=== PATIENT | female | born 1935 | race Caucasian/White ===

== ENCOUNTER 2016-10-17 07:58 | Inpatient (IN) | payer MEDICARE ==
[~2016-10-17] VITALS: Ht 170.2 cm; Wt 77.1 kg
[~2016-10-17 07:58] MED LIST: ATOR80TA PO; CARB-96 PO; FERR-58 PO; GABA-532 PO; INSU3INS6 SQ; MIRT30TA PO; OLME20TA15 PO; QUET25TA PO; RIVA10TA PO; SITA1TAB6 PO; TOLT4CAP PO
[2016-10-17 08:30] LABS: BASOPHILS % (AUTO) 0.3 % (0.0-2.0); DIFF TOTAL % 100 %; EOSINOPHILS # (AUTO) 0.1 /CMM (0.0-0.7); EOSINOPHILS % (AUTO) 0.9 % (0.0-6.0); HEMATOCRIT 36 % (33-45); HEMOGLOBIN 11.5 g/dL (11.5-14.8); LYMPHOCYTES % (AUTO) 19.2 % (20.0-44.0); MEAN CORPUSCULAR HEMOGLOBIN 29 PG (26.0-33.0); MEAN CORPUSCULAR HGB CONC 32 g/dl (31.0-36.0); MEAN CORPUSCULAR VOLUME 91 fL (82-100); MONOCYTES # (AUTO) 0.6 /CMM (0.1-1.30); MONOCYTES % (AUTO) 5.5 % (2.0-12.0); NEUTROPHILS # (AUTO) 7.8 /CMM (1.8-8.9); NEUTROPHILS % (AUTO) 74.1 % (43.0-81.0); PLATELET COUNT (AUTO) 267 /CMM (150-450); RED BLOOD CELL COUNT(AUTO) 3.95 MIL/uL (4.0-5.2); WHITE BLOOD COUNT (AUTO) 10.5 K/uL (4.3-11.0)
[2016-10-17 08:45] LABS: ANION GAP 13 (5-14); CALCIUM, SERUM 9.5 mg/dL (8.5-10.1); CARBON DIOXIDE 28 mmol/L (21-32); CHLORIDE 102 mmol/L (98-107); CREATININE 0.8 mg/dL (0.6-1.3); GLUCOSE 129 mg/dL (74-106); POTASSIUM 4.2 mmol/L (3.5-5.1); SODIUM SERUM 139 mmol/L (136-145); UREA NITROGEN, BLOOD 22 mg/dL (7-18)
[2016-10-17 08:47] LABS: INR 1.16 (0.87-1.13); PROTHROMBIN TIME 12.6 SECS (9.5-12.7)
[2016-10-17 08:51] LABS: ALANINE AMINOTRANSFERASE 27 U/L (12-78); ALBUMIN 3.6 g/dL (3.4-5.0); ASPARTATE AMINOTRANSFERASE 26 U/L (15-37); BILIRUBIN,DIRECT 0.1 mg/dL (0.0-0.2); BILIRUBIN,TOTAL 0.3 mg/dL (0.2-1.0); INDIRECT BILIRUBIN 0.2 mg/dL (0.0-1.1); TOTAL PROTEIN, SERUM 7.5 g/dL (6.4-8.2)
[2016-10-17 08:53] LABS: TROPONIN I < 0.017 ng/mL (0.00-0.056)
[2016-10-17] MEDS ORDERED: VENL75CA56 PO (09:04)
[2016-10-17] MEDS ORDERED: OMEP20TA68 PO (09:04)
[2016-10-17 11:00] VITALS: BP 144/99
[2016-10-17] MEDS ORDERED: Medication Not On Formulary EA (Sitagliptin Phos/Metformin Hcl (Janumet 50-1,000 Mg Tabl PO SCH (12:30)
[2016-10-17] MEDS: QUETIAPINE FUMARATE 25 MG TABLET PO SCH ×2 (12:30→18:07)
[2016-10-17] MEDS: INSULIN DETEMIR 100 UNIT/ML CARTRIDGE SQ SCH (12:33)
[2016-10-17] MEDS: DEXAMETHASONE 4 MG TABLET PO SCH ×2 (13:00→18:07)
[2016-10-17] MEDS: FERROUS SULFATE (325 MG) 325 MG/TAB TABLET PO SCH ×2 (13:00→18:07)
[2016-10-17] MEDS ORDERED: IV SET PRIMARY PUMP SET 1 EA INFUS.SET MC ONE (13:24)
[2016-10-17 13:30] VITALS: BP 145/89
[2016-10-17] MEDS ORDERED: MORPHINE SULFATE INJ 2 MG/ML DISP.SYRIN IM PRN (13:30)
[2016-10-17] MEDS: IV NS 0.9% 1,000 ML IV PRN (13:40)
[2016-10-17] MEDS: MORPHINE SULFATE INJ 2 MG/ML DISP.SYRIN IV PRN (13:44)
[2016-10-17 16:00] VITALS: BP 137/91
[2016-10-17] MEDS ORDERED: MAG HYDROX/AL HYDROX/SIMETH 30 ML UDC PO PRN (17:30)
[2016-10-17] MEDS ORDERED: Z GUARD REMEDY 2 OZ OINT TP PRN (17:30)
[2016-10-17] MEDS ORDERED: ONDANSETRON HCL/PF 4 MG/2 ML VIAL IVP PRN (17:30)
[2016-10-17] MEDS ORDERED: MAGNESIUM HYDROXIDE 30 ML UDC PO PRN (17:30)
[2016-10-17] MEDS ORDERED: ZOLPIDEM TARTRATE 5 MG TABLET PO PRN (17:30)
[2016-10-17] MEDS ORDERED: HYDROCODONE/APAP 5/325MG 1 EACH TABLET PO PRN (17:30)
[2016-10-17] MEDS ORDERED: CLINDAMYCIN IV RTU IN D5W 900 MG/50 ML PIGGYBACK IV SCH (17:48)
[2016-10-17] MEDS: VENLAFAXINE XR 75 MG CAP.SR.24H PO SCH (18:07)
[2016-10-17] MEDS ORDERED: SECONDARY IV SET 1 EA INFUS.SET MC ONE (18:47)
[2016-10-17 20:00] VITALS: BP 160/80
[2016-10-17 21:06] VITALS: BP 165/97
[2016-10-17] MEDS: TOLTERODINE 2 MG CAP.SR PO SCH (21:20)
[2016-10-17] MEDS: MIRTAZAPINE 15 MG TABLET PO SCH (21:20)
[2016-10-17] MEDS: CLINDAMYCIN 900 MG in IV D5W 50 ML IV SCH (22:34)
[2016-10-18] MEDS ORDERED: DIPHENOXYLATE HCL/ATROP SULF 1 UDTAB TABLET ONE (03:54)
[2016-10-18] MEDS: MORPHINE SULFATE INJ 2 MG/ML DISP.SYRIN IV PRN (04:00)
[2016-10-18] MEDS ORDERED: DIPHENOXYLATE HCL/ATROP SULF 1 UDTAB TABLET PO PRN (04:00)
[2016-10-18] MEDS: CLINDAMYCIN 900 MG in IV D5W 50 ML IV SCH ×3 (04:48→20:02)
[2016-10-18] MEDS: IV NS 0.9% 1,000 ML IV PRN ×2 (05:09→19:19)
[2016-10-18 07:29] LABS: BASOPHILS % (AUTO) 0.1 % (0.0-2.0); DIFF TOTAL % 100 %; HEMATOCRIT 31 % (33-45); HEMOGLOBIN 10.5 g/dL (11.5-14.8); LYMPHOCYTES # (AUTO) 0.9 /CMM (0.8-4.8); LYMPHOCYTES % (AUTO) 7.7 % (20.0-44.0); MEAN CORPUSCULAR HEMOGLOBIN 30 PG (26.0-33.0); MEAN CORPUSCULAR HGB CONC 33 g/dl (31.0-36.0); MEAN CORPUSCULAR VOLUME 90 fL (82-100); MONOCYTES # (AUTO) 0.8 /CMM (0.1-1.30); MONOCYTES % (AUTO) 6.5 % (2.0-12.0); NEUTROPHILS # (AUTO) 10.1 /CMM (1.8-8.9); NEUTROPHILS % (AUTO) 85.7 % (43.0-81.0); PLATELET COUNT (AUTO) 246 /CMM (150-450); WHITE BLOOD COUNT (AUTO) 11.8 K/uL (4.3-11.0)
[2016-10-18 08:00] VITALS: BP 159/86
[2016-10-18] MEDS: METFORMIN XR 500 MG TAB.SR.24H PO SCH (08:42)
[2016-10-18] MEDS: VENLAFAXINE XR 75 MG CAP.SR.24H PO SCH (08:42)
[2016-10-18] MEDS: DEXAMETHASONE 4 MG TABLET PO SCH ×3 (08:43→16:51)
[2016-10-18] MEDS: QUETIAPINE FUMARATE 25 MG TABLET PO SCH ×2 (08:43→16:51)
[2016-10-18] MEDS: FERROUS SULFATE (325 MG) 325 MG/TAB TABLET PO SCH ×3 (08:43→16:51)
[2016-10-18] MEDS: INSULIN DETEMIR 100 UNIT/ML CARTRIDGE SQ SCH (08:50)
[2016-10-18 09:26] LABS: ALBUMIN 3.2 g/dL (3.4-5.0); BILIRUBIN,TOTAL 0.5 mg/dL (0.2-1.0); CALCIUM, SERUM 8.8 mg/dL (8.5-10.1); CREATININE 0.5 mg/dL (0.6-1.3); PHOSPHORUS 3.9 mg/dL (2.5-4.9); POTASSIUM 3.8 mmol/L (3.5-5.1); TOTAL PROTEIN, SERUM 6.9 g/dL (6.4-8.2)
[2016-10-18] MEDS ORDERED: SECONDARY IV SET 1 EA INFUS.SET MC ONE (10:27)
[2016-10-18] MEDS ORDERED: Magnesium 1GM/D5W 100ML PREMIX PIGGYBACK IV ONE (10:30)
[2016-10-18] MEDS ORDERED: POTASSIUM CHLORIDE 20 MEQ TAB.PRT.SR PO SCH (11:00)
[2016-10-18] MEDS ORDERED: Z GUARD REMEDY 2 OZ OINT TP PRN (11:30)
[2016-10-18] MEDS: SITAGLIPTIN PHOSPHATE 50 MG TABLET PO SCH (11:42)
[2016-10-18] MEDS: ATORVASTATIN 40 MG TABLET PO SCH (11:42)
[2016-10-18] MEDS: PANTOPRAZOLE 40 MG TABLET.DR PO SCH (14:29)
[2016-10-18] MEDS: BENICAR 20 MG PO SCH (14:30)
[2016-10-18 16:00] VITALS: BP 127/64
[2016-10-18] MEDS: Z GUARD REMEDY 2 OZ OINT TP SCH (16:52)
[2016-10-18 20:00] VITALS: BP 120/64
[2016-10-18] MEDS: ACETAMINOPHEN 325 MG TABLET PO PRN (20:02)
[2016-10-18] MEDS: TOLTERODINE 2 MG CAP.SR PO SCH (21:34)
[2016-10-18] MEDS: MIRTAZAPINE 15 MG TABLET PO SCH (21:34)
[2016-10-19] MEDS: ACETAMINOPHEN 325 MG TABLET PO PRN ×2 (02:49→13:14)
[2016-10-19] MEDS: CLINDAMYCIN 900 MG in IV D5W 50 ML IV SCH ×3 (04:11→22:58)
[2016-10-19] MEDS: IV NS 0.9% 1,000 ML IV PRN (04:54)
[2016-10-19 08:00] VITALS: BP 190/94
[2016-10-19] MEDS: VENLAFAXINE XR 75 MG CAP.SR.24H PO SCH (08:30)
[2016-10-19] MEDS: FERROUS SULFATE (325 MG) 325 MG/TAB TABLET PO SCH ×3 (08:30→17:48)
[2016-10-19] MEDS: ATORVASTATIN 40 MG TABLET PO SCH (08:30)
[2016-10-19] MEDS: METFORMIN XR 500 MG TAB.SR.24H PO SCH (08:30)
[2016-10-19] MEDS: PANTOPRAZOLE 40 MG TABLET.DR PO SCH (08:30)
[2016-10-19] MEDS: QUETIAPINE FUMARATE 25 MG TABLET PO SCH ×2 (08:30→17:48)
[2016-10-19] MEDS: DEXAMETHASONE 4 MG TABLET PO SCH ×3 (08:30→17:48)
[2016-10-19] MEDS: SITAGLIPTIN PHOSPHATE 50 MG TABLET PO SCH (08:30)
[2016-10-19] MEDS: Z GUARD REMEDY 2 OZ OINT TP SCH ×2 (08:32→17:49)
[2016-10-19] MEDS: BENICAR 20 MG PO SCH (09:16)
[2016-10-19] MEDS: INSULIN DETEMIR 100 UNIT/ML CARTRIDGE SQ SCH (09:17)
[2016-10-19 16:00] VITALS: BP 144/77
[2016-10-19 20:00] VITALS: BP 140/72
[2016-10-19] MEDS: MIRTAZAPINE 15 MG TABLET PO SCH (22:58)
[2016-10-19] MEDS: TOLTERODINE 2 MG CAP.SR PO SCH (22:58)
[2016-10-20] MEDS: CLINDAMYCIN 900 MG in IV D5W 50 ML IV SCH ×2 (04:53→12:10)
[2016-10-20] MEDS ORDERED: SECONDARY IV SET 1 EA INFUS.SET MC ONE ×2 (05:19→12:37)
[2016-10-20 06:21] LABS: BASOPHILS % (AUTO) 0.2 % (0.0-2.0); HEMATOCRIT 32 % (33-45); HEMOGLOBIN 10.5 g/dL (11.5-14.8); LYMPHOCYTES # (AUTO) 1.4 /CMM (0.8-4.8); LYMPHOCYTES % (AUTO) 15.2 % (20.0-44.0); MEAN CORPUSCULAR HEMOGLOBIN 30 PG (26.0-33.0); MEAN CORPUSCULAR HGB CONC 33 g/dl (31.0-36.0); MEAN CORPUSCULAR VOLUME 90 fL (82-100); MONOCYTES # (AUTO) 0.7 /CMM (0.1-1.30); MONOCYTES % (AUTO) 7.7 % (2.0-12.0); NEUTROPHILS # (AUTO) 7.1 /CMM (1.8-8.9); NEUTROPHILS % (AUTO) 76.9 % (43.0-81.0); PLATELET COUNT (AUTO) 236 /CMM (150-450); RED BLOOD CELL COUNT(AUTO) 3.57 MIL/uL (4.0-5.2); WHITE BLOOD COUNT (AUTO) 9.3 K/uL (4.3-11.0)
[2016-10-20 06:45] LABS: CREATININE 0.5 mg/dL (0.6-1.3); POTASSIUM 3.7 mmol/L (3.5-5.1)
[2016-10-20 06:53] LABS: DIFF TOTAL % 100 %
[2016-10-20] MEDS: PANTOPRAZOLE 40 MG TABLET.DR PO SCH (07:47)
[2016-10-20 08:00] VITALS: BP 175/92
[2016-10-20] MEDS ORDERED: hydrALAZINE HCL 10 MG TABLET PO PRN (08:30)
[2016-10-20] MEDS: FERROUS SULFATE (325 MG) 325 MG/TAB TABLET PO SCH ×3 (08:53→16:48)
[2016-10-20] MEDS: SITAGLIPTIN PHOSPHATE 50 MG TABLET PO SCH (08:53)
[2016-10-20] MEDS: DEXAMETHASONE 4 MG TABLET PO SCH ×3 (08:53→16:48)
[2016-10-20] MEDS: VENLAFAXINE XR 75 MG CAP.SR.24H PO SCH (08:53)
[2016-10-20] MEDS: ATORVASTATIN 40 MG TABLET PO SCH (08:53)
[2016-10-20] MEDS: QUETIAPINE FUMARATE 25 MG TABLET PO SCH ×2 (08:53→16:48)
[2016-10-20] MEDS: Z GUARD REMEDY 2 OZ OINT TP SCH ×2 (08:54→16:49)
[2016-10-20] MEDS: METFORMIN XR 500 MG TAB.SR.24H PO SCH (08:57)
[2016-10-20] MEDS: BENICAR 20 MG PO SCH (09:01)
[2016-10-20] MEDS: INSULIN DETEMIR 100 UNIT/ML CARTRIDGE SQ SCH (09:14)
[2016-10-20 10:40] VITALS: BP 142/82
[2016-10-20] MEDS: Magnesium 1GM/D5W 100ML PREMIX 100 ML IV SCH ×2 (12:47→14:32)
[2016-10-20] MEDS ORDERED: DEXA4TAB2 PO (14:46)
[2016-10-20] MEDS ORDERED: Hydralazine Hcl PO (14:46)
[2016-10-20] MEDS ORDERED: ATOR40TA PO (14:46)
[2016-10-20 16:00] VITALS: BP 125/61
== END 2016-10-20 18:15 | DRG 124 ==
LOC: ER 07:59 → MED 10:12
PROVIDERS: ADMIT Family Medicine; ATTEND Family Medicine
DX: S02.31XA Fracture of orbital floor, right side, initial encounter for closed fracture (principal); G93.40 Encephalopathy, unspecified; S02.2XXA Fracture of nasal bones, initial encounter for closed fracture; W18.30XA Fall on same level, unspecified, initial encounter; I25.10 Atherosclerotic heart disease of native coronary artery without angina pectoris; Z95.1 Presence of aortocoronary bypass graft; Z86.73 Personal history of transient ischemic attack (TIA), and cerebral infarction without residual deficits; F03.90 Unspecified dementia, unspecified severity, without behavioral disturbance, psychotic disturbance, mood disturbance, and anxiety; E78.5 Hyperlipidemia, unspecified; G20 Parkinson's disease; I10 Essential (primary) hypertension; E11.9 Type 2 diabetes mellitus without complications; K21.9 Gastro-esophageal reflux disease without esophagitis; M19.90 Unspecified osteoarthritis, unspecified site; D63.8 Anemia in other chronic diseases classified elsewhere; F32.9 Major depressive disorder, single episode, unspecified; M06.9 Rheumatoid arthritis, unspecified; S00.83XA Contusion of other part of head, initial encounter; Z74.01 Bed confinement status; Z85.3 Personal history of malignant neoplasm of breast; Z87.891 Personal history of nicotine dependence; Z90.10 Acquired absence of unspecified breast and nipple; W19.XXXA Unspecified fall, initial encounter
CPT/HCPCS: 36415; 70450-TC; 70486-TC; 71010-TC; 80048-TC; 80053-TC; 80061-TC; 80076-TC; 82962-TC; 83735-TC; 84100-TC; 84484-TC; 85025-TC; 85730-TC; 87040-TC; 87081-TC; 92521; 92526; 93307-TC; 97001-TC; 97003-TC; A4606; A6402; A6403; J1815; J2270; J3475; J3490; J7030; J7060; J8540; Z7610

== ENCOUNTER 2016-10-25 11:14 | Inpatient (IN) | payer MEDICARE ==
[~2016-10-25 11:14] MED LIST changes: +ATOR40TA PO; -ATOR80TA PO; +DEXA4TAB2 PO; -GABA-532 PO; +Hydralazine Hcl PO; +OMEP20TA68 PO; -RIVA10TA PO; +VENL75CA56 PO
[2016-10-25] MEDS ORDERED: [UNRECOGNIZED DRUG - CODE] MC (12:05)
[2016-10-25] MEDS ORDERED: MAGN400O6 PO (12:05)
[2016-10-25] MEDS ORDERED: DEXA4TAB2 PO (12:05)
[2016-10-25] MEDS ORDERED: ACET-868 PO ×2 (12:05)
[2016-10-25] MEDS ORDERED: ATOR80TA PO (12:05)
[2016-10-25] MEDS ORDERED: HYDR-4075 PO (12:05)
[2016-10-25] MEDS ORDERED: ANESTHESIA TRAY IN PYXIS 1 EA TRAY MC ONE ×2 (12:12→17:21)
[2016-10-25] MEDS ORDERED: LIDOCAINE 1%-EPI 1:100,000 20 ML VIAL ONE (12:27)
[2016-10-25] MEDS ORDERED: FENTANYL PF 100MCG/2ML AMPUL ONE ×3 (14:24→17:16)
[2016-10-25] MEDS ORDERED: ROCURONIUM BROMIDE 50 MG/5 ML ONE (14:25)
[2016-10-25] MEDS ORDERED: CLINDAMYCIN 900 MG/6 ML VIAL ONE (14:45)
[2016-10-25] MEDS ORDERED: OXYMETAZOLINE HCL NASAL SPRAY 30 ML BOTTLE NS ONE (15:00)
[2016-10-25] MEDS ORDERED: BALANCED SALT IRRIG SOLN COMB2 15 ML BOTTLE ONE ×2 (16:25→16:39)
[2016-10-25] MEDS ORDERED: BACITRACIN OPHTH OINT 3.5 GM TUBE ONE (16:45)
[2016-10-25] MEDS ORDERED: VITAMINS A AND D 56.7 GM TUBE TP ONE (16:47)
[2016-10-25] MEDS ORDERED: OXYMETAZOLINE HCL NASAL SPRAY 30 ML BOTTLE NS PRN (18:00)
[2016-10-25] MEDS ORDERED: OXYMETAZOLINE HCL NASAL SPRAY 30 ML BOTTLE NS SCH (18:00)
[2016-10-25] MEDS ORDERED: SECONDARY IV SET 1 EA INFUS.SET MC ONE (20:22)
[2016-10-25] MEDS: DEXAMETHASONE SOD PHOSPHATE 10 MG/ML VIAL IV SCH (20:31)
[2016-10-25] MEDS: NEO/POLY/DEXA OPHTH OINT 3.5 GM TUBE RIGHTEYE SCH (20:32)
[2016-10-25] MEDS ORDERED: IV NS 0.9% 250 ML IV ONE (20:34)
[2016-10-25] MEDS ORDERED: IV SET PRIMARY PUMP SET 1 EA INFUS.SET MC ONE (20:34)
[2016-10-25] MEDS: CLINDAMYCIN 600 MG in IV D5W 50 ML IV SCH (22:04)
[2016-10-26] MEDS: DEXAMETHASONE SOD PHOSPHATE 10 MG/ML VIAL IV SCH ×3 (02:32→17:17)
[2016-10-26] MEDS ORDERED: MORPHINE SULFATE INJ 2 MG/ML DISP.SYRIN ONE (04:28)
[2016-10-26] MEDS: MORPHINE SULFATE INJ 2 MG/ML DISP.SYRIN IV PRN (04:30)
[2016-10-26] MEDS ORDERED: hydrALAZINE HCL IV 20 MG VIAL ONE (06:15)
[2016-10-26] MEDS: CLINDAMYCIN 600 MG in IV D5W 50 ML IV SCH ×3 (06:20→23:39)
[2016-10-26] MEDS ORDERED: hydrALAZINE HCL IV 20 MG VIAL IV PRN (06:30)
[2016-10-26] MEDS: NEO/POLY/DEXA OPHTH OINT 3.5 GM TUBE RIGHTEYE SCH ×4 (09:07→21:10)
[2016-10-26] MEDS ORDERED: SECONDARY IV SET 1 EA INFUS.SET MC ONE (09:37)
[2016-10-26] MEDS: Magnesium 1GM/D5W 100ML PREMIX 100 ML IV SCH ×2 (09:42→11:27)
[2016-10-26] MEDS: NITROGLYCERIN 30 GM TUBE TP SCH ×2 (10:09→21:00)
[2016-10-26] MEDS ORDERED: NITROGLYCERIN 4.9 GM SPRAY ONE (11:56)
[2016-10-26] MEDS: BOOST PLUS FOOD-VANILLA 237 ML BOX PO SCH (19:44)
[2016-10-26] MEDS: IV NS 0.9% 1,000 ML IV PRN (19:44)
[2016-10-27] MEDS: DEXAMETHASONE SOD PHOSPHATE 10 MG/ML VIAL IV SCH ×2 (02:14→10:00)
[2016-10-27] MEDS: CLINDAMYCIN 600 MG in IV D5W 50 ML IV SCH ×2 (06:01→15:42)
[2016-10-27] MEDS: IV NS 0.9% 1,000 ML IV PRN ×2 (06:02→16:50)
[2016-10-27] MEDS: BOOST PLUS FOOD-VANILLA 237 ML BOX PO SCH ×2 (08:00→17:00)
[2016-10-27] MEDS: NITROGLYCERIN 30 GM TUBE TP SCH ×2 (09:00→22:10)
[2016-10-27] MEDS: NEO/POLY/DEXA OPHTH OINT 3.5 GM TUBE RIGHTEYE SCH ×3 (09:00→21:58)
[2016-10-27] MEDS ORDERED: NITROGLYCERIN PACKET 1 GM PACKET ONE (22:05)
[2016-10-28] MEDS: DEXAMETHASONE SOD PHOSPHATE 10 MG/ML VIAL IV SCH ×3 (02:24→17:16)
[2016-10-28] MEDS: IV NS 0.9% 1,000 ML IV PRN (02:25)
[2016-10-28] MEDS: BOOST PLUS FOOD-VANILLA 237 ML BOX PO SCH ×2 (08:00→17:00)
[2016-10-28] MEDS: NITROGLYCERIN 30 GM TUBE TP SCH ×2 (09:00→21:21)
[2016-10-28] MEDS: NEO/POLY/DEXA OPHTH OINT 3.5 GM TUBE RIGHTEYE SCH ×4 (09:00→18:50)
[2016-10-28] MEDS: MORPHINE SULFATE INJ 2 MG/ML DISP.SYRIN IV PRN (16:08)
[2016-10-29] MEDS: DEXAMETHASONE SOD PHOSPHATE 10 MG/ML VIAL IV SCH ×3 (02:13→17:01)
[2016-10-29] MEDS ORDERED: IV SET PRIMARY PUMP SET 1 EA INFUS.SET MC ONE ×2 (02:20→02:25)
[2016-10-29] MEDS: IV D5/0.45 NACL 1,000 ML IV PRN ×2 (02:31→12:49)
[2016-10-29] MEDS: BOOST PLUS FOOD-VANILLA 237 ML BOX PO SCH ×3 (08:00→16:45)
[2016-10-29] MEDS: NITROGLYCERIN 30 GM TUBE TP SCH ×2 (08:05→21:38)
[2016-10-29] MEDS: NEO/POLY/DEXA OPHTH OINT 3.5 GM TUBE RIGHTEYE SCH ×4 (08:05→21:37)
[2016-10-29] MEDS: Z GUARD REMEDY 2 OZ OINT TP SCH (13:00)
[2016-10-30] MEDS: DEXAMETHASONE SOD PHOSPHATE 10 MG/ML VIAL IV SCH ×3 (02:41→17:12)
[2016-10-30] MEDS ORDERED: IV D5/0.45 NACL 1,000 ML IV ONE (05:29)
[2016-10-30] MEDS: IV D5/0.45 NACL 1,000 ML IV PRN ×2 (05:34→21:37)
[2016-10-30] MEDS: BOOST PLUS FOOD-VANILLA 237 ML BOX PO SCH ×2 (08:00→17:08)
[2016-10-30] MEDS: NEO/POLY/DEXA OPHTH OINT 3.5 GM TUBE RIGHTEYE SCH ×4 (09:00→21:36)
[2016-10-30] MEDS: NITROGLYCERIN 30 GM TUBE TP SCH ×2 (09:00→21:00)
[2016-10-30] MEDS: Z GUARD REMEDY 2 OZ OINT TP SCH (09:00)
[2016-10-30] MEDS: PANTOPRAZOLE 40 MG VIAL IV SCH (12:42)
[2016-10-30] MEDS ORDERED: CEFAZOLIN 1 GM in IV D5W 50 ML IV SCH (13:00)
[2016-10-30] MEDS ORDERED: SECONDARY IV SET 1 EA INFUS.SET MC ONE (13:34)
[2016-10-30] MEDS: CLINDAMYCIN 600 MG in IV D5W 50 ML IV SCH ×2 (13:40→21:32)
[2016-10-31] MEDS: DEXAMETHASONE SOD PHOSPHATE 10 MG/ML VIAL IV SCH ×3 (02:58→18:08)
[2016-10-31] MEDS: CLINDAMYCIN 600 MG in IV D5W 50 ML IV SCH ×2 (04:31→13:00)
[2016-10-31] MEDS: IV D5/0.45 NACL 1,000 ML IV PRN (07:24)
[2016-10-31] MEDS: BOOST PLUS FOOD-VANILLA 237 ML BOX PO SCH ×2 (08:00→16:25)
[2016-10-31] MEDS: NITROGLYCERIN 30 GM TUBE TP SCH ×2 (09:14→20:14)
[2016-10-31] MEDS: NEO/POLY/DEXA OPHTH OINT 3.5 GM TUBE RIGHTEYE SCH ×4 (09:20→20:14)
[2016-10-31] MEDS: Z GUARD REMEDY 2 OZ OINT TP SCH (09:41)
[2016-10-31] MEDS: PANTOPRAZOLE 40 MG VIAL IV SCH (12:00)
[2016-10-31] MEDS ORDERED: FIBERSOURCE HN 1,000 ML BOTTLE GT PRN ×2 (17:00→18:30)
[2016-11-01] MEDS: IV D5/ 0.9% NACL 1,000 ML IV PRN ×2 (01:12→16:38)
[2016-11-01] MEDS: DEXAMETHASONE SOD PHOSPHATE 10 MG/ML VIAL IV SCH ×3 (01:15→17:50)
[2016-11-01] MEDS: Z GUARD REMEDY 2 OZ OINT TP SCH (09:27)
[2016-11-01] MEDS: NEO/POLY/DEXA OPHTH OINT 3.5 GM TUBE RIGHTEYE SCH ×4 (09:28→21:12)
[2016-11-01] MEDS: BOOST PLUS FOOD-VANILLA 237 ML BOX PO SCH ×2 (09:28→16:40)
[2016-11-01] MEDS: NITROGLYCERIN 30 GM TUBE TP SCH ×2 (09:28→21:00)
[2016-11-01] MEDS: PANTOPRAZOLE 40 MG VIAL IV SCH (12:15)
[2016-11-01] MEDS ORDERED: DEXTROSE 50%-WATER 50 ML DISP.SYRIN IV PRN (13:30)
[2016-11-01] MEDS ORDERED: *INSULIN REGULAR(HUMULIN R)HUM 100 UNIT/ML VIAL SQ PRN (13:30)
[2016-11-01] MEDS: INSULIN REGULAR, HUMAN 100 UNIT/ML 3 ML VIAL SQ PRN ×2 (17:59→21:19)
[2016-11-01] MEDS: BLOOD SUGAR DIAGNOSTIC 1 EACH STRIP VI SCH ×2 (17:59→21:13)
[2016-11-02] MEDS: DEXAMETHASONE SOD PHOSPHATE 10 MG/ML VIAL IV SCH ×2 (03:01→08:59)
[2016-11-02] MEDS: BLOOD SUGAR DIAGNOSTIC 1 EACH STRIP VI SCH ×4 (06:36→21:54)
[2016-11-02] MEDS: INSULIN REGULAR, HUMAN 100 UNIT/ML 3 ML VIAL SQ PRN ×4 (06:38→22:16)
[2016-11-02] MEDS: BOOST PLUS FOOD-VANILLA 237 ML BOX PO SCH ×2 (08:00→16:07)
[2016-11-02] MEDS: NITROGLYCERIN 30 GM TUBE TP SCH ×2 (08:01→21:00)
[2016-11-02] MEDS: NEO/POLY/DEXA OPHTH OINT 3.5 GM TUBE RIGHTEYE SCH ×4 (08:51→21:53)
[2016-11-02] MEDS: Z GUARD REMEDY 2 OZ OINT TP SCH (08:52)
[2016-11-02] MEDS: PANTOPRAZOLE 40 MG VIAL IV SCH (11:30)
[2016-11-02] MEDS ORDERED: PRED50TA PO (14:52)
[2016-11-02] MEDS: GLYTROL 1,000 ML BAG GT PRN (17:10)
[2016-11-03] MEDS: BLOOD SUGAR DIAGNOSTIC 1 EACH STRIP VI SCH ×4 (06:38→21:23)
[2016-11-03] MEDS: INSULIN REGULAR, HUMAN 100 UNIT/ML 3 ML VIAL SQ PRN ×3 (06:40→16:32)
[2016-11-03] MEDS: BOOST PLUS FOOD-VANILLA 237 ML BOX PO SCH ×2 (08:00→16:25)
[2016-11-03] MEDS: NITROGLYCERIN 30 GM TUBE TP SCH ×2 (09:00→21:00)
[2016-11-03] MEDS: NEO/POLY/DEXA OPHTH OINT 3.5 GM TUBE RIGHTEYE SCH ×4 (09:09→21:25)
[2016-11-03] MEDS: Z GUARD REMEDY 2 OZ OINT TP SCH (09:10)
[2016-11-03] MEDS: PANTOPRAZOLE 40 MG VIAL IV SCH (12:44)
[2016-11-03] MEDS ORDERED: CARBIDOPA/LEV CR 50/200 MG 1 UDTAB.SA PO SCH (16:00)
[2016-11-03] MEDS: CARBIDOPA/LEVODOPA 25/100 MG 1 UDTAB GT SCH (16:24)
[2016-11-03] MEDS ORDERED: IV NS 0.9% 500 ML BAG IV ONE ×2 (18:00→19:30)
[2016-11-03] MEDS ORDERED: IV SET PRIMARY PUMP SET 1 EA INFUS.SET MC ONE (18:07)
[2016-11-03] MEDS: GLYTROL 1,000 ML BAG GT PRN (21:26)
[2016-11-04] MEDS: BLOOD SUGAR DIAGNOSTIC 1 EACH STRIP VI SCH ×2 (05:24→12:24)
[2016-11-04] MEDS ORDERED: INSULIN REGULAR, HUMAN 100 UNIT/ML 3 ML VIAL SQ PRN (06:00)
[2016-11-04] MEDS: NITROGLYCERIN 30 GM TUBE TP SCH (09:00)
[2016-11-04] MEDS: NEO/POLY/DEXA OPHTH OINT 3.5 GM TUBE RIGHTEYE SCH ×2 (09:21→15:50)
[2016-11-04] MEDS: BOOST PLUS FOOD-VANILLA 237 ML BOX PO SCH (09:21)
[2016-11-04] MEDS: CARBIDOPA/LEVODOPA 25/100 MG 1 UDTAB GT SCH (09:21)
[2016-11-04] MEDS: Z GUARD REMEDY 2 OZ OINT TP SCH (09:24)
[2016-11-04] MEDS ORDERED: QUETIAPINE FUMARATE 25 MG TABLET PO PRN (11:00)
[2016-11-04] MEDS: PANTOPRAZOLE 40 MG VIAL IV SCH (12:23)
[2016-11-04] MEDS ORDERED: CARBIDOPA/LEVODOPA 25/100 MG 1 UDTAB GT SCH (13:00)
[2016-11-04] MEDS ORDERED: CARBIDOPA/LEV CR 50/200 MG 1 UDTAB.SA PO SCH (13:00)
[2016-11-04] MEDS ORDERED: PredniSONE SOLUTION 5 MG/5 ML UDC PO ONE ×2 (16:30→16:42)
[2016-11-04] MEDS ORDERED: methylPREDNISolone SOD SUCC 125 MG/2ML VIAL IV ONE (16:30)
[2016-11-04] MEDS ORDERED: predniSONE 20 MG TABLET GT ONE ×2 (17:00)
== END 2016-11-04 16:50 | DRG 131 ==
DX: S02.2XXA Fracture of nasal bones, initial encounter for closed fracture (principal); G93.40 Encephalopathy, unspecified; S02.31XA Fracture of orbital floor, right side, initial encounter for closed fracture; Z95.1 Presence of aortocoronary bypass graft; D63.8 Anemia in other chronic diseases classified elsewhere; D72.829 Elevated white blood cell count, unspecified; E11.9 Type 2 diabetes mellitus without complications; E78.5 Hyperlipidemia, unspecified; F03.90 Unspecified dementia, unspecified severity, without behavioral disturbance, psychotic disturbance, mood disturbance, and anxiety; F43.9 Reaction to severe stress, unspecified; G20 Parkinson's disease; I10 Essential (primary) hypertension; I25.10 Atherosclerotic heart disease of native coronary artery without angina pectoris; K21.9 Gastro-esophageal reflux disease without esophagitis; M19.90 Unspecified osteoarthritis, unspecified site; M06.9 Rheumatoid arthritis, unspecified; W19.XXXA Unspecified fall, initial encounter; Z86.73 Personal history of transient ischemic attack (TIA), and cerebral infarction without residual deficits; R13.10 Dysphagia, unspecified; Z91.81 History of falling; E83.42 Hypomagnesemia; E87.5 Hyperkalemia; Z90.10 Acquired absence of unspecified breast and nipple; Y93.9 Activity, unspecified; Y92.89 Other specified places as the place of occurrence of the external cause; Y99.9 Unspecified external cause status; H05.20 Unspecified exophthalmos

== ENCOUNTER 2017-04-13 18:37 | Inpatient (IN) | payer MEDICARE ==
[~2017-04-13] VITALS: Ht 154.9 cm; Wt 71.7 kg
[~2017-04-13 18:37] MED LIST changes: +ACET-868 PO; -ATOR40TA PO; +ATOR80TA PO; +HYDR-4075 PO; -Hydralazine Hcl PO; +MAGN400O6 PO; +PRED50TA PO; -QUET25TA PO; -VENL75CA56 PO; +[UNRECOGNIZED DRUG - CODE] MC
--- NOTE | 2017-04-13 18:50 | NUR ---
ALEXANDREA SALGADO FROM [facility] FOR ABNORMAL LABS. AT BS. VSS. SEEN BY MD FOR EVAL. SAFETY AND COMFORT MEASURES PROVIDED. WILL MONITOR.
--- NOTE | 2017-04-13 18:54 | NUR ---
IV ACCESS STARTED. BLOOD DRAWN FOR LABS. EKG DONE AT BS.
[2017-04-13 18:55] LABS: BASOPHILS # (AUTO) 0.5 /CMM (0.0-0.2); BASOPHILS % (AUTO) 4.3 % (0.0-2.0); EOSINOPHILS # (AUTO) 0.1 /CMM (0.0-0.7); EOSINOPHILS % (AUTO) 1.4 % (0.0-6.0); HEMATOCRIT 35 % (33-45); HEMOGLOBIN 11.7 g/dL (11.5-14.8); LYMPHOCYTES # (AUTO) 0.8 /CMM (0.8-4.8); LYMPHOCYTES % (AUTO) 7.3 % (20.0-44.0); MEAN CORPUSCULAR HEMOGLOBIN 30 PG (26.0-33.0); MEAN CORPUSCULAR HGB CONC 33 g/dl (31.0-36.0); MEAN CORPUSCULAR VOLUME 89 fL (82-100); MONOCYTES # (AUTO) 0.1 /CMM (0.1-1.30); MONOCYTES % (AUTO) 1.3 % (2.0-12.0); NEUTROPHILS % (AUTO) 85.7 % (43.0-81.0); PLATELET COUNT (AUTO) 241 /CMM (150-450); RDW COEFFICIENT OF VARIATION 16.3 (11.5-15.0); RED BLOOD CELL COUNT(AUTO) 3.95 MIL/uL (4.0-5.2); WHITE BLOOD COUNT (AUTO) 10.5 K/uL (4.3-11.0)
[2017-04-13] MEDS ORDERED: TOLT2CAP8 PO (18:59)
[2017-04-13] MEDS ORDERED: BISA10SU8 RC (18:59)
[2017-04-13] MEDS ORDERED: PRED50TA PO (18:59)
[2017-04-13] MEDS ORDERED: SITA1TAB6 PO (18:59)
[2017-04-13] MEDS ORDERED: NA P133E RC (18:59)
[2017-04-13] MEDS ORDERED: INSU100V11 SQ (18:59)
[2017-04-13] MEDS ORDERED: LACT10SO7 PO (18:59)
[2017-04-13] MEDS ORDERED: INSU100V7 SQ (18:59)
[2017-04-13] MEDS ORDERED: DOCU-25 PO (18:59)
[2017-04-13] MEDS ORDERED: LOSA50TA21 PO (18:59)
[2017-04-13] MEDS ORDERED: MIRT15TA7 PO (19:01)
--- NOTE | 2017-04-13 19:03 | NUR ---
URINE SAMPLE OBTAINED, SENT.
[2017-04-13 19:06] LABS: CALCIUM, SERUM 6.9 mg/dL (8.5-10.1); CARBON DIOXIDE 24 mmol/L (21-32); CHLORIDE 106 mmol/L (98-107); CREATININE 0.7 mg/dL (0.6-1.3); GLUCOSE 119 mg/dL (74-106); POTASSIUM 3.5 mmol/L (3.5-5.1); SODIUM SERUM 148 mmol/L (136-145); UREA NITROGEN, BLOOD 22 mg/dL (7-18)
[2017-04-13 19:08] LABS: APPEARANCE,URINE Clear (CLEAR); BILIRUBIN,URINE Negative (NEGATIVE); BLOOD, URINE Large Ery/uL (NEGATIVE); COLOR,URINE Yellow (YELLOW); KETONES,URINE Negative (NEGATIVE); LEUKOCYTE ESTERASE ,URINE Large (NEGATIVE); NITRITE, URINE Positive (NEGATIVE); PROTEIN,URINE 30 mg/dl (NEGATIVE); UGLUCOSE Negative (NEGATIVE)
[2017-04-13 19:09] LABS: INR 1.07 (0.87-1.13); PHOSPHORUS 4.6 mg/dL (2.5-4.9); PROTHROMBIN TIME 11.1 SECS (9.5-12.7)
[2017-04-13 19:14] LABS: ALANINE AMINOTRANSFERASE 22 U/L (12-78); ALBUMIN 2.8 g/dL (3.4-5.0); ALKALINE PHOSPHATASE 33 U/L (46-116); ASPARTATE AMINOTRANSFERASE 16 U/L (15-37); BILIRUBIN,DIRECT 0.1 mg/dL (0.0-0.2); BILIRUBIN,TOTAL 0.6 mg/dL (0.2-1.0); LIPASE 141 U/L (73-393); TOTAL PROTEIN, SERUM 5.7 g/dL (6.4-8.2); TROPONIN I 0.023 ng/mL (0.00-0.056)
[2017-04-13 19:15] LABS: MAGNESIUM 0.1 mg/dL (1.8-2.4)
[2017-04-13] MEDS ORDERED: Calcium Gluconate 0.465 MEQ/ML VIAL IV ONE (19:18)
[2017-04-13] MEDS ORDERED: Magnesium 1GM/D5W 100ML PREMIX 200 ML IV ONE (19:19)
[2017-04-13 19:20] LABS: BACTERIA,URINE 4+ /HPF (None Seen); RBC,URINE TOO NUMEROUS TO COUN /HPF (0-2); SQUAMOUS EPITHELIAL CELL,UR Few /HPF (None Seen); WBC,URINE TOO NUMEROUS TO COUN /HPF (0-3)
[2017-04-13] MEDS: Magnesium 1GM/D5W 100ML PREMIX 100 ML IV SCH ×4 (19:20→21:30)
--- NOTE | 2017-04-13 19:26 | NUR ---
RN AT BEDSIDE TO MEDICATE PT.
[2017-04-13] MEDS ORDERED: CEFTRIAXONE 1GM BAG (ER ONLY) 50 ML IV ONE (19:29)
[2017-04-13] MEDS ORDERED: CEFTRIAXONE 1 G in IV D5W 50 ML IV ONE (19:30)
[2017-04-13] MEDS ORDERED: IV NS 0.9% 1,000 ML BAG IV ONE (19:30)
[2017-04-13] MEDS ORDERED: Calcium Gluconate 1GM/10ML 4.65 MEQ in IV D5W 50 ML IV ONE (19:30)
--- NOTE | 2017-04-13 19:37 | NUR ---
CALLED NURSING SUP. FOR TELE BED
[2017-04-13] MEDS ORDERED: IV NS 0.9% 1,000 ML IV PRN (19:49)
[2017-04-13] MEDS ORDERED: ACETAMINOPHEN 325 MG TABLET PO PRN ×2 (20:00→20:30)
[2017-04-13] MEDS ORDERED: Magnesium 1GM/D5W 100ML PREMIX 100 ML IV SCH (20:00)
[2017-04-13] MEDS ORDERED: ONDANSETRON HCL/PF 4 MG/2 ML VIAL IVP PRN ×2 (20:00→20:30)
[2017-04-13] MEDS ORDERED: PANTOPRAZOLE 40 MG VIAL IV SCH (20:00)
[2017-04-13] MEDS ORDERED: Z GUARD REMEDY 2 OZ OINT TP PRN ×2 (20:00→20:30)
[2017-04-13] MEDS ORDERED: BLOOD SUGAR DIAGNOSTIC 1 EACH STRIP MC SCH (20:00)
[2017-04-13] MEDS ORDERED: CARBIDOPA/LEV CR 50/200 MG 1 UDTAB.SA PO SCH (20:00)
[2017-04-13] MEDS ORDERED: Medication Not On Formulary EA (Omeprazole 20 MG) PO SCH (20:00)
[2017-04-13] MEDS ORDERED: ZOLPIDEM TARTRATE 5 MG TABLET PO PRN ×2 (20:00→20:30)
[2017-04-13] MEDS ORDERED: LEVOFLOXACIN 500 MG /D5W 100ML 500 MG in PREMIX 1 EA IV SCH ×2 (20:00→21:00)
--- NOTE | 2017-04-13 20:17 | NUR ---
CUPOLA TAPPER HELPER ADMIT PT ARRIVED ON UNIT, AAOX1-2, MUMBLES WORDS. NO S/S OF ANY DISTRESS AT THIS TIME, BREATHING NON-LABORED AND EVEN. NO SOB. TELE SHOWS SR IN 90'S. IV INTACT AND PATENT. SKIN ISSUES NOTED - GENERALIZED RASH NOTED ON BODY. TINY PURPLE DOTS. FAMILY AT BEDSIDE. ORIENTATED TO UNIT AND CALL LIGHT. WILL CONT TO MONITOR. AWAITING MD ORDERS.
--- NOTE | 2017-04-13 20:17 | NUR ---
REPORT CALLED TO MERCHANDISE CLERK MARK. WILL TRANSPORT PT VIA ACLS PROTOCOL.
[2017-04-13 20:30] VITALS: BP 130/63
[2017-04-13] MEDS ORDERED: LACTULOSE 10 G/15 ML UDC (PYXIS) PO PRN (21:00)
[2017-04-13] MEDS ORDERED: predniSONE 10 MG TABLET PO SCH (21:00)
--- NOTE | 2017-04-13 21:00 | NUR ---
RN NOTE SPOKE WITH DR BARNHART, ORDERED [4] G MAGNESIUM BAGS TO BE GIVEN. PT RECEIVED 2 G IN E.R. AND WILL RECEIVE AN ADDITIONAL 4 G ON THIS UNIT.
[2017-04-13] MEDS: PANTOPRAZOLE 40 MG VIAL IV SCH (21:42)
[2017-04-13] MEDS: CARBIDOPA/LEV CR 50/200 MG 1 UDTAB.SA PO SCH (21:42)
[2017-04-13] MEDS: ATORVASTATIN 40 MG TABLET PO SCH (21:42)
[2017-04-13] MEDS: MIRTAZAPINE 15 MG TABLET PO SCH (21:42)
[2017-04-13] MEDS: IV NS 0.9% 1,000 ML IV PRN (21:47)
[2017-04-13] MEDS: INSULIN DETEMIR 100 UNIT/ML CARTRIDGE SQ SCH (21:52)
[2017-04-13] MEDS: BLOOD SUGAR DIAGNOSTIC 1 EACH STRIP IN SCH (21:52)
[2017-04-13] MEDS ORDERED: MIRTAZAPINE 15 MG TABLET PO SCH (22:00)
[2017-04-14] VITALS (8 sets, daily range): BP systolic 109–155; BP diastolic 62–89
[2017-04-14] MEDS ORDERED: DEXTROSE 50%-WATER 50 ML DISP.SYRIN IV PRN
[2017-04-14] MEDS: BLOOD SUGAR DIAGNOSTIC 1 EACH STRIP VI SCH ×5 (00:22→21:20)
[2017-04-14] MEDS: Magnesium 1GM/D5W 100ML PREMIX 100 ML IV SCH ×6 (00:23→11:13)
[2017-04-14] MEDS ORDERED: Magnesium 1GM/D5W 100ML PREMIX 200 ML IV ONE (02:10)
[2017-04-14] MEDS: BLOOD SUGAR DIAGNOSTIC 1 EACH STRIP IN SCH (06:23)
--- NOTE | 2017-04-14 06:35 | NUR ---
RN NOTE NO SIGNIFICANT CHANGES T/O NIGHT. PT SLEPT WELL. NO S/S OF ANY DISTRESS AT THIS TIME. RECEIVED 4 G MAGNESIUM THIS SHIFT (6 G TOTAL). IV INTACT AND PATENT. TELE SHOWS SR. KEPT CLEAN AND COMFORTABLE. WILL F/U WITH DAY SHIFT FOR FELICITAS.
--- NOTE | 2017-04-14 07:53 | NUR ---
RN NOTES RECEIVED PT. PT IS STABLE IN BED. A/O X 1. NO S/S OF DISTRESS OR PAIN. PT IS ON A TELE MONITOR SHOWING SR AT 83 BPM. IV ACCESS IS LOCATED ON THE LEFT HAND, 20 G, RUNNING NS AT 75 ML/HR. SAFETY MEASURES IN PLACE. CALL LIGHT WITHIN REACH. WILL CONTINUE TO MONITOR.
[2017-04-14] MEDS: CARBIDOPA/LEV CR 50/200 MG 1 UDTAB.SA PO SCH ×3 (08:27→17:06)
[2017-04-14] MEDS: PANTOPRAZOLE 40 MG VIAL IV SCH (08:27)
[2017-04-14] MEDS: LINAGLIPTIN 5 MG TABLET PO SCH (10:14)
[2017-04-14] MEDS: INSULIN REGULAR, HUMAN 100 UNIT/ML 3 ML VIAL SQ PRN ×2 (11:22→17:14)
[2017-04-14] MEDS: predniSONE 20 MG TABLET PO SCH (13:38)
[2017-04-14] MEDS ORDERED: KEY,NONCONTROL,TO KEEP IN PYXI 1 EA MC ONE ×2 (13:44→13:46)
[2017-04-14] MEDS: METFORMIN 500 MG TABLET PO SCH (17:06)
--- NOTE | 2017-04-14 18:43 | NUR ---
RN CLOSING NOTE PT IS ASLEEP IN BED, CAREGIVER AT BEDSIDE. NO S/S OF DISTRESS, SOB, OR PAIN. IV ACCESS ON RIGHT HAND 20 G RUNNING NS AT 75 ML/HR. TELE MONITOR READS SINUS RHYTHM. ALL PATIENT NEEDS ANTICIPATED AND MET. SAFETY MEASURES IN PLACE. WILL ENDORSE TO BAG LOADER FOR FELICITAS.
--- NOTE | 2017-04-14 19:30 | NUR ---
rn initial notes: received report from yenifer cisneros, pt in bed, awake, a/o x1 on room air respiration even and unlabored, no facial grimace noted, iv access patent and flushing well, infusing with ns at 75ml/hr, access free from redness, no infiltration noted. ble offloaded.on aspiration precaution. pt on sinus rhythm hr 88, safety precautions for fall initiated call light in reach will continue to monitor
[2017-04-14] MEDS ORDERED: LEVOFLOXACIN 250 MG /D5W 50 ML 250 MG in PREMIX 1 EA IV SCH (21:00)
[2017-04-14] MEDS: MIRTAZAPINE 15 MG TABLET PO SCH (21:08)
[2017-04-14] MEDS: ATORVASTATIN 40 MG TABLET PO SCH (21:08)
[2017-04-14] MEDS: *INSULIN REGULAR(HUMULIN R)HUM 100 UNIT/ML VIAL SQ PRN (21:23)
[2017-04-14] MEDS: INSULIN DETEMIR 100 UNIT/ML CARTRIDGE SQ SCH (21:24)
--- NOTE | 2017-04-14 21:25 | NUR ---
BLOOD SUGAR CHECK: CHECKED BLOOD SUGAR AND REVEAL 191, 3UNITS OF INSULIN GIVEN PER SLIDING SCALE, PT ON CCHO 60GM DIET AND [facility] SOFT, PT TOLERATED PO INTAKE, WILL MONITOR PT FOR ANY S/S OF HYPOGLYCEMIA
--- NOTE | 2017-04-14 21:46 | NUR ---
RN NOTES: SUCTION SET UP SECURED, PLACED PT ON ASPIRATION PRECAUTIONS.
[2017-04-15] VITALS (9 sets, daily range): BP systolic 112–157; BP diastolic 55–85
--- NOTE | 2017-04-15 00:40 | NUR ---
rn notes: pt on sinus rhythm with pac hr 85, pt sleeping at this time, appears calm and comfortable, no facial grimace noted
[2017-04-15] MEDS: IV NS 0.9% 1,000 ML IV PRN ×2 (02:24→20:22)
--- NOTE | 2017-04-15 05:17 | NUR ---
RN NOTES: ASSISTED ONLINE ADVERTISING ANALYST IN PROVIDING BED BATH TO THE PT, ALSO APPLIED Z GUARD AND MEPILEX FOR SKIN PROTECTION, BLE OFFLOADED, DENTURES OF PT PLACED IN A DENTURE CAP WITH PT'S STICKER/NAME BAND
[2017-04-15 06:27] LABS: EOSINOPHILS % (AUTO) 0.1 % (0.0-6.0); HEMATOCRIT 31 % (33-45); HEMOGLOBIN 10.5 g/dL (11.5-14.8); LYMPHOCYTES # (AUTO) 0.8 /CMM (0.8-4.8); LYMPHOCYTES % (AUTO) 10.8 % (20.0-44.0); MEAN CORPUSCULAR HEMOGLOBIN 30 PG (26.0-33.0); MEAN CORPUSCULAR HGB CONC 34 g/dl (31.0-36.0); MEAN CORPUSCULAR VOLUME 90 fL (82-100); MONOCYTES # (AUTO) 0.3 /CMM (0.1-1.30); MONOCYTES % (AUTO) 4.3 % (2.0-12.0); NEUTROPHILS # (AUTO) 6.3 /CMM (1.8-8.9); NEUTROPHILS % (AUTO) 84.8 % (43.0-81.0); PLATELET COUNT (AUTO) 172 /CMM (150-450); RDW COEFFICIENT OF VARIATION 17.1 (11.5-15.0); RED BLOOD CELL COUNT(AUTO) 3.46 MIL/uL (4.0-5.2); WHITE BLOOD COUNT (AUTO) 7.4 K/uL (4.3-11.0)
[2017-04-15 06:30] LABS: CALCIUM, SERUM 7.1 mg/dL (8.5-10.1); CARBON DIOXIDE 31 mmol/L (21-32); CHLORIDE 106 mmol/L (98-107); CREATININE 0.5 mg/dL (0.6-1.3); GLUCOSE 100 mg/dL (74-106); MAGNESIUM 1.6 mg/dL (1.8-2.4); PHOSPHORUS 2.5 mg/dL (2.5-4.9); POTASSIUM 3.3 mmol/L (3.5-5.1); SODIUM SERUM 146 mmol/L (136-145); UREA NITROGEN, BLOOD 13 mg/dL (7-18)
[2017-04-15] MEDS: INSULIN REGULAR, HUMAN 100 UNIT/ML 3 ML VIAL SQ PRN ×3 (06:34→17:21)
[2017-04-15] MEDS: BLOOD SUGAR DIAGNOSTIC 1 EACH STRIP VI SCH ×4 (06:34→21:51)
--- NOTE | 2017-04-15 06:35 | NUR ---
ACCU CHECK: PERFORMED BLOOD SUGAR CHECKED AND REVEAL 101, NO INSULIN COVERAGE GIVEN PER SLIDING SCALE, WILL MONITOR PT FOR ANY S/S OF HYPOGLYCEMIA
--- NOTE | 2017-04-15 07:07 | NUR ---
SOFTWARE PROGRAM MANAGER CLOSING NOTES: PT IN BED, REMAINS A/O X1, RESPIRATION EVEN AND UNLABORED, NO FACIAL GRIMACE NOTED, APPEARS CALM AND COMFORTABLE, REMAINS ON SINUS RHYTHM HR 85. LFA IV REMAINS PATENT AND FLUSHING WELL, INFUSING WITH NS AT 75ML/HR. BLE KEPT OFFLOADED, VS REMAINS STABLE, NEEDS ATTENDED, SAFETY PRECAUTIONS FOR FALL REMAINS ENGAGED CALL LIGHT IN REACH WILL ENDORSE TO DAY RN FOR FELICITAS.
--- NOTE | 2017-04-15 07:45 | NUR ---
CLOTHING SORTER OPEN NOTES RECEIVED REPORT FROM ELECTRICAL INSTRUMENT REPAIRER NURSE. PATIENT IS ALERT AND ORIENTED TO NAME, ONLY. NO SO MUCH VERBAL. , CYRUS, AND CAREGIVER AT BEDSIDE. BED IN LOW POSITION, LOCKED AND TWO SIDE RAILS ARE UP. IV SITE IS INTACT AND PATENT. NO SIGNS AND SYMPTOMS OF DISTRESS OR PAIN. WILL CONTINUE TO ASSESS AND MONITOR PATIENT THROUGH OUT MY SHIFT.
[2017-04-15] MEDS: CARBIDOPA/LEV CR 50/200 MG 1 UDTAB.SA PO SCH ×3 (08:27→16:45)
[2017-04-15] MEDS: METFORMIN 500 MG TABLET PO SCH ×2 (08:27→16:45)
[2017-04-15] MEDS: predniSONE 20 MG TABLET PO SCH (08:27)
[2017-04-15] MEDS: PANTOPRAZOLE 40 MG VIAL IV SCH (08:27)
[2017-04-15] MEDS: LINAGLIPTIN 5 MG TABLET PO SCH (08:27)
[2017-04-15] MEDS ORDERED: POTASSIUM CHLORIDE 20 MEQ TAB.PRT.SR PO ONE (09:30)
[2017-04-15] MEDS: Magnesium 1GM/D5W 100ML PREMIX 100 ML IV SCH ×4 (10:25→13:57)
[2017-04-15] MEDS ORDERED: POTASSIUM CHLORIDE 20 MEQ POWDER PACKET GT ONE (10:30)
--- NOTE | 2017-04-15 18:30 | NUR ---
TELE / RN CLOSING NOTES PATIENT IS IN BED. ALERT AND ORIENTED TO SELF ONLY. NO SIGNS AND SYMPTOMS OF DISTRESS OR PAIN. IV IS INTACT AND PATENT, CURRENTLY RUNNING NS AT 75 ML/HR. BED IN LOW POSITION, LOCKED AND TWO SIDE RAILS ARE UP. PENDING BALDEMAR PANEL ,SWALLOW EVALUATION AND SURGEON CONSULT FOR PUNCH BIOPSY. MAGNESIUM 1.6, 4 GRAMS OF MAGNESIUM ADMINISTERED OVER 4 HOURS. POTASSIUM 3.3, 40 mEq ADMINISTERED PO. DIET CHANGED TO PUREED DIET PER MD ORDER. 1700 BLOOD SUGAR OF 222, 6 UNITS ADMINISTERED. SINUS RHYTHM 80 ON THE MONITOR. ALL NURSING NEEDS ANTICIPATED. PATIENT KEPT CLEAN, DRY AND SAFE. WILL ENDORSE TO EMPLOYMENT RECRUITER NURSE
[2017-04-15] MEDS ORDERED: LEVOFLOXACIN (250MG) 250 MG TABLET PO SCH (21:00)
[2017-04-15] MEDS: MIRTAZAPINE 15 MG TABLET PO SCH (21:50)
[2017-04-15] MEDS: ATORVASTATIN 40 MG TABLET PO SCH (21:50)
[2017-04-15] MEDS: *INSULIN REGULAR(HUMULIN R)HUM 100 UNIT/ML VIAL SQ PRN (21:51)
[2017-04-15] MEDS: INSULIN DETEMIR 100 UNIT/ML CARTRIDGE SQ SCH (21:51)
[2017-04-16] VITALS (8 sets, daily range): BP systolic 117–156; BP diastolic 58–96
--- NOTE | 2017-04-16 06:49 | NUR ---
COLLEGE COACH NOTES AWAKE & RESPONSIVE. NOT IN ANY DISTRESS. NO SOB NOTED. DENIES ANY PAIN OR DISCOMFORT AT THIS TIME. ON TELE SR @ 92 WITH OCC PACS WITH IVF INFUSING WELL. AM CARE DONE. MONITORED ACCORDINGLY. CALL LIGHT WITHIN REACH. BED IN LOWEST POSITION. SR UP X 3 WITH BED ALARM ON FOR SAFETY. WILL ENDORSE TO NEXT SHIFT.
[2017-04-16] MEDS: BLOOD SUGAR DIAGNOSTIC 1 EACH STRIP VI SCH ×4 (06:59→22:08)
--- NOTE | 2017-04-16 07:25 | NUR ---
STUDIO COORDINATOR OPEN NOTES RECEIVED REPORT FROM FULFILLMENT REPRESENTATIVE NURSE. PATIENT IS IN BED. ALERT AND ORIENTED TO SELF ONLY. AND CAREGIVER AT BEDSIDE. NO SIGNS AND SYMPTOMS OF DISTRESS OR PAIN. BED IN LOW POSITION, LOCKED AND TWO SIDE RAILS ARE UP. WILL CONTINUE TO ASSESS AND MONITOR PATIENT THROUGH OUT MY SHIFT
[2017-04-16] MEDS: METFORMIN 500 MG TABLET PO SCH ×2 (08:12→16:16)
[2017-04-16] MEDS: predniSONE 20 MG TABLET PO SCH (08:12)
[2017-04-16] MEDS: PANTOPRAZOLE 40 MG VIAL IV SCH (08:12)
[2017-04-16] MEDS: LINAGLIPTIN 5 MG TABLET PO SCH (08:12)
[2017-04-16] MEDS: CARBIDOPA/LEV CR 50/200 MG 1 UDTAB.SA PO SCH ×3 (08:12→16:16)
[2017-04-16] MEDS: IV NS 0.9% 1,000 ML IV PRN (09:26)
[2017-04-16] MEDS: Magnesium 1GM/D5W 100ML PREMIX 100 ML IV SCH ×4 (10:32→13:53)
[2017-04-16] MEDS: INSULIN REGULAR, HUMAN 100 UNIT/ML 3 ML VIAL SQ PRN ×2 (12:51→17:06)
--- NOTE | 2017-04-16 13:20 | NUR ---
CALDERON HERNANDEZ OF DR SANCHEZ, AT BEDSIDE. MARY WILL TALK TO DR SANCHEZ REGARDING THE PUNCH BIOPSY AND WILL KEEP US POSTED. PUNCH BIOPSY MIGHT BE DONE ON MONDAY OR MONDAY
--- NOTE | 2017-04-16 18:27 | NUR ---
TELE / RN CLOSING NOTES PATIENT IS IN BED. ALERT AND ORIENTED TO SELF ONLY. AND CAREGIVER AT BEDSIDE. NO SIGNS AND SYMPTOMS OF DISTRESS OR PAIN. IV IS INTACT AND PATENT, NO SIGNS OF INFILTRATION, CURRENTLY RUNNING NS AT 75 ML/HR. BED IN LOW POSITION, LOCKED AND TWO SIDE RAILS ARE UP. PENDING BALDEMAR PANEL RESULT. PENDING SWALLOW EVALUATION. SURGEON CONSULT FOR PUNCH BIOPSY COMPLETED TODAY BY CALDERON HERNANDEZ, ETA WAS NOT FINALIZE YET. MAGNESIUM 1.5, 4 GRAMS OF MAGNESIUM ADMINISTERED OVER 4 HOURS. 1700 BLOOD SUGAR OF 216, 6 UNITS ADMINISTERED. SINUS RHYTHM 78 ON THE MONITOR. ALL NURSING NEEDS ANTICIPATED. PATIENT KEPT CLEAN, DRY AND SAFE. WILL ENDORSE TO HEAD OF ETHICS AND COMPLIANCE NURSE FOR CONTINUE OF CARE.
--- NOTE | 2017-04-16 19:35 | NUR ---
TELE/RN NOTES RECEIVED PT. LYING IN BED. AWAKE, ALERT AND ORIENTED TO SELF. BREATHING EVEN AND UNLABORED ON ROOM AIR. NO SOB, RESPIRATORY DISTRESS OR COMPLAINTS OF PAIN NOTED AT THIS TIME. PT. WITH EXTERNAL HISTOLOGY ASSISTANT PRESENT AND INTACT. CURRENT RHYTHM = SINUS RHYTHM HR 87. PT. WITH LEFT FOREARM 22 GAUGE PERIPHERAL IV PRESENT, PATENT AND INTACT ADMINISTERING TO PT. NS @ 75 ML/HR. BED IN LOWEST POSITION, CALL LIGHT WITHIN REACH, SIDE RAILS UP X3, BED ALARM ON, WILL CONTINUE TO MONITOR FOR CHANGES.
[2017-04-16] MEDS ORDERED: LEVOFLOXACIN 250 MG /D5W 50 ML 250 MG in PREMIX 1 EA IV SCH (21:00)
[2017-04-16] MEDS: MIRTAZAPINE 15 MG TABLET PO SCH (21:56)
[2017-04-16] MEDS: ATORVASTATIN 40 MG TABLET PO SCH (21:56)
[2017-04-16] MEDS: INSULIN DETEMIR 100 UNIT/ML CARTRIDGE SQ SCH (22:10)
[2017-04-16] MEDS: *INSULIN REGULAR(HUMULIN R)HUM 100 UNIT/ML VIAL SQ PRN (22:10)
[2017-04-17 04:38] VITALS: BP 155/94
[2017-04-17] MEDS: BLOOD SUGAR DIAGNOSTIC 1 EACH STRIP VI SCH ×3 (06:42→16:59)
--- NOTE | 2017-04-17 06:47 | NUR ---
TELE/RN NOTES PT. LYING IN BED RESTING. BREATHING EVEN AND UNLABORED ON ROOM AIR. NO SOB, RESPIRATORY DISTRESS OR COMPLAINTS OF PAIN NOTED AT THIS TIME. PT. WITH EXTERNAL ROBOTICS SPECIALIST PRESENT AND INTACT. CURRENT RHYTHM = SINUS RHYTHM HR 84. PT. WITH LEFT FOREARM 22 GAUGE PERIPHERAL IV PRESENT, PATENT AND INTACT ADMINISTERING TO PT. NS @ 75 ML/HR. ALL PT. NEEDS MET. PT. TURNED AND REPOSITIONED Q2H AND NEEDED. BED IN LOWEST POSITION, CALL LIGHT WITHIN REACH, SIDE RAILS UP X3, BED ALARM ON, WILL ENDORSE TO DAYSHIFT NURSE FOR CONTINUITY OF CARE.
--- NOTE | 2017-04-17 07:31 | NUR ---
ANALYTICS SPECIALIST OPEN NOTES RECEIVED REPORT FROM TURNING SANDER OPERATOR NURSE. PATIENT IS IN BED. ALERT AND ORIENTED TO SELF ONLY. IV SITE IS INTACT AND PATENT. NO SIGNS AND SYMPTOMS OF DISTRESS OR PAIN. BED IN LOW POSITION, LOCKED AND TWO SIDE RAILS ARE UP. WILL CONTINUE TO ASSESS AND MONITOR PATIENT THROUGH OUT MY SHIFT
[2017-04-17] MEDS: LINAGLIPTIN 5 MG TABLET PO SCH (08:06)
[2017-04-17] MEDS: PANTOPRAZOLE 40 MG VIAL IV SCH (08:06)
[2017-04-17] MEDS: predniSONE 20 MG TABLET PO SCH (08:07)
[2017-04-17] MEDS: METFORMIN 500 MG TABLET PO SCH ×2 (08:07→16:51)
[2017-04-17] MEDS: CARBIDOPA/LEV CR 50/200 MG 1 UDTAB.SA PO SCH ×3 (08:07→16:52)
[2017-04-17] MEDS ORDERED: Magnesium 1GM/D5W 100ML PREMIX PIGGYBACK IV ONE (11:00)
[2017-04-17] MEDS: IV NS 0.9% 1,000 ML IV PRN (11:28)
[2017-04-17 12:00] VITALS: BP 123/61
[2017-04-17] MEDS: MAGNESIUM OXIDE 400 MG TABLET PO SCH ×2 (12:02→16:51)
[2017-04-17] MEDS: Magnesium 1GM/D5W 100ML PREMIX 100 ML IV SCH ×4 (12:09→16:46)
[2017-04-17] MEDS: INSULIN REGULAR, HUMAN 100 UNIT/ML 3 ML VIAL SQ PRN ×2 (12:14→17:01)
--- NOTE | 2017-04-17 15:15 | NUR ---
PATIENT IS OFF THE FLOOR FOR CT PULMONARY ANGIOGRAM Addendum: 04/17/17 at 2030 by LYNDA RAMÍREZ RN WRONG PATIENT DOCUMENTATION
--- NOTE | 2017-04-17 15:52 | NUR ---
PATIENT IS BACK TO THE FLOOR FROM CT Addendum: 04/17/17 at 2031 by LYNDA RAMÍREZ RN WRONG PATIENT DOCUMENTATION
[2017-04-17 16:00] VITALS: BP 145/77
[2017-04-17] MEDS ORDERED: LIDOCAINE 1%-EPI 1:100,000 20 ML VIAL TP ONE (17:22)
[2017-04-17] MEDS ORDERED: LIDOCAINE 2%-EPI 1:200,000 20 ML VIAL IJ ONE (18:00)
--- NOTE | 2017-04-17 18:30 | NUR ---
DR DANIEL MORRIS AT BEDSIDE FOR PUNCH BIOPSY
--- NOTE | 2017-04-17 19:45 | NUR ---
RN NOTES RECEIVED PT AWAKE, HOB ELEVATED, NO SOB, NOT IN DISTRESS ON ROOM AIR AND TOLERATED. PT ALERT AND ORIENTED X1, DENIES ANY PAIN AND DISCOMFORT AT THIS TIME. VITAL SIGNS STABLE, AFEBRILE. [facility], AT BEDSIDE, AWAITING FOR AMBULANCE NEGATIVE TURNER.
--- NOTE | 2017-04-17 20:36 | NUR ---
TELE / RN CLOSING / DISCHARGE NOTES PATIENT IS IN BED. ALERT AND ORIENTED TO SELF ONLY. AT BEDSIDE. NO SIGNS AND SYMPTOMS OF DISTRESS OR PAIN. BED IN LOW POSITION, LOCKED AND TWO SIDE RAILS ARE UP. SINUS RHYTHM 75 ON THE MONITOR. ALL NURSING NEEDS ANTICIPATED. PATIENT KEPT CLEAN, DRY AND SAFE. PATIENT IS PENDING DISCHARGE TODAY. DENTAL LABORATORY TECHNICIAN APPRENTICE WAS SCHEDULE FOR 8PM BY AMBULANCE. CHARGE NURSE MADE AWARE OF AMBULANCE DELAY. REPORT GAVE TO ANNIKA LE AT [facility] AT 1755. IV SITE REMOVED. DISCHARGE PAPERBACKS SIGNED BY AND PLACED IN THE CHART. NO BELONGING AT TIME OF DISCHARGE, BELONGING FORM SIGNED BY AND PLACED IN THE CHART. WILL ENDORSE TO BUSINESS IMPROVEMENT MANAGER NURSE FOR CONTINUE OF CARE.
--- NOTE | 2017-04-17 21:10 | NUR ---
RN NOTES PT WAS PICKED UP BY [facility]. PT AWAKE, ALERT, NO SOB, NOT IN DISTRESS, ON ROOM AIR WITH GOOD SATURATION. VITAL SIGNS STABLE, DENIES ANY PAIN AND DISCOMFORT. IV ACCESS ON LEFT FORE ARM REMOVED, AND SECURED WITH PRESSURE DRESSING. ALL BELONGINGS SENT WITH THE . KEPT PT CLEAN AND DRY. DISCHARGE VIA GURNEY IN STABLE CONDITION ACCOMPANIED BY .
[2017-04-18 10:21] LABS: CALCITRIOL VIT D,1, 25 DIHYDRO 61.6 pg/mL (19.9-79.3)
[2017-04-18 12:11] LABS: *ANCANTIMYELOPEROXIDASE (MPO) <9.0 U/mL (0.0-9.0); *ANCANTIPROTEINASE 3 (PR-3) AB <3.5 U/mL (0.0-3.5)
[2017-04-18 13:12] LABS: *ANCA ATYPICAL p-ANCA <1:20 titer (Neg:<1:20); *ANCA CYTOPLASMIC (C-ANCA) <1:20 titer (Neg:<1:20); *ANCA PERINUCLEAR (P-ANCA) <1:20 titer (Neg:<1:20)
== END 2017-04-17 21:10 | DRG 640 ==
LOC: ER 18:38 → TELE 20:27 → MED 04-17 17:56
PROVIDERS: ADMIT Internal Medicine; ATTEND Internal Medicine
PROC: 0HB7XZX Excision of Abdomen Skin, External Approach, Diagnostic (ICD-10-PCS; principal; 2017-04-17)
DX: E83.42 Hypomagnesemia (principal); G93.40 Encephalopathy, unspecified; N39.0 Urinary tract infection, site not specified; E83.51 Hypocalcemia; F03.90 Unspecified dementia, unspecified severity, without behavioral disturbance, psychotic disturbance, mood disturbance, and anxiety; Z95.1 Presence of aortocoronary bypass graft; Z90.13 Acquired absence of bilateral breasts and nipples; Z86.73 Personal history of transient ischemic attack (TIA), and cerebral infarction without residual deficits; Z85.3 Personal history of malignant neoplasm of breast; Z79.899 Other long term (current) drug therapy; M19.90 Unspecified osteoarthritis, unspecified site; M06.9 Rheumatoid arthritis, unspecified; K21.9 Gastro-esophageal reflux disease without esophagitis; K59.00 Constipation, unspecified; I25.10 Atherosclerotic heart disease of native coronary artery without angina pectoris; I10 Essential (primary) hypertension; G20 Parkinson's disease; D63.8 Anemia in other chronic diseases classified elsewhere; B96.20 Unspecified Escherichia coli [E. coli] as the cause of diseases classified elsewhere; E11.9 Type 2 diabetes mellitus without complications; E78.5 Hyperlipidemia, unspecified; Z88.0 Allergy status to penicillin; F02.80 Dementia in other diseases classified elsewhere, unspecified severity, without behavioral disturbance, psychotic disturbance, mood disturbance, and anxiety; D72.829 Elevated white blood cell count, unspecified; L95.9 Vasculitis limited to the skin, unspecified
CPT/HCPCS: 36415; 71010-TC; 80048-TC; 80076-TC; 81000-TC; 82306; 82652; 82962-TC; 83520; 83690-TC; 83735-TC; 83970; 84100-TC; 84484-TC; 85025-TC; 85730-TC; 86256; 87081-TC; 87086-TC; 87186-TC; 92611-TC; 93307-TC; A4216; A4606; A6402; C9113; J0610; J0696; J1815; J1956; J3475; J3490; J7030; J7060; Z7610

== ENCOUNTER 2017-06-17 09:35 | Inpatient (IN) | payer MEDICARE ==
[~2017-06-17] VITALS: Ht 165.1 cm; Wt 67.6 kg
[~2017-06-17 09:35] MED LIST changes: +BISA10SU8 RC; -DEXA4TAB2 PO; +DOCU-25 PO; +INSU100V11 SQ; +INSU100V7 SQ; -INSU3INS6 SQ; +LACT10SO7 PO; +LOSA50TA21 PO; +MIRT15TA7 PO; -MIRT30TA PO; +NA P133E RC; -OLME20TA15 PO; +TOLT2CAP8 PO; -TOLT4CAP PO
--- NOTE | 2017-06-17 09:40 | NUR ---
[id number] FROM SO: MORE ALTERED SINCE YESTERDAY 1700. BS IN FIELD 130, NAD NOTED, VSS, SKIN WARM AND DRY, EKG DONE, PUT ON MONITOR, BLOOD SAMPLE SENT TO LAB, AT BS.
[2017-06-17] MEDS ORDERED: MAGN400T26 PO (09:53)
[2017-06-17] MEDS ORDERED: ZOLP5TAB2 PO (09:53)
[2017-06-17] MEDS ORDERED: OXYB10TA4 PO (09:53)
[2017-06-17] MEDS ORDERED: LATA2.5D2 EACHEYE (09:53)
[2017-06-17 09:57] LABS: BASOPHILS % (AUTO) 0.1 % (0.0-2.0); EOSINOPHILS % (AUTO) 0.4 % (0.0-6.0); HEMATOCRIT 39 % (33-45); HEMOGLOBIN 12.8 g/dL (11.5-14.8); LYMPHOCYTES # (AUTO) 1.8 /CMM (0.8-4.8); LYMPHOCYTES % (AUTO) 17.8 % (20.0-44.0); MEAN CORPUSCULAR HEMOGLOBIN 30 PG (26.0-33.0); MEAN CORPUSCULAR HGB CONC 33 g/dl (31.0-36.0); MEAN CORPUSCULAR VOLUME 91 fL (82-100); MONOCYTES # (AUTO) 0.4 /CMM (0.1-1.30); MONOCYTES % (AUTO) 3.9 % (2.0-12.0); NEUTROPHILS # (AUTO) 7.9 /CMM (1.8-8.9); NEUTROPHILS % (AUTO) 77.8 % (43.0-81.0); PLATELET COUNT (AUTO) 174 /CMM (150-450); RDW COEFFICIENT OF VARIATION 16.5 (11.5-15.0); RED BLOOD CELL COUNT(AUTO) 4.25 MIL/uL (4.0-5.2); WHITE BLOOD COUNT (AUTO) 10.1 K/uL (4.3-11.0)
[2017-06-17] MEDS ORDERED: PRED10TA PO (09:57)
--- NOTE | 2017-06-17 09:59 | NUR ---
XRAY AT BS
[2017-06-17] MEDS ORDERED: IV NS 0.9% 1,000 ML BAG IV ONE (10:00)
[2017-06-17 10:10] LABS: INR 0.9 (0.87-1.13); PROTHROMBIN TIME 9.4 SECS (9.5-12.7)
[2017-06-17 10:13] LABS: TROPONIN I < 0.017 ng/mL (0.00-0.056)
[2017-06-17 10:16] LABS: ALANINE AMINOTRANSFERASE 23 U/L (12-78); ALBUMIN 2.7 g/dL (3.4-5.0); ALKALINE PHOSPHATASE 52 U/L (46-116); ASPARTATE AMINOTRANSFERASE 14 U/L (15-37); BILIRUBIN,DIRECT 0.1 mg/dL (0.0-0.2); BILIRUBIN,TOTAL 0.6 mg/dL (0.2-1.0); CALCIUM, SERUM 9.3 mg/dL (8.5-10.1); CARBON DIOXIDE 28 mmol/L (21-32); CHLORIDE 101 mmol/L (98-107); CREATININE 0.8 mg/dL (0.6-1.3); GLUCOSE 127 mg/dL (74-106); SODIUM SERUM 136 mmol/L (136-145); UREA NITROGEN, BLOOD 37 mg/dL (7-18)
--- NOTE | 2017-06-17 10:21 | NUR ---
URINE SENT TO LAB
[2017-06-17 10:31] LABS: APPEARANCE,URINE SL CLOUDY (CLEAR); BILIRUBIN,URINE NEGATIVE (NEGATIVE); BLOOD, URINE TRACE-INTA Ery/uL (NEGATIVE); COLOR,URINE YELLOW (YELLOW); KETONES,URINE NEGATIVE (NEGATIVE); LEUKOCYTE ESTERASE ,URINE 1+ (NEGATIVE); NITRITE, URINE POSITIVE (NEGATIVE); PH,URINE 5.5 (5.0-8.0); PROTEIN,URINE NEGATIVE (NEGATIVE); UGLUCOSE NEGATIVE (NEGATIVE); UROBILINOGEN,URINE 0.2 EU/dL (0.2)
[2017-06-17 10:39] LABS: BACTERIA,URINE 4+ /HPF (None Seen); MUCUS,URINE Few /LPF (None Seen)
[2017-06-17] MEDS ORDERED: IV NS 0.9% 1,000 ML IV ONE (11:00)
[2017-06-17] MEDS ORDERED: LEVOFLOXACIN 500 MG /D5W 100ML 500 MG/100 ML PIGGYBACK IV ONE (11:00)
[2017-06-17] MEDS ORDERED: VANCOMYCIN 1 GM in IV D5W 250 ML IV ONE (11:00)
[2017-06-17] MEDS ORDERED: IV NS 0.9% 100 ML IV ONE (11:00)
--- NOTE | 2017-06-17 11:47 | NUR ---
PATIENT ASSIGNED TO [facility] 324-1
[2017-06-17] MEDS ORDERED: ONDANSETRON HCL/PF 4 MG/2 ML VIAL IVP PRN (12:00)
[2017-06-17] MEDS ORDERED: HYDROCODONE/APAP 5/325MG 1 EACH TABLET PO PRN (12:00)
[2017-06-17] MEDS ORDERED: predniSONE 10 MG TABLET PO SCH (12:00)
[2017-06-17] MEDS ORDERED: BISACODYL SUPP (10 MG) 10 MG/SUPP.RECT SUPP.RECT RC PRN (12:00)
[2017-06-17] MEDS ORDERED: hydrALAZINE HCL 10 MG TABLET PO PRN (12:00)
[2017-06-17] MEDS ORDERED: ZOLPIDEM TARTRATE 5 MG TABLET PO PRN ×2 (12:00)
[2017-06-17] MEDS ORDERED: MAG HYDROX/AL HYDROX/SIMETH 30 ML UDC PO PRN (12:00)
[2017-06-17] MEDS ORDERED: DEXTROSE 50%-WATER 50 ML DISP.SYRIN IV PRN (12:00)
[2017-06-17] MEDS ORDERED: MAGNESIUM HYDROXIDE 30 ML UDC PO PRN (12:00)
[2017-06-17] MEDS: BLOOD SUGAR DIAGNOSTIC 1 EACH STRIP VI SCH ×3 (12:39→22:30)
[2017-06-17] MEDS: MAGNESIUM OXIDE 400 MG TABLET PO SCH ×2 (13:00→17:00)
[2017-06-17] MEDS: CARBIDOPA/LEV CR 50/200 MG 1 UDTAB.SA PO SCH ×2 (13:00→17:00)
[2017-06-17] MEDS: FERROUS SULFATE (325 MG) 325 MG/TAB TABLET PO SCH ×2 (13:00→17:00)
--- NOTE | 2017-06-17 13:45 | NUR ---
RN NOTES RECEIVED PATIENT FROM ER VIA MAE. PATIENT ADMITTING DIAGNOSIS OF ALTERED MENTAL STATUS. ON BEDSIDE. PATIENT IS LETHARGIC, ABLE TO FOLLOW COMMAND BY SQUEEZING RN'S HAND BUT UNABLE TO VERBALIZE. RESPIRATIONS EVEN AND UNLABORED. NO SOB, NO S/S OF DISTRESS. IV SITE INTACT AND PATENT. KEPT PATIENT SAFE AND COMFORTABLE. BED LOCKED, LOW POSITION, SIDERAILS UP X2. CALL LIGHT IN REACH. WILL CONTINUE TO MONITOR ACCORDINGLY.
[2017-06-17 16:00] VITALS: BP 120/67
[2017-06-17] MEDS: IV NS 0.9% 1,000 ML IV PRN ×2 (16:06→22:30)
[2017-06-17] MEDS: DOCUSATE SODIUM 100 MG CAPSULE PO SCH (17:00)
[2017-06-17] MEDS: TOLTERODINE 2 MG CAP.SR PO SCH (17:00)
[2017-06-17] MEDS ORDERED: LEVOFLOXACIN 500 MG /D5W 100ML 500 MG in PREMIX 1 EA IV SCH (17:30)
--- NOTE | 2017-06-17 17:31 | NUR ---
RN NOTES PM MEDICATIONS HELD, PATIENT LETHARGIC. SINGLE CORNER CUTTER NOTIFIED.
--- NOTE | 2017-06-17 17:50 | NUR ---
RN NOTES PATIENT WENT TO CT SCAN PICKED UP BY [facility] TECH VIA HOSPITAL BED.
[2017-06-17] MEDS ORDERED: FEE PK DOSING 1 MIN EA MC ONE (18:18)
--- NOTE | 2017-06-17 19:20 | NUR ---
RN NOTES PATIENT IN BED WITH FAMILY. NO CHANGES IN PATIENT'S CONDITION. NO ACUTE DISTRESS, NO SOB NOTED. ALL NEEDS ATTENDED AND PROVIDED. BED LOCKED, LOW POSITION, SIDERAILS UPX2, CALL LIGHT IN REACH. ENDORSED TO GLAZIER STRUCTURAL GLASS RN FOR FELICITAS.
[2017-06-17 20:00] VITALS: BP_SYST 128; BP_SYST 63; BP_DIAS 29; BP_DIAS 66
[2017-06-17 20:20] VITALS: BP 92/57
--- NOTE | 2017-06-17 20:20 | NUR ---
RN NOTES RAPID RESPONSE WAS CALLED PT. BLOOD PRESSURE DROPPED TO 63/29, HR-44, O2 SAT WAS 89, PUT PT ON OXYGEN 2 L, O2 SAT WENT UP TO 96%, CHECK THE BLOOD SUGAR -127, RAPID RESPONSE TEAM CAME, GAVE 500ML BOLUS AND REPEAT THE LACTIC ACID, TROPONIN, , MG. OF THE PT. , CHARGE NURSE CALLED RADIOLOGY TO READ THE CT HEAD OF THE PT. STAT. WE'RE WAITING FOR THE RADIOLOGY TO GIVE THE RESULT. OF THE CT HEAD
--- NOTE | 2017-06-17 20:35 | NUR ---
RN NOTES LACTIC ACID WENT DOWN FROM 2.0 TO 0.6
[2017-06-17 20:45] VITALS: BP 128/66
[2017-06-17] MEDS ORDERED: VANCOMYCIN 1.25 GM in IV D5W 500 ML IV SCH (21:00)
[2017-06-17 21:11] LABS: TROPONIN I 0.017 ng/mL (0.00-0.056)
--- NOTE | 2017-06-17 21:30 | NUR ---
RN NOTES SPOKE TO ERIC SARMIENTO AND INFORMED HIM PT HAD A RAPID RESPONSE AND INFORMED HIM THE RESULT OF PT. CT HEAD WELL ALL THE LAB WORKS.
[2017-06-17] MEDS: MIRTAZAPINE 15 MG TABLET PO SCH (22:00)
[2017-06-17] MEDS: LATANOPROST EYE DROP 0.005% 2.5 ML BOTTLE EACHEYE SCH (22:00)
--- NOTE | 2017-06-17 22:00 | NUR ---
RN NOTES REMERON 15MG PO WAS GIVEN PT. IS LETHARGIC
[2017-06-18] VITALS (19 sets, daily range): BP systolic 12–154; BP diastolic 53–93
--- NOTE | 2017-06-18 | NUR ---
RN NOTES PT OPEN HER EYES NOW AND SMILE WITH US
--- NOTE | 2017-06-18 05:30 | NUR ---
RN NOTES PT OPEN HER EYES WHILE WERE CLEANING HER AND SMILE WHILE WERE TALKING TO HER, NO GONZÁLES NOTED, MORNING CARE RENDERED
[2017-06-18] MEDS: VANCOMYCIN 0.75 GM in IV D5W 250 ML IV SCH (05:40)
--- NOTE | 2017-06-18 06:39 | NUR ---
RN NOTES SLEEPING BUT AROUSABLE TO TOUCH, IV FLUID RUNNING AT BEDSIDE, NO PAIN NOTED, NO SOB. PT. NEEDS ATTENDED
[2017-06-18] MEDS ORDERED: predniSONE 20 MG TABLET PO SCH (07:00)
--- NOTE | 2017-06-18 07:00 | NUR ---
RN NOTES PREDNISONE WAS NOT GIVEN PT STILL NOT EATING
--- NOTE | 2017-06-18 07:15 | NUR ---
RN OPENING NOTES RECEIVED PATIENT IN BED RESTING. PATIENT IS RESPONSIVE, NONVERBAL, FOLLOWS COMMAND BY SQUEEZING RN'S HAND, AND SMILING. NO ACUTE DISTRESS, NO SOB NOTED. IV SITE INTACT AND PATENT. BED IN LOCKED, LOW POSITION, SIDERAILS UPX2, CALL LIGHT IN REACH. WILL CONTINUE TO MONITOR ACCORDINGLY.
[2017-06-18] MEDS ORDERED: Medication Not On Formulary EA (Omeprazole 20 MG) PO SCH (07:30)
[2017-06-18 07:35] LABS: BASOPHILS % (AUTO) 0.1 % (0.0-2.0); EOSINOPHILS % (AUTO) 0.4 % (0.0-6.0); HEMATOCRIT 32 % (33-45); HEMOGLOBIN 10.8 g/dL (11.5-14.8); LYMPHOCYTES # (AUTO) 1.3 /CMM (0.8-4.8); LYMPHOCYTES % (AUTO) 20.3 % (20.0-44.0); MEAN CORPUSCULAR HEMOGLOBIN 31 PG (26.0-33.0); MEAN CORPUSCULAR HGB CONC 34 g/dl (31.0-36.0); MEAN CORPUSCULAR VOLUME 91 fL (82-100); MONOCYTES # (AUTO) 0.4 /CMM (0.1-1.30); MONOCYTES % (AUTO) 6.2 % (2.0-12.0); NEUTROPHILS # (AUTO) 4.7 /CMM (1.8-8.9); PLATELET COUNT (AUTO) 129 /CMM (150-450); RDW COEFFICIENT OF VARIATION 16.7 (11.5-15.0); RED BLOOD CELL COUNT(AUTO) 3.52 MIL/uL (4.0-5.2); WHITE BLOOD COUNT (AUTO) 6.4 K/uL (4.3-11.0)
--- NOTE | 2017-06-18 07:40 | NUR ---
RN NOTES PATIENT DESAT TO 86% ON O2 5LPM VIA NASAL CANULA. TITRATE O2 UP TO 15LPM BUT STILL ON 86%. CALLED RT, PLACE PATIENT ON MASK WITH O2 AT 8LPM, O2 SATURATION IS NOW 99%. WILL CONTINUE TO MONITOR ACCORDINGLY.
[2017-06-18 07:47] LABS: CALCIUM, SERUM 8.2 mg/dL (8.5-10.1); CARBON DIOXIDE 26 mmol/L (21-32); CHLORIDE 107 mmol/L (98-107); CREATININE 0.4 mg/dL (0.6-1.3); GLUCOSE 141 mg/dL (74-106); MAGNESIUM 1.8 mg/dL (1.8-2.4); PHOSPHORUS 3.4 mg/dL (2.5-4.9); POTASSIUM 3.4 mmol/L (3.5-5.1); SODIUM SERUM 142 mmol/L (136-145); UREA NITROGEN, BLOOD 16 mg/dL (7-18)
[2017-06-18 07:59] LABS: CHOLESTEROL 111 mg/dL (<200); HDL CHOLESTEROL 51 mg/dL (40-60); LDL 44 mg/dL (0-99); TRIGLYCERIDES 114 mg/dL (30-150)
[2017-06-18] MEDS: BLOOD SUGAR DIAGNOSTIC 1 EACH STRIP VI SCH ×4 (08:22→22:08)
[2017-06-18] MEDS: DOCUSATE SODIUM 100 MG CAPSULE PO SCH ×2 (09:04→17:00)
[2017-06-18] MEDS: MAGNESIUM OXIDE 400 MG TABLET PO SCH (09:04)
[2017-06-18] MEDS: PANTOPRAZOLE 40 MG TABLET.DR PO SCH (09:04)
[2017-06-18] MEDS: CARBIDOPA/LEV CR 50/200 MG 1 UDTAB.SA PO SCH ×3 (09:04→17:00)
[2017-06-18] MEDS: TOLTERODINE 2 MG CAP.SR PO SCH ×2 (09:05→17:00)
[2017-06-18] MEDS: CLOPIDOGREL BISULFATE 75 MG TABLET PO SCH (09:05)
[2017-06-18] MEDS: FERROUS SULFATE (325 MG) 325 MG/TAB TABLET PO SCH ×3 (09:05→17:00)
[2017-06-18] MEDS: LOSARTAN POTASSIUM 50 MG TABLET PO SCH (09:06)
[2017-06-18] MEDS ORDERED: POTASSIUM CHLORIDE 20 MEQ POWDER PACKET PO SCH ×2 (13:00→14:30)
--- NOTE | 2017-06-18 13:00 | NUR ---
RN NOTES PATIENT SATURATION IS DECREASING FROM 95%-87% ON OXYGEN 10 LPM VIA MASK. RT PLACED PATIENT ON NON-REBREATHER MASK AT 15LPM, O2 SAT 88-94%. O2 SATURATION IS FLUCTUATING. DR STREETER MADE AWARE. WILL CONTINUE TO MONITOR ACCORDINGLY.
--- NOTE | 2017-06-18 13:25 | NUR ---
RN NOTES TRANSFER PATIENT TO ICU, REPORT GIVEN TO COUNTY DEMONSTRATORDAV.
[2017-06-18] MEDS ORDERED: hydrALAZINE HCL IV 20 MG VIAL IV PRN (13:30)
--- NOTE | 2017-06-18 14:00 | NUR ---
PT TRANSFERRED FROM [facility] BY BED. EYES OPEN SPONTANEOUSLY. UPON STIMULATION PT WAS ABLE TO FOCUS AND TRACK, ABLE TO SQUEEZES HAND UPON COMMAND. ABLE TO SMILE. SAT 90% ON NON REBREATHER, PLACED ON BIPAP BY RT. 22/01 RR25 AT 40%. FAMILY AT BEDSIDE. NEED FOR BIPAP DISCUSSED. PT APPEARS WARM TO TOUCH TEMP 99.0 RECTAL.
[2017-06-18] MEDS: ALBUTEROL FS 2.5 MG/3 ML VIAL.NEB NEB SCH ×3 (14:05→19:31)
[2017-06-18] MEDS: LEVOFLOXACIN 250 MG /D5W 50 ML 250 MG in PREMIX 1 EA IV SCH (14:17)
[2017-06-18] MEDS: methylPREDNISolone SOD SUCC 125 MG/2ML VIAL IV SCH ×2 (14:18→18:00)
[2017-06-18] MEDS: IV NS 0.9% 1,000 ML IV PRN (14:22)
--- NOTE | 2017-06-18 14:30 | NUR ---
ATTEMPTED TO ADMINISTER 1300 PM MEDS, THAT WERE PENDING FROM TELE FLOOR. PT DOES NOT WAKE UP READILY AND WOULD NO BE UNABLE TO SWALLOW SAFELY, DESPITE FAMILY STATING THAT PT ABLE TO SWALLOW WELL. POSSIBILITY FOR NG DISCUSSED, STATES THAT HE FEELS THAT IT IS UNNECESSARY. IT IS NOTED THAT RECTAL TEMP 101.0 DR STREETER NOTIFIED, OK TO HOLD PO MEDS, OK TO TO GIVE TYLENOL RECTALLY. ORDER FOR MIDLINE OBTAINED.
[2017-06-18] MEDS ORDERED: ACETAMINOPHEN 650 MG/SUPP.RECT RC PRN (15:30)
[2017-06-18 15:55] LABS: ABG BASE EXCESS 1.8 mmol/L; ABG OXYGEN SATURATION 90.7 % (92.0-98.5); ABG PCO2 33.7 mmHg (35.0-45.0); ABG PH 7.486 (7.350-7.450); ABG PO2 63.3 mmHg (75.0-100.0); AaDO2 183.1 mmHg; COHb 0.2 % (0.5-1.5); O2Hb 90.5 % (94.0-97.0); SITE, ABG Right Radial; VENT MODE, BG BIPAP 15/5
--- NOTE | 2017-06-18 16:00 | NUR ---
PT DOES NOT OPEN EYES TO TACTILE STIMULI. VSS, SAT 95% ABG OBTAINED. PO2 IS 63, FIO2 ADJUSTED TO 50%.
--- NOTE | 2017-06-18 17:04 | NUR ---
SON AT BEDSIDE. PH'S STATES TO SON AND ME THAT HE BELIEVES BIPAP IS MAKING PT CONDITION WORTH AND HE INSISTS TO GIVE PT SOME TIME OFF THE MACHINE. PT PLACED ON NONREBREATHER MASK, PT NOW OPENS EYES, SMILES, FOLLOW COMMANDS, STATS SHE IS HUNGRY. SAT IS 99-100%. EVELYN RT NOTIFIED. WILL CONTINUE TO MONITOR PT OFF BIPAP.
--- NOTE | 2017-06-18 17:52 | NUR ---
PT AWAKE, FOLLOWS COMMANDS, INDICATES TO FAMILY THAT SHE IS HUNGRY. HOWEVER PT NOT MAKING ANY EFFORT TO SWALLOW WHEN SPOON WITH APPLE SOUSE IS INTRODUCED. ALL PO MEDS ARE HELD. SWALLOW EVAL IS ORDERED.
[2017-06-18] MEDS: *INSULIN REGULAR(HUMULIN R)HUM 100 UNIT/ML VIAL SQ PRN ×2 (18:13→22:10)
--- NOTE | 2017-06-18 19:35 | NUR ---
COMMANDING OFFICER MOTORIZED SQUAD RCD PT W/DX AMS; PT IS LETHARGIC BUT IS EASILY AROUSABLE. NSR ON MONITOR. PT ON NRB MASK. CONTINUE TO MONITOR.
--- NOTE | 2017-06-18 19:45 | NUR ---
FISH CUTTER NRB MASK REMOVED; PT PLACED ON O2 VIA NC. CONTINUE TO MONITOR PT.
--- NOTE | 2017-06-18 19:56 | NUR ---
EDGER AUTOMATIC KAILEE MIDLINE 18 G PLACED BY RODRIGUEZ ROBLERO.
[2017-06-18] MEDS: MIRTAZAPINE 15 MG TABLET PO SCH (21:14)
[2017-06-18] MEDS: ATORVASTATIN 40 MG TABLET PO SCH (21:14)
[2017-06-18] MEDS: LATANOPROST EYE DROP 0.005% 2.5 ML BOTTLE EACHEYE SCH (21:15)
--- NOTE | 2017-06-18 22:00 | NUR ---
ELECTRONICS UTILITY WORKER CALL RECEIVED FROM SON; UPDATED ON PT CONDITION.
[2017-06-19] VITALS (16 sets, daily range): BP systolic 109–167; BP diastolic 54–87
[2017-06-19] MEDS: VANCOMYCIN 0.75 GM in IV D5W 250 ML IV SCH ×2 (00:25→20:07)
[2017-06-19 04:59] LABS: HEMATOCRIT 31 % (33-45); HEMOGLOBIN 10.4 g/dL (11.5-14.8); LYMPHOCYTES # (AUTO) 0.4 /CMM (0.8-4.8); LYMPHOCYTES % (AUTO) 9.1 % (20.0-44.0); MEAN CORPUSCULAR HEMOGLOBIN 30 PG (26.0-33.0); MEAN CORPUSCULAR HGB CONC 33 g/dl (31.0-36.0); MEAN CORPUSCULAR VOLUME 91 fL (82-100); MONOCYTES # (AUTO) 0.1 /CMM (0.1-1.30); MONOCYTES % (AUTO) 1.2 % (2.0-12.0); NEUTROPHILS # (AUTO) 4.4 /CMM (1.8-8.9); NEUTROPHILS % (AUTO) 89.7 % (43.0-81.0); PLATELET COUNT (AUTO) 125 /CMM (150-450); RDW COEFFICIENT OF VARIATION 15.9 (11.5-15.0); RED BLOOD CELL COUNT(AUTO) 3.43 MIL/uL (4.0-5.2); WHITE BLOOD COUNT (AUTO) 4.9 K/uL (4.3-11.0)
[2017-06-19] MEDS: IV NS 0.9% 1,000 ML IV PRN ×2 (05:08→18:52)
[2017-06-19 05:16] LABS: CALCIUM, SERUM 8.3 mg/dL (8.5-10.1); CARBON DIOXIDE 25 mmol/L (21-32); CHLORIDE 107 mmol/L (98-107); CREATININE 0.4 mg/dL (0.6-1.3); GLUCOSE 171 mg/dL (74-106); MAGNESIUM 1.5 mg/dL (1.8-2.4); PHOSPHORUS 3.5 mg/dL (2.5-4.9); POTASSIUM 3.3 mmol/L (3.5-5.1); SODIUM SERUM 141 mmol/L (136-145); UREA NITROGEN, BLOOD 16 mg/dL (7-18)
[2017-06-19] MEDS: BLOOD SUGAR DIAGNOSTIC 1 EACH STRIP VI SCH ×4 (06:40→22:54)
[2017-06-19] MEDS: INSULIN REGULAR, HUMAN 100 UNIT/ML 3 ML VIAL SQ PRN ×4 (06:41→22:56)
--- NOTE | 2017-06-19 06:48 | NUR ---
SINGLE ENDING MACHINE OPERATOR PT TOLERATED O2 2L VIA NC; NO REP DIST NOTED.
[2017-06-19] MEDS: ALBUTEROL FS 2.5 MG/3 ML VIAL.NEB NEB SCH ×4 (07:37→19:59)
--- NOTE | 2017-06-19 08:00 | NUR ---
LAUNCH COMMANDER HARBOR POLICE; ASSESSMENT PT IS AWAKE APHASIC, NON VERBAL. PT IS ABLE TO TRACK. PT ABLE TO NOD YES OR NO WHEN ASKED QUESTION. PT IS INCONTINENT OF URINE/ STOOL. NO ACUTE DISTRESS NOTED AT THIS TIME. CALL LIGHT WITH IN REACH, BED ALARM SET. PT CAREGIVER AT BEDSIDE.
[2017-06-19] MEDS: methylPREDNISolone SOD SUCC 125 MG/2ML VIAL IV SCH (08:37)
[2017-06-19] MEDS: CARBIDOPA/LEV CR 50/200 MG 1 UDTAB.SA PO SCH ×3 (08:38→17:33)
[2017-06-19] MEDS: TOLTERODINE 2 MG CAP.SR PO SCH ×2 (08:38→17:31)
[2017-06-19] MEDS: DOCUSATE SODIUM 100 MG CAPSULE PO SCH ×2 (08:38→17:41)
[2017-06-19] MEDS: LOSARTAN POTASSIUM 50 MG TABLET PO SCH (08:38)
[2017-06-19] MEDS: FERROUS SULFATE (325 MG) 325 MG/TAB TABLET PO SCH ×2 (08:38→12:55)
[2017-06-19] MEDS: PANTOPRAZOLE 40 MG TABLET.DR PO SCH (08:38)
[2017-06-19] MEDS: CLOPIDOGREL BISULFATE 75 MG TABLET PO SCH (08:38)
[2017-06-19 10:19] LABS: ABG BASE EXCESS -1.2 mmol/L; ABG OXYGEN SATURATION 97.8 % (92.0-98.5); ABG PCO2 33.3 mmHg (35.0-45.0); ABG PH 7.444 (7.350-7.450); ABG PO2 153.1 mmHg (75.0-100.0); COHb 0.3 % (0.5-1.5); MetHb 0.4 % (0.0-1.5); O2Hb 97.1 % (94.0-97.0); SITE, ABG Right Radial
--- NOTE | 2017-06-19 10:26 | NUR ---
COORDINATOR OF LIBRARY SERVICES; PT UNABLE TO PASS SWALLOW EVALUATION, SEE PROGRESS NOTES.
[2017-06-19] MEDS ORDERED: POTASSIUM CHLORIDE 20 MEQ POWDER PACKET GT SCH (10:30)
[2017-06-19 10:44] LABS: THYROID STIMULATING HORMONE 0.197 uIU/mL (0.358-3.74)
[2017-06-19] MEDS ORDERED: POTASSIUM CHLORIDE 10 MEQ/50 ML PREMIXED IVPB FOR PERIPHERAL LINE IV SCH (11:00)
--- NOTE | 2017-06-19 11:00 | NUR ---
SYL RN,patient received to room 116-2 from icu patient awake and smile oriented x1 vitals taken and recorded iv infusing well with no signs of redness or swelling noted family at bed side family encouraged use of call light to make all needs known will continue to assess and evaluate telemetry shows SR on monitor plan of care and safety discussed and verbalized understanding call light with in reach
[2017-06-19 11:05] LABS: TROPONIN I 0.001 ng/mL (0.00-0.056)
--- NOTE | 2017-06-19 11:12 | NUR ---
PIG LEAD MELTER HELPER; TRANSFER TRANSFER PT TO SYL TO ROOM 116-1. VIA BED WITH ACLS PROTOCOL. FAMILY AT BEDSIDE.
[2017-06-19] MEDS: Magnesium 1GM/D5W 100ML PREMIX 100 ML IV SCH ×2 (11:30→11:39)
[2017-06-19] MEDS: POTASSIUM CL. PREMIX PERIPHER. 50 ML IV SCH ×6 (11:38→16:03)
--- NOTE | 2017-06-19 12:41 | NUR ---
SYL RN, POTASSIUM 3.3 MAG 1.5 will give all bolus to be given HHN TX given by resp therapist will continue to assess and evaluate call light with in reach
--- NOTE | 2017-06-19 14:00 | NUR ---
SYL RN, incontinent of urine noted cleaed up and dry made patient comfortable patient turned from side to side and made patient comfortable
[2017-06-19] MEDS: LEVOFLOXACIN 250 MG /D5W 50 ML 250 MG in PREMIX 1 EA IV SCH (14:10)
--- NOTE | 2017-06-19 16:00 | NUR ---
SYL RN, vitals taken and recorded will continue to assess and evaluate family at bed side
--- NOTE | 2017-06-19 18:30 | NUR ---
SYL RN, condition unchanged from previous assessment will continue to assess and evaluate iv infusing well with no signs of redness or swelling noted call light with in reach
--- NOTE | 2017-06-19 20:00 | NUR ---
RN NOTE PER DAY SHIFT RN. KDUR 60MEQ WAS GIVEN.
[2017-06-19] MEDS: ATORVASTATIN 40 MG TABLET PO SCH (22:00)
[2017-06-19] MEDS: MIRTAZAPINE 15 MG TABLET PO SCH (22:00)
[2017-06-19] MEDS: LATANOPROST EYE DROP 0.005% 2.5 ML BOTTLE EACHEYE SCH (22:52)
[2017-06-20] VITALS: BP 135/79
[2017-06-20 04:00] VITALS: BP 158/84
[2017-06-20 07:04] LABS: BASOPHILS % (AUTO) 0.4 % (0.0-2.0); EOSINOPHILS % (AUTO) 0.1 % (0.0-6.0); HEMATOCRIT 33 % (33-45); HEMOGLOBIN 11.1 g/dL (11.5-14.8); LYMPHOCYTES # (AUTO) 0.7 /CMM (0.8-4.8); LYMPHOCYTES % (AUTO) 10.2 % (20.0-44.0); MEAN CORPUSCULAR HEMOGLOBIN 30 PG (26.0-33.0); MEAN CORPUSCULAR HGB CONC 33 g/dl (31.0-36.0); MEAN CORPUSCULAR VOLUME 90 fL (82-100); MONOCYTES # (AUTO) 0.4 /CMM (0.1-1.30); MONOCYTES % (AUTO) 5.6 % (2.0-12.0); NEUTROPHILS % (AUTO) 83.7 % (43.0-81.0); PLATELET COUNT (AUTO) 142 /CMM (150-450); RDW COEFFICIENT OF VARIATION 16.6 (11.5-15.0); RED BLOOD CELL COUNT(AUTO) 3.68 MIL/uL (4.0-5.2); WHITE BLOOD COUNT (AUTO) 7.1 K/uL (4.3-11.0)
[2017-06-20] MEDS: BLOOD SUGAR DIAGNOSTIC 1 EACH STRIP VI SCH ×4 (07:18→22:00)
--- NOTE | 2017-06-20 07:24 | NUR ---
RN CLOSING NOTE PT REMAINS IN NO ACUTE DISTRESS IN BED. PT DID NOT HAVE ANY SIGNIFICANT CHANGE IN CONDITION DURING SHIFT. ALL NEEDS MET, ALL ORDERS CARRIED OUT. WILL ENDORSE CARE TO AM RN FOR CONTINUITY OF CARE.
[2017-06-20] MEDS: PANTOPRAZOLE 40 MG TABLET.DR PO SCH (07:30)
[2017-06-20 08:00] VITALS: BP 139/81
[2017-06-20 08:35] LABS: CALCIUM, SERUM 9.5 mg/dL (8.5-10.1); CARBON DIOXIDE 29 mmol/L (21-32); CHLORIDE 109 mmol/L (98-107); CREATININE 0.2 mg/dL (0.6-1.3); GLUCOSE 101 mg/dL (74-106); MAGNESIUM 1.7 mg/dL (1.8-2.4); PHOSPHORUS 3.2 mg/dL (2.5-4.9); POTASSIUM 4.2 mmol/L (3.5-5.1); SODIUM SERUM 144 mmol/L (136-145); UREA NITROGEN, BLOOD 10 mg/dL (7-18)
[2017-06-20] MEDS: methylPREDNISolone SOD SUCC 125 MG/2ML VIAL IV SCH (08:50)
[2017-06-20] MEDS: CLOPIDOGREL BISULFATE 75 MG TABLET PO SCH (08:50)
[2017-06-20] MEDS: LOSARTAN POTASSIUM 50 MG TABLET PO SCH (08:51)
[2017-06-20] MEDS: CARBIDOPA/LEV CR 50/200 MG 1 UDTAB.SA PO SCH ×3 (08:51→17:51)
[2017-06-20] MEDS: TOLTERODINE 2 MG CAP.SR PO SCH ×2 (08:51→17:51)
[2017-06-20] MEDS: DOCUSATE SODIUM 100 MG CAPSULE PO SCH ×2 (08:51→17:00)
[2017-06-20] MEDS: ALBUTEROL FS 2.5 MG/3 ML VIAL.NEB NEB SCH ×4 (09:47→20:19)
--- NOTE | 2017-06-20 10:30 | NUR ---
WOUND CARE CONSULT: PT PRESENTS WITH SACRAL SCAR AND REDNESS WHICH IS BLANCHABLE. PT IS INCONTINENT. ALL SKIN PROTECTION MEASURES IN PLACE AND DISCUSSED WITH NURSING STAFF. CURRENT MIRI SCORE IS 9. ISOFLEX LOW AIRLOSS BED TO BE PLACED WHEN AVAILABLE. PT TO BE TURNED AND REPOSITIONED EVERY 2 HRS PT CONDITION PERMITS, HEELS FLOATED. WILL SEE PRN. CUELLAR IN AGREEMENT WITH PLAN OF CARE. Addendum: 06/20/17 at 1031 by NANCI QUINTEROS WNDNU Amended: Links added.
[2017-06-20] MEDS: Magnesium 1GM/D5W 100ML PREMIX 100 ML IV SCH ×2 (11:55→13:06)
[2017-06-20] MEDS: VANCOMYCIN 0.75 GM in IV D5W 250 ML IV SCH (12:04)
[2017-06-20] MEDS: INSULIN REGULAR, HUMAN 100 UNIT/ML 3 ML VIAL SQ PRN ×2 (12:13→18:11)
[2017-06-20] MEDS ORDERED: MORPHINE SULFATE INJ 2 MG/ML DISP.SYRIN IV ONE (12:30)
[2017-06-20] MEDS ORDERED: GLYTROL 1,000 ML BAG GT PRN (12:30)
[2017-06-20] MEDS: LEVOFLOXACIN 250 MG /D5W 50 ML 250 MG in PREMIX 1 EA IV SCH (14:23)
[2017-06-20 16:00] VITALS: BP 139/88
[2017-06-20] MEDS: SOD FERRIC GLUC 125 MG in IV NS 0.9% 100 ML IV SCH (16:34)
--- NOTE | 2017-06-20 18:53 | NUR ---
RN NOTES PT RESTING IN BED, HOB ELEVATED ON UPRIGHT SITTING POSITION. EYES OPEN, PT NON-VERBAL, NGTON L NARE ONGOING GTF GLYTROL@ 20ML/HR, TOLERATING WELL NO RESIDUAL NOTED AT THIS TIME. KAILEE MIDLINE FLUSHING WELL. KEPT PT CLEAN DRY AND COMFORTABLE. SAFETY MAINTAINED, CALL LIGHT WITHIN REACH, WILL CONT TO MONITOR
[2017-06-20 20:00] VITALS: BP 188/74
--- NOTE | 2017-06-20 20:00 | NUR ---
MS RN NOTE PT IN BED AWAKE WITH SMILY FACE. A/O X 1, UNCLEAR SPEECH. NO SOB, NO DISTRESS OR DISCOMFORT NOTED. DENIES PAIN. ON NTF GLYTROL AT 20 ML/HR, 0 ML RESIDUAL NOTED. NGT IN LT NARES INTACT AND PATENT. ON O2 2L VIA N/C O2 SAT 99%. SIDE RAILS UP X 2 AND CALL LIGHT WITHIN REACH. CONTINUE TO MONITOR HER.
--- NOTE | 2017-06-20 21:00 | NUR ---
MS RN NOTE NOTED BP HIGH 188/74HR 78, HYDRALAZINE 10 MG VIA NGT GIVEN FOR HIGH B/P. WILL RECHECK B/P IN AN HOUR.
[2017-06-20] MEDS: LATANOPROST EYE DROP 0.005% 2.5 ML BOTTLE EACHEYE SCH (21:05)
[2017-06-20] MEDS: ATORVASTATIN 40 MG TABLET PO SCH (21:05)
[2017-06-20] MEDS: MIRTAZAPINE 15 MG TABLET PO SCH (21:05)
[2017-06-20 22:00] VITALS: BP 110/58
--- NOTE | 2017-06-20 22:00 | NUR ---
MS RN NOTE B/P CAME DOWN TO 110/59. PT IN BED ASLEEP, NO DISTRESS OR DISCOMFORT NOTED. RESP EVEN AND NON LABORED.
[2017-06-21] MEDS: *INSULIN REGULAR(HUMULIN R)HUM 100 UNIT/ML VIAL SQ PRN ×3 (00:34→22:41)
[2017-06-21] MEDS: IV NS 0.9% 1,000 ML IV PRN (00:54)
[2017-06-21 04:00] VITALS: BP 103/68
[2017-06-21] MEDS: VANCOMYCIN 0.75 GM in IV D5W 250 ML IV SCH (05:28)
[2017-06-21] MEDS: BLOOD SUGAR DIAGNOSTIC 1 EACH STRIP VI SCH ×4 (05:38→22:41)
[2017-06-21] MEDS: INSULIN REGULAR, HUMAN 100 UNIT/ML 3 ML VIAL SQ PRN ×2 (05:41→12:03)
--- NOTE | 2017-06-21 06:27 | NUR ---
RN NOTE PT IN BED ASLEEP, AROUSABLE. NO DISTRESS OR DISCOMFORT NOTED. NO S/S OF PAIN NOTED. SIDE RAILS UP X 3 AND CALL LIGHT WITHIN REACH. NGT INTACT AND PATENT INFUSING GLYTROL AT 20 ML/HR, 0 ML RESIDUAL NOTED. REPOSITION HER Q2H, KEPT HER DRY AND CLEAN. WILL ENDORSE TO DAY SHIFT NURSE FOR CONTINUE TO CARE.
--- NOTE | 2017-06-21 07:31 | NUR ---
RN NOTES RN NOTES RECEIVED PT FROM BLOCK SORTER IN STABLE CONDITION, RESTING IN BED, OPENS EYES TO NAME, RESPONDS WITH UNCLEAR SPEECH/MUMBLES. ON 2L NC, NO SOB OR DISTRESS NOTED. NGT L NARE WITH GLYTROL AT 20ML/HR. KAILEE MIDLINE DRY AND INTACT WITH IVF AT 40ML/HR. BED LOCKED AND IN LOWEST POSITION, CALL LIGHT WITHIN REACH, SIDE RAILS UPX3, WILL CONT TO MONITOR.
[2017-06-21] MEDS: ALBUTEROL FS 2.5 MG/3 ML VIAL.NEB NEB SCH ×4 (07:33→20:06)
[2017-06-21 07:44] LABS: BASOPHILS % (AUTO) 0.3 % (0.0-2.0); HEMATOCRIT 33 % (33-45); HEMOGLOBIN 11.1 g/dL (11.5-14.8); LYMPHOCYTES # (AUTO) 0.8 /CMM (0.8-4.8); LYMPHOCYTES % (AUTO) 10.9 % (20.0-44.0); MEAN CORPUSCULAR HEMOGLOBIN 30 PG (26.0-33.0); MEAN CORPUSCULAR HGB CONC 33 g/dl (31.0-36.0); MEAN CORPUSCULAR VOLUME 91 fL (82-100); MONOCYTES # (AUTO) 0.6 /CMM (0.1-1.30); MONOCYTES % (AUTO) 8.1 % (2.0-12.0); NEUTROPHILS % (AUTO) 80.7 % (43.0-81.0); PLATELET COUNT (AUTO) 162 /CMM (150-450); RDW COEFFICIENT OF VARIATION 15.9 (11.5-15.0); RED BLOOD CELL COUNT(AUTO) 3.68 MIL/uL (4.0-5.2); WHITE BLOOD COUNT (AUTO) 7.4 K/uL (4.3-11.0)
[2017-06-21 08:00] VITALS: BP 132/69
[2017-06-21 08:05] LABS: CALCIUM, SERUM 8.7 mg/dL (8.5-10.1); CARBON DIOXIDE 28 mmol/L (21-32); CHLORIDE 105 mmol/L (98-107); CREATININE 0.4 mg/dL (0.6-1.3); GLUCOSE 194 mg/dL (74-106); MAGNESIUM 1.8 mg/dL (1.8-2.4); PHOSPHORUS 3.8 mg/dL (2.5-4.9); POTASSIUM 3.3 mmol/L (3.5-5.1); SODIUM SERUM 141 mmol/L (136-145); UREA NITROGEN, BLOOD 12 mg/dL (7-18)
[2017-06-21] MEDS: LOSARTAN POTASSIUM 50 MG TABLET PO SCH (08:32)
[2017-06-21] MEDS: CARBIDOPA/LEV CR 50/200 MG 1 UDTAB.SA PO SCH ×3 (08:32→16:34)
[2017-06-21] MEDS: CLOPIDOGREL BISULFATE 75 MG TABLET PO SCH (08:32)
[2017-06-21] MEDS: methylPREDNISolone SOD SUCC 125 MG/2ML VIAL IV SCH (08:33)
[2017-06-21] MEDS: TOLTERODINE 2 MG CAP.SR PO SCH ×2 (08:33→16:33)
[2017-06-21] MEDS: DOCUSATE SODIUM 100 MG CAPSULE PO SCH ×2 (08:33→16:33)
[2017-06-21] MEDS: PANTOPRAZOLE 40 MG TABLET.DR PO SCH (08:33)
[2017-06-21] MEDS: POTASSIUM CHLORIDE 20 MEQ POWDER PACKET GT SCH ×2 (08:33→10:01)
[2017-06-21] MEDS: LEVOFLOXACIN 250 MG /D5W 50 ML 250 MG in PREMIX 1 EA IV SCH (12:05)
[2017-06-21] MEDS: SOD FERRIC GLUC 125 MG in IV NS 0.9% 100 ML IV SCH (14:38)
[2017-06-21 16:00] VITALS: BP 121/68
[2017-06-21] MEDS: GLYTROL 1,000 ML BAG GT PRN (18:13)
--- NOTE | 2017-06-21 18:23 | NUR ---
RN NOTES PT RESTING IN BED ON NC, NO SOB OR DISTRESS NOTED. AT BEDSIDE. PT REMAINED IN STABLE CONDITION THROUGHOUT THE SHIFT, NO SIGNIFICANT CHANGES. NGTUBE IN L NARE, TOLERATING FEEDING AT 40ML/HR. BED LOCKED AND IN LOWEST POSITION, SIDE RAILS UPX3, WILL ENDORSE TO ONCOMING SHIFT.
[2017-06-21 20:00] VITALS: BP 132/76
--- NOTE | 2017-06-21 20:00 | NUR ---
MS RN NOTES RECEIVED PTS ON BED WITH EYE OPEN , V/S STABLE AFEBRILE, NO SOB NO DISTRESS NOTED , BREATHING EVEN AND UNLABORED, PTS ON 02 AT 2LITERS VIA NC SATING 97% , HOB ELEVATED FOR ASPIRATION PRECAUTION , ON NGT IN PLACE ,WITH GLYROL FEEDING , AT40CC/HR , WELL TOLERATED , NO RESIDUAL NOTED, ALSO WITH RIGHT UA MIDLINE INTACT AND PATENT , WITH IVF OF NS AT 40CC/HR INFUSING WELL, TURNED AND REPOSITION Q 2HRS AND PRN.ALL NEEDS ATTENDED TOO CALL LIGHT WITHIN REACH , KEPT PTS CLEAN DRY AND COMFORTABLE.NO SIGNIFICANT CHANGE NOTED,WILL CONTINUE TO MONITOR.
[2017-06-21] MEDS: LATANOPROST EYE DROP 0.005% 2.5 ML BOTTLE EACHEYE SCH (21:12)
[2017-06-21] MEDS: MIRTAZAPINE 15 MG TABLET PO SCH (21:12)
[2017-06-21] MEDS: ATORVASTATIN 40 MG TABLET PO SCH (21:12)
--- NOTE | 2017-06-21 22:00 | NUR ---
MS RN NOTES , BLOOD SUGAR FOR 10PM IS 191MG/DL =3 UNITS OF REGULAR INSULIN GIVEN PER SLIDING SCALE.PTS ON GT FEEDING WILL CHECK BS AGAIN IN AM.
[2017-06-22] MEDS: VANCOMYCIN 0.75 GM in IV D5W 250 ML IV SCH (00:53)
[2017-06-22 04:00] VITALS: BP 117/70
[2017-06-22] MEDS: IV NS 0.9% 1,000 ML IV PRN (05:15)
[2017-06-22] MEDS: INSULIN REGULAR, HUMAN 100 UNIT/ML 3 ML VIAL SQ PRN ×3 (06:56→16:47)
[2017-06-22] MEDS: BLOOD SUGAR DIAGNOSTIC 1 EACH STRIP VI SCH ×4 (06:59→22:08)
--- NOTE | 2017-06-22 07:26 | NUR ---
MS RN NOTES BLOOD SUGAR FOR 730AM IS 228 MG/DL =6 UNITS OF REGULAR INSULIN GIVEN PER SLIDING SCALE. PTS ON GT FEEDING.
--- NOTE | 2017-06-22 07:34 | NUR ---
MS RN NOTES PTS ON BED AWAKE AND RESPONSIVE , NO SOB NO DISTRESS NOTED , V/S STABLE AFEBRILE , NO SIGNIFICANCE CHANGE NOTED , WILL ENDORSE TO [facility] DAY SHIFT FOR CONTINUITY OF CARE.
[2017-06-22 07:50] LABS: BASOPHILS % (AUTO) 0.1 % (0.0-2.0); EOSINOPHILS % (AUTO) 0.3 % (0.0-6.0); HEMATOCRIT 35 % (33-45); HEMOGLOBIN 11.7 g/dL (11.5-14.8); LYMPHOCYTES # (AUTO) 1.1 /CMM (0.8-4.8); LYMPHOCYTES % (AUTO) 16.2 % (20.0-44.0); MEAN CORPUSCULAR HEMOGLOBIN 31 PG (26.0-33.0); MEAN CORPUSCULAR HGB CONC 34 g/dl (31.0-36.0); MEAN CORPUSCULAR VOLUME 90 fL (82-100); MONOCYTES # (AUTO) 0.4 /CMM (0.1-1.30); MONOCYTES % (AUTO) 5.7 % (2.0-12.0); NEUTROPHILS # (AUTO) 5.2 /CMM (1.8-8.9); NEUTROPHILS % (AUTO) 77.7 % (43.0-81.0); PLATELET COUNT (AUTO) 164 /CMM (150-450); RDW COEFFICIENT OF VARIATION 16.2 (11.5-15.0); RED BLOOD CELL COUNT(AUTO) 3.83 MIL/uL (4.0-5.2); WHITE BLOOD COUNT (AUTO) 6.7 K/uL (4.3-11.0)
[2017-06-22] MEDS: ALBUTEROL FS 2.5 MG/3 ML VIAL.NEB NEB SCH ×4 (07:58→19:47)
[2017-06-22 08:00] VITALS: BP 135/69
--- NOTE | 2017-06-22 08:00 | NUR ---
MS RN NOTES RECEIVED PTS ON BED WITH EYE OPEN , V/S STABLE AFEBRILE, NO SOB NO DISTRESS NOTED , BREATHING EVEN AND UNLABORED, PTS ON 02 AT 2LITERS VIA NC SATING 97% , HOB ELEVATED FOR ASPIRATION PRECAUTION , ON NGT IN PLACE PLACEMENT VERIFIED ,WITH GLYROL FEEDING , AT40CC/HR , WELL TOLERATED , NO RESIDUAL NOTED, ALSO WITH RIGHT UA MIDLINE INTACT AND PATENT , WITH IVF OF NS AT 40CC/HR INFUSING WELL, TURNED AND REPOSITION Q 2HRS AND PRN.ALL NEEDS ATTENDED TOO CALL LIGHT WITHIN REACH , KEPT PTS CLEAN DRY AND COMFORTABLE.NO SIGNIFICANT CHANGE NOTED,WILL CONTINUE TO MONITOR.FAMILY AT BEDSIDE
[2017-06-22 08:38] LABS: CALCIUM, SERUM 8.8 mg/dL (8.5-10.1); CARBON DIOXIDE 32 mmol/L (21-32); CHLORIDE 109 mmol/L (98-107); CREATININE 0.4 mg/dL (0.6-1.3); GLUCOSE 238 mg/dL (74-106); MAGNESIUM 1.6 mg/dL (1.8-2.4); PHOSPHORUS 2.4 mg/dL (2.5-4.9); SODIUM SERUM 144 mmol/L (136-145); UREA NITROGEN, BLOOD 17 mg/dL (7-18)
[2017-06-22] MEDS: methylPREDNISolone SOD SUCC 125 MG/2ML VIAL IV SCH (08:59)
[2017-06-22] MEDS: CLOPIDOGREL BISULFATE 75 MG TABLET PO SCH (08:59)
[2017-06-22] MEDS: DOCUSATE SODIUM 100 MG CAPSULE PO SCH ×2 (09:00→16:03)
[2017-06-22] MEDS: CARBIDOPA/LEV CR 50/200 MG 1 UDTAB.SA PO SCH ×3 (09:00→16:03)
[2017-06-22] MEDS: LOSARTAN POTASSIUM 50 MG TABLET PO SCH (09:00)
[2017-06-22] MEDS: TOLTERODINE 2 MG CAP.SR PO SCH ×2 (09:01→16:03)
[2017-06-22] MEDS: PANTOPRAZOLE 40 MG TABLET.DR PO SCH (09:02)
[2017-06-22] MEDS: Magnesium 1GM/D5W 100ML PREMIX 100 ML IV SCH ×2 (12:00→13:08)
--- NOTE | 2017-06-22 12:10 | NUR ---
MS RN NOTE PER DIETARY OK TO CHANGE G TUBE FEEDING UP TO TO 75 ML PER HEPAR MAX DOSE /WILL INCREASE TO 50 ML PER HOUR PER NOW .WILL MONITOR CLOSELY
[2017-06-22] MEDS: LEVOFLOXACIN (250MG) 250 MG TABLET PO SCH (12:46)
--- NOTE | 2017-06-22 13:41 | NUR ---
RT UNAWARE OF 1130 DOSE HHN TX AT THIS TIME PT APPEARS TO BE IN STABLE CONDITION NO SOB OR RESP DISTRESS NOTED AT THIS TIME WILL CONTINUE NEXT SCHEDULED TX
--- NOTE | 2017-06-22 15:00 | NUR ---
MS RN NOTE DR STREETER AT BEDSIDE , ALL NEEDS ATTENDED, CONT G TUBE FEEDING ORDERED, KEEP HB ELEVATED AT ALL TIME
[2017-06-22] MEDS: SOD FERRIC GLUC 125 MG in IV NS 0.9% 100 ML IV SCH (15:07)
[2017-06-22] MEDS ORDERED: FLU VACC QS 2017-18(36MOS+)/PF 0.5 ML DISP.SYRIN IM ONE (16:00)
[2017-06-22] MEDS ORDERED: K PHOS NEUTRAL 250 MG TABLET PO ONE (16:30)
[2017-06-22] MEDS: GLYTROL 1,000 ML BAG GT PRN (17:19)
--- NOTE | 2017-06-22 17:53 | NUR ---
MS RN NOTE GTUBE FEEDING AT 55 ML PER HOUR NO NAUSEA OR VOMITING ,NOTED RESIDUAL 10 ML, WILL CONT TO MONITOR CLOSELY
--- NOTE | 2017-06-22 18:48 | NUR ---
MS RN NOTE FAMILY AT BEDSIDE ,KEEP CLEAN, CONT GTUBE FEEDING ORDERED, KEEP HOB ELEVATED, NOT IN ACUTE DISTRESS
--- NOTE | 2017-06-22 19:30 | NUR ---
MS RN INITIAL NOTE PT RECEIVED RESTING IN BED. OPENS EYES AND NOTED WITH UNCLEAR SPEECH. ON 2L OF O2 AND SATURATING 98%. BREATHING REGULAR, EVEN AND UNLABORED. NGTUBE IN PLACE, SECURED AND FLUSHING WELL WITHOUT RESIDUALS NOTED. FEEDING WELL TOLERATED AT THIS TIME. WILL INCREASE FEEDING FROM 55MLS/HR TO 65MLS/HR UNTIL GOAL OF 75MLS/HR IS REACHED. HOB IS ELEVATED AT ALL TIMES D/T ASPIRATION PRECAUTIONS. IV KAILEE MIDLINE CLEAN, INTACT AND FLUSHING WELL. BED IN LOWEST POSITION AND LOCKED IN PLACE WITH BED ALARM ON FOR SAFETY. CALL LIGHT WITHIN REACH AT ALL TIMES. WILL CONTINUE TO MONITOR.
[2017-06-22 20:00] VITALS: BP 95/58
[2017-06-22] MEDS: LATANOPROST EYE DROP 0.005% 2.5 ML BOTTLE EACHEYE SCH (22:07)
[2017-06-22] MEDS: ATORVASTATIN 40 MG TABLET PO SCH (22:07)
[2017-06-22] MEDS: MIRTAZAPINE 15 MG TABLET PO SCH (22:08)
[2017-06-22] MEDS: *INSULIN REGULAR(HUMULIN R)HUM 100 UNIT/ML VIAL SQ PRN (22:17)
[2017-06-23 04:00] VITALS: BP 153/78
[2017-06-23] MEDS: IV NS 0.9% 1,000 ML IV PRN (05:02)
--- NOTE | 2017-06-23 07:04 | NUR ---
MS RN CLOSING NOTE PT REMAINED STABLE DURING SHIFT. NO C/O DISCOMFORT OR FACIAL GRIMACE NOTED. ALL NEEDS ATTENDED TO PROMPTLY. KEPT CLEAN AND DRY. REPOSITIONED Q2H. HOB MAINTAINED ELEVATED D/T ASPIRATION PRECAUTIONS. NGTUBE IN PLACE AND FEEDING MAINTAINED AT 55MLS/HR. INCREASED TO 65 MLS/HR AND NOT WELL TOLERATED D/T 150MLS OF RESIDUALS. FEEDING HELD AND NOW HAS BEEN RESUMED TO 55 MLS/HR WITHOUT RESIDUALS NOTED. WILL ENDORSE TO NEXT SHIFT FOR CONTINUITY OF CARE.
--- NOTE | 2017-06-23 07:12 | NUR ---
RN INITIAL NOTES: REC'D PT AWAKE ON BED W/ HOB ELEVATED, NOT IN ANY FORM OF DISTRESS, OPENS EYES SPONTANEOUSLY. HAS NGT ON L NARE (LEVEL 80CM), PATENCY CHECKED AND VERIFIED, ON TUBE FEEDING GLYTROL AT 55 CC/HR INFUSING WELL, NO RESIDUAL NOTED. HAS KAILEE MIDLINE, PL, PATENT & INTACT W/NS AT 40 CC/HR INFUSING WELL. CAREGIVER AND AT BEDSIDE. PROVIDED COMFORT & SAFETY MEASURES. BED KEPT LOW & IN LOCKED POS. CALL LIGHT PLACED W/IN REACH. WILL CONTINUE TO MONITOR.
[2017-06-23 07:52] LABS: CALCIUM, SERUM 8.2 mg/dL (8.5-10.1); CARBON DIOXIDE 31 mmol/L (21-32); CHLORIDE 105 mmol/L (98-107); CREATININE 0.3 mg/dL (0.6-1.3); GLUCOSE 225 mg/dL (74-106); MAGNESIUM 1.6 mg/dL (1.8-2.4); POTASSIUM 3.2 mmol/L (3.5-5.1); SODIUM SERUM 141 mmol/L (136-145); UREA NITROGEN, BLOOD 21 mg/dL (7-18)
[2017-06-23 08:00] VITALS: BP 130/75
[2017-06-23] MEDS: ALBUTEROL FS 2.5 MG/3 ML VIAL.NEB NEB SCH ×4 (08:02→20:20)
[2017-06-23] MEDS: methylPREDNISolone SOD SUCC 125 MG/2ML VIAL IV SCH (08:17)
[2017-06-23] MEDS: CLOPIDOGREL BISULFATE 75 MG TABLET PO SCH (08:18)
[2017-06-23] MEDS: DOCUSATE SODIUM 100 MG CAPSULE PO SCH ×2 (08:18→17:44)
[2017-06-23] MEDS: LOSARTAN POTASSIUM 50 MG TABLET PO SCH (08:18)
[2017-06-23] MEDS: PANTOPRAZOLE 40 MG TABLET.DR PO SCH (08:18)
[2017-06-23] MEDS: CARBIDOPA/LEV CR 50/200 MG 1 UDTAB.SA PO SCH ×3 (08:18→17:44)
[2017-06-23] MEDS: TOLTERODINE 2 MG CAP.SR PO SCH ×2 (08:18→17:44)
[2017-06-23] MEDS: BLOOD SUGAR DIAGNOSTIC 1 EACH STRIP VI SCH ×5 (08:19→21:21)
[2017-06-23] MEDS: Z GUARD REMEDY 2 OZ OINT TP PRN (08:21)
[2017-06-23] MEDS: INSULIN REGULAR, HUMAN 100 UNIT/ML 3 ML VIAL SQ PRN ×3 (08:34→17:47)
--- NOTE | 2017-06-23 09:00 | NUR ---
RN NOTES: SWALLOW RE EVAL DONE BY SPEECH THERAPIST BUT PT STILL FAILS, NOTED COUGHING. IS AWARE. VERBALIZED HE'S WAITING FOR HIS SON. UNDECIDED YET FOR GT PLACEMENT.
[2017-06-23] MEDS: Magnesium 1GM/D5W 100ML PREMIX 100 ML IV SCH ×2 (11:34→12:29)
[2017-06-23] MEDS: POTASSIUM CHLORIDE 20 MEQ POWDER PACKET GT SCH ×2 (11:35→12:29)
[2017-06-23] MEDS: LEVOFLOXACIN (250MG) 250 MG TABLET PO SCH (12:30)
[2017-06-23] MEDS ORDERED: Magnesium 1GM/D5W 100ML PREMIX 100 ML IV SCH (13:46)
[2017-06-23] MEDS ORDERED: IV NS 0.9% 250 ML IV ONE (14:30)
[2017-06-23] MEDS: GLYTROL 1,000 ML BAG GT PRN (14:50)
[2017-06-23] MEDS: SOD FERRIC GLUC 125 MG in IV NS 0.9% 100 ML IV SCH (15:02)
[2017-06-23 16:00] VITALS: BP 104/58
--- NOTE | 2017-06-23 18:53 | NUR ---
RN CLOSING NOTES: NO ACUTE CHANGES NOTED W/IN SHIFT. NGT ON L NARE (LEVEL 80CM), KEPT PATENT AND IN PLACED, ON TUBE FEEDING GLYTROL ADVANCED TO 60 CC/HR INFUSING WELL, NO RESIDUAL NOTED W/IN SHIFT. KAILEE MIDLINE, PL, KEPT PATENT & INTACT W/NS AT 40 CC/HR INFUSING WELL. PT KEPT WELL RESTED. NEEDS ATTENDED. BED KEPT LOW & IN LOCKED POS. CALL LIGHT PLACED W/IN REACH. WILL ENDORSE TO PM RN FOR FELICITAS.
[2017-06-23 20:00] VITALS: BP 157/68
--- NOTE | 2017-06-23 20:40 | NUR ---
RN INITIAL NOTES: RECEIVED PT ASLEEP IN BED, HOB ELEVATED, NO SIGN OF DISTRESS OR FACIAL GRIMACING NOTED. NGT ON L NARE (LEVEL 80CM), KEPT PATENT AND IN PLACED, ON TUBE FEEDING GLYTROL ADVANCED TO 60 CC/HR INFUSING WELL, NO RESIDUAL NOTED W/IN SHIFT. KAILEE MIDLINE, PL, KEPT PATENT & INTACT W/NS AT 40 CC/HR INFUSING WELL. PT KEPT WELL RESTED. NEEDS ATTENDED. BED KEPT LOW & IN LOCKED POS. CALL LIGHT PLACED W/IN REACH. WILL CONT TO MONITOR.
[2017-06-23] MEDS: MIRTAZAPINE 15 MG TABLET PO SCH (21:21)
[2017-06-23] MEDS: ATORVASTATIN 40 MG TABLET PO SCH (21:21)
[2017-06-23] MEDS: *INSULIN REGULAR(HUMULIN R)HUM 100 UNIT/ML VIAL SQ PRN (21:34)
[2017-06-23] MEDS: LATANOPROST EYE DROP 0.005% 2.5 ML BOTTLE EACHEYE SCH (21:35)
[2017-06-24] VITALS: BP 139/74
[2017-06-24 04:00] VITALS: BP_SYST 122; BP_SYST 167; BP_DIAS 53; BP_DIAS 88
[2017-06-24] MEDS: GLYTROL 1,000 ML BAG GT PRN (05:21)
--- NOTE | 2017-06-24 06:35 | NUR ---
RN CLOSING NOTES: ENDORSED PT ASLEEP IN BED, HOB ELEVATED, NO SIGN OF DISTRESS OR FACIAL GRIMACING NOTED. NGT ON L NARE (LEVEL 80CM), KEPT PATENT AND IN PLACED, ON TUBE FEEDING GLYTROL ADVANCED TO 75 CC/HR, MAX ORDERED INFUSING WELL, NO RESIDUAL NOTED, HOB ELEVATED W/IN SHIFT. KAILEE MIDLINE, PL, KEPT PATENT & INTACT W/NS AT 40 CC/HR INFUSING WELL. PT KEPT WELL RESTED. NEEDS ATTENDED. BED KEPT LOW & IN LOCKED POS. CALL LIGHT PLACED W/IN REACH. WILL CONT TO MONITOR.
[2017-06-24] MEDS: BLOOD SUGAR DIAGNOSTIC 1 EACH STRIP VI SCH ×4 (06:59→21:58)
[2017-06-24] MEDS: ALBUTEROL FS 2.5 MG/3 ML VIAL.NEB NEB SCH ×4 (06:59→20:23)
[2017-06-24] MEDS: *INSULIN REGULAR(HUMULIN R)HUM 100 UNIT/ML VIAL SQ PRN ×2 (07:03→22:12)
[2017-06-24] MEDS: PANTOPRAZOLE 40 MG TABLET.DR PO SCH (07:04)
--- NOTE | 2017-06-24 07:12 | NUR ---
RN INITIAL NOTES: REC'D PT AWAKE ON BED W/ HOB ELEVATED, NOT IN ANY FORM OF DISTRESS, OPENS EYES SPONTANEOUSLY. HAS NGT ON L NARE (LEVEL 80CM), PATENCY CHECKED AND VERIFIED, ON TUBE FEEDING GLYTROL AT 75 CC/HR INFUSING WELL, NO RESIDUAL NOTED UPON CHECKING. HAS KAILEE MIDLINE, PL, PATENT & INTACT W/NS AT 40 CC/HR INFUSING WELL. CAREGIVER AT BEDSIDE. PROVIDED COMFORT & SAFETY MEASURES. BED KEPT LOW & IN LOCKED POS. CALL LIGHT PLACED W/IN REACH. WILL CONTINUE TO MONITOR.
[2017-06-24 07:58] LABS: EOSINOPHILS % (AUTO) 0.5 % (0.0-6.0); HEMATOCRIT 32 % (33-45); HEMOGLOBIN 10.7 g/dL (11.5-14.8); LYMPHOCYTES # (AUTO) 1.3 /CMM (0.8-4.8); LYMPHOCYTES % (AUTO) 14.5 % (20.0-44.0); MEAN CORPUSCULAR HEMOGLOBIN 31 PG (26.0-33.0); MEAN CORPUSCULAR HGB CONC 34 g/dl (31.0-36.0); MEAN CORPUSCULAR VOLUME 91 fL (82-100); MONOCYTES # (AUTO) 0.3 /CMM (0.1-1.30); MONOCYTES % (AUTO) 3.6 % (2.0-12.0); NEUTROPHILS # (AUTO) 7.2 /CMM (1.8-8.9); NEUTROPHILS % (AUTO) 81.4 % (43.0-81.0); PLATELET COUNT (AUTO) 184 /CMM (150-450); RDW COEFFICIENT OF VARIATION 16.2 (11.5-15.0); RED BLOOD CELL COUNT(AUTO) 3.47 MIL/uL (4.0-5.2); WHITE BLOOD COUNT (AUTO) 8.8 K/uL (4.3-11.0)
[2017-06-24 08:00] VITALS: BP 129/70
[2017-06-24 08:14] LABS: CALCIUM, SERUM 8.5 mg/dL (8.5-10.1); CARBON DIOXIDE 31 mmol/L (21-32); CHLORIDE 105 mmol/L (98-107); CREATININE 0.4 mg/dL (0.6-1.3); GLUCOSE 223 mg/dL (74-106); MAGNESIUM 1.8 mg/dL (1.8-2.4); PHOSPHORUS 2.2 mg/dL (2.5-4.9); POTASSIUM 4.1 mmol/L (3.5-5.1); SODIUM SERUM 141 mmol/L (136-145); UREA NITROGEN, BLOOD 19 mg/dL (7-18)
[2017-06-24] MEDS: DOCUSATE SODIUM 100 MG CAPSULE PO SCH ×2 (08:50→17:17)
[2017-06-24] MEDS: CARBIDOPA/LEV CR 50/200 MG 1 UDTAB.SA PO SCH ×3 (08:50→17:17)
[2017-06-24] MEDS: CLOPIDOGREL BISULFATE 75 MG TABLET PO SCH (08:50)
[2017-06-24] MEDS: LOSARTAN POTASSIUM 50 MG TABLET PO SCH (08:50)
[2017-06-24] MEDS: methylPREDNISolone SOD SUCC 125 MG/2ML VIAL IV SCH (08:50)
[2017-06-24] MEDS: TOLTERODINE 2 MG CAP.SR PO SCH ×2 (08:51→17:17)
[2017-06-24] MEDS: Z GUARD REMEDY 2 OZ OINT TP PRN (08:52)
[2017-06-24] MEDS ORDERED: K PHOS NEUTRAL 250 MG TABLET PO ONE (12:00)
--- NOTE | 2017-06-24 12:38 | NUR ---
RN NOTES: PT SEEN & EXAMINED BY DR. ANN. PER MD, PT IS FOR POSS G-TUBE PLACEMENT ON MONDAY PER DR. AGUILAR. AT BEDSIDE.
[2017-06-24] MEDS: LEVOFLOXACIN (250MG) 250 MG TABLET PO SCH (12:42)
[2017-06-24] MEDS: INSULIN REGULAR, HUMAN 100 UNIT/ML 3 ML VIAL SQ PRN ×2 (12:43→17:19)
--- NOTE | 2017-06-24 14:00 | NUR ---
RN NOTES: REINSERTED NGT ON L NARE, LEVEL 65. STAT CXR DONE. PULLED OUT NGT UNTIL LEVEL 60 DUE TO CXR RESULT. VERIFIED AND CONFIRMED PLACEMENT BY 2 RN. NOTED GURGLING SOUND UPON AUSCULTATION AND POSITIVE GASTRIC RESIDUAL UPON ASPIRATION.
[2017-06-24] MEDS: SOD FERRIC GLUC 125 MG in IV NS 0.9% 100 ML IV SCH (15:06)
[2017-06-24 16:00] VITALS: BP 153/88
[2017-06-24] MEDS: IV NS 0.9% 1,000 ML IV PRN (16:22)
--- NOTE | 2017-06-24 18:41 | NUR ---
RN CLOSING NOTES: NO ACUTE CHANGES NOTED W/IN SHIFT. NGT ON L NARE (LEVEL 60 CM), KEPT PATENT AND IN PLACED, ON TUBE FEEDING GLYTROL 75 CC/HR INFUSING WELL. KAILEE MIDLINE, PL, KEPT PATENT & INTACT W/NS AT 40 CC/HR INFUSING WELL. PT KEPT WELL RESTED. NEEDS ATTENDED. BED KEPT LOW & IN LOCKED POS. CALL LIGHT PLACED W/IN REACH. WILL ENDORSE TO PM RN FOR FELICITAS.
[2017-06-24 20:00] VITALS: BP 132/78
--- NOTE | 2017-06-24 20:20 | NUR ---
RN INITIAL NOTES: RECEIVED PT FROM AM SHIFT NURSE IN NO CHANGES NOTED . NGT ON L NARE (LEVEL 60 CM), KEPT PATENT AND IN PLACE, ON TUBE FEEDING GLYTROL 75 CC/HR INFUSING WELL, 20 ML RESIDUAL, ASPIRATION PRECAUTION IN PLACE. KAILEE MIDLINE, PL, KEPT PATENT & INTACT W/NS AT 40 CC/HR INFUSING WELL. PT KEPT WELL RESTED. NEEDS ATTENDED. BED KEPT LOW & IN LOCKED POS. CALL LIGHT PLACED W/IN REACH. WILL ENDORSE TO PM RN FOR FELICITAS
[2017-06-24] MEDS: ATORVASTATIN 40 MG TABLET PO SCH (21:57)
[2017-06-24] MEDS: MIRTAZAPINE 15 MG TABLET PO SCH (21:57)
[2017-06-24] MEDS: LATANOPROST EYE DROP 0.005% 2.5 ML BOTTLE EACHEYE SCH (21:58)
--- NOTE | 2017-06-25 | NUR ---
MS RN NOTE RECEIVED A REPORT FROM NYA FOR [facility]. WILL CONTINUE TO MONITOR PATIENT.
[2017-06-25] MEDS: GLYTROL 1,000 ML BAG GT PRN ×2 (01:25→18:51)
[2017-06-25 04:00] VITALS: BP 151/83
--- NOTE | 2017-06-25 06:45 | NUR ---
MS RN NOTE PATIENT IS SLEEPING IN BED COMFORTABLY, NO ACUTE DISTRESS NOTED SINCE THE CHANGE OF ASSIGNMENT. NGT ON L NARE, GTUBE FEEDING INFUSING WELL, 40ML OF RESIDUAL NOTED. MID LINE IS PATENT AND INTACT, NS IS RUNNING. WILL ENDORSE TO DAY SHIFT NURSE FOR FELICITAS.
[2017-06-25] MEDS: BLOOD SUGAR DIAGNOSTIC 1 EACH STRIP VI SCH ×4 (07:00→21:36)
[2017-06-25] MEDS: INSULIN REGULAR, HUMAN 100 UNIT/ML 3 ML VIAL SQ PRN ×3 (07:03→16:41)
[2017-06-25] MEDS: ALBUTEROL FS 2.5 MG/3 ML VIAL.NEB NEB SCH ×4 (07:16→19:54)
--- NOTE | 2017-06-25 08:00 | NUR ---
RN NOTES PATEIN IN BED RESTING NO SOB OR ACUTE DISTRESS NOTED. NG TUBE INTACT PATENT ON CONTINUES FEEDING. RIGHT UPPER ARM MIDLINE INTACT PATENT. BED IN LOW LOCKED POSITION. CALL LIGHT WITHIN REACH. WILL CONTINUE TO MONITOR.
[2017-06-25] MEDS: methylPREDNISolone SOD SUCC 125 MG/2ML VIAL IV SCH (08:30)
[2017-06-25] MEDS: CARBIDOPA/LEV CR 50/200 MG 1 UDTAB.SA PO SCH ×3 (08:30→16:31)
[2017-06-25] MEDS: TOLTERODINE 2 MG CAP.SR PO SCH ×2 (08:30→16:31)
[2017-06-25] MEDS: CLOPIDOGREL BISULFATE 75 MG TABLET PO SCH (08:30)
[2017-06-25] MEDS: LOSARTAN POTASSIUM 50 MG TABLET PO SCH (08:31)
[2017-06-25] MEDS: DOCUSATE SODIUM 100 MG CAPSULE PO SCH ×2 (08:31→16:31)
[2017-06-25] MEDS: PANTOPRAZOLE 40 MG TABLET.DR PO SCH (08:31)
--- NOTE | 2017-06-25 11:00 | NUR ---
RN NOTES PATIENT SEEN AND EVALUATED BY DR. ANN ORDERS NOTED AND CARRIED OUT.
[2017-06-25 12:00] VITALS: BP 149/81
[2017-06-25] MEDS: LEVOFLOXACIN (250MG) 250 MG TABLET PO SCH (12:18)
--- NOTE | 2017-06-25 18:44 | NUR ---
RN NOTES PATIENT IN BED RESTING NO SOB OR ACUTE DISTRESS NOTED. NG TUBE INTACT PATENT, PLACEMENT VERIFIED WITH AUSCULTATION ON CONTINUES FEEDING. AT BEDSIDE. MIDLINE INTACT PATENT. ALL DUE MEDICATIONS ADMINISTERED, ALL NEEDS MET . BED IN LOW LOCKED POSITION CALL LIGHT WITHIN REACH. WILL ENDORSE CARE TO PM SHIFT.
[2017-06-25] MEDS: IV NS 0.9% 1,000 ML IV PRN (18:52)
--- NOTE | 2017-06-25 19:55 | NUR ---
MS/RN NOTES RECEIVED PT. LYING IN BED RESTING, PT. IS EASILY AROUSABLE TO NAME AND TOUCH. PT. IS AWAKE, ALERT AND ORIENTED X1. BREATHING EVEN AND UNLABORED ON 2LPM O2 VIA NC. NO SOB, RESPIRATORY DISTRESS OR S/S OF PAIN NOTED AT THIS TIME. PT. WITH NGT TO LEFT NARE PRESENT, PATENT AND INTACT ADMINISTERING TO PT. GLYTROL @ 75 ML/HR. PT. TOLERATING FEEDING WELL. 25ML RESIDUAL NOTED AT THIS TIME. PT. WITH RIGHT UPPER ARM MIDLINE PRESENT, PATENT AND INTACT ADMINISTERING TO PT. NS @ 40ML/HR. PER DAYSHIFT NURSE PT. WANTS TO WAIT FOR ANOTHER SWALLOW EVAL TO BE PERFORMED ON MONDAY BEFORE SIGNING CONSENT FOR G-TUBE PLACEMENT. BED LOCKED AND IN LOWEST POSITION, SIDE RAILS UP X3, BED ALARM ON, CALL LIGHT WITHIN REACH, WILL CONTINUE TO MONITOR.
[2017-06-25 20:00] VITALS: BP 127/78
[2017-06-25] MEDS: MIRTAZAPINE 15 MG TABLET PO SCH (21:17)
[2017-06-25] MEDS: ATORVASTATIN 40 MG TABLET PO SCH (21:17)
[2017-06-25] MEDS: LATANOPROST EYE DROP 0.005% 2.5 ML BOTTLE EACHEYE SCH (21:32)
[2017-06-25] MEDS: *INSULIN REGULAR(HUMULIN R)HUM 100 UNIT/ML VIAL SQ PRN (21:33)
[2017-06-26 04:00] VITALS: BP 132/72
--- NOTE | 2017-06-26 06:22 | NUR ---
MS/RN NOTES PT. IS LYING IN BED RESTING. BREATHING EVEN AND UNLABORED ON 2LPM O2 VIA NC. NO SOB, RESPIRATORY DISTRESS OR S/S OF PAIN NOTED AT THIS TIME. PT. WITH NGT TO LEFT NARE PRESENT, PATENT AND INTACT ADMINISTERING TO PT. GLYTROL @ 40 ML/HR. PT. TOLERATING FEEDING WELL. 30ML RESIDUAL NOTED AT THIS TIME. PT. WITH RIGHT UPPER ARM MIDLINE PRESENT, PATENT AND INTACT ADMINISTERING TO PT. NS @ 40ML/HR. ALL PT. NEEDS MET. PT. TURNED AND REPOSITIONED Q2H AND NEEDED. ALL DUE MEDICATIONS GIVEN. BED LOCKED AND IN LOWEST POSITION, SIDE RAILS UP X3, BED ALARM ON, CALL LIGHT WITHIN REACH, WILL ENDORSE TO DAYSAZFT NURSE FOR CONTINUITY OF CARE.
[2017-06-26] MEDS: ALBUTEROL FS 2.5 MG/3 ML VIAL.NEB NEB SCH ×4 (07:39→20:03)
[2017-06-26 08:00] VITALS: BP 135/78
--- NOTE | 2017-06-26 08:20 | NUR ---
MS/RN NOTES RECEIVED PT RESTING IN BED, IN NO APPARENT DISTRESS, A/OX2, ABLE TO COMMUNICATE, SPEECH SLURRED. RESPIRATIONS EVEN AND UNLABORED ON 2LPM O2 VIA NC. NO SOB, NO S/S OF PAIN OR DISCOMFORT NOTED. PT. WITH NGT TO LEFT NARE FEEDING GLYTROL @ 40 ML/HR. PT. TOLERATING FEEDING WELL. 20ML RESIDUAL NOTED AT THIS TIME. PT. WITH RIGHT UPPER ARM MIDLINE, PATENT AND INTACT INFUSING NS @ 40ML/HR.SAFETY MEASURES RENDERED, CALL LIGHT PLACED WITHIN REACH. WILL CONTINUE TO MONITOR
[2017-06-26] MEDS: TOLTERODINE 2 MG CAP.SR PO SCH ×2 (08:52→17:36)
[2017-06-26] MEDS: CLOPIDOGREL BISULFATE 75 MG TABLET PO SCH (08:52)
[2017-06-26] MEDS: DOCUSATE SODIUM 100 MG CAPSULE PO SCH ×3 (08:52→17:36)
[2017-06-26] MEDS: CARBIDOPA/LEV CR 50/200 MG 1 UDTAB.SA PO SCH ×3 (08:52→17:36)
[2017-06-26] MEDS: LOSARTAN POTASSIUM 50 MG TABLET PO SCH (08:53)
[2017-06-26] MEDS: PANTOPRAZOLE 40 MG TABLET.DR PO SCH (08:53)
[2017-06-26] MEDS: methylPREDNISolone SOD SUCC 125 MG/2ML VIAL IV SCH (08:54)
[2017-06-26] MEDS: BLOOD SUGAR DIAGNOSTIC 1 EACH STRIP VI SCH ×4 (08:55→22:08)
[2017-06-26] MEDS: GLYTROL 1,000 ML BAG GT PRN (12:27)
[2017-06-26] MEDS: LEVOFLOXACIN (250MG) 250 MG TABLET PO SCH (12:27)
[2017-06-26] MEDS: INSULIN REGULAR, HUMAN 100 UNIT/ML 3 ML VIAL SQ PRN ×2 (14:21→18:28)
--- NOTE | 2017-06-26 14:27 | NUR ---
MS/RN NOTES BLOOD GLUCOSE 454MG/DL. NO SIGNS AND SYMPTOMS OF HYPERGLYCEMIA NOTED. PATIENT STABLE. 15UNITS INSULIN COVERAGE PER SLIDING SCALE PROTOCOL. WILL CONTINUE TO MONITOR PATIENT. MD NOTIFIED. GLTOROL FEEDING DECREASED TO 65ML/HR.
[2017-06-26 16:00] VITALS: BP 108/68
--- NOTE | 2017-06-26 19:20 | NUR ---
ANNIKA MS INITIAL NOTE PT RECEIVED IN NO ACUTE DISTRESS AND ASLEEP IN BED COMFORTABLY. PT HAS NGT IN LEFT NARE THAT IS PATENT VIA CHECKING FOR AUSCULTATION AND CHECKING RESIDUALS (12ML). PT IS ON GLYTROL FEEDING AT 65ML/HR WHICH WAS INCREASED FROM 40ML/HR. PT HAS KAILEE MIDLINE THAT IS CLEAN DRY AND INTACT RUNNING NS @40ML/HR. PT TO BE NPO AT MIDNIGHT DUE TO EGD TOMORROW. COMFORT AND SAFETY MEASURES TO BE PLACED DURING THE SHIFT. WILL CONTINUE TO MONITOR FOR ANY CHANGES DURING THE SHIFT. Addendum: 06/26/17 at 2336 by CARINE MARTINEZ RN WRONG TIME. 1944.
--- NOTE | 2017-06-26 19:27 | NUR ---
MS/RN NOTES PATIENT RESTING IN BED COMFORTABLY, NO S/S OF DISTRESS/DISCOMFORT NOTED. ALL DUE MEDICATIONS GIVEN, ALL NEEDS MET AND ATTENDED. BLOOD SUGAR MANAGEMENT WITH SLIDING SCALE INSULIN. FEEDING INFUSING AT THIS TIME WILL BE STOPPED AT MIDNIGHT FOR PENDING PEG PLACEMENT SCHEDULED IN AM. WILL ENDORES CARE TO COURT COLLECTIONS OFFICER FOR FELICITAS
--- NOTE | 2017-06-26 19:31 | NUR ---
MS/RN NOTES PATIENT RESTING IN BED COMFORTABLY, ALL DUE MEDS GIVEN ALL NEEDS MET AND ATTENDED. NO SIGNIFICANT CHANGES IN CONDITION, POSSIBLE PEG PLACEMENT FOR AM, CONSENTS TO BE SIGNED ONCE ABLE TO REACH FAMILY. PATIENT KEPT CLEAN AND DRY, SKIN CARE IMPLEMENTATIONS PROVIDED. WILL ENDORSE CARE TO EQUIPMENT RECORDS SUPERVISOR FOR FELICITAS Addendum: 06/26/17 at 1933 by RUBY WEEMS RN ERROR
[2017-06-26 20:00] VITALS: BP 102/65
[2017-06-26 22:00] VITALS: BP 102/65
[2017-06-26] MEDS: ATORVASTATIN 40 MG TABLET PO SCH (22:09)
[2017-06-26] MEDS: MIRTAZAPINE 15 MG TABLET PO SCH (22:09)
[2017-06-26] MEDS: *INSULIN REGULAR(HUMULIN R)HUM 100 UNIT/ML VIAL SQ PRN (22:11)
[2017-06-26] MEDS: LATANOPROST EYE DROP 0.005% 2.5 ML BOTTLE EACHEYE SCH (22:12)
[2017-06-26] MEDS: IV NS 0.9% 1,000 ML IV PRN (23:54)
[2017-06-27] VITALS (7 sets, daily range): BP systolic 101–154; BP diastolic 61–87
[2017-06-27] MEDS: ACETAMINOPHEN 325 MG TABLET PO PRN (00:15)
--- NOTE | 2017-06-27 07:15 | NUR ---
RN OPENING NOTES REC'VD REPORT FROM NOC ANNIKA HAWK. PT AWAKE CONFUSED. AT BEDSIDE ANSWERED QUESTIONS. CONSENTED YESTERDAY. NGT IN PLACE AND CAPPED. NPO P MN. ABD SOFT NON DISTENDED. CALL LIGHT IN REACH. BED IN LOW LOCKED POSITION. KAILEE MIDLINE RUNNING NS @40CC/HR. WILL CONT TO MONITOR.
[2017-06-27] MEDS: BLOOD SUGAR DIAGNOSTIC 1 EACH STRIP VI SCH ×4 (07:30→22:02)
[2017-06-27] MEDS: ALBUTEROL FS 2.5 MG/3 ML VIAL.NEB NEB SCH ×4 (07:53→19:30)
--- NOTE | 2017-06-27 08:30 | NUR ---
PT TRANSPORTED BY NURSE EPIDEMIOLOGIST TO OR FOR PEG.
[2017-06-27] MEDS ORDERED: CLINDAMYCIN 900 MG/6 ML VIAL ONE (08:53)
--- NOTE | 2017-06-27 10:00 | NUR ---
RN NOTES PT RETURNED FROM OR PEG PLACEMENT EASILY AROUSABLE. 2LNC 100% O2 SATS HR 91 148/70. HOB ELEVATED. SPOUSE AND CG AT BEDSIDE. PEG SITE CDI. FNS ORDER FOR TUBE FEED AT 10PM. WILL CONT TO MONITOR VITALS PER PROTOCOL. CALL LIGHT IN REACH.
[2017-06-27] MEDS: PANTOPRAZOLE 40 MG TABLET.DR PO SCH (10:50)
[2017-06-27] MEDS: LOSARTAN POTASSIUM 50 MG TABLET PO SCH (10:53)
[2017-06-27] MEDS: DOCUSATE SODIUM 100 MG CAPSULE PO SCH ×2 (10:53→17:22)
[2017-06-27] MEDS: CLOPIDOGREL BISULFATE 75 MG TABLET PO SCH (10:53)
[2017-06-27] MEDS: CARBIDOPA/LEV CR 50/200 MG 1 UDTAB.SA PO SCH ×3 (10:53→17:22)
[2017-06-27] MEDS: TOLTERODINE 2 MG CAP.SR PO SCH ×2 (10:54→17:22)
[2017-06-27] MEDS: methylPREDNISolone SOD SUCC 125 MG/2ML VIAL IV SCH (10:55)
[2017-06-27] MEDS: INSULIN REGULAR, HUMAN 100 UNIT/ML 3 ML VIAL SQ PRN ×2 (11:18→17:40)
[2017-06-27] MEDS: LEVOFLOXACIN (250MG) 250 MG TABLET PO SCH (13:21)
--- NOTE | 2017-06-27 20:00 | NUR ---
RN INITIAL NOTE; PT ON THE BED RESTING WITHOUT ANY DISTRESS . PT IS ALERT/ORIENTED X 1 , CONFUSE . BREATHING EVEN AND UNLABORED ON 2 LPM VIA NC. KAILEE MIDLINE INTACT AND PATENT WITH NS @ 40 ML/HR . G TUBE CLAMPED AT THIS TIME . WILL STARTED FEEDING AT 2200 . INCONTINENT TO BOWEL/BLADDER . BED IN THE LOWEST/LOCKED POSITION . SAFETY MEASURES APPLIED. WILL TURN AND REPOSITION Q2H AND NEEDED . WILL CONTINUE TO MONITOR .
[2017-06-27] MEDS: ATORVASTATIN 40 MG TABLET PO SCH (21:46)
[2017-06-27] MEDS: MIRTAZAPINE 15 MG TABLET PO SCH (21:46)
[2017-06-27] MEDS: LATANOPROST EYE DROP 0.005% 2.5 ML BOTTLE EACHEYE SCH (21:47)
--- NOTE | 2017-06-27 22:00 | NUR ---
RN NOTE; G TUBE FEEDING STARTED . NO RESIDUAL NOTED AT THIS TIME . ASPIRATION PRECAUTION APPLIED. WILL CONTINUE TO MONITOR .
[2017-06-27] MEDS: *INSULIN REGULAR(HUMULIN R)HUM 100 UNIT/ML VIAL SQ PRN (22:01)
[2017-06-27] MEDS: GLYTROL 1,000 ML BAG GT PRN (22:46)
[2017-06-27] MEDS: IV NS 0.9% 1,000 ML IV PRN (22:46)
[2017-06-28] VITALS: BP 93/42
[2017-06-28] MEDS: ACETAMINOPHEN 325 MG TABLET PO PRN (02:26)
[2017-06-28 04:00] VITALS: BP 135/74
[2017-06-28] MEDS: BLOOD SUGAR DIAGNOSTIC 1 EACH STRIP VI SCH ×2 (06:33→11:54)
--- NOTE | 2017-06-28 06:55 | NUR ---
RN EOS NOTE; PT REMAINED STABLE DURING THE SHIFT. NO ANY DISTRESS NOTED. G TUBE TOLERATED WELL . NO RESIDUAL NOTED. ASPIRATION PRECAUTION APPLIED. IVF TOLERATED WELL. KEPT CLEAN AND DRY , TURNED AND REPOSITIONED Q2H AND NEEDED . WILL ENDORSE TO NEXT SHIFT RN FOR CONTINUITY OF CARE .
--- NOTE | 2017-06-28 07:35 | NUR ---
RN NOTES RECEIVED PT FROM PIANO PROFESSOR IN STABLE CONDITION, RESTING IN BED ON 2L NC, NO SOB OR DISTRESS NOTED, A&0X1. KAILEE MIDLINE DRESSING DRY AND INTACT WITH IVF @ 40ML/HR. GTF@ 40ML/HR, NO RESIDUAL NOTED TOLERATING WELL. BED LOCKED AND IN LOWEST POSITION, HOB ELEVATED, SIDE RAILS UPX3, CALL LIGHT WITHIN REACH, WILL CONT TO MONITOR.
[2017-06-28] MEDS: ALBUTEROL FS 2.5 MG/3 ML VIAL.NEB NEB SCH ×2 (07:50→10:52)
[2017-06-28 08:00] VITALS: BP 116/58
[2017-06-28] MEDS: DOCUSATE SODIUM 100 MG CAPSULE PO SCH (08:34)
[2017-06-28] MEDS: PANTOPRAZOLE 40 MG TABLET.DR PO SCH (08:34)
[2017-06-28] MEDS: TOLTERODINE 2 MG CAP.SR PO SCH (08:34)
[2017-06-28 08:35] VITALS: BP 116/58
[2017-06-28] MEDS: CLOPIDOGREL BISULFATE 75 MG TABLET PO SCH (08:35)
[2017-06-28] MEDS: CARBIDOPA/LEV CR 50/200 MG 1 UDTAB.SA PO SCH ×2 (08:35→14:19)
[2017-06-28] MEDS: LOSARTAN POTASSIUM 50 MG TABLET PO SCH (08:35)
[2017-06-28] MEDS: methylPREDNISolone SOD SUCC 125 MG/2ML VIAL IV SCH (08:35)
[2017-06-28] MEDS ORDERED: ACETYLCYSTEINE 10% SOLN 400 MG/4 ML VIAL NEB SCH (10:30)
[2017-06-28] MEDS: *INSULIN REGULAR(HUMULIN R)HUM 100 UNIT/ML VIAL SQ PRN (11:55)
--- NOTE | 2017-06-28 14:00 | NUR ---
RN NOTES REPORT GIVEN TO HAMIDA FROM [facility].
[2017-06-28] MEDS: LEVOFLOXACIN (250MG) 250 MG TABLET PO SCH (14:19)
--- NOTE | 2017-06-28 15:49 | NUR ---
RN NOTES PT DISCHARGED IN STABLE CONDITION WITH EMT AND AT BEDSIDE.
[2017-06-28] MEDS ORDERED: INSULIN DETEMIR 100 UNIT/ML CARTRIDGE SQ SCH (22:00)
[2017-06-29] MEDS ORDERED: methylPREDNISolone SOD SUCC 125 MG/2ML VIAL IV SCH (09:00)
== END 2017-06-28 16:18 | DRG 56 ==
LOC: ER 09:37 → TELE 12:12 → ICU 06-18 13:45 → TELE-TD 06-19 10:54 → MEDSG1 06-20 10:55
PROVIDERS: ADMIT Internal Medicine; ATTEND Internal Medicine
PROC: 05H533Z Insertion of Infusion Device into Right Subclavian Vein, Percutaneous Approach (ICD-10-PCS; 2017-06-18)
PROC: 0DH63UZ Insertion of Feeding Device into Stomach, Percutaneous Approach (ICD-10-PCS; principal; 2017-06-27 09:30)
DX: I69.998 Other sequelae following unspecified cerebrovascular disease (principal); J96.01 Acute respiratory failure with hypoxia; G92 Toxic encephalopathy; L89.151 Pressure ulcer of sacral region, stage 1; E44.0 Moderate protein-calorie malnutrition; R13.10 Dysphagia, unspecified; G20 Parkinson's disease; E11.9 Type 2 diabetes mellitus without complications; F02.80 Dementia in other diseases classified elsewhere, unspecified severity, without behavioral disturbance, psychotic disturbance, mood disturbance, and anxiety; N39.0 Urinary tract infection, site not specified; J98.11 Atelectasis; E78.5 Hyperlipidemia, unspecified; E83.42 Hypomagnesemia; E87.6 Hypokalemia; I10 Essential (primary) hypertension; M19.90 Unspecified osteoarthritis, unspecified site; Z85.3 Personal history of malignant neoplasm of breast; Z95.1 Presence of aortocoronary bypass graft; K21.9 Gastro-esophageal reflux disease without esophagitis; M06.9 Rheumatoid arthritis, unspecified; Z88.0 Allergy status to penicillin; I25.10 Atherosclerotic heart disease of native coronary artery without angina pectoris; Z68.24 Body mass index [BMI] 24.0-24.9, adult; B96.20 Unspecified Escherichia coli [E. coli] as the cause of diseases classified elsewhere; Z90.10 Acquired absence of unspecified breast and nipple; Z79.4 Long term (current) use of insulin
CPT/HCPCS: 36415; 36569; 36600; 43246; 70450-TC; 71010-TC; 80048-TC; 80061-TC; 80076-TC; 80202-TC; 81000-TC; 82728-TC; 82803-TC; 82962-TC; 83540-TC; 83605-TC; 83735-TC; 84100-TC; 84439-TC; 84443-TC; 84484-TC; 85025-TC; 85730-TC; 87040-TC; 87081-TC; 87086-TC; 87186-TC; 92526; 92611-TC; 93971-TC; 94799-TC; 99082-TC; A4216; A4606; J1815; J1956; J2270; J2704; J2916; J2930; J3370; J3475; J3480; J3490; J7030; J7060; Q2036; Z7610

== ENCOUNTER 2019-07-21 11:55 | Emergency (ER) | payer MEDICARE, OTHER ==
[~2019-07-21] VITALS: Ht 160 cm; Wt 64.4 kg
[~2019-07-21 11:55] MED LIST changes: +ACET-868 GT; -ACET-868 PO; +ATOR80TA GT; -ATOR80TA PO; +BISA10SU11 RC; -BISA10SU8 RC; +BLOO-1280 MC; +DOCU-141 GT; -DOCU-25 PO; -FERR-58 PO; +FERR325T24 PO; +LATA2.5D2 EACHEYE; -LOSA50TA21 PO; +LOSA50TA39 GT; +MAGN400O6 GT; -MAGN400O6 PO; +MAGN400T26 PO; +OMEP20TA5 PO; -OMEP20TA68 PO; +OXYB10TA4 PO; +PRED10TA PO; -PRED50TA PO; +TOLT2CAP22 PO; -TOLT2CAP8 PO; +ZOLP5TAB2 PO; -[UNRECOGNIZED DRUG - CODE] MC
--- NOTE | 2019-07-21 11:55 | NUR ---
BIBRA 102 FRM [facility] FOR [facility]GEST[facility] X 2DAYS AND LOW O2 SAT 74% PER REPORT. TO ER BED 5, HOOKED TO MONITOR, PATIENT AT 96% O2 SAT ROOM AIR. NOTED WITH VOMITING x 2, DR GERMAIN AT BEDSIDE, BEULAH AND FITNESS COORDINATOR AT BEDSIDE
[2019-07-21] MEDS ORDERED: GLUC1KIT IM (12:13)
[2019-07-21] MEDS ORDERED: CLOP75TA15 GT (12:13)
[2019-07-21] MEDS ORDERED: ALBU1.257 IH (12:13)
[2019-07-21] MEDS ORDERED: FAMO20TA8 GT (12:13)
[2019-07-21] MEDS ORDERED: ALBU2.5V38 IH (12:13)
[2019-07-21] MEDS ORDERED: LOPE2CAP GT (12:13)
[2019-07-21] MEDS ORDERED: INSU100I19 SQ (12:13)
[2019-07-21] MEDS ORDERED: BROM3DRO EACHEYE (12:13)
[2019-07-21] MEDS ORDERED: CARB1TAB19 GT (12:13)
[2019-07-21] MEDS ORDERED: POTA20PA34 GT (12:13)
[2019-07-21] MEDS ORDERED: LACT1TAB2 GT (12:13)
[2019-07-21] MEDS ORDERED: NUT.237L30 GT (12:13)
[2019-07-21 12:23] LABS: BASOPHILS # (AUTO) 0.1 /CMM (0.0-0.2); BASOPHILS % (AUTO) 0.7 % (0.0-2.0); EOSINOPHILS % (AUTO) 3.1 % (0.0-6.0); HEMATOCRIT 42 % (33-45); HEMOGLOBIN 13.6 g/dL (11.5-14.8); LYMPHOCYTES # (AUTO) 1.8 /CMM (0.8-4.8); LYMPHOCYTES % (AUTO) 21.7 % (20.0-44.0); MEAN CORPUSCULAR HGB CONC 33 g/dl (31.0-36.0); MEAN CORPUSCULAR VOLUME 91 fL (82-100); MONOCYTES # (AUTO) 0.6 /CMM (0.1-1.30); MONOCYTES % (AUTO) 7.3 % (2.0-12.0); NEUTROPHILS # (AUTO) 5.5 /CMM (1.8-8.9); NEUTROPHILS % (AUTO) 67.2 % (43.0-81.0); PLATELET COUNT (AUTO) 232 /CMM (150-450); WHITE BLOOD COUNT (AUTO) 8.2 K/uL (4.3-11.0)
[2019-07-21] MEDS ORDERED: ONDANSETRON HCL/PF 4 MG/2 ML VIAL ONE (12:24)
[2019-07-21 12:30] LABS: CALCIUM, SERUM 10.3 mg/dL (8.5-10.1); CARBON DIOXIDE 30 mmol/L (21-32); CHLORIDE 101 mmol/L (98-107); CREATININE 0.5 mg/dL (0.6-1.3); GLUCOSE 161 mg/dL (74-106); POTASSIUM 4.1 mmol/L (3.5-5.1); SODIUM SERUM 137 mmol/L (136-145); UREA NITROGEN, BLOOD 16 mg/dL (7-18)
[2019-07-21] MEDS ORDERED: IV NS 0.9% 500 ML BAG IV ONE (12:30)
[2019-07-21] MEDS ORDERED: ONDANSETRON HCL/PF 4 MG/2 ML VIAL IVP ONE (12:30)
[2019-07-21 12:36] LABS: ALANINE AMINOTRANSFERASE 28 U/L (12-78); ALBUMIN 3.5 g/dL (3.4-5.0); ALKALINE PHOSPHATASE 73 U/L (46-116); ASPARTATE AMINOTRANSFERASE 18 U/L (15-37); BILIRUBIN,DIRECT 0.1 mg/dL (0.0-0.2); BILIRUBIN,TOTAL 0.4 mg/dL (0.2-1.0); LIPASE 158 U/L (73-393); TOTAL PROTEIN, SERUM 7.7 g/dL (6.4-8.2)
--- NOTE | 2019-07-21 13:33 | NUR ---
[facility] CALLED TO TRANSPORT PT BACK TO SNF. SPOKE TO SHAUN. TRIP # [id number]. ETA IS 15:30
--- NOTE | 2019-07-21 13:49 | NUR ---
[facility] ETA 1430. PRIMARY NURSE AWARE.
--- NOTE | 2019-07-21 13:54 | NUR ---
REPORT GIVEN TO SANTANA FROM [facility].
--- NOTE | 2019-07-21 14:55 | NUR ---
IV removed. Catheter intact and site benign. Pressure and 4x4 applied to site. No bleeding noted. Patient picked up by [facility] in stable condition. Written and verbal after care instructions given. patient's and EMT verbalizes understanding of instruction.
[2019-07-21 16:09] VITALS: BP 141/68
== END 2019-07-21 16:09 ==
LOC: ER 11:55
DX: R11.2 Nausea with vomiting, unspecified (principal); I10 Essential (primary) hypertension; E11.9 Type 2 diabetes mellitus without complications; G20 Parkinson's disease; Z86.73 Personal history of transient ischemic attack (TIA), and cerebral infarction without residual deficits; Z90.10 Acquired absence of unspecified breast and nipple; Z95.1 Presence of aortocoronary bypass graft; Z88.0 Allergy status to penicillin; Z79.4 Long term (current) use of insulin; Z79.899 Other long term (current) drug therapy
CPT/HCPCS: 36415; 71045; 80048; 80076; 83690; 84484; 85025; 93005; 96374; 99284; J2405; J7040

== ENCOUNTER 2019-11-03 12:14 | Inpatient (IN) | payer MEDICARE, OTHER ==
[~2019-11-03] VITALS: Ht 167.6 cm; Wt 60.3 kg
[~2019-11-03 12:14] MED LIST changes: +ALBU1.257 IH; +ALBU2.5V38 IH; +BROM3DRO EACHEYE; -CARB-96 PO; +CARB1TAB19 GT; +CLOP75TA15 GT; +FAMO20TA8 GT; -FERR325T24 PO; +GLUC1KIT IM; -HYDR-4075 PO; +INSU100I19 SQ; -INSU100V7 SQ; -LACT10SO7 PO; +LACT1TAB2 GT; +LOPE2CAP GT; -MAGN400T26 PO; -MIRT15TA7 PO; -NA P133E RC; +NUT.237L30 GT; -OMEP20TA5 PO; -OXYB10TA4 PO; +POTA20PA3 GT; -PRED10TA PO; -SITA1TAB6 PO; +TOLT2CAP22 GT; -TOLT2CAP22 PO; -ZOLP5TAB2 PO
--- NOTE | 2019-11-03 12:47 | NUR ---
BIB PRIVATE EMT FROM [facility] FOR G-TUBE REPLACEMENT, PULLED OUT THIS MORNING , ALEJO INSERTED, F20, TO ER BED 10, HOOKED TO MONITOR AND POX, CHANGED TO HOSP GOWN, WARM BLANKET PROVIDED, PATIENT AOx0, BREATHING EVEN AND UNLABORED. AWAITING MD AGUIRRE
--- NOTE | 2019-11-03 12:50 | NUR ---
DR PRATHER AT BEDSIDE, REPLACED G-TUBE
[2019-11-03] MEDS ORDERED: DIATR MEGLU/DIATRIZOATE SODIUM 30 ML BOTTLE (GASTROGRAPHIN) ONE (13:29)
--- NOTE | 2019-11-03 13:46 | NUR ---
TANNING DRUM OPERATOR AT BEDSIDE
--- NOTE | 2019-11-03 14:30 | NUR ---
[facility] ETA 1600 TRIP# [id number]
[2019-11-03] MEDS ORDERED: ACETAMINOPHEN ES 500 MG TABLET ONE (16:21)
--- NOTE | 2019-11-03 16:35 | NUR ---
NOTED FEVER OF 100.5F, MD SOTO EVALUATED PATIENT.
[2019-11-03] MEDS ORDERED: ACETAMINOPHEN 650 MG/20.3 ML UDC ONE (16:55)
[2019-11-03 17:00] LABS: BASOPHILS % (AUTO) 0.5 % (0.0-2.0); HEMATOCRIT 35 % (33-45); HEMOGLOBIN 11.5 g/dL (11.5-14.8); LYMPHOCYTES # (AUTO) 1.5 /CMM (0.8-4.8); LYMPHOCYTES % (AUTO) 15.2 % (20.0-44.0); MEAN CORPUSCULAR HGB CONC 33 g/dl (31.0-36.0); MEAN CORPUSCULAR VOLUME 89 fL (82-100); MONOCYTES # (AUTO) 0.7 /CMM (0.1-1.30); MONOCYTES % (AUTO) 7.4 % (2.0-12.0); NEUTROPHILS # (AUTO) 7.3 /CMM (1.8-8.9); NEUTROPHILS % (AUTO) 75.9 % (43.0-81.0); PLATELET COUNT (AUTO) 220 /CMM (150-450); RED BLOOD CELL COUNT(AUTO) 3.98 MIL/uL (4.0-5.2); WHITE BLOOD COUNT (AUTO) 9.6 K/uL (4.3-11.0)
[2019-11-03] MEDS ORDERED: ACETAMINOPHEN 650 MG/20.3 ML UDC PO ONE (17:00)
[2019-11-03 17:10] LABS: CALCIUM, SERUM 9.5 mg/dL (8.5-10.1); CARBON DIOXIDE 28 mmol/L (21-32); CHLORIDE 103 mmol/L (98-107); CREATININE 0.5 mg/dL (0.6-1.3); GLUCOSE 143 mg/dL (74-106); SODIUM SERUM 140 mmol/L (136-145); UREA NITROGEN, BLOOD 25 mg/dL (7-18)
[2019-11-03 17:24] LABS: ALANINE AMINOTRANSFERASE 21 U/L (12-78); ALBUMIN 2.7 g/dL (3.4-5.0); ALKALINE PHOSPHATASE 66 U/L (46-116); ASPARTATE AMINOTRANSFERASE 25 U/L (15-37); BILIRUBIN,DIRECT 0.1 mg/dL (0.0-0.2); BILIRUBIN,TOTAL 0.6 mg/dL (0.2-1.0); TOTAL PROTEIN, SERUM 7.1 g/dL (6.4-8.2)
--- NOTE | 2019-11-03 18:15 | NUR ---
URINE SAMPLE COLLECTED VIA STRAIGHT CATHETER, SENT SAMPLE TO LAB
[2019-11-03 18:20] LABS: APPEARANCE,URINE Clear (CLEAR); BILIRUBIN,URINE Negative (NEGATIVE); BLOOD, URINE Negative Ery/uL (NEGATIVE); COLOR,URINE Yellow (YELLOW); KETONES,URINE Negative (NEGATIVE); LEUKOCYTE ESTERASE ,URINE Negative (NEGATIVE); NITRITE, URINE Negative (NEGATIVE); PROTEIN,URINE Trace mg/dl (NEGATIVE); UGLUCOSE Negative (NEGATIVE)
--- NOTE | 2019-11-03 18:36 | NUR ---
CALDERON JESUS AT BEDSIDE
[2019-11-03] MEDS ORDERED: ACET-2605 GT (18:47)
[2019-11-03 19:19] LABS: BACTERIA,URINE Few /HPF (None Seen); RBC,URINE 0-2 /HPF (0-2); SQUAMOUS EPITHELIAL CELL,UR Few /HPF (None Seen); WBC,URINE 0-2 /HPF (0-3)
--- NOTE | 2019-11-03 19:25 | NUR ---
REPORT GIVEN TO EVELIN ROBLERO FOR FELICITAS
[2019-11-03] MEDS ORDERED: ZOLPIDEM TARTRATE 5 MG TABLET PO PRN (19:30)
[2019-11-03] MEDS: CEFTRIAXONE 1 G in IV D5W 50 ML IV SCH (19:30)
[2019-11-03] MEDS ORDERED: ACETAMINOPHEN 325 MG TABLET PO PRN (19:30)
[2019-11-03] MEDS ORDERED: MAG HYDROX/AL HYDROX/SIMETH 30 ML UDC PO PRN (19:30)
[2019-11-03] MEDS ORDERED: IV NS 0.9% 1,000 ML BAG IV ONE (19:30)
[2019-11-03] MEDS ORDERED: ONDANSETRON HCL/PF 4 MG/2 ML VIAL IVP PRN (19:30)
--- NOTE | 2019-11-03 20:37 | NUR ---
REPORT GIVEN TO LYLE ROBLERO FOR FELICITAS.
[2019-11-03 22:00] VITALS: BP 135/71
--- NOTE | 2019-11-03 22:00 | NUR ---
MS OCEAN IMPORT REPRESENTATIVE NOTES RECEIVED PATIENT FROM ER VIA GURNEY ACCOMPANIED BY ER STAFFS. ALERT AND ORIENTED X 1, NON VERBAL WITH SPONTANEOUS EYE RESPONSE. BREATHING REGULAR AND UNLABORED ON ROOM AIR. RIGHT FOREARM G18 IV LINE INTACT AND PATENT, FLUSHING WELL WITH NO BLEEDING OR S/S OF INFILTRATION NOTED. BODY ASSESSMENT DONE, SKIN INTACT CLEAN AND DRY. BELONGINGS CHECKED BY BUSINESS SUPPORT MANAGER. UPPER DENTURE REMOVED AND PLACED ON A CONTAINER AT BEDSIDE. GTUBE INTACT AND PATENT, NO RESIDUAL ASPIRATED. PATIENT HAS POLST THAT WISHED TO BE FULL CODE. NO S/S OF PAIN/DISCOMFORT SEEN AT THIS TIME. BED LOW AND LOCKED ON SEMI FOWLERS POSITION. CALL LIGHT IN REACH. WILL CONTINUE TO MONITOR.
[2019-11-03] MEDS: IV NS 0.9% 1,000 ML IV PRN (22:07)
--- NOTE | 2019-11-03 22:15 | NUR ---
MS RN NOTES NOTED WITH SPO2 OF 91%, PLACED ON OXYGEN AT 2L/MIN VIA NASAL CANNULA. HOB ELEVATED.
[2019-11-03] MEDS ORDERED: CEFTRIAXONE 1 G VIAL ONE (22:37)
[2019-11-03] MEDS: LATANOPROST EYE DROP 0.005% 2.5 ML BOTTLE EACHEYE SCH (22:43)
[2019-11-03] MEDS: ATORVASTATIN 40 MG TABLET PO SCH (22:43)
[2019-11-03] MEDS: GLUCERNA 1.2 1,000 ML BOTTLE GT SCH (23:35)
[2019-11-04] MEDS: HYDROCODONE/APAP 5/325MG 1 EACH TABLET PO PRN (04:54)
--- NOTE | 2019-11-04 05:00 | NUR ---
MS RN NOTES SEEN WITH FACIAL GRIMACING AND HOLDING HER RIGHT KNEE, NORCO 5/325 GIVEN VIA GTUBE. NON-PHARMACOLOGICAL INTERVENTIONS PROVIDED. VITAL SIGNS WNL. WILL CONTINUE TO MONITOR.
--- NOTE | 2019-11-04 06:35 | NUR ---
MS RN CLOSING NOTES PATIENT IN BED ALERT AND ORIENTED X 1, NON VERBAL WITH SPONTANEOUS EYE RESPONSE. BREATHING REGULAR AND UNLABORED ON OXYGEN AT 2L/MIN VIA NASAL CANNULA. RIGHT FOREARM G18 IV LINE PATENT AND INFUSING WELL. GTUBE INTACT AND PATENT, ON-GOING TUBE FEEDING TOLERATING WELL. NO RESIDUAL ASPIRATED. ON ASPIRATION PRECAUTION. NO S/S OF PAIN/DISCOMFORT SEEN AT THIS TIME. BED LOW AND LOCKED ON SEMI FOWLERS POSITION. CALL LIGHT IN REACH. WILL ENDORSE TO MORNING SHIFT FOR FELICITAS.
--- NOTE | 2019-11-04 07:45 | NUR ---
ms rn opening notes Patient received on 2 L nasal cannula, no sob noted, a/o x1 at this time. Shows no s/s of pain at this time. GT tube in place and is running Glucerna 1.2 @ 65 ml per hour. R forearm 18 NS @ 75 ml per hour. Bed at the lowest setting, call light within reach, side rails up x2.
[2019-11-04 07:56] LABS: BASOPHILS % (AUTO) 0.2 % (0.0-2.0); HEMATOCRIT 32 % (33-45); HEMOGLOBIN 10.3 g/dL (11.5-14.8); LYMPHOCYTES # (AUTO) 1.2 /CMM (0.8-4.8); LYMPHOCYTES % (AUTO) 19.3 % (20.0-44.0); MEAN CORPUSCULAR HGB CONC 32 g/dl (31.0-36.0); MEAN CORPUSCULAR VOLUME 89 fL (82-100); MONOCYTES # (AUTO) 0.5 /CMM (0.1-1.30); MONOCYTES % (AUTO) 8.6 % (2.0-12.0); NEUTROPHILS # (AUTO) 4.3 /CMM (1.8-8.9); NEUTROPHILS % (AUTO) 68.9 % (43.0-81.0); PLATELET COUNT (AUTO) 207 /CMM (150-450); RED BLOOD CELL COUNT(AUTO) 3.57 MIL/uL (4.0-5.2); WHITE BLOOD COUNT (AUTO) 6.3 K/uL (4.3-11.0)
[2019-11-04 08:00] VITALS: BP 119/59
[2019-11-04 08:15] LABS: CARBON DIOXIDE 26 mmol/L (21-32); CHLORIDE 104 mmol/L (98-107); CREATININE 0.5 mg/dL (0.6-1.3); GLUCOSE 133 mg/dL (74-106); MAGNESIUM 1.8 mg/dL (1.8-2.4); PHOSPHORUS 2.8 mg/dL (2.5-4.9); POTASSIUM 4.1 mmol/L (3.5-5.1); SODIUM SERUM 136 mmol/L (136-145); UREA NITROGEN, BLOOD 23 mg/dL (7-18)
[2019-11-04 08:17] LABS: CHOLESTEROL 107 mg/dL (<200); HDL CHOLESTEROL 29 mg/dL (40-60); LDL 64 mg/dL (0-99); TRIGLYCERIDES 89 mg/dL (30-150)
[2019-11-04] MEDS: FAMOTIDINE (20 MG) 20 MG TABLET GT SCH ×2 (08:18→16:56)
[2019-11-04] MEDS: LACTOBACILLUS RHAMNOSUS GG 1 EACH CAP.SPRINK PO SCH ×2 (08:18→16:56)
[2019-11-04] MEDS: LOSARTAN POTASSIUM 50 MG TABLET GT SCH (08:20)
[2019-11-04] MEDS: CARBIDOPA/LEVODOPA 10/100 MG 1 UDTAB GT SCH ×3 (08:20→16:58)
[2019-11-04] MEDS: DOCUSATE SODIUM 100 MG CAPSULE PO SCH ×2 (08:20→16:56)
[2019-11-04] MEDS: CLOPIDOGREL BISULFATE 75 MG TABLET GT SCH (08:20)
[2019-11-04] MEDS: TOLTERODINE 2 MG CAP.SR PO SCH ×2 (08:20→16:56)
[2019-11-04] MEDS: ACETYLCYSTEINE 10% SOLN 400 MG/4 ML VIAL NEB SCH ×3 (11:55→23:37)
[2019-11-04] MEDS: ALBUTEROL FS 2.5 MG/0.5 ML VIAL.NEB NEB SCH ×4 (11:55→23:37)
[2019-11-04] MEDS: IPRATROPIUM NEB FS 0.5 MG/2.5 ML AMPUL.NEB NEB SCH ×4 (11:55→23:37)
[2019-11-04 16:00] VITALS: BP 137/68
[2019-11-04] MEDS: AZITHROMYCIN 500 MG in IV D5W 250 ML IV SCH (16:55)
--- NOTE | 2019-11-04 18:24 | NUR ---
rn closing notes Patient remains on 2L nasal cannula, no sob noted, a/o x1 and is non verbal. GT glucerna running at 1.2 for 24 hours. Bed at the lowest setting, call light within reach, side rails up x2. will give report to noc rn for eduar bedside.
[2019-11-04] MEDS: GLUCERNA 1.2 1,000 ML BOTTLE GT SCH (18:31)
--- NOTE | 2019-11-04 19:45 | NUR ---
MSRN FULLY AWAKE, NON VERBAL, NO RESPIRATORY DISTRESS. FEEDING GLUCERNA AT 65 CC/HR, 10 CC RESIDUALS. HOB AT 30 TO 45 DEGREES AT ALL TIMES,REPOSITIONED FOR COMFORT. KEPT COMFORTABLE CONTINUED MONITORING.
[2019-11-04 20:00] VITALS: BP 138/69
[2019-11-04 20:51] VITALS: BP 138/69
[2019-11-04] MEDS: CEFTRIAXONE 1 G in IV D5W 50 ML IV SCH (20:52)
--- NOTE | 2019-11-04 22:40 | NUR ---
MSRN MEDS VIA GT. NO RESIDUALS . REPOSITIONED.
[2019-11-04] MEDS: LATANOPROST EYE DROP 0.005% 2.5 ML BOTTLE EACHEYE SCH (22:46)
[2019-11-04] MEDS: ATORVASTATIN 40 MG TABLET PO SCH (22:47)
[2019-11-05] MEDS: IPRATROPIUM NEB FS 0.5 MG/2.5 ML AMPUL.NEB NEB SCH ×6 (04:20→23:57)
[2019-11-05] MEDS: ALBUTEROL FS 2.5 MG/0.5 ML VIAL.NEB NEB SCH ×6 (04:20→23:57)
[2019-11-05] MEDS: IV NS 0.9% 1,000 ML IV PRN ×2 (06:18→20:36)
--- NOTE | 2019-11-05 06:50 | NUR ---
MSRN AM CARE DONE, REPOSITIONED. NO RESIDUALS . KEPT COMFORTABLE
[2019-11-05 07:28] LABS: CALCIUM, SERUM 8.4 mg/dL (8.5-10.1); CARBON DIOXIDE 25 mmol/L (21-32); CHLORIDE 104 mmol/L (98-107); CREATININE 0.4 mg/dL (0.6-1.3); GLUCOSE 156 mg/dL (74-106); MAGNESIUM 1.8 mg/dL (1.8-2.4); PHOSPHORUS 2.5 mg/dL (2.5-4.9); POTASSIUM 3.9 mmol/L (3.5-5.1); SODIUM SERUM 137 mmol/L (136-145); UREA NITROGEN, BLOOD 12 mg/dL (7-18)
[2019-11-05 07:32] LABS: BASOPHILS % (AUTO) 0.2 % (0.0-2.0); HEMATOCRIT 31 % (33-45); HEMOGLOBIN 10.3 g/dL (11.5-14.8); LYMPHOCYTES # (AUTO) 1.1 /CMM (0.8-4.8); LYMPHOCYTES % (AUTO) 18.7 % (20.0-44.0); MEAN CORPUSCULAR HGB CONC 33 g/dl (31.0-36.0); MEAN CORPUSCULAR VOLUME 89 fL (82-100); MONOCYTES # (AUTO) 0.5 /CMM (0.1-1.30); MONOCYTES % (AUTO) 7.9 % (2.0-12.0); NEUTROPHILS # (AUTO) 4.2 /CMM (1.8-8.9); NEUTROPHILS % (AUTO) 71.2 % (43.0-81.0); PLATELET COUNT (AUTO) 235 /CMM (150-450); RED BLOOD CELL COUNT(AUTO) 3.49 MIL/uL (4.0-5.2); WHITE BLOOD COUNT (AUTO) 5.9 K/uL (4.3-11.0)
[2019-11-05 08:00] VITALS: BP 127/64
--- NOTE | 2019-11-05 08:00 | NUR ---
MS RN NOTES PATIENT IN BED RESTING NO SOB OR ACUTE DISTRESS NOTED. PATIENT ON 3L OXYGEN NASAL CANNULA. BED IN LOW LOCKED POSITION, DIAMANTE LIGHT WITHIN REACH. WILL CONTINUE TO MONITOR.
[2019-11-05] MEDS: ACETYLCYSTEINE 10% SOLN 400 MG/4 ML VIAL NEB SCH ×3 (08:33→23:57)
[2019-11-05] MEDS: DOCUSATE SODIUM 100 MG CAPSULE PO SCH (09:00)
[2019-11-05] MEDS: TOLTERODINE 2 MG CAP.SR PO SCH ×2 (09:08→17:38)
[2019-11-05] MEDS: CARBIDOPA/LEVODOPA 10/100 MG 1 UDTAB GT SCH ×3 (09:08→17:38)
[2019-11-05] MEDS: FAMOTIDINE (20 MG) 20 MG TABLET GT SCH ×2 (09:08→17:38)
[2019-11-05] MEDS: LACTOBACILLUS RHAMNOSUS GG 1 EACH CAP.SPRINK PO SCH ×2 (09:08→17:38)
[2019-11-05] MEDS: CLOPIDOGREL BISULFATE 75 MG TABLET GT SCH (09:08)
[2019-11-05] MEDS: LOSARTAN POTASSIUM 50 MG TABLET GT SCH (09:09)
[2019-11-05] MEDS: HYDROCODONE/APAP 5/325MG 1 EACH TABLET PO PRN ×2 (13:39→20:35)
[2019-11-05] MEDS: AZITHROMYCIN 500 MG in IV D5W 250 ML IV SCH (15:44)
[2019-11-05 16:00] VITALS: BP 124/67
--- NOTE | 2019-11-05 17:47 | NUR ---
MS RN NOTES CALL RECEIVED FROM LAB REPORTING PATIENT IS POSITIVE FOR MRSA OF THE SORIANO. MADE AWARE. ORDERS TO ISOLATE PATIENT AND GIVE BACTROBAN OINT. TWICE DAILY
[2019-11-05] MEDS: DOCUSATE SODIUM LIQ 100 MG/10 ML UDC GT SCH (18:03)
--- NOTE | 2019-11-05 18:17 | NUR ---
MS RN NOTES PATIENT IN BED RESTING NO SOB OR ACUTE DISTRESS NOTED. NO ACUTE CHANGES NOTED DURING SHIFT. ALL DUE MEDICATIONS ADMINISTERED. ALL NEEDS MET. BED IN LOW LOCKED POSITION. CALL LIGHT WITHIN REACH. WILL ENDORSE CARE TO PM SHIFT.
[2019-11-05] MEDS: GLUCERNA 1.2 1,000 ML BOTTLE GT SCH (18:30)
--- NOTE | 2019-11-05 19:10 | NUR ---
MS/RN OPENING NOTES: RECEIVED PATIENT IN BED RESTING, A/OX1. NO SOB OR ACUTE DISTRESS NOTED. PATIENT ON 3L OXYGEN NASAL CANNULA. NS RUNNING AT 75ML/HR, INTACT AND PATENT. SAFETY MEASURES IN PLACE. BED IN LOW LOCKED POSITION, DIAMANTE LIGHT WITHIN REACH. WILL CONTINUE TO MONITOR ACCORDINGLY.
[2019-11-05] MEDS: CEFTRIAXONE 1 G in IV D5W 50 ML IV SCH (19:33)
[2019-11-05 20:00] VITALS: BP 117/74
--- NOTE | 2019-11-05 20:35 | NUR ---
MS/RN NOTES: PATIENT IS CRYING, OBSERVED GRIMACING AND GUARDING, AND MOANING. ADMINISTERED NORCO 5MG GT. VS WNL. TOLERATED WELL. WILL REASSESS AND CONTINUE MONITORING PT. ACCORDINGLY.
[2019-11-05] MEDS: ATORVASTATIN 40 MG TABLET PO SCH (21:06)
[2019-11-05] MEDS: LATANOPROST EYE DROP 0.005% 2.5 ML BOTTLE EACHEYE SCH (21:11)
[2019-11-05] MEDS: MUPIROCIN OINT 2% 22 GM TUBE SCH (21:11)
[2019-11-06] MEDS: IPRATROPIUM NEB FS 0.5 MG/2.5 ML AMPUL.NEB NEB SCH ×5 (04:01→19:30)
[2019-11-06] MEDS: ALBUTEROL FS 2.5 MG/0.5 ML VIAL.NEB NEB SCH ×5 (04:01→19:30)
--- NOTE | 2019-11-06 06:08 | NUR ---
MS/RN CLOSING NOTES: PATIENT IN BED RESTING, A/OX1. NO SOB OR ACUTE DISTRESS NOTED. PATIENT ON 3L OXYGEN NASAL CANNULA. G-TUBE INTACT AND PATENT, FLUSHING WELL WITH FEEDING RUNNING AT 65ML/HR. IV SITE RIGHT FA #18G INTACT AND PATENT WITH NS RUNNING AT 75ML/HR, INTACT AND PATENT. ALL NEEDS MET AND RENDERED, SAFETY MEASURES IN PLACE. BED IN LOW LOCKED POSITION, CALL LIGHT WITHIN REACH. WILL ENDORSE TO DAY SHIFT FOR FELICITAS.
--- NOTE | 2019-11-06 07:10 | NUR ---
MS RN NOTES RECEIVED PATIENT IN BED. HOB ELEVATED. NO S/S OF RESPIRATORY DISTRESS. GT INTACT RYLEY FEEDING WELL ORDERED. CONTACT PRECAUTIONS OBSERVED AT ALL TIMES. RFA # 18 INFUSING NS @ 75ML/HR RYLEY WELL. BED IN LOWEST POSITION, LOCKED. BED SIDERAILS UPX3. CALL LIGHT WITHIN REACH.
[2019-11-06 08:00] VITALS: BP 138/69
[2019-11-06 08:14] LABS: BASOPHILS % (AUTO) 0.4 % (0.0-2.0); EOSINOPHILS % (AUTO) 4.3 % (0.0-6.0); HEMATOCRIT 33 % (33-45); HEMOGLOBIN 10.8 g/dL (11.5-14.8); LYMPHOCYTES # (AUTO) 1.4 /CMM (0.8-4.8); LYMPHOCYTES % (AUTO) 23.5 % (20.0-44.0); MEAN CORPUSCULAR HGB CONC 33 g/dl (31.0-36.0); MEAN CORPUSCULAR VOLUME 89 fL (82-100); MONOCYTES # (AUTO) 0.5 /CMM (0.1-1.30); MONOCYTES % (AUTO) 7.9 % (2.0-12.0); NEUTROPHILS # (AUTO) 3.9 /CMM (1.8-8.9); NEUTROPHILS % (AUTO) 63.9 % (43.0-81.0); PLATELET COUNT (AUTO) 259 /CMM (150-450); RED BLOOD CELL COUNT(AUTO) 3.71 MIL/uL (4.0-5.2); WHITE BLOOD COUNT (AUTO) 6.1 K/uL (4.3-11.0)
[2019-11-06 08:34] LABS: CALCIUM, SERUM 8.6 mg/dL (8.5-10.1); CARBON DIOXIDE 25 mmol/L (21-32); CHLORIDE 104 mmol/L (98-107); CREATININE 0.5 mg/dL (0.6-1.3); GLUCOSE 156 mg/dL (74-106); POTASSIUM 4.1 mmol/L (3.5-5.1); SODIUM SERUM 138 mmol/L (136-145); UREA NITROGEN, BLOOD 11 mg/dL (7-18)
[2019-11-06] MEDS: ACETYLCYSTEINE 10% SOLN 400 MG/4 ML VIAL NEB SCH ×2 (09:04→16:18)
--- NOTE | 2019-11-06 09:27 | NUR ---
WOUND CARE CONSULT: PT PRESENTS WITH SACRAL SCARRING AND INCONTINENCE, PRESENT ON ADMISSION. PT HAS VERY STIFF LOWER EXTREMITIES WITH SOME CONTRACTURE MAKING HEEL OFFLOADING DIFFICULT. RECOMMENDATIONS MADE FOR SKIN PROTECTION. DISCUSSED WITH NURSING STAFF. EHLAM ISOFLEX LOW AIRLOSS BED TO BE PLACED. WILL SEE PRN. CUELLAR IN AGREEMENT WITH PLAN OF CARE. Addendum: 11/06/19 at 0930 by NANCI QUINTEROS WNDNU Amended: Links added.
[2019-11-06] MEDS: CARBIDOPA/LEVODOPA 10/100 MG 1 UDTAB GT SCH ×3 (09:47→17:05)
[2019-11-06] MEDS: TOLTERODINE 2 MG CAP.SR PO SCH ×2 (09:47→17:05)
[2019-11-06] MEDS: FAMOTIDINE (20 MG) 20 MG TABLET GT SCH ×2 (09:47→17:05)
[2019-11-06] MEDS: LACTOBACILLUS RHAMNOSUS GG 1 EACH CAP.SPRINK PO SCH ×2 (09:47→17:05)
[2019-11-06] MEDS: CLOPIDOGREL BISULFATE 75 MG TABLET GT SCH (09:47)
[2019-11-06] MEDS: LOSARTAN POTASSIUM 50 MG TABLET GT SCH (09:47)
[2019-11-06] MEDS: DOCUSATE SODIUM LIQ 100 MG/10 ML UDC GT SCH ×2 (09:47→17:05)
[2019-11-06] MEDS: MUPIROCIN OINT 2% 22 GM TUBE SCH (10:02)
[2019-11-06] MEDS: GLUCERNA 1.2 1,000 ML BOTTLE GT SCH (14:49)
[2019-11-06] MEDS: IV NS 0.9% 1,000 ML IV PRN (14:50)
[2019-11-06] MEDS: AZITHROMYCIN 500 MG in IV D5W 250 ML IV SCH (15:00)
[2019-11-06] MEDS ORDERED: LEVO500T75 PO (15:50)
[2019-11-06 16:00] VITALS: BP 128/72
--- NOTE | 2019-11-06 19:34 | NUR ---
MS POUND KEEPER NOTES PATIENT ALERT AND ORIENTED X1. RESPONDS TO VERBAL AND TACTILE STIMULI. PATIENT FOR DISCHARGE, DISCHARGE INSTRUCTIONS AND REPORT GIVEN TO ANNIKA LE AT [facility], [facility]. GT INTACT AND PATENT, NO RESIDUAL NOTED. RYLEY GLUCERNA 1.2 @ 65ML/HR WELL. IV ACCESS CATHETER REMOVED WITH GAUZE DRESSING INTACT. ALL BELONGINGS ACCOUNTED FOR. PATIENT PICKED UP BY AMBULANCE AND LEFT VIA GURNEY IN STABLE CONDITION.
== END 2019-11-06 19:00 | DRG 193 ==
LOC: ER 12:24 → TELE 20:47 → MED 22:57
PROVIDERS: ADMIT Nurse Practitioner Acute Care; ATTEND Nurse Practitioner Acute Care
PROC: 0D20XUZ Change Feeding Device in Upper Intestinal Tract, External Approach (ICD-10-PCS; principal; 2019-11-03)
DX: J15.9 Unspecified bacterial pneumonia (principal); R53.2 Functional quadriplegia; E44.0 Moderate protein-calorie malnutrition; G93.49 Other encephalopathy; D68.69 Other thrombophilia; Z43.1 Encounter for attention to gastrostomy; E83.42 Hypomagnesemia; Z86.73 Personal history of transient ischemic attack (TIA), and cerebral infarction without residual deficits; G20 Parkinson's disease; F02.80 Dementia in other diseases classified elsewhere, unspecified severity, without behavioral disturbance, psychotic disturbance, mood disturbance, and anxiety; I25.10 Atherosclerotic heart disease of native coronary artery without angina pectoris; R13.10 Dysphagia, unspecified; E11.9 Type 2 diabetes mellitus without complications; I10 Essential (primary) hypertension; D64.9 Anemia, unspecified; M06.9 Rheumatoid arthritis, unspecified; Z79.4 Long term (current) use of insulin; Z95.1 Presence of aortocoronary bypass graft; E86.0 Dehydration; E88.09 Other disorders of plasma-protein metabolism, not elsewhere classified; M19.90 Unspecified osteoarthritis, unspecified site; Z68.21 Body mass index [BMI] 21.0-21.9, adult; Z22.322 Carrier or suspected carrier of Methicillin resistant Staphylococcus aureus; Z79.02 Long term (current) use of antithrombotics/antiplatelets
CPT/HCPCS: 31720; 36415; 71045-TC; 74018; 80048-TC; 80061-TC; 80076-TC; 81000-TC; 83605-TC; 83735-TC; 84100-TC; 84484-TC; 85025-TC; 85730-TC; 87040-TC; 87081-TC; 87086-TC; 94799-TC; G0378; J0456; J0696; J7030; J7060; Q9963

== ENCOUNTER 2019-11-09 17:09 | Inpatient (IN) | payer MEDICARE, OTHER ==
[~2019-11-09] VITALS: Ht 162.6 cm; Wt 59.0 kg
[~2019-11-09 17:09] MED LIST changes: +ACET-2605 GT; +LEVO500T75 PO
--- NOTE | 2019-11-09 17:12 | NUR ---
RT PLACED PT ON BIPAP PER MD ORDER WITH FOLLOWING SETTNGS: 28/04, BUR 16, 100%. SPO2 89-90%, HR 123. WILL CONTINUE TO MONITOR THE PATIENT CLOSELY FOR ANY CHANGE OF CONDITION. Addendum: 11/09/19 at 1829 by MEGA DUNNE RT Amended: Links added.
--- NOTE | 2019-11-09 17:14 | NUR ---
BIBRA88 FRM SNF FOR RESPIRATORY DISTRESS. ALBUTEROL GIVEN STATE GAME WARDEN. PER REPORT PT FINISHED ANTIBIOTICS TODAY. pt to bed 5, placed on monitor, md at bedside for eval; rt called
[2019-11-09] MEDS ORDERED: ALBUTEROL FS 2.5 MG/3 ML VIAL.NEB ONE (17:26)
[2019-11-09] MEDS ORDERED: ALBUTEROL FS 2.5 MG/3 ML VIAL.NEB NEB ONE (17:30)
[2019-11-09] MEDS ORDERED: methylPREDNISolone SOD SUCC 125 MG/2ML VIAL IV ONE (17:30)
[2019-11-09] MEDS ORDERED: IPRATROPIUM NEB FS 0.5 MG/2.5 ML AMPUL.NEB NEB ONE (17:30)
[2019-11-09] MEDS ORDERED: ALBU2.5V38 IH (17:31)
[2019-11-09] MEDS ORDERED: IPRA0.2S9 IH (17:31)
[2019-11-09] MEDS ORDERED: NYST15OI2 TP (17:31)
[2019-11-09] MEDS ORDERED: LACT1CAP71 GT (17:31)
[2019-11-09] MEDS ORDERED: ZINC57OI4 TP (17:31)
--- NOTE | 2019-11-09 17:32 | NUR ---
RT POST ABG RESULTS SHOWN TO DR. ALBERT. DECREASED FiO2 TO 40%. Addendum: 11/09/19 at 1829 by MEGA DUNNE RT Amended: Links added.
[2019-11-09 17:33] LABS: ABG BASE EXCESS -1.7 mmol/L; ABG OXYGEN SATURATION 99.5 % (92.0-98.5); ABG PCO2 47.4 mmHg (35.0-45.0); ABG PH 7.332 (7.350-7.450); ABG PO2 390.1 mmHg (75.0-100.0); AaDO2 275.5 mmHg; COHb 0.7 % (0.5-1.5); MetHb 0.3 % (0.0-1.5); O2Hb 98.5 % (94.0-97.0); SITE, ABG Right Radial; VENT MODE, BG 5 MINUTES POST 100% BIPAP
[2019-11-09 17:39] LABS: CALCIUM, SERUM 10.1 mg/dL (8.5-10.1); CARBON DIOXIDE 27 mmol/L (21-32); CHLORIDE 99 mmol/L (98-107); CREATININE 0.7 mg/dL (0.6-1.3); GLUCOSE 240 mg/dL (74-106); POTASSIUM 4.6 mmol/L (3.5-5.1); SODIUM SERUM 138 mmol/L (136-145); UREA NITROGEN, BLOOD 23 mg/dL (7-18)
[2019-11-09] MEDS ORDERED: IPRATROPIUM NEB FS 0.5 MG/2.5 ML AMPUL.NEB ONE (17:40)
[2019-11-09] MEDS ORDERED: methylPREDNISolone SOD SUCC 125 MG/2ML VIAL ONE (17:44)
[2019-11-09 17:52] LABS: ALANINE AMINOTRANSFERASE 13 U/L (12-78); ALBUMIN 3.4 g/dL (3.4-5.0); ALKALINE PHOSPHATASE 83 U/L (46-116); ASPARTATE AMINOTRANSFERASE 20 U/L (15-37); B-TYPE NATRIURETIC PEPTIDE 176 PG/ML (0-125); BILIRUBIN,DIRECT 0.2 mg/dL (0.0-0.2); BILIRUBIN,TOTAL 0.7 mg/dL (0.2-1.0); TOTAL PROTEIN, SERUM 8.2 g/dL (6.4-8.2)
[2019-11-09] MEDS ORDERED: ALBUTEROL FS 2.5 MG/0.5 ML VIAL.NEB NEB ONE (18:00)
[2019-11-09 18:01] LABS: APPEARANCE,URINE Clear (CLEAR); BILIRUBIN,URINE Negative (NEGATIVE); BLOOD, URINE Negative Ery/uL (NEGATIVE); COLOR,URINE Yellow (YELLOW); KETONES,URINE Negative (NEGATIVE); LEUKOCYTE ESTERASE ,URINE Negative (NEGATIVE); NITRITE, URINE Negative (NEGATIVE); PROTEIN,URINE Negative (NEGATIVE); UGLUCOSE Negative (NEGATIVE)
--- NOTE | 2019-11-09 18:10 | NUR ---
CALLED NURSING SUP FOR ICU BED.
--- NOTE | 2019-11-09 18:22 | NUR ---
DR. ANN AT BEDSIDE FOR [facility].
[2019-11-09] MEDS ORDERED: ACETAMINOPHEN 325 MG TABLET PO PRN (18:30)
[2019-11-09] MEDS ORDERED: VANCOMYCIN 1 GM in IV D5W 250 ML IV ONE (18:30)
[2019-11-09] MEDS ORDERED: ONDANSETRON HCL/PF 4 MG/2 ML VIAL IVP PRN (18:30)
[2019-11-09] MEDS ORDERED: MEROPENEM 1 G in IV NS 0.9% 100 ML IV ONE (18:30)
[2019-11-09] MEDS ORDERED: Z GUARD REMEDY 2 OZ OINT TP PRN (18:30)
--- NOTE | 2019-11-09 18:30 | NUR ---
called [facility]; per roberto cisneros sup, pt does not have polst, pt was just recently readmitted, no access to old chart
--- NOTE | 2019-11-09 18:41 | NUR ---
dr. javier lopes started here in ER
[2019-11-09 18:48] LABS: BASOPHILS # (AUTO) 0.1 /CMM (0.0-0.2); BASOPHILS % (AUTO) 0.2 % (0.0-2.0); EOSINOPHILS % (AUTO) 1.5 % (0.0-6.0); HEMATOCRIT 40 % (33-45); HEMOGLOBIN 12.6 g/dL (11.5-14.8); LYMPHOCYTES # (AUTO) 3.7 /CMM (0.8-4.8); LYMPHOCYTES % (AUTO) 15.4 % (20.0-44.0); MEAN CORPUSCULAR HGB CONC 32 g/dl (31.0-36.0); MEAN CORPUSCULAR VOLUME 91 fL (82-100); MONOCYTES # (AUTO) 1.4 /CMM (0.1-1.30); MONOCYTES % (AUTO) 5.8 % (2.0-12.0); NEUTROPHILS # (AUTO) 18.7 /CMM (1.8-8.9); NEUTROPHILS % (AUTO) 77.1 % (43.0-81.0); PLATELET COUNT (AUTO) 453 /CMM (150-450); RED BLOOD CELL COUNT(AUTO) 4.39 MIL/uL (4.0-5.2); WHITE BLOOD COUNT (AUTO) 24.2 K/uL (4.3-11.0)
[2019-11-09 18:50] LABS: BACTERIA,URINE None seen /HPF (None Seen); RBC,URINE 0-2 /HPF (0-2); SQUAMOUS EPITHELIAL CELL,UR Few /HPF (None Seen); WBC,URINE 0-2 /HPF (0-3)
--- NOTE | 2019-11-09 19:21 | NUR ---
NURSING SUP GAVE ICU BED 252.
--- NOTE | 2019-11-09 19:27 | NUR ---
bipap 16/8 50%
--- NOTE | 2019-11-09 19:50 | NUR ---
Received patient from ER on BIPAP,lethargic but arousable,non verbal,moans and groans,does not seem to comprehend ,does not follow commands.Breathing slightly labored and tachypneic with deep inspiratory effort. BIPAP 18/8, 40 % FIO2,rate of 16.With generalized weakness but able to move all extremities ( but weak).With G tube clamped .Jimenez draining well. Comfort care done. 2030 Family at bedside.
--- NOTE | 2019-11-09 19:52 | NUR ---
report given to justin cisneros for [facility]uar pt transported to icu
[2019-11-09] MEDS: IV NS 0.9% 1,000 ML IV PRN (19:56)
[2019-11-09 20:00] VITALS: BP 108/46
[2019-11-09] MEDS: ENOXAPARIN SODIUM 40 MG/0.4 ML DISP.SYRIN SQ SCH (20:12)
[2019-11-09 21:00] VITALS: BP 115/49
[2019-11-09 22:00] VITALS: BP 118/57
[2019-11-09 23:00] VITALS: BP 115/58
[2019-11-10] VITALS (25 sets, daily range): BP systolic 115–156; BP diastolic 48–93
--- NOTE | 2019-11-10 | NUR ---
Still breathing a little labored in the 30's RR,heart rate in the low 100's to 90's, saturating 91-95 % . Cooperative with BIPAP.Remains lethargic, open eyes to stimuli.Comfort care done.
--- NOTE | 2019-11-10 04:00 | NUR ---
still on the BIPAP,breathing less labored but still tachypneic ,not in any acuter distress.AM bath done.
[2019-11-10 05:26] LABS: BASOPHILS % (AUTO) 0.1 % (0.0-2.0); HEMATOCRIT 34 % (33-45); HEMOGLOBIN 11.1 g/dL (11.5-14.8); LYMPHOCYTES # (AUTO) 0.4 /CMM (0.8-4.8); LYMPHOCYTES % (AUTO) 1.8 % (20.0-44.0); MEAN CORPUSCULAR HGB CONC 33 g/dl (31.0-36.0); MEAN CORPUSCULAR VOLUME 90 fL (82-100); MONOCYTES # (AUTO) 0.6 /CMM (0.1-1.30); MONOCYTES % (AUTO) 2.6 % (2.0-12.0); NEUTROPHILS # (AUTO) 23.5 /CMM (1.8-8.9); NEUTROPHILS % (AUTO) 95.5 % (43.0-81.0); PLATELET COUNT (AUTO) 342 /CMM (150-450); RED BLOOD CELL COUNT(AUTO) 3.81 MIL/uL (4.0-5.2); WHITE BLOOD COUNT (AUTO) 24.6 K/uL (4.3-11.0)
[2019-11-10 05:36] LABS: ALBUMIN 2.7 g/dL (3.4-5.0); BILIRUBIN,TOTAL 0.6 mg/dL (0.2-1.0); CREATININE 0.9 mg/dL (0.6-1.3); MAGNESIUM 2.2 mg/dL (1.8-2.4); PHOSPHORUS 3.3 mg/dL (2.5-4.9); POTASSIUM 4.5 mmol/L (3.5-5.1); TOTAL PROTEIN, SERUM 7.1 g/dL (6.4-8.2)
[2019-11-10] MEDS ORDERED: FEE PK DOSING 1 MIN EA MC ONE (06:43)
--- NOTE | 2019-11-10 07:56 | NUR ---
BRANCH LENDING MANAGER NOTE PATIENT IN BED , AWAKE WIT BIPAP MACHINE ORDERED SAT 02 94% , ON TELE MONITOR HR 99 , WITH ALEJO CATH TO GRAVITY , WITH YELLOW COLOR URINE NOTED, ON NPO STS AT THIS TIME, LT FA AND RT HAND HL IN PLACE, ON IVF ORDERED, BED IN LOWEST AND LOCKED POSITION , WILL MONITOR CLOSELY CALL LIGHT WITHIN REACH AND
[2019-11-10] MEDS ORDERED: MEROPENEM 500 MG in IV NS 0.9% 50 ML IV SCH (08:00)
[2019-11-10] MEDS: methylPREDNISolone SOD SUCC 40 MG/ML VIAL IV SCH ×3 (08:15→16:30)
[2019-11-10] MEDS: MEROPENEM 1 G in IV NS 0.9% 100 ML IV SCH ×2 (08:15→17:22)
[2019-11-10] MEDS: IV NS 0.9% 1,000 ML IV PRN (08:25)
--- NOTE | 2019-11-10 08:30 | NUR ---
curriculum assistant principal note seen by dr michaels aware that wbc 24.6 aware that on vanco and Merrem and Solumol also ok to Stat g tube feeding will f\u
[2019-11-10] MEDS ORDERED: GLUCERNA 1.2 1,000 ML BOTTLE NG PRN ×3 (09:00→11:16)
[2019-11-10 09:19] LABS: ABG OXYGEN SATURATION 96.2 % (92.0-98.5); ABG PCO2 37.1 mmHg (35.0-45.0); ABG PO2 84.1 mmHg (75.0-100.0); AaDO2 194.6 mmHg; COHb 0.3 % (0.5-1.5); MetHb 0.3 % (0.0-1.5); O2Hb 95.6 % (94.0-97.0); SITE, ABG Right Radial; VENT MODE, BG 18/8
--- NOTE | 2019-11-10 10:17 | NUR ---
LEHR LOADER NOTE PER DR LIVINGSTON OK TO ABG AND TRY TO REMOVE BIPAP, RT AT BEDSIDE WILL F\U
--- NOTE | 2019-11-10 10:29 | NUR ---
LINK TRAINER TEACHER NOTE ON 6L NC SAT 95%, WILL MONITOR CLOSELY
--- NOTE | 2019-11-10 11:19 | NUR ---
RESIDENT CAREGIVER NOTE TURN REPOSITION PER DR LIVINGSTON OK TO START G TUBE FEEDING AT [facility] WAS GLUCERNA AT 65 ML PER HOUR , WILL RESTART IF HER BREATHING OK ON O2 ON NC
[2019-11-10] MEDS ORDERED: IPRATROPIUM NEB FS 0.5 MG/2.5 ML AMPUL.NEB NEB SCH (11:30)
[2019-11-10] MEDS ORDERED: ALBUTEROL HALF STRENGTH 1.25 MG/3 ML VIAL.NEB NEB SCH (11:30)
[2019-11-10] MEDS ORDERED: ACETYLCYSTEINE 10% SOLN 400 MG/4 ML VIAL NEB SCH (11:30)
[2019-11-10] MEDS: VANCOMYCIN 1 GM in IV D5W 250ml IV SCH (11:59)
[2019-11-10] MEDS: GLUCERNA 1.2 1,000 ML BOTTLE GT PRN (12:57)
[2019-11-10] MEDS: ALBUTEROL HALF STRENGTH 1.25 MG/3 ML VIAL.NEB NEB SCH ×2 (13:18→19:22)
[2019-11-10] MEDS: IPRATROPIUM NEB FS 0.5 MG/2.5 ML AMPUL.NEB NEB SCH ×2 (13:19→19:22)
--- NOTE | 2019-11-10 13:24 | NUR ---
ENGINE REPAIR SUPERVISOR NOTE ON BREATHING TX ORDERED BY RT SAT 96% NO SOB NOTED STARTED G TUBE FEEDING ORDERED SLOWLY AT 20 ML PER HOUR ,KEEP HOB ELEVATED AT ALL TIME FAMILY AND CAREGIVER AT BEDSIDE,
[2019-11-10] MEDS: ACETYLCYSTEINE 10% SOLN 400 MG/4 ML VIAL NEB SCH ×2 (15:07→23:06)
--- NOTE | 2019-11-10 15:48 | NUR ---
CERAMIC PAINTER NOTE NEW HL ON RT FA JORGE 22 INSERTED WITH GOOD BLOOD RETURN
--- NOTE | 2019-11-10 18:36 | NUR ---
LEAD MINER NOTE ON 5L OF O2 SAT 95% FAMILY AT BEDSIDE , ON G TUBE FEEDING ORDERED AT 30 ML AT THIS TIME MAX DOSE 65 ML PER HOUR , KEEP HOB ELEVATED AT ALL TIME, CONT ON IVF ORDERED ALL NEEDS ATTENDED ,NOT IN DISTRESS
[2019-11-10] MEDS: ENOXAPARIN SODIUM 40 MG/0.4 ML DISP.SYRIN SQ SCH (21:04)
[2019-11-11] VITALS (25 sets, daily range): BP systolic 138–177; BP diastolic 63–108
[2019-11-11] MEDS: IPRATROPIUM NEB FS 0.5 MG/2.5 ML AMPUL.NEB NEB SCH ×4 (01:23→19:40)
[2019-11-11] MEDS: ALBUTEROL HALF STRENGTH 1.25 MG/3 ML VIAL.NEB NEB SCH ×4 (01:23→19:40)
[2019-11-11] MEDS: IV NS 0.9% 1,000 ML IV PRN ×2 (01:57→17:19)
[2019-11-11 04:30] LABS: CALCIUM, SERUM 9.3 mg/dL (8.5-10.1); CARBON DIOXIDE 27 mmol/L (21-32); CHLORIDE 108 mmol/L (98-107); CREATININE 0.5 mg/dL (0.6-1.3); GLUCOSE 136 mg/dL (74-106); POTASSIUM 4.1 mmol/L (3.5-5.1); SODIUM SERUM 143 mmol/L (136-145); UREA NITROGEN, BLOOD 27 mg/dL (7-18)
[2019-11-11] MEDS: MEROPENEM 1 G in IV NS 0.9% 100 ML IV SCH ×2 (06:07→18:32)
[2019-11-11] MEDS: VANCOMYCIN 1 GM in IV D5W 250ml IV SCH (06:16)
[2019-11-11] MEDS: ACETYLCYSTEINE 10% SOLN 400 MG/4 ML VIAL NEB SCH ×3 (07:06→23:28)
--- NOTE | 2019-11-11 08:00 | NUR ---
ICU/RN INITIAL NOTES,AM RECEIVED BEDSIDE REPORT FROM NIGHT NURSE. PT ALERT, DOES NOT FOLLOW COMMANDS, NON VERBAL. ON 5LITERS HUMIDIFIED 02 VIA NASAL CANULA, NO ACUTE DISTRESS NOTED. SINUS ON TELE. GTUBE FEEDING INFUSING ORDERED, WILL INCREASE TO MEET GOAL OF 65 ML/HR. PIVS PATENT AND INTACT, NO S/S OF INFECTION OR INFILTRATION NOTED. IVF INFUSING ORDERED. ALL NEEDS WILL BE ATTENDED TO, SAFETY MEASURES TAKEN, BED IN LOW POSITION SIDE RAILS UP, CALL LIGHT WITHIN REACH. WILL CONTINUE CARE.
[2019-11-11] MEDS: methylPREDNISolone SOD SUCC 40 MG/ML VIAL IV SCH ×3 (08:14→17:04)
[2019-11-11 09:05] LABS: HEMATOCRIT 32 % (33-45); HEMOGLOBIN 10.2 g/dL (11.5-14.8); LYMPHOCYTES # (AUTO) 0.7 /CMM (0.8-4.8); LYMPHOCYTES % (AUTO) 5.2 % (20.0-44.0); MEAN CORPUSCULAR HGB CONC 32 g/dl (31.0-36.0); MEAN CORPUSCULAR VOLUME 90 fL (82-100); MONOCYTES # (AUTO) 0.8 /CMM (0.1-1.30); MONOCYTES % (AUTO) 5.7 % (2.0-12.0); NEUTROPHILS # (AUTO) 12.4 /CMM (1.8-8.9); NEUTROPHILS % (AUTO) 89.1 % (43.0-81.0); PLATELET COUNT (AUTO) 297 /CMM (150-450); RED BLOOD CELL COUNT(AUTO) 3.54 MIL/uL (4.0-5.2); WHITE BLOOD COUNT (AUTO) 13.9 K/uL (4.3-11.0)
--- NOTE | 2019-11-11 15:00 | NUR ---
ICU/RN: SPOUSE AND CAREGIVER AT BEDSIDE, UPDATES GIVEN [id number] ANSWERED.
[2019-11-11] MEDS: DOCUSATE SODIUM 100 MG CAPSULE PO SCH (17:04)
[2019-11-11] MEDS: TOLTERODINE 2 MG CAP.SR PO SCH (17:04)
[2019-11-11] MEDS: VANCOMYCIN 1 GM in IV D5W 250 ML IV SCH (17:04)
[2019-11-11] MEDS: GLUCERNA 1.2 1,000 ML BOTTLE GT PRN (17:10)
--- NOTE | 2019-11-11 17:45 | NUR ---
[facility] RN NOTES RECEIVED PATIENT FROM ICU, EYES OPEN, UNABLE TO FOLLOW COMMANDS, NON VERBAL, ON 5LITERS HUMIDIFIED 02 VIA NASAL CANULA, NO ACUTE DISTRESS NOTED. SINUS ON TELE. GTUBE FEEDING INFUSING ORDERED, WILL INCREASE TO MEET GOAL OF 65 ML/HR. LFA G 18 AND RFA G 22, BOTH FLUSHES WELL, BOTH SITES CLEAR, ONGOING NS AT 75 ML/HR AND VANCO IV. ALL NEEDS WILL BE ATTENDED TO, SAFETY MEASURES TAKEN, BED IN LOW POSITION SIDE RAILS UP, CALL LIGHT WITHIN REACH. WILL CONTINUE CARE.
--- NOTE | 2019-11-11 17:54 | NUR ---
ICU/RN: PT TRANSFERRED TO [facility] WITH ACLS GUIDELINES, REPORT ENDORSED TO GALINDO RN. ALL BELONGINGS AND MEDICATIONS SENT WITH PT. BED BATH GIVEN, LINENS CHANGED. ALL NEEDS ATTENDED TO. TUBE FEEDING AND IVF INFUSING ORDERED.
[2019-11-11] MEDS: CARBIDOPA/LEVODOPA 10/100 MG 1 UDTAB GT SCH (17:58)
[2019-11-11] MEDS: PROLENSA 0.07% OP SCH (18:00)
[2019-11-11] MEDS: EYE OP SCH (18:00)
--- NOTE | 2019-11-11 19:28 | NUR ---
[facility] RN NOTES PATIENT RESTING COMFORTABLY. NOT IN ANY DISTRESS. KEPT CLEAN AND DRY. CALL LIGHT PLACED WITHIN REACH. ALL NEEDS MET. NO OTHER SIGNIFICANT CHANGE IN CONDITION. WILL ENDORSE TO NEXT SHIFT FOR FELICITAS. ALEJO CATH OUT PUT 600ML.
--- NOTE | 2019-11-11 19:35 | NUR ---
RN NOTES RECEIVED PATIENT IN BED RESTING COMFORTABLY NO S/S OF DISTRESS NOTED. BREATHING NORMAL NO SOB NOTED. SKIN WARM AND DRY TOUCH. CONTINUES ON GT FEEDING TOLERATING WELL. CONTINUES ON O2 4L/MIN VIA NC WITH O2 SAT 97% NOTED. FC INTACT DARNING WELL. SAFETY MEASURES IN PLACE, CALL LIGHT WITHIN REACH. BED IN LOW AND LOCKED POSITION. WILL CONT TO MONITOR.
[2019-11-11] MEDS: FAMOTIDINE (20 MG) 20 MG TABLET GT SCH (21:31)
[2019-11-11] MEDS: ENOXAPARIN SODIUM 40 MG/0.4 ML DISP.SYRIN SQ SCH (21:42)
[2019-11-11] MEDS: LATANOPROST EYE DROP 0.005% 2.5 ML BOTTLE EACHEYE SCH (22:17)
[2019-11-11] MEDS: INSULIN GLARGINE, 100 UNIT/ML CARTRIDGE SQ SCH (22:24)
[2019-11-12] VITALS: BP 163/78
--- NOTE | 2019-11-12 00:36 | NUR ---
RN TD NOTES, NOTED PATIENT WITH BP 163/78, 77HR, NO DISTRESS NOTED, NO FACIAL GRIMACING NOTED, NO S/S OF PAIN OR DISCOMFORT, PAGED ANDONIAN CHAMFERING MACHINE OPERATOR, AWAITING FOR CALL.
--- NOTE | 2019-11-12 01:05 | NUR ---
RN NOTES, RECEIVED CALL FROM CARMELINA WITH ORDER TO ADMINISTER THE HTN MEDICATION THAT SUPPOSE TO BE ADMINISTER AT 0900 IN THE MORNING NOW, NOTED AND WILL ADMINISTER ORDERED.
[2019-11-12] MEDS ORDERED: LOSARTAN POTASSIUM 50 MG TABLET ONE (01:06)
[2019-11-12] MEDS: LOSARTAN POTASSIUM 50 MG TABLET GT SCH (01:08)
[2019-11-12] MEDS: ALBUTEROL HALF STRENGTH 1.25 MG/3 ML VIAL.NEB NEB SCH ×4 (01:36→20:26)
[2019-11-12] MEDS: IPRATROPIUM NEB FS 0.5 MG/2.5 ML AMPUL.NEB NEB SCH ×4 (01:36→20:26)
[2019-11-12 04:00] VITALS: BP_SYST 158; BP_SYST 169; BP_DIAS 77; BP_DIAS 86
[2019-11-12 06:55] LABS: CALCIUM, SERUM 9.3 mg/dL (8.5-10.1); CARBON DIOXIDE 27 mmol/L (21-32); CHLORIDE 102 mmol/L (98-107); CREATININE 0.5 mg/dL (0.6-1.3); GLUCOSE 136 mg/dL (74-106); POTASSIUM 3.9 mmol/L (3.5-5.1); SODIUM SERUM 139 mmol/L (136-145); UREA NITROGEN, BLOOD 20 mg/dL (7-18)
--- NOTE | 2019-11-12 07:00 | NUR ---
[facility] RN Notes Patient is alert to self, rousable to sound and touch. Patient 02 sat greater then 95 on 4L Nasal Canula. Patient is NSR on the tele monitor in the 90s. Patient legs and arms have contractures. Per family there is a PMH of stroke, where patient became contracted. On assessment mild blanchable sacral redness noted. Covered with mepilex, turned and offloaded Q2H per hospital protocol. G tube site has foul smelling brown purelent discharge. Allen Arce ESCALATOR ATTENDANT notified and cx sent to lab. Site was cleaned with NS and a new drain sponge placed. Patient is hypertensive which will be brought up on rounding. Bed in lowest position, call light within reach, all measures taken to ensure client safety.
--- NOTE | 2019-11-12 07:09 | NUR ---
RN NOTES PATIENT IN STABLE CONDITION RESTING COMFORTABLY. NO SOB NOTED. VITAL SIGNS WNL. BREATHING NORMAL. HOB ELEVATED AT ALL THE TIMES. CONTINUES IN GT FEEDING TOLERATING WELL. SAFETY MEASURES IN PLACE. CALL LIGHT WITHIN REACH. BED IN LOW AND LOCKED POSITION.ENDORSE PATIENT TO DAY NURSE.
[2019-11-12] MEDS: ACETYLCYSTEINE 10% SOLN 400 MG/4 ML VIAL NEB SCH ×2 (07:21→15:59)
[2019-11-12] MEDS: VANCOMYCIN 1 GM in IV D5W 250 ML IV SCH ×2 (07:46→18:22)
[2019-11-12] MEDS: MEROPENEM 1 G in IV NS 0.9% 100 ML IV SCH ×3 (07:52→20:44)
[2019-11-12 08:00] VITALS: BP 187/98
--- NOTE | 2019-11-12 09:04 | NUR ---
RN NOTES DR. MARCELO COLLAZO, NOTIFIED ABOUT PT'S BLOOD PRESSURE AT 187/98. PER HIM, HE WILL SEE PT IN A WHILE.
[2019-11-12] MEDS: methylPREDNISolone SOD SUCC 40 MG/ML VIAL IV SCH ×3 (09:09→18:23)
[2019-11-12] MEDS: DOCUSATE SODIUM 100 MG CAPSULE PO SCH ×2 (09:09→18:22)
[2019-11-12] MEDS: TOLTERODINE 2 MG CAP.SR PO SCH ×2 (09:09→18:22)
[2019-11-12] MEDS: CLOPIDOGREL BISULFATE 75 MG TABLET GT SCH (09:09)
[2019-11-12] MEDS: CARBIDOPA/LEVODOPA 10/100 MG 1 UDTAB GT SCH ×3 (09:09→18:12)
[2019-11-12] MEDS: PROLENSA 0.07% OP SCH (09:11)
[2019-11-12] MEDS: EYE OP SCH (09:11)
[2019-11-12] MEDS: FAMOTIDINE (20 MG) 20 MG TABLET GT SCH ×2 (09:12→21:04)
[2019-11-12] MEDS: IV NS 0.9% 1,000 ML IV PRN (09:39)
--- NOTE | 2019-11-12 10:13 | NUR ---
WOUND CARE CONSULT: PT PRESENTS WITH SACRAL SCARRING, LEFT ANKLE SCARRING AND DRAINAGE FROM G TUBE SITE, PRESENT ON ADMISSION. RECOMMENDATIONS MADE FOR SKIN PROTECTION. DISCUSSED WITH NURSING STAFF. DISCUSSED G TUBE SITE WITH NURSING STAFF AND TALENT DEVELOPMENT MANAGER. RN TO DISCUSS WITH PMD TODAY. FIRST STEP LOW AIRLOSS MATTRESS ON ORDER. WILL SEE PRN. CURRENT MIRI SCORE IS 10. MD IN AGREEMENT WITH PLAN OF CARE. Addendum: 11/12/19 at 1015 by NANCI QUINTEROS WNDNU Amended: Links added.
[2019-11-12 12:00] VITALS: BP_SYST 159; BP_SYST 177; BP_DIAS 77; BP_DIAS 87
[2019-11-12] MEDS ORDERED: hydrALAZINE HCL IV 20 MG VIAL IV PRN (13:30)
[2019-11-12] MEDS: HYDROCHLOROTHIAZIDE 25 MG TABLET GT SCH (14:53)
[2019-11-12 16:00] VITALS: BP_SYST 159; BP_SYST 177; BP_DIAS 77; BP_DIAS 87
--- NOTE | 2019-11-12 16:08 | NUR ---
[facility] RN Notes Problem scanning carbidopa and levodopa tablet due to broken bar code. Med given 14:53. Next tablet to be administered on schedule.
[2019-11-12] MEDS: GLUCERNA 1.2 1,000 ML BOTTLE GT PRN (16:27)
--- NOTE | 2019-11-12 19:00 | NUR ---
[facility] RN Notes- Closing Patient endorsed to retail shift supervisor. Patient is alert to self, rousable to sound and touch. Patient 02 sat greater then 95 on 4L Nasal Canula. Patient is NSR on the tele monitor in the 90s. IV Fluids discontinued per order of Allen Arce NP. TURBO ELECTRIC OPERATOR explained to family at bedside that x-ray revealed pulmonary congestion. Daughter called and updated were given on what was shared with patient and on rounding. Per this finding the provider placed the patient on HCTZ 25mg and Hydralazine PRN uncontrolled HTN. Patient legs and arms have contractures. Per family there is a PMH of stroke, where patient became contracted. On assessment mild blanchable sacral redness noted. Covered with mepilex, turned and offloaded Q2H per hospital protocol. G tube site has foul smelling brown purelent discharge. Allen Arce TURBO ELECTRIC OPERATOR notified and cx sent to lab. Site was cleaned with NS and a new drain sponge placed. Bed in lowest position, call light within reach, all measures taken to ensure client safety.
--- NOTE | 2019-11-12 19:35 | NUR ---
RN NOTES, RECEIVED PATIENT IN BED RESTING COMFORTABLY BREATHING EVEN AND UNLABORED, NO S/S SOB/ACUTE DISTRESS NOTED, ON O2 4L/MIN VIA NC WITH O2 SAT 96%, NSR IN TELE MONITOR, IV ACCESS LFA AND RFA PATENT AND INTACT, ON GT FEEDING TOLERATING WELL, WITH NO RESIDUAL NOTED AT THIS TIME, FC IN PLACED PATENCY INTACT, DRAINING YELLOW URINE, ALL SAFETY MEASURES IN PLACE, CALL LIGHT WITHIN REACH, BED IN LOW AND LOCKED POSITION., REPOSITIONED AT THIS TIME, WILL CONT TO MONITOR CLOSELY.
[2019-11-12 20:00] VITALS: BP_SYST 161; BP_DIAS 60; BP_DIAS 68
[2019-11-12] MEDS: LATANOPROST EYE DROP 0.005% 2.5 ML BOTTLE EACHEYE SCH (21:04)
[2019-11-12] MEDS: ENOXAPARIN SODIUM 40 MG/0.4 ML DISP.SYRIN SQ SCH (21:05)
[2019-11-12] MEDS: INSULIN GLARGINE, 100 UNIT/ML CARTRIDGE SQ SCH (21:11)
[2019-11-13] VITALS: BP 156/69
[2019-11-13] MEDS: IPRATROPIUM NEB FS 0.5 MG/2.5 ML AMPUL.NEB NEB SCH ×3 (01:31→14:41)
[2019-11-13] MEDS: ACETYLCYSTEINE 10% SOLN 400 MG/4 ML VIAL NEB SCH ×3 (01:31→14:41)
[2019-11-13] MEDS: ALBUTEROL HALF STRENGTH 1.25 MG/3 ML VIAL.NEB NEB SCH ×3 (01:31→14:41)
[2019-11-13 04:00] VITALS: BP_SYST 185; BP_SYST 195; BP_DIAS 66
--- NOTE | 2019-11-13 04:18 | NUR ---
RN NOTES, NOTED PATIENT WITH BP 185/66, HR 75, HYDRALAZINE IV ADMINISTERED ORDERED, WILL CONTINUE TO MONITOR CLOSELY.
--- NOTE | 2019-11-13 05:00 | NUR ---
RN NOTES, AFTER RECHECK OF BLOOD PRESSURE AT THIS TIME, BP NOTED 158/75, HR 75, WILL CONTINUE OT MONITOR.
[2019-11-13] MEDS: VANCOMYCIN 1 GM in IV D5W 250 ML IV SCH (05:03)
[2019-11-13 06:25] LABS: CALCIUM, SERUM 9.5 mg/dL (8.5-10.1); CREATININE 0.6 mg/dL (0.6-1.3); POTASSIUM 3.7 mmol/L (3.5-5.1)
--- NOTE | 2019-11-13 07:06 | NUR ---
RN NOTES, PATIENT SLEEPING AT THIS TIME AROUSES TO TACTILE STIMULI, BREATHING EVEN AND UNLABORED, NO SOB/ACUTE DISTRESS NOTED, HOB ELEVATED AT ALL THE TIMES, CONTINUES IN GT FEEDING TOLERATING WELL, SAFETY MEASURES IN PLACE, NO SIGNIFICANT CHANGE IN CONDITION DURING THE NIGHT, CALL LIGHT WITHIN REACH, BED LOW AND LOCKED POSITION, WILL ENDORSE CONTINUITY OF CARE TO ONCOMING NURSE.
--- NOTE | 2019-11-13 07:42 | NUR ---
RN OPENING NOTES RECEIVED PATIENT RESTING IN BED, PT IS NON VERBAL, OPENS EYES AND WAKES UP TO STIMULI. NO ACUTE DISTRESS NOTED. PT IS ON 4L O2 VIA NC, TOLERATING WELL, SATURATING WELL. NO SOB NOTED. ON TELE MONITOR WITH NSR NOTED. HR IN THE 80S. PT HAS A ALEJO, IT IS INTACT AND DRAINING URINE. CONTINUOUS G TUBE FEEDING RUNNING, GLUCERNA 1.2 @ 65ML/HR RUNNING X24HRS, TOLERATING WELL NO RESIDUAL NOTED AT THE MOMENT. IVS INTACT, FLUSHED WELL, NO S/S OF INFECTION NOTED. PT SAFETY MAINTAINED, CALL LIGHT WITHIN REACH, WILL CONTINUE TO MONITOR.
[2019-11-13 08:00] VITALS: BP 142/70
[2019-11-13] MEDS: methylPREDNISolone SOD SUCC 40 MG/ML VIAL IV SCH ×2 (09:14→12:26)
[2019-11-13] MEDS: CLOPIDOGREL BISULFATE 75 MG TABLET GT SCH (09:14)
[2019-11-13] MEDS: EYE OP SCH (09:14)
[2019-11-13] MEDS: PROLENSA 0.07% OP SCH (09:14)
[2019-11-13] MEDS: TOLTERODINE 2 MG CAP.SR PO SCH (09:15)
[2019-11-13] MEDS: DOCUSATE SODIUM 100 MG CAPSULE PO SCH (09:15)
[2019-11-13] MEDS: CARBIDOPA/LEVODOPA 10/100 MG 1 UDTAB GT SCH ×2 (09:15→12:25)
[2019-11-13] MEDS: FAMOTIDINE (20 MG) 20 MG TABLET GT SCH (09:15)
[2019-11-13] MEDS: LOSARTAN POTASSIUM 50 MG TABLET GT SCH (09:16)
[2019-11-13] MEDS: HYDROCHLOROTHIAZIDE 25 MG TABLET GT SCH (09:17)
[2019-11-13] MEDS: GLUCERNA 1.2 1,000 ML BOTTLE GT PRN (10:13)
--- NOTE | 2019-11-13 15:45 | NUR ---
RN NOTE PATIENT IN STABLE CONDITION, DISCHARGE ORDERS ARE IN FROM MARCELO COLLAZO. REPORT CALLED AND GIVEN TO [facility], REPORT GIVEN TO MARISOL RN. ALL PATIENT NEEDS MET, PT WAS SEEN BY HOSPITALIST. PRESCRIPTION WILL BE SENT WITH THE PATIENT TO THE SNF. PICTURES OF THE SKIN WERE TAKEN AND PLACED IN THE CHART. DISCHARGE INSTRUCTIONS SIGNED BY 2 RNS DUE TO PT CONDITION, UNABLE TO SIGN. FAMILY IS INFORMED OF THE PATIENTS TRANSFER. VITAL SIGNS STABLE. SAFETY MAINTAINED, CALL LIGHT WITHIN REACH. WILL CONTINUE TO MONITOR UNTIL PICKED UP BY AMBULANCE.
[2019-11-13 16:00] VITALS: BP 139/71
--- NOTE | 2019-11-13 17:56 | NUR ---
RN CLOSING DAY PATIENT PICKED UP BY AMBULANCE. IN STABLE CONDITION, NO ACUTE CHANGES OF PATIENT CONDITION DURING MY SHIFT. VITAL SIGNS ARE STABLE, REPORT GIVEN TO SNF, PATIENT MOVED WITH O2. SAFETY MAINTAINED, ENDORSED TO SNF NURSE TO CONTINUE CARE.
== END 2019-11-13 17:32 | DRG 871 ==
LOC: ER 17:17 → ICU 19:30 → TELE-TD 11-11 17:35 → TELE1 11-12 12:06 → MEDSG1 11-13 10:31
PROVIDERS: ADMIT Internal Medicine; ATTEND Nurse Practitioner Acute Care
PROC: 5A09357 Assistance with Respiratory Ventilation, Less than 24 Consecutive Hours, Continuous Positive Airway Pressure (ICD-10-PCS; principal; 2019-11-09)
DX: A41.9 Sepsis, unspecified organism (principal); J69.0 Pneumonitis due to inhalation of food and vomit; J96.01 Acute respiratory failure with hypoxia; G93.41 Metabolic encephalopathy; R53.2 Functional quadriplegia; J15.6 Pneumonia due to other Gram-negative bacteria; E44.0 Moderate protein-calorie malnutrition; D68.69 Other thrombophilia; K94.22 Gastrostomy infection; L03.311 Cellulitis of abdominal wall; G20 Parkinson's disease; E86.0 Dehydration; F02.80 Dementia in other diseases classified elsewhere, unspecified severity, without behavioral disturbance, psychotic disturbance, mood disturbance, and anxiety; M06.9 Rheumatoid arthritis, unspecified; I16.0 Hypertensive urgency; D63.8 Anemia in other chronic diseases classified elsewhere; I25.10 Atherosclerotic heart disease of native coronary artery without angina pectoris; M19.90 Unspecified osteoarthritis, unspecified site; R47.02 Dysphasia; Z74.01 Bed confinement status; Z79.4 Long term (current) use of insulin; Z86.73 Personal history of transient ischemic attack (TIA), and cerebral infarction without residual deficits; Z87.891 Personal history of nicotine dependence; Z95.1 Presence of aortocoronary bypass graft; R13.10 Dysphagia, unspecified; E88.09 Other disorders of plasma-protein metabolism, not elsewhere classified; E11.9 Type 2 diabetes mellitus without complications; F09 Unspecified mental disorder due to known physiological condition; Z68.22 Body mass index [BMI] 22.0-22.9, adult; Y84.8 Other medical procedures as the cause of abnormal reaction of the patient, or of later complication, without mention of misadventure at the time of the procedure; Y73.8 Miscellaneous gastroenterology and urology devices associated with adverse incidents, not elsewhere classified; Y92.129 Unspecified place in nursing home as the place of occurrence of the external cause
CPT/HCPCS: 31720; 36415; 36600; 71045-TC; 80048-TC; 80053-TC; 80061-TC; 80076-TC; 80202-TC; 81000-TC; 82803-TC; 82962-TC; 83605-TC; 83735-TC; 83880; 84100-TC; 84484-TC; 85025-TC; 87040-TC; 87070-TC; 87081-TC; 87086-TC; 94799-TC; A4216; A4623; G0378; J0360; J1650; J1815; J2185; J2920; J2930; J3370; J7030; J7060

== ENCOUNTER 2020-01-26 18:16 | Inpatient (IN) | payer MEDICARE, OTHER ==
[~2020-01-26] VITALS: Ht 162.6 cm; Wt 61.2 kg
[~2020-01-26 18:16] MED LIST changes: -ALBU1.257 IH; +IPRA0.2S9 IH; +LACT1CAP71 GT; -LACT1TAB2 GT; -LEVO500T75 PO; +NYST15OI2 TP; +ZINC57OI4 TP
[2020-01-26] MEDS ORDERED: methylPREDNISolone SOD SUCC 125 MG/2ML VIAL ONE (18:21)
[2020-01-26] MEDS ORDERED: Magnesium 1GM/D5W 100ML PREMIX 200 ML IV ONE (18:22)
[2020-01-26] MEDS: Magnesium 1GM/D5W 100ML PREMIX 100 ML IV SCH ×2 (18:30→19:30)
[2020-01-26] MEDS ORDERED: methylPREDNISolone SOD SUCC 125 MG/2ML VIAL IV ONE (18:30)
[2020-01-26] MEDS ORDERED: ACETAMINOPHEN 650 MG/SUPP.RECT RC ONE ×2 (18:30→18:35)
[2020-01-26] MEDS ORDERED: AZITHROMYCIN 500 MG in IV D5W 250 ML IV ONE (18:30)
[2020-01-26 18:57] LABS: BASOPHILS % (AUTO) 0.2 % (0.0-2.0); EOSINOPHILS % (AUTO) 0.7 % (0.0-6.0); HEMATOCRIT 37 % (33-45); LYMPHOCYTES # (AUTO) 3.1 /CMM (0.8-4.8); LYMPHOCYTES % (AUTO) 20.4 % (20.0-44.0); MEAN CORPUSCULAR HGB CONC 33 g/dl (31.0-36.0); MEAN CORPUSCULAR VOLUME 90 fL (82-100); MONOCYTES % (AUTO) 6.6 % (2.0-12.0); NEUTROPHILS # (AUTO) 10.9 /CMM (1.8-8.9); NEUTROPHILS % (AUTO) 72.1 % (43.0-81.0); PLATELET COUNT (AUTO) 280 /CMM (150-450); RED BLOOD CELL COUNT(AUTO) 4.11 MIL/uL (4.0-5.2); WHITE BLOOD COUNT (AUTO) 15.2 K/uL (4.3-11.0)
--- NOTE | 2020-01-26 18:57 | NUR ---
[email or web address], from snf, c/o sob 10 mins MATTRESS INSPECTOR per report, 80% on RA still desating on 15 lpm non rebreather mask, wheezing. Pt non verbal, eyes opens only. Pt eval'd by Dr. Lynn. placed on desk monitor, ST. Placed on 6 liters of oxygen, O2 sat 97%. Medicated as ordered. Will cont to monitor.
[2020-01-26 19:04] LABS: APPEARANCE,URINE CLOUDY (CLEAR); CALCIUM, SERUM 9.6 mg/dL (8.5-10.1); CARBON DIOXIDE 29 mmol/L (21-32); CHLORIDE 97 mmol/L (98-107); COLOR,URINE YELLOW (YELLOW); CREATININE 0.7 mg/dL (0.6-1.3); GLUCOSE 215 mg/dL (74-106); POTASSIUM 4.8 mmol/L (3.5-5.1); SODIUM SERUM 133 mmol/L (136-145); UREA NITROGEN, BLOOD 18 mg/dL (7-18)
[2020-01-26 19:05] LABS: PH,URINE 6.5 (5.0-8.0); PROTEIN,URINE 1+ mg/dl (NEGATIVE)
--- NOTE | 2020-01-26 19:05 | NUR ---
family left contact # [phone]
[2020-01-26 19:06] LABS: BILIRUBIN,URINE NEGATIVE (NEGATIVE); BLOOD, URINE 3+ Ery/uL (NEGATIVE); KETONES,URINE NEGATIVE (NEGATIVE); LEUKOCYTE ESTERASE ,URINE 3+ (NEGATIVE); NITRITE, URINE NEGATIVE (NEGATIVE); UROBILINOGEN,URINE 0.2 EU/dL (0.2)
[2020-01-26 19:07] LABS: UGLUCOSE NEGATIVE (NEGATIVE)
[2020-01-26 19:16] LABS: ALANINE AMINOTRANSFERASE 9 U/L (12-78); ALBUMIN 3.3 g/dL (3.4-5.0); ALKALINE PHOSPHATASE 65 U/L (46-116); ASPARTATE AMINOTRANSFERASE 18 U/L (15-37); B-TYPE NATRIURETIC PEPTIDE 264 PG/ML (0-125); BILIRUBIN,TOTAL 0.7 mg/dL (0.2-1.0); TOTAL PROTEIN, SERUM 7.6 g/dL (6.4-8.2)
[2020-01-26 19:28] LABS: CREATINE KINASE, TOTAL 33 U/L (26-192); FERRITIN 113 ng/mL (8-388)
[2020-01-26 19:29] LABS: D-DIMER 14.15 mg/L(FEU (0.17-0.50)
[2020-01-26 19:30] LABS: C-REACTIVE PROTEIN 6.2 mg/dL (0.0-0.9)
[2020-01-26 19:59] LABS: BACTERIA,URINE 3+ /HPF (None Seen); RBC,URINE 21-50 /HPF (0-2); SQUAMOUS EPITHELIAL CELL,UR 0-2 /HPF (None Seen); WBC,URINE TOO NUMEROUS TO COUN /HPF (0-3)
--- NOTE | 2020-01-26 20:15 | NUR ---
DOMINIC THAYER DEPORTATION EXAMINER AT BEDSIDE FOR EVALUATION
[2020-01-26 20:26] LABS: ABG BASE EXCESS -2.3 mmol/L; ABG PCO2 33.3 mmHg (35.0-45.0); ABG PH 7.423 (7.350-7.450); ABG PO2 128.4 mmHg (75.0-100.0); AaDO2 154.6 mmHg; SITE, ABG Right Radial; VENT MODE, BG NASAL CANNULA
[2020-01-26] MEDS ORDERED: IV NS 0.9% 1,000 ML BAG IV ONE ×2 (20:30→21:00)
[2020-01-26] MEDS ORDERED: IMIPENEM/CILASTATIN 500 MG in IV NS 0.9% 100 ML IV SCH ×2 (21:00→22:14)
[2020-01-26] MEDS ORDERED: BISACODYL SUPP (10 MG) 10 MG/SUPP.RECT SUPP.RECT RC PRN (21:00)
[2020-01-26] MEDS ORDERED: MORPHINE SULFATE INJ 2 MG/ML DISP.SYRIN IV PRN (21:00)
[2020-01-26] MEDS ORDERED: IV NS 0.9% 1,000 ML IV PRN (21:00)
[2020-01-26] MEDS ORDERED: HYDROCODONE/APAP 5/325MG TABLET PO PRN (21:00)
[2020-01-26] MEDS ORDERED: Z GUARD REMEDY 2 OZ OINT TP PRN (21:00)
[2020-01-26] MEDS ORDERED: ONDANSETRON HCL/PF 4 MG/2 ML VIAL IVP PRN (21:00)
[2020-01-26] MEDS ORDERED: ACETAMINOPHEN 325 MG TABLET PO PRN (21:00)
[2020-01-26] MEDS ORDERED: LOPERAMIDE HCL (2 MG CAP) 2 MG CAPSULE PO PRN (21:00)
[2020-01-26 21:24] LABS: BILIRUBIN,DIRECT 0.3 mg/dL (0.0-0.2)
[2020-01-26] MEDS ORDERED: DEXTROSE 50%-WATER 50 ML DISP.SYRIN IV PRN (21:30)
[2020-01-26] MEDS: BLOOD SUGAR DIAGNOSTIC 1 EACH STRIP IN SCH (22:00)
[2020-01-26] MEDS ORDERED: LATANOPROST EYE DROP 0.005% 2.5 ML BOTTLE EACHEYE SCH (22:00)
[2020-01-26] MEDS ORDERED: INSULIN DETEMIR 100 UNIT/ML CARTRIDGE SQ SCH (22:00)
[2020-01-26] MEDS ORDERED: ATORVASTATIN 40 MG TABLET GT SCH (22:03)
--- NOTE | 2020-01-26 22:03 | NUR ---
REPORT GIVEN TO ANNIKA TOVAR FOR FELICITAS
[2020-01-26 22:10] VITALS: BP 93/47
[2020-01-26] MEDS ORDERED: ACETAMINOPHEN 650 MG/20.3 ML UDC GT PRN (22:30)
[2020-01-26] MEDS ORDERED: VANCOMYCIN 1 GM in IV D5W 250ml IV ONE (23:00)
[2020-01-26 23:34] VITALS: BP 93/52
[2020-01-27] VITALS (7 sets, daily range): BP systolic 89–126; BP diastolic 43–72
[2020-01-27] MEDS: ENOXAPARIN SODIUM 40 MG/0.4 ML DISP.SYRIN SQ SCH ×2 (01:18→22:00)
[2020-01-27] MEDS: FAMOTIDINE (20 MG) 20 MG TABLET GT SCH ×3 (01:21→21:52)
[2020-01-27] MEDS ORDERED: VANCOMYCIN 1 GM VIAL ONE (01:27)
[2020-01-27] MEDS: IPRATROPIUM/ALBUTEROL INHALER IH SCH ×2 (01:30→20:37)
[2020-01-27] MEDS ORDERED: INSULIN REGULAR, HUMAN 100 UNIT/ML 3 ML VIAL ONE (02:18)
--- NOTE | 2020-01-27 03:18 | NUR ---
RN NOTES RECEIVED PATIENT FROM ER VIA STRETCHER ACCOMPANIED BY 1 STAFF. TRANSFERRED TO BED SAFELY AND COMFORTABLY. VITAL SIGNS TAKEN, BP WAS LOW 93/47. AFEBRILE, SKIN WARM AND DRY TO TOUCH. PATIENT WAS SLEEPING AND SNORING. DIFFICULT TO AROUSE BUT RESPONSIVE TO PAIN. SKIN ASSESSMENT DONE. HAS A DIAGNOSIS OF PNA, RESPIRATORY FAILURE SEPSIS UTI AND TO RULE OUT POSSIBLE COVID-19. NO PHYSICAL MANIFESTATION OF PAIN OR DISCOMFORT. SPOKE WITH DAUGHTER AND ANSWERED ALL QUESTIONS. CLARIFIED WITH DR. CARDONA MEDICATIONS LEVIMIR, PRIMAXIN, COMBIVENT INHALER TO BE GIVEN IN DAY SHIFT. ON 4LPM O2 VIA NASAL CANNULA WELL TOLERATED SATTING 100%. KEPT CLEAN AND DRY. WILL ENDORSE TO NEXT SHIFT FOR CONTINUITY OF CARE.
[2020-01-27] MEDS: INSULIN REGULAR, HUMAN 100 UNIT/ML 3 ML VIAL SQ PRN ×2 (04:14→22:15)
[2020-01-27 06:19] LABS: BASOPHILS % (AUTO) 0.1 % (0.0-2.0); HEMATOCRIT 31 % (33-45); LYMPHOCYTES # (AUTO) 0.8 /CMM (0.8-4.8); LYMPHOCYTES % (AUTO) 6.5 % (20.0-44.0); MEAN CORPUSCULAR HGB CONC 33 g/dl (31.0-36.0); MEAN CORPUSCULAR VOLUME 89 fL (82-100); MONOCYTES # (AUTO) 0.1 /CMM (0.1-1.30); MONOCYTES % (AUTO) 1.3 % (2.0-12.0); NEUTROPHILS % (AUTO) 92.1 % (43.0-81.0); PLATELET COUNT (AUTO) 200 /CMM (150-450); RED BLOOD CELL COUNT(AUTO) 3.47 MIL/uL (4.0-5.2); WHITE BLOOD COUNT (AUTO) 11.9 K/uL (4.3-11.0)
[2020-01-27 06:43] LABS: ALBUMIN 2.7 g/dL (3.4-5.0); BILIRUBIN,TOTAL 0.5 mg/dL (0.2-1.0); CREATININE 0.6 mg/dL (0.6-1.3); MAGNESIUM 2.3 mg/dL (1.8-2.4); PHOSPHORUS 2.9 mg/dL (2.5-4.9); TOTAL PROTEIN, SERUM 6.6 g/dL (6.4-8.2)
[2020-01-27 07:05] LABS: THYROID STIMULATING HORMONE 0.051 uIU/mL (0.358-3.74)
[2020-01-27] MEDS: BLOOD SUGAR DIAGNOSTIC 1 EACH STRIP IN SCH ×4 (07:30→22:17)
--- NOTE | 2020-01-27 07:50 | NUR ---
RN OPENING NOTE: RECEIVED PATIENT IN BED THIS MORNING. PATIENT IS RUNNING ON 4L/MIN VIA NC, NO SIGNS OF RESPIRATORY DISTRESS NOTED, BUT CONGESTED. TELE MONITOR SHOWS SR IN THE 80S. ALEJO CATHETER DRAINING YELLOW, SEDIMENTED URINE. GT CLAMPED, AWAITING ORDER FROM MD FOR FEEDING. PATIENT IS NON-VERBAL BUT ALERT AND ABLE TO ANSWER YES/NO VIA NON-VERBAL COMMUNICATION. PATIENT IS BED BOUND AND USES DIAPER. #20 ON L WRIST AND R HAND. SAFETY MEASURES IMPLEMENTED, BED IN LOWEST POSITION, LOCKED, SIDE RAILS UP X2, CALL LIGHT WITHIN REACH. WILL CONTINUE TO MONITOR PATIENT FOR CHANGES.
[2020-01-27] MEDS ORDERED: FEE PK DOSING 1 MIN EA MC ONE (08:11)
[2020-01-27] MEDS: CLOPIDOGREL BISULFATE 75 MG TABLET GT SCH (08:43)
[2020-01-27] MEDS: CARBIDOPA/LEVODOPA 10/100 MG 1 UDTAB GT SCH ×3 (08:44→17:12)
[2020-01-27] MEDS: LOSARTAN POTASSIUM 50 MG TABLET GT SCH (08:44)
[2020-01-27] MEDS: MEROPENEM 1 G in IV NS 0.9% 100 ML IV SCH ×2 (08:45→21:51)
[2020-01-27] MEDS: TOLTERODINE 2 MG CAP.SR PO SCH ×2 (08:48→17:12)
[2020-01-27] MEDS ORDERED: BROMFENAC SODIUM EACHEYE SCH (09:00)
[2020-01-27] MEDS ORDERED: DOCUSATE SODIUM 100 MG CAPSULE PO SCH (09:00)
--- NOTE | 2020-01-27 10:00 | NUR ---
DR RIVERA CONFIRMED TF FOR GLUCERNA 1.2 @ 35 CC/HR
[2020-01-27] MEDS: GLUCERNA 1.2 1,000 ML BOTTLE NG PRN (12:50)
[2020-01-27] MEDS: DOCUSATE SODIUM LIQ 100 MG/10 ML UDC GT SCH (17:12)
--- NOTE | 2020-01-27 18:12 | NUR ---
RN CLOSING NOTE: PATIENT REMAINS IN BED. NO SIGNS OF RESPIRATORY/ ACUTE DISTRESS NOTED. TELE MONITOR SR IN THE 60S. SAFETY MEASURES IMPLEMENTED, BED IN LOWEST POSITION, LOCKED, SIDE RAILS UP X2, CALL LIGHT WITHIN REACH. WILL ENDORSE TO ONCOMING SHIFT RN FOR CONTINUITY OF CARE.
--- NOTE | 2020-01-27 19:10 | NUR ---
GILL BOX OPERATOR NOTES RECEIVED PT IN BED AND WAKE. RESPIRATIONS EVEN AND UNLABORED WITH NO S/S OF ACUTE DISTRESS OR SOB NOTED. NO COMPLAINTS OF S/S OF PAIN NOTED. PT ON TELE MONITOR SR 60S. PT NOTED WITH GTUBE FEEDING INFUSING GLUCERNA 1.2 @35 CC/HR, TOLERATING WELL. SAFETY MEASURES IN PLACE WITH BED IN LOWEST LOCKED POSITION WITH SIDE RAILS UP X2. CALL LIGHT WITHIN REACH. WILL CONTINUE TO MONITOR.
[2020-01-27] MEDS: VANCOMYCIN 1 GM in IV D5W 250 ML IV SCH (20:37)
[2020-01-27] MEDS: ACETAMINOPHEN ES 500 MG TABLET GT PRN (21:51)
[2020-01-27] MEDS: LATANOPROST EYE DROP 0.005% 2.5 ML BOTTLE EACHEYE SCH (21:52)
--- NOTE | 2020-01-27 22:00 | NUR ---
NETWORK CABLE INSTALLER NOTES PT GIVEN LOVENOX. NO S/S OF BLEEDING AT TIME. WILL CONTINUE TO MONITOR.
[2020-01-27] MEDS: INSULIN GLARGINE, 100 UNIT/ML CARTRIDGE SQ SCH (22:17)
[2020-01-28] VITALS: BP 110/62
[2020-01-28] MEDS: IPRATROPIUM/ALBUTEROL INHALER IH SCH ×4 (02:03→20:55)
[2020-01-28 04:00] VITALS: BP 111/69
[2020-01-28 07:13] LABS: CALCIUM, SERUM 8.7 mg/dL (8.5-10.1); CARBON DIOXIDE 30 mmol/L (21-32); CHLORIDE 106 mmol/L (98-107); CREATININE 0.4 mg/dL (0.6-1.3); GLUCOSE 92 mg/dL (74-106); SODIUM SERUM 142 mmol/L (136-145); UREA NITROGEN, BLOOD 13 mg/dL (7-18)
--- NOTE | 2020-01-28 07:30 | NUR ---
PUBLIC AFFAIRS SPECIALIST NOTES PT IN BED, AWAKE, NON VERBAL, RESPIRATIONS NORMAL, CALL LIGHT WITHIN REACH, NO SIGN OF PAIN OR DISTRESS, GT FEEDING INFUSING WELL, F/C DRAINING WELL WITH CLEAR, YELLOW URINE, KEPT WARM AND COMFORTABLE IN BED.
--- NOTE | 2020-01-28 07:41 | NUR ---
GRINDER SET UP OPERATOR THREAD TOOL NOTES RECEIVED PT IN BED AND WAKE. RESPIRATIONS EVEN AND UNLABORED WITH NO S/S OF ACUTE DISTRESS OR SOB NOTED THROUGHOUT SHIFT. NO COMPLAINTS OF S/S OF PAIN NOTED. PT ON TELE MONITOR SR. PT NOTED WITH GTUBE FEEDING INFUSING GLUCERNA 1.2 @35 CC/HR, TOLERATING WELL. SAFETY MEASURES IN PLACE WITH BED IN LOWEST LOCKED POSITION WITH SIDE RAILS UP X2. PT KEPT CLEAN, DRY, AND COMFORTABLE. CALL LIGHT WITHIN REACH. WILL ENDORSE TO ONCOMING NURSE FOR FELICITAS.
[2020-01-28 08:00] VITALS: BP_SYST 132; BP_SYST 152; BP_DIAS 61; BP_DIAS 64
[2020-01-28] MEDS: BLOOD SUGAR DIAGNOSTIC 1 EACH STRIP IN SCH ×4 (08:44→21:38)
[2020-01-28] MEDS: MEROPENEM 1 G in IV NS 0.9% 100 ML IV SCH ×2 (08:44→20:38)
[2020-01-28] MEDS: CLOPIDOGREL BISULFATE 75 MG TABLET GT SCH (08:45)
[2020-01-28] MEDS: FAMOTIDINE (20 MG) 20 MG TABLET GT SCH ×2 (08:45→20:37)
[2020-01-28] MEDS: CARBIDOPA/LEVODOPA 10/100 MG 1 UDTAB GT SCH ×3 (08:45→16:56)
[2020-01-28] MEDS: LOSARTAN POTASSIUM 50 MG TABLET GT SCH (08:45)
[2020-01-28] MEDS: TOLTERODINE 2 MG CAP.SR PO SCH ×2 (08:45→16:56)
[2020-01-28] MEDS: DOCUSATE SODIUM LIQ 100 MG/10 ML UDC GT SCH ×2 (08:45→16:56)
--- NOTE | 2020-01-28 10:49 | NUR ---
WOUND CARE CONSULT: PT PRESENTS WITH SACRAL SCAR, PRESENT ON ADMISSION. RECOMMENDATIONS MADE FOR SKIN PROTECTION. DISCUSSED WITH NURSING STAFF. WILL SEE PRN. CUELALR IN AGREEMENT WITH PLAN OF CARE. PT ON [facility] BED. Addendum: 01/28/20 at 1050 by NANCI QUINTEROS WNDNU Amended: Links added.
--- NOTE | 2020-01-28 11:25 | NUR ---
Patient transferred from [facility] reported by Charlette/ANNIKA, pt in stable condition vital sign: bp-119/79, p-72, r-18,-O2sa 99-100% with oxygen at 2LPM, noticed wheezing breath pattern.
--- NOTE | 2020-01-28 11:35 | NUR ---
RN MS NOTES PT IN BED, AWAKE, ALERT TO SELF, NON VERBAL, NO SIGN OF PAIN, NOT IN DISTRESS, ON O2 AT 2LPM VIA N/C, WITH O2 SAT OF 98-100%, VITALS STABLE, PERICARE PROVIDED, ORDER RECEIVED TO TRANSFER PT TO [facility] 3RD FLOOR, REPORT GIVEN TO ANNIKA OVERTON, TRANSPORTED PT WITH ALL MEDS, IN STABLE CONDITION.
[2020-01-28 12:00] VITALS: BP 119/79
--- NOTE | 2020-01-28 15:45 | NUR ---
Called Lab x 2 for follow up Vanco trough result which supported to draw at 1300 but still waiting result.
[2020-01-28 16:00] VITALS: BP 118/65
[2020-01-28] MEDS: VANCOMYCIN 1 GM in IV D5W 250 ML IV SCH (16:24)
--- NOTE | 2020-01-28 18:30 | NUR ---
MS/RN Closing note Patient in bed, sleeping comfortably, no appears pain or any discomfort. Respiratory even and unlabored at oxygen 2LPM, provided oral care and suction. Skin is warm touch, kept clean/dry, intact IV site. Keep low bed position with locked wheel and elevated head of bed for secure airway. Call light within reach, will endorse shiftman.
--- NOTE | 2020-01-28 19:00 | NUR ---
MS/RN OPENING NOTES: RECEIVED PT REPORT FROM ODELL ROBLERO. PT IS RESTING IN BED COMFORTABLY. NONVERBAL. USES 1 FINGER FOR ANSWERING YES AND 2 FINGERS FOR NO. NO SOB NOTED. ON 2L OF OXYGEN VIA NC SATURATING 100%. NO S/S OF DISTRESS. ALEJO CATH NOTED DRAINING YELLOW CLEAR OUTPUT. ON BED REST. SKIN INTACT WITH OLD ULCER SCAR PRESENT (PICTURE IN THE CHART). IV ON THE RIGHT FA #20G SL. GTUBE FEEDING GLUCERNA 1.2 RUNNING AT 35MLS/HR. NO RESIDUAL NOTED. TOLERATING WELL. SAFETY MEASURES IN PLACE. BED IN LOW, LOCKED POSITION WITH SR UPX2. CALL LIGHT WITHIN REACH. WILL CONTINUE TO MONITOR ACCORDINGLY.
[2020-01-28 20:00] VITALS: BP 133/64
[2020-01-28] MEDS: ENOXAPARIN SODIUM 40 MG/0.4 ML DISP.SYRIN SQ SCH (20:59)
[2020-01-28] MEDS: LATANOPROST EYE DROP 0.005% 2.5 ML BOTTLE EACHEYE SCH (21:34)
[2020-01-28] MEDS: INSULIN GLARGINE, 100 UNIT/ML CARTRIDGE SQ SCH (21:42)
[2020-01-28] MEDS: INSULIN REGULAR, HUMAN 100 UNIT/ML 3 ML VIAL SQ PRN (21:43)
[2020-01-28] MEDS: GLUCERNA 1.2 1,000 ML BOTTLE NG PRN (22:05)
[2020-01-29] MEDS: IPRATROPIUM/ALBUTEROL INHALER IH SCH ×3 (01:52→13:24)
[2020-01-29] MEDS: VANCOMYCIN 0.75 GM in IV D5W 250 ML IV SCH ×2 (04:28→16:10)
[2020-01-29] MEDS: BLOOD SUGAR DIAGNOSTIC 1 EACH STRIP IN SCH ×2 (06:33→13:06)
[2020-01-29 06:35] LABS: CALCIUM, SERUM 8.6 mg/dL (8.5-10.1); CARBON DIOXIDE 31 mmol/L (21-32); CHLORIDE 101 mmol/L (98-107); CREATININE 0.4 mg/dL (0.6-1.3); GLUCOSE 140 mg/dL (74-106); POTASSIUM 3.8 mmol/L (3.5-5.1); SODIUM SERUM 137 mmol/L (136-145); UREA NITROGEN, BLOOD 9 mg/dL (7-18)
[2020-01-29] MEDS: INSULIN REGULAR, HUMAN 100 UNIT/ML 3 ML VIAL SQ PRN ×2 (06:35→13:08)
--- NOTE | 2020-01-29 06:36 | NUR ---
MS/RN NOTES: BLOOD SUGAR CHECK FOR AC IS 121. NO INSULIN COVERAGE NEEDED PER SLIDING SCALE.
--- NOTE | 2020-01-29 06:56 | NUR ---
MS/RN CLOSING NOTES: PT. RESTING IN BED COMFORTABLY. REMAINS NONVERBAL. USES 1 FINGER FOR ANSWERING YES AND 2 FINGERS FOR NO. NO SOB NOTED. ON 2L OF OXYGEN VIA NC SATURATING 100%. NO S/S OF DISTRESS. DENIES PAIN AT THIS TIME. ALEJO CATH NOTED DRAINING YELLOW CLEAR OUTPUT. TOTAL OF 1100 ML FOR THE VP RESEARCH. IV ON THE RIGHT FA #20G SL. GTUBE FEEDING GLUCERNA 1.2 RUNNING AT 35MLS/HR. NO RESIDUAL NOTED. TOLERATING WELL. BS CHECK THIS MORNING IS 121. NO INSULIN COVERAGE PER SLIDING SCALE. SAFETY MEASURES IN PLACE. BED IN LOW, LOCKED POSITION WITH SR UPX2. CALL LIGHT WITHIN REACH. WILL ENDORSE TO DAY SHIFT FOR FELICITAS.
--- NOTE | 2020-01-29 07:30 | NUR ---
RECEIVED PT. THIS AM,NOT ORIENTED ,NON VERBAL, BUT EYES OPEN.IN NO ACUTE DISTRESS.VS STABLE,ON O2 TUBE FEEDING INFUSING.
[2020-01-29 08:00] VITALS: BP 160/83
[2020-01-29] MEDS: MEROPENEM 1 G in IV NS 0.9% 100 ML IV SCH (09:48)
[2020-01-29] MEDS: CLOPIDOGREL BISULFATE 75 MG TABLET GT SCH (09:49)
[2020-01-29] MEDS: DOCUSATE SODIUM LIQ 100 MG/10 ML UDC GT SCH ×2 (09:49→16:21)
[2020-01-29] MEDS: LOSARTAN POTASSIUM 50 MG TABLET GT SCH (09:49)
[2020-01-29] MEDS: FAMOTIDINE (20 MG) 20 MG TABLET GT SCH (09:49)
[2020-01-29] MEDS: TOLTERODINE 2 MG CAP.SR PO SCH ×2 (09:49→16:21)
[2020-01-29] MEDS: CARBIDOPA/LEVODOPA 10/100 MG 1 UDTAB GT SCH ×3 (09:52→16:21)
[2020-01-29] MEDS: ACETAMINOPHEN ES 500 MG TABLET GT PRN (11:31)
--- NOTE | 2020-01-29 11:31 | NUR ---
GIVEN TYLENOL ES SEEMS TO BE MOANING A LITTLE.
--- NOTE | 2020-01-29 15:30 | NUR ---
FIGHTING NURSE RN ATTEMPTING TO GET PHOTO OF SACRAL AREA.
[2020-01-29 16:00] VITALS: BP 110/70
[2020-01-29] MEDS ORDERED: VANC750F2 IV (16:17)
[2020-01-29] MEDS ORDERED: MERO1VIA23 IV (16:17)
--- NOTE | 2020-01-29 18:55 | NUR ---
REPORT CALLED TO NURSE TYROS,AWARE F/C AND IV TO BE LEFT IN.ALL PAPERS SIGNED AND REPORTS SENT WITH PT. REPORT TO DRIVERS.TAKEN VIA AMB. TO FACILITY.
[2020-05-08] MEDS ORDERED: ONDA4TAB5 GT (14:46)
[2020-05-08] MEDS ORDERED: ASCO-352 GT (14:46)
[2020-05-08] MEDS ORDERED: AMIN30LI27 GT (14:46)
[2020-05-08] MEDS ORDERED: INSU100V3 SQ (14:46)
[2020-05-08] MEDS ORDERED: COLL30OI TP (14:46)
[2020-05-08] MEDS ORDERED: GLUC1KIT IM (14:46)
[2020-05-08] MEDS ORDERED: ENOX40DI SQ (14:46)
[2020-05-08] MEDS ORDERED: INSU100V7 SQ (14:46)
[2020-05-08] MEDS ORDERED: MULT-447 GT (14:46)
[2020-05-08] MEDS ORDERED: HYDR28.32 TP (14:46)
[2020-05-08] MEDS ORDERED: ZINC220C6 GT (14:46)
== END 2020-01-29 18:00 | DRG 871 ==
LOC: ER 18:18 → TELE-TD 21:12 → TELE1 22:31 → MED 01-28 11:31
PROVIDERS: ADMIT Nurse Practitioner Acute Care; ATTEND Nurse Practitioner Acute Care
DX: A41.9 Sepsis, unspecified organism (principal); G93.41 Metabolic encephalopathy; J96.01 Acute respiratory failure with hypoxia; J18.9 Pneumonia, unspecified organism; J96.02 Acute respiratory failure with hypercapnia; E44.1 Mild protein-calorie malnutrition; E87.1 Hypo-osmolality and hyponatremia; N39.0 Urinary tract infection, site not specified; D68.69 Other thrombophilia; E87.2 Acidosis; I25.10 Atherosclerotic heart disease of native coronary artery without angina pectoris; M06.9 Rheumatoid arthritis, unspecified; K21.9 Gastro-esophageal reflux disease without esophagitis; G20 Parkinson's disease; I10 Essential (primary) hypertension; E11.9 Type 2 diabetes mellitus without complications; E86.1 Hypovolemia; Z86.73 Personal history of transient ischemic attack (TIA), and cerebral infarction without residual deficits; Z85.3 Personal history of malignant neoplasm of breast; Z95.1 Presence of aortocoronary bypass graft; E05.90 Thyrotoxicosis, unspecified without thyrotoxic crisis or storm; F02.80 Dementia in other diseases classified elsewhere, unspecified severity, without behavioral disturbance, psychotic disturbance, mood disturbance, and anxiety; Z79.4 Long term (current) use of insulin; Z93.0 Tracheostomy status; E88.09 Other disorders of plasma-protein metabolism, not elsewhere classified
CPT/HCPCS: 36415; 36600; 71045-TC; 80048-TC; 80053-TC; 80061-TC; 80202-TC; 81000-TC; 82248-TC; 82550-TC; 82728-TC; 82803-TC; 82962-TC; 83540-TC; 83605-TC; 83615-TC; 83735-TC; 83880; 84100-TC; 84439-TC; 84443-TC; 84484-TC; 85025-TC; 85378-TC; 85385-TC; 85730-TC; 86140-TC; 87040-TC; 87086-TC; G0378; J0456; J0743; J1650; J1815; J2185; J2930; J3370; J3475; J7030; J7050; J7060; U0003

== ENCOUNTER 2020-04-10 10:50 | Inpatient (IN) | payer MEDICARE, OTHER ==
[~2020-04-10] VITALS: Ht 162.6 cm; Wt 52.2 kg
[~2020-04-10 10:50] MED LIST changes: +MERO1VIA23 IV; +VANC750F2 IV
--- NOTE | 2020-04-10 10:55 | NUR ---
LORY FROM [facility] FOR FEVER AND CONGESTION. TO ER BED 5, HOOKED TO LADDER OPERATOR AND POX, CHANGED TO HOSP GOWN, WARM TO TOUCH, COOLING MEASURES DONE, PATIENT AAO x 0, DR BEY AT BEDSIDE
--- NOTE | 2020-04-10 11:12 | NUR ---
URINE SAMPLE COLLECTED VIA ALEJO CATHETER, URINE SAMPLE SEN TO LAB
[2020-04-10] MEDS ORDERED: LEVO500P10 IV (12:19)
[2020-04-10 12:27] LABS: BASOPHILS % (AUTO) 0.1 % (0.0-2.0); HEMATOCRIT 35 % (33-45); HEMOGLOBIN 11.2 g/dL (11.5-14.8); LYMPHOCYTES # (AUTO) 0.5 /CMM (0.8-4.8); LYMPHOCYTES % (AUTO) 8.4 % (20.0-44.0); MEAN CORPUSCULAR HGB CONC 32 g/dl (31.0-36.0); MEAN CORPUSCULAR VOLUME 88 fL (82-100); MONOCYTES # (AUTO) 0.5 /CMM (0.1-1.30); MONOCYTES % (AUTO) 7.5 % (2.0-12.0); NEUTROPHILS # (AUTO) 5.4 /CMM (1.8-8.9); PLATELET COUNT (AUTO) 164 /CMM (150-450); RED BLOOD CELL COUNT(AUTO) 3.93 MIL/uL (4.0-5.2); WHITE BLOOD COUNT (AUTO) 6.4 K/uL (4.3-11.0)
[2020-04-10] MEDS ORDERED: CEFEPIME 1 GM in IV D5W 50 ML IV ONE (12:30)
[2020-04-10] MEDS ORDERED: VANCOMYCIN HCL 1 GM in IV D5W 260 ML IV ONE (12:30)
[2020-04-10] MEDS ORDERED: IV NS 0.9% 500 ML BAG IV ONE (12:30)
--- NOTE | 2020-04-10 12:41 | NUR ---
RAPID COVID SWAB DONE AND SENT TO LAB
[2020-04-10 12:42] LABS: ALBUMIN 2.4 g/dL (3.4-5.0); BILIRUBIN,DIRECT 0.1 mg/dL (0.0-0.2); BILIRUBIN,TOTAL 0.3 mg/dL (0.2-1.0); CALCIUM, SERUM 8.6 mg/dL (8.5-10.1); CREATININE 0.6 mg/dL (0.6-1.3); POTASSIUM 4.8 mmol/L (3.5-5.1); TOTAL PROTEIN, SERUM 6.2 g/dL (6.4-8.2)
--- NOTE | 2020-04-10 13:46 | NUR ---
NURSING SUP GAVE 107.
--- NOTE | 2020-04-10 14:14 | NUR ---
REPORT GIVEN TO JOHNNY SONG RN FOR FELICITAS
[2020-04-10] MEDS ORDERED: IV NS 0.9% 1,000 ML IV PRN (16:46)
--- NOTE | 2020-04-10 16:50 | NUR ---
COOK PIE NOTE: RECEIVED PATIENT FROM ER AT 1440. PATIENT IS AWAKE BUT NON-VERBAL, UNABLE TO RESPOND TO QUESTIONS BEING ASKED. PATIENT IS ADMITTED FOR FEVER, SOB AND IS COVID 19 + WITH ISOLATION PRECAUTIONS IMPLEMENTED. ON O2 VIA NC 4L/MIN, PATIENT SEEMS SOB UPON EXERTION, CONGESTED, IS COUGHING AND HAS A FEVER. GT IS CLAMPED, ASPIRATION PRECAUTIONS. REDNESS NOTED ON SACRUM, PHOTO TAKEN AND PLACED IN CHART, WOUND CARE CONSULT ORDERED. PATIENT IS BED BOUND WITH RIGID EXTREMITIES. PATIENT HAS GT THAT IS CLAMPED UNTIL FEEDING RESUMES. #18 L ARM, #20 R HAND, C/D/I, FLUSHES WELL, NO SIGNS OF COMPLICATIONS NOTED. DR RIVERA IS AWARE OF ADMISSION WITH ADMITTING ORDERS ALREADY PLACED. SAFETY MEASURES IMPLEMENTED, BED IN LOWEST POSITION, LOCKED, SIDE RAILS UP CALL LIGHT WITHIN REACH. WILL CONTINUE TO MONITOR PATIENT FOR CHANGES.
[2020-04-10] MEDS ORDERED: ONDANSETRON HCL/PF 4 MG/2 ML VIAL IVP PRN (17:00)
[2020-04-10] MEDS ORDERED: Z GUARD REMEDY 2 OZ OINT TP PRN (17:00)
[2020-04-10] MEDS: ENOXAPARIN SODIUM 40 MG/0.4 ML DISP.SYRIN SQ SCH (17:18)
[2020-04-10] MEDS: TOLTERODINE 2 MG CAP.SR PO SCH (17:19)
[2020-04-10] MEDS: DOCUSATE SODIUM 100 MG CAPSULE PO SCH (17:19)
[2020-04-10] MEDS: CARBIDOPA/LEVODOPA 10/100 MG 1 UDTAB GT SCH (17:19)
[2020-04-10] MEDS: DEXAMETHASONE SOD PHOSPHATE 10 MG/ML VIAL IV SCH (17:19)
[2020-04-10 17:46] LABS: C-REACTIVE PROTEIN 12.1 mg/dL (0.0-0.9)
[2020-04-10] MEDS: CEFTRIAXONE 1 G in IV D5W 50 ML IV SCH (18:15)
--- NOTE | 2020-04-10 19:15 | NUR ---
RN OPENING NOTES: RECEIVED PT A/OX1,IN BED RESTING COMFORTABLY. PATIENT IN NO S/SX OF ACUTE DISTRESS AT THIS TIME. NO SOB NOTED. PATIENT'S BREATHING IS EVEN AND UNLABORED. PATIENT IS ON 4 L OF OXYGEN VIA NC; TOLERATING WELL. PATIENT ON TELE MONITORING READING SINUS RHYTHM HR IS @9Os DURING RTIME OF RECEIVED. G TUBE FLUSHING AND PATENT; SITE CLEAN DRY AND INTACT; NO RESIDUAL NOTED; G TUBE FEEDING OF GLUCERNA 1.2 AT 20MLS/HR. NOTED IV SITE ON L ARM #18 AND R HAND #20; PATENT IN INTACT,NO S/S OF INFECTION OR INFILTRATION. IVF OF 1L NS @75 MLS/HR. ALEJO CATH IN PLACE, WITH GOOD URINE OUTPUT NOTED BILATERAL SOFT WRIST RESTRAINTS IN PLACE, ASSESSED PER PROTOCOL. PATIENT WITH VT PUMP ON SAFETY MEASURES HAVE BEEN PROVIDED AND IMPLEMENTED. PATIENT BED ALARM IS ON. HEAD OF BED ELEVATED. BED IS LOCKED, IN LOWEST POSITION AND SIDE RAILS UP. CALL LIGHT WITHIN REACH OF THE PATIENT. ISOLATION PRECAUTIONS IN PLACE. WILL CONTINUE TO MONITOR AND REASSESS FOR ANY CHANGES.
--- NOTE | 2020-04-10 19:20 | NUR ---
RN CLOSING NOTE: PATIENT REMAINS IN BED. NO SIGNS OF ACUTE DISTRESS NOTED AT THIS TIME. SAFETY MEASURES IMPLEMENTED, BED IN LOWEST POSITION, LOCKED, SIDE RAILS UP. ENDORSED TO ANNIKA CABRAL FOR CONTINUITY OF CARE.
--- NOTE | 2020-04-10 21:00 | NUR ---
RN NOTES NOTED PATIENT'S TEMP 99.9 AT 1999 ; WILL PROVIDED COOLING MEASURES, ADMINISTER PRN MEDS AND RE-EVAL AFTER 30 MINS TO AN HOUR. WILL CONTINUE TO MONITOR. SILVERING APPLICATOR MADE AWARE.
[2020-04-10 21:31] VITALS: BP 126/68
[2020-04-10] MEDS: ATORVASTATIN 40 MG TABLET GT SCH (21:37)
[2020-04-10] MEDS: FAMOTIDINE (20 MG) 20 MG TABLET GT SCH (21:37)
[2020-04-10] MEDS: ACETAMINOPHEN 325 MG TABLET PO PRN (21:38)
[2020-04-10] MEDS: GLUCERNA 1.2 1,000 ML BOTTLE NG PRN (21:53)
[2020-04-10] MEDS ORDERED: INSULIN DETEMIR 100 UNIT/ML CARTRIDGE SQ SCH (22:00)
[2020-04-10] MEDS: INSULIN GLARGINE, 100 UNIT/ML CARTRIDGE SQ SCH (22:13)
[2020-04-11] VITALS: BP 109/57
--- NOTE | 2020-04-11 00:05 | NUR ---
RN NOTES NOTED PATIENT'S TEMP 99.3 AT 0000 ; WILL PROVIDED COOLING MEASURES THEN RE-EVAL AFTER 30 MINS TO AN HOUR. WILL CONTINUE TO MONITOR. INTERNET SALES REPRESENTATIVE MADE AWARE.
[2020-04-11] MEDS: LATANOPROST EYE DROP 0.005% 2.5 ML BOTTLE EACHEYE SCH ×2 (00:31→21:10)
[2020-04-11 04:00] VITALS: BP_SYST 106; BP_SYST 74; BP_DIAS 33; BP_DIAS 52
[2020-04-11] MEDS: ENOXAPARIN SODIUM 40 MG/0.4 ML DISP.SYRIN SQ SCH ×2 (06:40→17:20)
--- NOTE | 2020-04-11 07:26 | NUR ---
RN CLOSING NOTE: PATIENT REMAINS IN ROOM. NO SIGNS OF RESPIRATORY DISTRESS. SAFETY MEASURES IMPLEMENTED, BED IN LOWEST POSITION, LOCKED, SIDE RAILS UP, CALL LIGHT WITHIN REACH. ALL NEEDS AND ORDERS ADDRESSED DURING THE SHIFT. ALL DUE MEDS GIVEN ORDERED & SCHEDULED ; PATIENT TOLERATED WELL.PATIENT KEPT CLEAN AND COMFORTABLE WITHIN THE SHIFT. ENDORSED TO INCOMING SHIFT RN FOR CONTINUITY OF CARE.
[2020-04-11 07:29] LABS: BASOPHILS % (AUTO) 0.1 % (0.0-2.0); HEMATOCRIT 35 % (33-45); HEMOGLOBIN 11.1 g/dL (11.5-14.8); LYMPHOCYTES # (AUTO) 0.7 /CMM (0.8-4.8); LYMPHOCYTES % (AUTO) 13.5 % (20.0-44.0); MEAN CORPUSCULAR HGB CONC 32 g/dl (31.0-36.0); MEAN CORPUSCULAR VOLUME 91 fL (82-100); MONOCYTES # (AUTO) 0.3 /CMM (0.1-1.30); MONOCYTES % (AUTO) 5.1 % (2.0-12.0); NEUTROPHILS # (AUTO) 4.4 /CMM (1.8-8.9); NEUTROPHILS % (AUTO) 81.3 % (43.0-81.0); PLATELET COUNT (AUTO) 155 /CMM (150-450); RED BLOOD CELL COUNT(AUTO) 3.84 MIL/uL (4.0-5.2); WHITE BLOOD COUNT (AUTO) 5.4 K/uL (4.3-11.0)
[2020-04-11 07:40] LABS: ALANINE AMINOTRANSFERASE 22 U/L (12-78); ALKALINE PHOSPHATASE 50 U/L (46-116); ASPARTATE AMINOTRANSFERASE 40 U/L (15-37); BILIRUBIN,TOTAL 0.2 mg/dL (0.2-1.0); CALCIUM, SERUM 8.8 mg/dL (8.5-10.1); CARBON DIOXIDE 22 mmol/L (21-32); CHLORIDE 102 mmol/L (98-107); CREATININE 0.4 mg/dL (0.6-1.3); GLUCOSE 131 mg/dL (74-106); MAGNESIUM 2.1 mg/dL (1.8-2.4); PHOSPHORUS 4.8 mg/dL (2.5-4.9); POTASSIUM 4.4 mmol/L (3.5-5.1); SODIUM SERUM 134 mmol/L (136-145); TOTAL PROTEIN, SERUM 5.7 g/dL (6.4-8.2); UREA NITROGEN, BLOOD 20 mg/dL (7-18)
[2020-04-11 07:43] LABS: CHOLESTEROL 104 mg/dL (<200); HDL CHOLESTEROL 33 mg/dL (40-60); LDL 52 mg/dL (0-99); THYROID STIMULATING HORMONE 0.124 uIU/mL (0.358-3.74); TRIGLYCERIDES 101 mg/dL (30-150)
[2020-04-11 07:50] LABS: IRON, SERUM 24 ug/dl (50-175); TOTAL IRON BINDING CAPACITY 207 ug/dl (250-450)
[2020-04-11 08:00] VITALS: BP 99/65
--- NOTE | 2020-04-11 08:00 | NUR ---
RN OPENING NOTE: RECEIVED PATIENT IN BED THIS MORNING. PATIENT IS ALERT BUT UNABLE TO ANSWER QUESTIONS. O2 @ 4L/MIN NC, SATING WELL. NO SIGNS OF ACUTE DISTRESS NOTED AT THIS TIME. SR IN THE 70S ON THE TELE MONITOR. ALEJO DRAINING CLEAR YELLOW URINE. GTF, NO SIGNS OF COMPLICATIONS NOTED, NO RESIDUAL. #18 LEFT ARM, #20 R HAND, C/D/I, FLUSHING WELL, NO SIGNS OF COMPLICATIONS NOTED. SAFETY MEASURES IMPLEMENTED, BED IN LOWEST POSITION, LOCKED, SIDE RAILS UP, CALL LIGHT WITHIN REACH. WILL CONTINUE TO MONITOR PATIENT FOR CHANGES.
[2020-04-11] MEDS: DEXAMETHASONE SOD PHOSPHATE 10 MG/ML VIAL IV SCH (08:33)
[2020-04-11] MEDS: CLOPIDOGREL BISULFATE 75 MG TABLET GT SCH (08:33)
[2020-04-11] MEDS: TOLTERODINE 2 MG CAP.SR PO SCH ×2 (08:33→16:38)
[2020-04-11] MEDS: CARBIDOPA/LEVODOPA 10/100 MG 1 UDTAB GT SCH ×3 (08:33→16:38)
[2020-04-11] MEDS: DOCUSATE SODIUM 100 MG CAPSULE PO SCH (08:33)
[2020-04-11] MEDS: FAMOTIDINE (20 MG) 20 MG TABLET GT SCH ×2 (08:33→20:42)
[2020-04-11] MEDS: DOCUSATE SODIUM LIQ 100 MG/10 ML UDC GT SCH ×2 (09:00→16:38)
--- NOTE | 2020-04-11 09:28 | NUR ---
0900 COLACE ALREADY GIVEN, HELD NEW ORDER TO ADMINISTER 1700
--- NOTE | 2020-04-11 10:52 | NUR ---
AWAITING NEW FEEDING PUMP FROM [facility] IF AVAILABLE. [facility] SUPPLY AWARE. PUMP INTERMITTENTLY WORKING.
[2020-04-11 11:45] LABS: C-REACTIVE PROTEIN 11.5 mg/dL (0.0-0.9)
[2020-04-11 12:00] VITALS: BP 90/50
[2020-04-11] MEDS: SOD FERRIC GLUC 125 MG in IV NS 0.9% 100 ML IV SCH (13:18)
[2020-04-11 16:00] VITALS: BP 92/60
[2020-04-11] MEDS: CEFTRIAXONE 1 G in IV D5W 50 ML IV SCH (17:20)
--- NOTE | 2020-04-11 18:37 | NUR ---
RN CLOSING NOTE: PATIENT REMAINS IN BED. NO ACUTE DISTRESS NOTED AT THIS TIME. SAFETY MEASURES IMPLEMENTED, BED IN LOWEST POSITION, LOCKED, SIDE RAILS UP, CALL LIGHT WITHIN REACH. WILL ENDORSE TO ONCOMING SHIFT RN FOR CONTINUITY OF CARE.
--- NOTE | 2020-04-11 19:16 | NUR ---
RN OPENING NOTES: RECEIVED PT A/OX1,IN BED RESTING COMFORTABLY. PATIENT IN NO S/SX OF ACUTE DISTRESS AT THIS TIME. NO SOB NOTED. PATIENT'S BREATHING IS EVEN AND UNLABORED. PATIENT IS ON 4L OF OXYGEN VIA FACE MASK;TOLERATING WELL. PATIENT ON TELE MONITORING READING SINUS RHYTHM HR IS @80s DURING TIME OF RECEIVED. G TUBE FLUSHING AND PATENT; SITE CLEAN DRY AND INTACT; NO RESIDUAL NOTED; G TUBE FEEDING OF GLUCERNA 1.2 AT 20MLS/HR ( TITRATE TO 40CC/HR TOLERATED) . NOTED IV SITE ON L ARM #18 AND R HAND #20; PATENT IN INTACT,NO S/S OF INFECTION OR INFILTRATION. ALEJO CATH IN PLACE, WITH GOOD URINE OUTPUT NOTED. WITH BILATERAL SOFT WRIST RESTRAINTS IN PLACE, ASSESSED PER PROTOCOL. PATIENT WITH VT PUMP ON. SAFETY MEASURES HAVE BEEN PROVIDED AND IMPLEMENTED. PATIENT BED ALARM IS ON. HEAD OF BED ELEVATED. BED IS LOCKED, IN LOWEST POSITION AND SIDE RAILS UP. CALL LIGHT WITHIN REACH OF THE PATIENT. ISOLATION PRECAUTIONS IN PLACE. WILL CONTINUE TO MONITOR AND REASSESS FOR ANY CHANGES.
[2020-04-11 20:00] VITALS: BP 92/53
[2020-04-11] MEDS: ATORVASTATIN 40 MG TABLET GT SCH (21:09)
[2020-04-11] MEDS: INSULIN GLARGINE, 100 UNIT/ML CARTRIDGE SQ SCH (21:56)
--- NOTE | 2020-04-11 21:56 | NUR ---
RN NOTES SCHEDULED LANTUS NOT GIVEN, ACCU CHECK DONE AND BLOOD SUGAR CAME OUT 87MG/DL.
--- NOTE | 2020-04-11 22:30 | NUR ---
RN NOTES RECEIVED CALL FROM PT'S DAUGHTER (CHRIS BANKS), REQUESTING FOR HER TO BE INDICATED ON PT'S RECORD PRIMARY CONTACT TO NOTIFY FOR HER MOM'S CONDITION. 2250-CALLED ADMITTING DEPT; S/W ETHAN AND ADVISE TO PUT PT'S DAUGHTER'S CONTACT INFO ON RECORD. SHE ACKNOWLEDGED.
[2020-04-12] VITALS: BP 97/56
[2020-04-12 04:00] VITALS: BP 92/49
[2020-04-12] MEDS: ENOXAPARIN SODIUM 40 MG/0.4 ML DISP.SYRIN SQ SCH ×2 (05:37→17:12)
--- NOTE | 2020-04-12 06:55 | NUR ---
RN CLOSING NOTES PATIENT REMAINS IN ROOM IN NO SIGNS OF RESPIRATORY DISTRESS. PATIENT SATURATING >95% O2. VITAL SIGNS WNL. SAFETY PRECAUTIONS IN PLACE AND COMFORT MEASURES RENDERED. BED IN LOWEST POSITION, CALL LIGHT WITHIN REACH, BREAKS ON, SIDE RAILS UP. ALL NEEDS ATTENDED ; SHIFT ASSESSMENT/BEDBATH/SKIN CARE DONE. PATIENT KEPT CLEAN AND DRY. WILL ENDORSE TO INCOMING SHIFT FOR FELICITAS.
[2020-04-12 07:26] LABS: HEMATOCRIT 31 % (33-45); HEMOGLOBIN 10.1 g/dL (11.5-14.8); MEAN CORPUSCULAR VOLUME 89 fL (82-100); RED BLOOD CELL COUNT(AUTO) 3.54 MIL/uL (4.0-5.2); WHITE BLOOD COUNT (AUTO) 8.3 K/uL (4.3-11.0)
[2020-04-12 07:27] LABS: BASOPHILS % (AUTO) 0.1 % (0.0-2.0); LYMPHOCYTES # (AUTO) 1.3 /CMM (0.8-4.8); LYMPHOCYTES % (AUTO) 16.3 % (20.0-44.0); MEAN CORPUSCULAR HGB CONC 32 g/dl (31.0-36.0); MONOCYTES # (AUTO) 0.7 /CMM (0.1-1.30); MONOCYTES % (AUTO) 8.1 % (2.0-12.0); NEUTROPHILS # (AUTO) 6.3 /CMM (1.8-8.9); NEUTROPHILS % (AUTO) 75.5 % (43.0-81.0); PLATELET COUNT (AUTO) 159 /CMM (150-450)
[2020-04-12 07:44] LABS: ALANINE AMINOTRANSFERASE 22 U/L (12-78); ALBUMIN 2.1 g/dL (3.4-5.0); ALKALINE PHOSPHATASE 49 U/L (46-116); ASPARTATE AMINOTRANSFERASE 41 U/L (15-37); BILIRUBIN,TOTAL 0.2 mg/dL (0.2-1.0); CALCIUM, SERUM 8.6 mg/dL (8.5-10.1); CARBON DIOXIDE 27 mmol/L (21-32); CHLORIDE 105 mmol/L (98-107); CREATININE 0.3 mg/dL (0.6-1.3); GLUCOSE 77 mg/dL (74-106); MAGNESIUM 1.9 mg/dL (1.8-2.4); PHOSPHORUS 2.5 mg/dL (2.5-4.9); POTASSIUM 3.7 mmol/L (3.5-5.1); SODIUM SERUM 139 mmol/L (136-145); TOTAL PROTEIN, SERUM 5.7 g/dL (6.4-8.2); UREA NITROGEN, BLOOD 22 mg/dL (7-18)
[2020-04-12 07:55] LABS: C-REACTIVE PROTEIN 4.3 mg/dL (0.0-0.9)
[2020-04-12 08:00] VITALS: BP 88/41
--- NOTE | 2020-04-12 08:00 | NUR ---
telephone service representative note patient in bed with simple mask 6l sat 96% at this time, dr padilla notified also patient awake response when call her name by smiling , with Jimenez cath to gravity with yellow, rt arm hl intact and flushed well on g tube feeding as ordered, no residual noted , keep hob elevated at all time bed in lowest and locked position will cont to monitor color urine ,
[2020-04-12] MEDS: TOLTERODINE 2 MG CAP.SR PO SCH ×2 (09:30→16:14)
[2020-04-12] MEDS: DOCUSATE SODIUM LIQ 100 MG/10 ML UDC GT SCH ×2 (09:30→16:14)
[2020-04-12] MEDS: FAMOTIDINE (20 MG) 20 MG TABLET GT SCH ×2 (09:30→21:26)
[2020-04-12] MEDS: DEXAMETHASONE SOD PHOSPHATE 10 MG/ML VIAL IV SCH (09:30)
[2020-04-12] MEDS: CLOPIDOGREL BISULFATE 75 MG TABLET GT SCH (09:30)
[2020-04-12] MEDS: CARBIDOPA/LEVODOPA 10/100 MG 1 UDTAB GT SCH ×3 (09:31→16:14)
[2020-04-12] MEDS: MUPIROCIN OINT 2% 22 GM TUBE NS SCH ×2 (09:31→21:27)
--- NOTE | 2020-04-12 11:30 | NUR ---
CAD ENGINEER NOTE PER DR LIVINGSTON OK TO KEEP SIMPLE MASK FOR NOW ,WILL MONITOR
[2020-04-12 12:00] VITALS: BP 94/55
[2020-04-12] MEDS: SOD FERRIC GLUC 125 MG in IV NS 0.9% 100 ML IV SCH (14:44)
--- NOTE | 2020-04-12 14:57 | NUR ---
N MATERIAL CHASER NOTE SPOKE WITH DR DAVON CULP OK TO REMOVE TELE MONITOR ,ALSO OK TO KEEP ON 6L SIMPLE MASK SAT NOW 98%, WILL CONT TO MONITOR TURN REPOSITION DONE
[2020-04-12 16:00] VITALS: BP 95/52
[2020-04-12] MEDS: CEFTRIAXONE 1 G in IV D5W 50 ML IV SCH (17:10)
--- NOTE | 2020-04-12 18:39 | NUR ---
ms rn note resting comfortably at this time ,cont on o2 as ordered ,keep hob elevated at all time , will cont to monitor
--- NOTE | 2020-04-12 19:45 | NUR ---
RN OPENING NOTE PT RECEIVED IN BED. PT OPENS EYES TO HER NAME. PT IS ON 5 L VIA FACE MASK SATING 100%. THERE IS NO S/S OF RESPIRATORY DISTRESS. PT HAS G TUBE PATENT AND AUSCULTATED, GLUCERNA 1.2 RUNNING AT 25 ML/H, NO RESIDUAL NOTED. PT HAS ALEJO DRAINING YELLOW URINE, PT HAS L ARM IV ACCESS 20G S/L. SAFETY MEASURES IN PLACE BED AT LOWEST POSITION,LOCKED,SIDE RAILS UPX2,CALL LIGHT IN REACH AND HOB ELEVATED. WILL CONTINUE TO MONITOR FOR ANY CHANGES.
[2020-04-12 20:00] VITALS: BP 117/65
[2020-04-12] MEDS: GLUCERNA 1.2 1,000 ML BOTTLE NG PRN (21:02)
[2020-04-12] MEDS: ATORVASTATIN 40 MG TABLET GT SCH (21:26)
[2020-04-12] MEDS: INSULIN GLARGINE, 100 UNIT/ML CARTRIDGE SQ SCH (21:50)
[2020-04-12] MEDS: LATANOPROST EYE DROP 0.005% 2.5 ML BOTTLE EACHEYE SCH (21:54)
[2020-04-13 04:00] VITALS: BP 130/72
[2020-04-13] MEDS ORDERED: ENOXAPARIN SODIUM 60 MG/0.6 ML DISP.SYRIN SQ SCH (06:00)
[2020-04-13 06:36] LABS: HEMATOCRIT 33 % (33-45); HEMOGLOBIN 10.7 g/dL (11.5-14.8); LYMPHOCYTES # (AUTO) 0.8 /CMM (0.8-4.8); LYMPHOCYTES % (AUTO) 15.3 % (20.0-44.0); MEAN CORPUSCULAR HGB CONC 32 g/dl (31.0-36.0); MEAN CORPUSCULAR VOLUME 88 fL (82-100); MONOCYTES # (AUTO) 0.6 /CMM (0.1-1.30); MONOCYTES % (AUTO) 11.2 % (2.0-12.0); NEUTROPHILS # (AUTO) 3.9 /CMM (1.8-8.9); NEUTROPHILS % (AUTO) 73.5 % (43.0-81.0); PLATELET COUNT (AUTO) 150 /CMM (150-450); RED BLOOD CELL COUNT(AUTO) 3.74 MIL/uL (4.0-5.2); WHITE BLOOD COUNT (AUTO) 5.3 K/uL (4.3-11.0)
[2020-04-13 07:09] LABS: CALCIUM, SERUM 8.8 mg/dL (8.5-10.1); CARBON DIOXIDE 30 mmol/L (21-32); CHLORIDE 104 mmol/L (98-107); CREATININE 0.4 mg/dL (0.6-1.3); GLUCOSE 89 mg/dL (74-106); MAGNESIUM 1.8 mg/dL (1.8-2.4); PHOSPHORUS 2.4 mg/dL (2.5-4.9); POTASSIUM 4.3 mmol/L (3.5-5.1); SODIUM SERUM 139 mmol/L (136-145); UREA NITROGEN, BLOOD 22 mg/dL (7-18)
--- NOTE | 2020-04-13 07:22 | NUR ---
RN CLOSING NOTE PT REMAINED STABLE DURING MY SHIFT, NO ACUTE CHANGES, REPORT GIVEN TO INCOMING SHIFT FOR FELICITAS
--- NOTE | 2020-04-13 07:35 | NUR ---
MS RN OPENING NOTES RECEIVED PATIENT IN BED, ASLEEP. PATIENT IS ON OXYGEN THERAPY AT 5 LPM VIA FACE MASK. AT THIS TIME BREATHING IS EVEN AND UNLABORED; NO SOB PRESENT AT THIS TIME. NO SIGNS OF PAIN SUCH FACIAL GRIMACING, MOANING OR GUARDING. L ARM IV ACCESS G # 20 PRESENT AND INTACT. SAFETY PRECAUTIONS IN PLACE; BED IN LOW POSITION AND LOCKED, RAILS UP X2, CALL LIGHT WITHIN REACH. WILL CONTINUE TO MONITOR PATIENT.
[2020-04-13 08:00] VITALS: BP 120/61
--- NOTE | 2020-04-13 08:09 | NUR ---
WOUND CARE CONSULT:PATIENT PRESENTS WITH SACRAL DTI,REVIEWED CHART,NURSING DOCUMENTATION AND PHOTOS WHICH SHOW SACRAL REDNESS INITIALLY AND NOTED DTI AT THIS TIME, PATENT AT FURTHER RISK SKIN BREAKDOWN DUE TO PRESENT CONDITION,PATIENT IS COVID POSITIVE ,HAS MULTIPLE COMORBIDITIES.RECOMMENDATION MADE FOR FOR SKIN CARE AND PROTECTION , DISCUSSED WITH NURSLING STAFF TO TURN REPOSITION PATIENT Q2 HOUR ,OFF LOAD AT ALL TIME ,MIRI SCORE IS 13, ISOFLEX EMILY BED TO BE PLACED,MD IN AGREEMENT WITH PLAN OF CARE ,WILL SEE PRN
[2020-04-13] MEDS: MUPIROCIN OINT 2% 22 GM TUBE NS SCH ×2 (08:47→20:25)
[2020-04-13] MEDS: CLOPIDOGREL BISULFATE 75 MG TABLET GT SCH (09:05)
[2020-04-13] MEDS: CARBIDOPA/LEVODOPA 10/100 MG 1 UDTAB GT SCH ×3 (09:05→17:11)
[2020-04-13] MEDS: FAMOTIDINE (20 MG) 20 MG TABLET GT SCH ×2 (09:05→20:19)
[2020-04-13] MEDS: TOLTERODINE 2 MG CAP.SR PO SCH ×2 (09:05→17:11)
[2020-04-13] MEDS: DOCUSATE SODIUM LIQ 100 MG/10 ML UDC GT SCH ×2 (09:05→17:12)
[2020-04-13] MEDS: DEXAMETHASONE SOD PHOSPHATE 10 MG/ML VIAL IV SCH (09:05)
[2020-04-13] MEDS: NEUTRA PHOS 1 POWD.PACKET PO SCH ×2 (11:32→20:17)
--- NOTE | 2020-04-13 13:04 | NUR ---
RN NOTES DAUGHTER CHRIS CALLED. WANTS MD TO RETURN HER CALL. CHARGE NURSE AND MD MADE AWARE.
--- NOTE | 2020-04-13 13:26 | NUR ---
RN NOTES DAUGHTER CHRIS REQUESTED VIDEO CHAT, CHARGE NURSE APPROVED. REQUEST CARRIED OUT.
[2020-04-13] MEDS: SOD FERRIC GLUC 125 MG in IV NS 0.9% 100 ML IV SCH (14:08)
[2020-04-13 16:00] VITALS: BP 113/65
[2020-04-13 16:58] LABS: C-REACTIVE PROTEIN 2.8 mg/dL (0.0-0.9)
[2020-04-13] MEDS: CEFTRIAXONE 1 G in IV D5W 50 ML IV SCH (17:38)
--- NOTE | 2020-04-13 19:30 | NUR ---
RN OPENING NOTE RECEIVED PATIENT IN BED RESTING NON VERBAL OPEN EYES BREATHING IS EVEN AND NONLABORED ON 8L OXYGEN VIA MASK,O2:98% ON G-TUBE FEEDING GLUCERNA 1.2 25CC/HR CHECKED PLACEMENT NO RESIDUAL,IV SITE IS ON LEFT ARM INTACT PATENT,ON ALEJO CATHETER, URINE DRAINAGE YELLOW/CLEAR,IMPLEMENT SAFETY MEASURE,CONTINUE TO MONITOR.
--- NOTE | 2020-04-13 19:53 | NUR ---
RN OPENING NOTE ENDORSED PT TO PM NURSE FOR FELICITAS. PT IN BED HOB ELEVATED PT OPENS EYES. PATIENT IS ON 5 L VIA FACE MASK SATING 100%. NO S/S OF RESPIRATORY DISTRESS. ALEJO CATH DRAINING YELLOW URINE. G TUBE PATENT AND AUSCULTATED WITH GLUCERNA 1.2 RUNNING AT 25 ML/H, NO RESIDUAL NOTED. L ARM IV ACCESS 20G S/L. SAFETY MEASURES IN PLACE BED AT LOWEST POSITION,LOCKED,SIDE RAILS UPX2.
[2020-04-13] MEDS: INSULIN GLARGINE, 100 UNIT/ML CARTRIDGE SQ SCH (21:48)
[2020-04-13] MEDS: LATANOPROST EYE DROP 0.005% 2.5 ML BOTTLE EACHEYE SCH (21:48)
[2020-04-13] MEDS: ATORVASTATIN 40 MG TABLET GT SCH (21:50)
[2020-04-14] VITALS: BP 138/69
[2020-04-14 06:03] LABS: MONOCYTES # (AUTO) 0.7 /CMM (0.1-1.30); NEUTROPHILS # (AUTO) 4.9 /CMM (1.8-8.9)
[2020-04-14 06:25] LABS: CALCIUM, SERUM 8.9 mg/dL (8.5-10.1); CARBON DIOXIDE 31 mmol/L (21-32); CHLORIDE 102 mmol/L (98-107); CREATININE 0.3 mg/dL (0.6-1.3); GLUCOSE 72 mg/dL (74-106); POTASSIUM 3.8 mmol/L (3.5-5.1); SODIUM SERUM 140 mmol/L (136-145); UREA NITROGEN, BLOOD 17 mg/dL (7-18)
[2020-04-14 06:26] LABS: MAGNESIUM 1.6 mg/dL (1.8-2.4); PHOSPHORUS 2.4 mg/dL (2.5-4.9)
[2020-04-14 06:36] LABS: HEMATOCRIT 33 % (33-45); HEMOGLOBIN 10.8 g/dL (11.5-14.8); LYMPHOCYTES # (AUTO) 1.3 /CMM (0.8-4.8); LYMPHOCYTES % (AUTO) 19.2 % (20.0-44.0); MEAN CORPUSCULAR HGB CONC 32 g/dl (31.0-36.0); MEAN CORPUSCULAR VOLUME 87 fL (82-100); NEUTROPHILS % (AUTO) 70.8 % (43.0-81.0); PLATELET COUNT (AUTO) 159 /CMM (150-450); RED BLOOD CELL COUNT(AUTO) 3.84 MIL/uL (4.0-5.2); WHITE BLOOD COUNT (AUTO) 6.9 K/uL (4.3-11.0)
--- NOTE | 2020-04-14 07:18 | NUR ---
RN CLOSING NOTE PATIENT REMAINS ON OBTUNDED,NONVERBAL ON 8L OXYGEN VIA MASK O2:99% NO SOB NOT ACUTE DISTRESS NOTED,ON ALL DUE MEDS GIVEN VIA G-TUBE FEEDING,ON G-TUBE FEEDING GLUCERNA 1.2 25 CC/HR KEPT CLEAN AND DRY ALL THE TIME,ENDORSE NEXT COMING SHIFT FOR CONTINUATION OF CARE
[2020-04-14 08:00] VITALS: BP 141/73
--- NOTE | 2020-04-14 08:15 | NUR ---
MS/RN OPENING NOTE Patient in bed, obtunded and opens eyes. Breathing even and non-labored on 8L via NC. No respiratory or cardiac distress noted. No s/s of pain/discomfort noted. IV access noted on L arm #20 gauge, patent and intact, running TKO @ 5 mLs/hr. No s/s of infection, infiltration, or bleeding noted. G-tube in place, no residual noted, patent and intact, running Glucerna 1.2 25 cc/hr. Goal is said to tolerate feeding at 40 mls/hr, as MD ordered. Jimenez in place, draining yellow urine well. Fall precautions maintained. Will continue to monitor for any changes in condition.
[2020-04-14 08:40] LABS: LYMPHOCYTES % (MANUAL) 15 % (16-48); MONOCYTES % (MANUAL) 8 % (0-11.0); MYELOCYTES % 2 % (0-0); NEUTROPHILS % (MANUAL) 75 (42-76)
[2020-04-14] MEDS: CARBIDOPA/LEVODOPA 10/100 MG 1 UDTAB GT SCH ×3 (09:02→17:27)
[2020-04-14] MEDS: TOLTERODINE 2 MG CAP.SR PO SCH ×2 (09:02→17:27)
[2020-04-14] MEDS: FAMOTIDINE (20 MG) 20 MG TABLET GT SCH ×2 (09:02→20:58)
[2020-04-14] MEDS: DOCUSATE SODIUM LIQ 100 MG/10 ML UDC GT SCH ×2 (09:03→17:27)
[2020-04-14] MEDS: DEXAMETHASONE SOD PHOSPHATE 10 MG/ML VIAL IV SCH (09:04)
[2020-04-14] MEDS: CLOPIDOGREL BISULFATE 75 MG TABLET GT SCH (09:06)
[2020-04-14] MEDS: MUPIROCIN OINT 2% 22 GM TUBE NS SCH ×2 (09:07→20:56)
[2020-04-14] MEDS: ENOXAPARIN SODIUM 40 MG/0.4 ML DISP.SYRIN SQ SCH (09:08)
[2020-04-14] MEDS ORDERED: AZITHROMYCIN 250 MG TABLET PO SCH (10:12)
[2020-04-14] MEDS ORDERED: POTASSIUM PHOSPHATE MM 15 MMOL in IV NS 0.9% 250 ML IV SCH (10:30)
[2020-04-14] MEDS: Magnesium 1GM/D5W 100ML PREMIX 100 ML IV SCH ×2 (10:59→12:12)
[2020-04-14] MEDS: AZITHROMYCIN 250 MG TABLET GT SCH (10:59)
[2020-04-14] MEDS: POTASSIUM PHOSPHATE MM 7.5 MMOL in IV D5W 100 ML IV SCH ×2 (11:41→15:24)
[2020-04-14] MEDS: GLUCERNA 1.2 1,000 ML BOTTLE NG PRN (14:38)
[2020-04-14] MEDS: SOD FERRIC GLUC 125 MG in IV NS 0.9% 100 ML IV SCH (15:23)
[2020-04-14 16:00] VITALS: BP 119/78
[2020-04-14] MEDS: CEFTRIAXONE 1 G in IV D5W 50 ML IV SCH (17:26)
--- NOTE | 2020-04-14 18:20 | NUR ---
MS/RN CLOSING NOTE Patient in bed, obtunded and opens eyes upon verbal and tactile stimulation. No s/s of pain/discomfort noted. Breathing even and non-labored on 8L via NC, saturating well. No respiratory or cardiac distress noted. IV access noted on L arm #20 gauge, patent and intact, running TKO @ 5 mLs/hr. No s/s of infection, infiltration, or bleeding noted. G-tube in place, no residual noted, patent and intact, running Glucerna 1.2 30 cc/hr. Goal is said to tolerate feeding at 40 mls/hr, as MD ordered. Jimenez in place, draining yellow urine well, output of 1000cc noted for the shift. Fall precautions maintained. Will endorse to locker room attendant nurse.
--- NOTE | 2020-04-14 19:10 | NUR ---
RN OPENING NOTE RECEIVED PATIENT IN BED NONVERBAL,OBTUNDED, ON 8L OXYGEN VIA MASK,BREATHING IS EVEN AND NON LABORED,NO SOB NOT ACUTE DISTRESS NOTED,02:99%,IV SITE IS ON LEFT ARM INTACT PATENT,ON G-TUBE FEEDING GLUCERNA 1.2 30 CC/HR CHECKED PLACEMENT NO RESIDUAL NOTED,ON ALEJO CATHETER URINE DRAINAGE YELLOW AND CLEAR,KEEP HEAD OF BED ELEVATED,CONTINUE TO MONITOR.
[2020-04-14] MEDS: LATANOPROST EYE DROP 0.005% 2.5 ML BOTTLE EACHEYE SCH (21:00)
--- NOTE | 2020-04-14 21:00 | NUR ---
RN NOTE O2:100% ON 8L OXYGEN VIA MASK TITRATED TO 7L OXYGEN VIA MASK 99%
[2020-04-14] MEDS: ATORVASTATIN 40 MG TABLET GT SCH (21:11)
[2020-04-14] MEDS: INSULIN GLARGINE, 100 UNIT/ML CARTRIDGE SQ SCH (21:28)
[2020-04-15] VITALS: BP 141/72
--- NOTE | 2020-04-15 06:40 | NUR ---
RN CLOSING NOTE PATIENT REMAINS ON NONVERBAL OPEN EYES ON 7L OXYGEN VIA MASK NO SOB NOT ACUTE DISTRESS NOTED ON G-TUBE FEEDING GLUCERNA 1.2 30 CC/HR IV SITE LEFT ARM INTACT PATENT,ALL DUE MEDS GIVEN MD ORDERED,KEPT CLEAN AND DRY THE TIME,IMPLEMENTED SAFETY MEASURES,SIDE RAIL UP X3 SIDES,ENDORSE NEXT COMING SHIFT FOR CONTINUATION OF CARE.
[2020-04-15 06:46] LABS: BASOPHILS % (AUTO) 0.1 % (0.0-2.0); HEMATOCRIT 36 % (33-45); HEMOGLOBIN 11.6 g/dL (11.5-14.8); LYMPHOCYTES # (AUTO) 1.2 /CMM (0.8-4.8); LYMPHOCYTES % (AUTO) 15.1 % (20.0-44.0); MEAN CORPUSCULAR HGB CONC 33 g/dl (31.0-36.0); MEAN CORPUSCULAR VOLUME 90 fL (82-100); MONOCYTES # (AUTO) 0.9 /CMM (0.1-1.30); MONOCYTES % (AUTO) 11.2 % (2.0-12.0); NEUTROPHILS # (AUTO) 5.9 /CMM (1.8-8.9); NEUTROPHILS % (AUTO) 73.6 % (43.0-81.0); PLATELET COUNT (AUTO) 169 /CMM (150-450); RED BLOOD CELL COUNT(AUTO) 3.97 MIL/uL (4.0-5.2)
[2020-04-15 06:56] LABS: CALCIUM, SERUM 8.8 mg/dL (8.5-10.1); CARBON DIOXIDE 30 mmol/L (21-32); CHLORIDE 99 mmol/L (98-107); CREATININE 0.4 mg/dL (0.6-1.3); GLUCOSE 63 mg/dL (74-106); MAGNESIUM 2.2 mg/dL (1.8-2.4); PHOSPHORUS 2.4 mg/dL (2.5-4.9); SODIUM SERUM 134 mmol/L (136-145); UREA NITROGEN, BLOOD 15 mg/dL (7-18)
--- NOTE | 2020-04-15 07:45 | NUR ---
MS/RN - Assessment Patient is awake, non-communicative, no s/s of pain, currently on 7lpm mask, SpO2 97%. Saline lock on the LFA is patent, intact, flushing well. Jimenez catheter in place draining garry urine. GTF Glucerna @ 30 ml/hr infusing well, no residual seen. Morning labs reviewed noted with potassium 2.4, will notify MD to order replacement. Fall and aspiration precautions observed, contact/droplet precautions maintained for positive Covid-19. Will continue with current medical management. Addendum: 04/15/20 at 1617 by SHERMAN STUART RN Correction on notes: Phosphorus level of 2.4 instead of potassium level.
[2020-04-15 08:00] VITALS: BP 120/64
[2020-04-15] MEDS: AZITHROMYCIN 250 MG TABLET GT SCH (08:25)
[2020-04-15] MEDS: FAMOTIDINE (20 MG) 20 MG TABLET GT SCH ×2 (08:25→20:25)
[2020-04-15] MEDS: DEXAMETHASONE SOD PHOSPHATE 10 MG/ML VIAL IV SCH (08:25)
[2020-04-15] MEDS: CLOPIDOGREL BISULFATE 75 MG TABLET GT SCH (08:26)
[2020-04-15] MEDS: DOCUSATE SODIUM LIQ 100 MG/10 ML UDC GT SCH ×2 (08:26→16:39)
[2020-04-15] MEDS: CARBIDOPA/LEVODOPA 10/100 MG 1 UDTAB GT SCH ×3 (08:26→16:39)
[2020-04-15] MEDS: ENOXAPARIN SODIUM 40 MG/0.4 ML DISP.SYRIN SQ SCH (08:26)
[2020-04-15] MEDS: TOLTERODINE 2 MG CAP.SR PO SCH ×2 (08:27→16:39)
[2020-04-15] MEDS: MUPIROCIN OINT 2% 22 GM TUBE NS SCH ×2 (08:29→20:51)
[2020-04-15] MEDS ORDERED: POTASSIUM PHOSPHATE MM 15 MMOL in IV NS 0.9% 250 ML IV SCH (09:00)
[2020-04-15] MEDS: POTASSIUM PHOSPHATE MM 7.5 MMOL in IV D5W 100 ML IV SCH ×2 (09:43→14:15)
--- NOTE | 2020-04-15 09:45 | NUR ---
MS/RN - Notes Potassium phosphate IV administered as ordered. Patient in no acute distress, comfortable on oxygen at 7lpm via mask, satting 95-97%.
[2020-04-15] MEDS: SOD FERRIC GLUC 125 MG in IV NS 0.9% 100 ML IV SCH (13:05)
[2020-04-15 16:00] VITALS: BP 109/55
[2020-04-15] MEDS: CEFTRIAXONE 1 G in IV D5W 50 ML IV SCH (17:46)
--- NOTE | 2020-04-15 18:35 | NUR ---
MS/RN - End of shift summary No significant change in condition noted, afebrile, awake, comfortable on 6lpm via mask, tolerating tube feeding well. Phosphorus replacement given. Will continue with current medical management.
--- NOTE | 2020-04-15 19:37 | NUR ---
RN NOTE RECEIVED PATIENT ASLEEP IN BED, NON VERBAL. PATIENT IN NO S/SX OF ACUTE DISTRESS AT THIS TIME. PATIENT'S BREATHING IS EVEN AND UNLABORED. PATIENT IS ON 6 L OF OXYGEN VIA MASK SATURATING AT 100%; TOLERATING WELL. NOTED IV SITE ON THE LFA G20, PATENT AND FLUSHING WELL ,NO S/S OF INFECTION OR INFILTRATION. ALEJO CATH CONNECTED TO URINE BAG IN PLACE AND DRAINING TO A CLEAR YULIANA URINE. REDNESS/DISCOLORATION NOTED AT SACRUM. SAFETY MEASURES IMPLEMENTED PER PROTOCOL. PATIENT BED ALARM IS ON. HEAD OF BED ELEVATED. BED IS LOCKED, IN LOWEST POSITION AND SIDE RAILS UP. CALL LIGHT WITHIN REACH OF THE PATIENT. WILL CONTINUE TO MONITOR AND REASSESS FOR ANY CHANGES.
[2020-04-15 20:00] VITALS: BP 124/72
[2020-04-15] MEDS: LATANOPROST EYE DROP 0.005% 2.5 ML BOTTLE EACHEYE SCH (21:28)
[2020-04-15] MEDS: ATORVASTATIN 40 MG TABLET GT SCH (21:28)
[2020-04-15] MEDS: INSULIN GLARGINE, 100 UNIT/ML CARTRIDGE SQ SCH (21:31)
[2020-04-16] VITALS (18 sets, daily range): BP systolic 112–149; BP diastolic 67–79
--- NOTE | 2020-04-16 01:45 | NUR ---
RN NOTE LEAKAGE WITH FEEDING SOLN NOTED FROM GTUBE SITE. STOPPED FEEDING FOR NOW. PRISON PSYCHIATRIST MADE AWARE. WILL CONTINUE TO MONITOR.
[2020-04-16 06:38] LABS: EOSINOPHILS % (AUTO) 0.1 % (0.0-6.0); HEMATOCRIT 36 % (33-45); HEMOGLOBIN 11.8 g/dL (11.5-14.8); LYMPHOCYTES # (AUTO) 1.1 /CMM (0.8-4.8); LYMPHOCYTES % (AUTO) 11.3 % (20.0-44.0); MEAN CORPUSCULAR HGB CONC 33 g/dl (31.0-36.0); MEAN CORPUSCULAR VOLUME 88 fL (82-100); MONOCYTES # (AUTO) 0.9 /CMM (0.1-1.30); MONOCYTES % (AUTO) 9.6 % (2.0-12.0); NEUTROPHILS # (AUTO) 7.6 /CMM (1.8-8.9); PLATELET COUNT (AUTO) 206 /CMM (150-450); RED BLOOD CELL COUNT(AUTO) 4.12 MIL/uL (4.0-5.2); WHITE BLOOD COUNT (AUTO) 9.6 K/uL (4.3-11.0)
--- NOTE | 2020-04-16 06:57 | NUR ---
RN NOTE PATIENT REMAINS IN ROOM RESTING COMFORTABLY. NO SIGNS OF RESPIRATORY DISTRESS ON 6L VIA MASK; TOLERATTING WELL SATURATING @ >95% SP02. PATIENT WAS KEPT CLEAN AND DRY. ALL DUE MEDICATIONS ADMINISTERED ORDERED; NO LEAKAGE NOTED AROUND GTUBE SITE, GTUBE FEEDING RESUMED AT 0300 WITH HEAD OF BED ELEVATED TO PREVENT ASPIRATION. LATEST SATURATION 98%. SAFETY MEASURES IMPLEMENTED, BED IN LOWEST POSITION, LOCKED, SIDE RAILS UP, CALL LIGHT WITHIN REACH. ENDORSING TO AM SHIFT RN FOR CONTINUITY OF CARE.
[2020-04-16 07:00] LABS: CALCIUM, SERUM 9.4 mg/dL (8.5-10.1); CARBON DIOXIDE 33 mmol/L (21-32); CHLORIDE 100 mmol/L (98-107); CREATININE 0.4 mg/dL (0.6-1.3); GLUCOSE 99 mg/dL (74-106); PHOSPHORUS 2.3 mg/dL (2.5-4.9); POTASSIUM 4.6 mmol/L (3.5-5.1); SODIUM SERUM 136 mmol/L (136-145); UREA NITROGEN, BLOOD 19 mg/dL (7-18)
--- NOTE | 2020-04-16 07:28 | NUR ---
RN/SYL RECEIVED PATIENT IN BED. NO ACUTE DISTRESS NOTED. PATIENT ALERT & ORIENTED X0, NONVERBAL, OPENS EYES OCCASIONALLY TO TOUCH. PATIENT ON 6L OXYGEN VIA MASK. PATIENT LEFT FOREARM IV ACCESS INTACT, PATENT, FLUSHED WELL. PATIENT G-TUBE IN PLACE, INTACT, PATENT, FLUSHED WELL. PATIENT ALEJO CATHETER IN PLACE, INTACT, PATENT, DRAINING TO GRAVITY. PATIENT SAFETY MAINTAINED. CALL LIGHT WITHIN REACH. WILL CONTINUE TO MONITOR.
[2020-04-16] MEDS: TOLTERODINE 2 MG CAP.SR PO SCH ×2 (08:09→16:51)
[2020-04-16] MEDS: CLOPIDOGREL BISULFATE 75 MG TABLET GT SCH (08:09)
[2020-04-16] MEDS: DEXAMETHASONE SOD PHOSPHATE 10 MG/ML VIAL IV SCH (08:09)
[2020-04-16] MEDS: DOCUSATE SODIUM LIQ 100 MG/10 ML UDC GT SCH ×2 (08:09→16:51)
[2020-04-16] MEDS: AZITHROMYCIN 250 MG TABLET GT SCH (08:09)
[2020-04-16] MEDS: CARBIDOPA/LEVODOPA 10/100 MG 1 UDTAB GT SCH ×3 (08:09→16:51)
[2020-04-16] MEDS: FAMOTIDINE (20 MG) 20 MG TABLET GT SCH ×2 (08:09→21:42)
[2020-04-16] MEDS: MUPIROCIN OINT 2% 22 GM TUBE NS SCH ×2 (08:10→21:42)
[2020-04-16] MEDS: ENOXAPARIN SODIUM 40 MG/0.4 ML DISP.SYRIN SQ SCH (08:10)
--- NOTE | 2020-04-16 09:10 | NUR ---
GAVE REPORT TO ANNIKA GONG ICU FOR CONTINUITY OF CARE. [facility] TO TRANSFER PATIENT TO ICU. PATIENT ON NON-REBREATHER 15L, OXYGEN SATURATION IN 70S AND 80S.
[2020-04-16 09:27] LABS: BAND % (MANUAL) 2 % (0.0-5.0); LYMPHOCYTES % (MANUAL) 12 % (16-48); MONOCYTES % (MANUAL) 8 % (0-11.0); NEUTROPHILS % (MANUAL) 78 (42-76)
[2020-04-16 10:38] LABS: ABG BASE EXCESS 3.1 mmol/L; ABG OXYGEN SATURATION 99.1 % (92.0-98.5); ABG PCO2 36.5 mmHg (35.0-45.0); ABG PO2 167.1 mmHg (75.0-100.0); AaDO2 509.4 mmHg; COHb 0.3 % (0.5-1.5); MetHb 0.1 % (0.0-1.5); O2Hb 98.7 % (94.0-97.0); SITE, ABG Right Radial; VENT MODE, BG NRB 100%
[2020-04-16] MEDS ORDERED: POTASSIUM PHOSPHATE MM 15 MMOL in IV NS 0.9% 250 ML IV SCH (11:00)
--- NOTE | 2020-04-16 11:00 | NUR ---
RN OPENING NOTES: RECEIVED PT FROM SYL. PT IS ON NRB 15L, SAT 98%. PT IS ON TELE MONITOR SR. PT WAS DESATURATING PRIOR THE NBR MASK. PT IS SATURATING WELL, NO SIGNS OF RESPIRATORY DISTRESS, DIFFICULTY BREATHING, NO SIGNS OF PAIN. IV LFA #20, RHAND #20, PATENT FLUSHING WELL. SAFETY MEASURES MAINTAINED, CALL LIGHT WITHIN REACH. WILL CONTINUE TO MONITOR CLOSELY.
[2020-04-16] MEDS: POTASSIUM PHOSPHATE MM 7.5 MMOL in IV D5W 100 ML IV SCH ×2 (11:47→14:49)
--- NOTE | 2020-04-16 13:25 | NUR ---
RN NOTE CALLED PHARMACY FOR SINEMET, NOT AVAILABLE IN THE [place], WILL BRING IT UP SOON POSSIBLE. WILL ADMINISTER ORDERED WHEN MEDICATION IS AVAILABLE. SAFETY MAINTAINED, CALL LIGHT WITHIN REACH, WILL CONTINUE TO MONITOR CLOSELY.
[2020-04-16] MEDS: GLUCERNA 1.2 1,000 ML BOTTLE NG PRN (13:29)
[2020-04-16] MEDS: CEFTRIAXONE 1 G in IV D5W 50 ML IV SCH ×2 (17:00→18:09)
--- NOTE | 2020-04-16 18:32 | NUR ---
RN CLOSING NOTES: PT REMAINED ON NONE REBREATHER MASK ON 15L, OS SAT 96%, NO RESPIRATORY DISTRESS NOTED, NO SIGNS OF PAIN OR DISCOMFORT NOTED. ALL PT NEEDS MET, KEPT CLEAN AND DRY, CALL LIGHT WITHIN REACH, MEDS GIVEN ON TIME. WILL ENDORSE TO PM NURSE FOR CONTINUATION OF CARE.
--- NOTE | 2020-04-16 19:32 | NUR ---
BEEF FARMER OPENING NOTES: Rec'd pt in bed, nonverbal, opens eyes. On NRB mask 15LPM tolerating well. No SOB or respiratory distress noted. On isolation for pos Covid. SR on tele monitor. IV sites on LFA #20 and RH #20 patent and flushing. Dressings c/d/i. GT site flushed and patent with Glucerna infusing at 40ml/hr. Tolerating feeding well. Jimenez cath in place, patent and draining urine via gravity. Safety measures in place. Will continue to monitor.
[2020-04-16] MEDS ORDERED: FEE PK DOSING 1 MIN EA MC ONE (19:42)
--- NOTE | 2020-04-16 20:38 | NUR ---
CONSUMER SAFETY INSPECTOR NOTE: Called pharmacy to check on status of [address] [employer]. Stated they will be delivering soon. Will administer once here.
[2020-04-16] MEDS: VANCOMYCIN 1 GM in IV D5W 250 ML IV SCH (21:17)
[2020-04-16] MEDS: ATORVASTATIN 40 MG TABLET GT SCH (21:42)
[2020-04-16] MEDS: LATANOPROST EYE DROP 0.005% 2.5 ML BOTTLE EACHEYE SCH (21:42)
[2020-04-16] MEDS: INSULIN GLARGINE, 100 UNIT/ML CARTRIDGE SQ SCH (21:58)
[2020-04-16] MEDS: CEFEPIME 2 GM in IV D5W 100 ML IV SCH (22:11)
[2020-04-17] VITALS (26 sets, daily range): BP systolic 93–131; BP diastolic 43–74
[2020-04-17 04:24] LABS: BASOPHILS # (AUTO) 0.1 /CMM (0.0-0.2); BASOPHILS % (AUTO) 0.5 % (0.0-2.0); EOSINOPHILS % (AUTO) 0.1 % (0.0-6.0); HEMATOCRIT 36 % (33-45); HEMOGLOBIN 11.8 g/dL (11.5-14.8); LYMPHOCYTES # (AUTO) 1.2 /CMM (0.8-4.8); MEAN CORPUSCULAR HGB CONC 33 g/dl (31.0-36.0); MEAN CORPUSCULAR VOLUME 87 fL (82-100); MONOCYTES # (AUTO) 1.1 /CMM (0.1-1.30); MONOCYTES % (AUTO) 8.2 % (2.0-12.0); NEUTROPHILS # (AUTO) 10.6 /CMM (1.8-8.9); NEUTROPHILS % (AUTO) 82.2 % (43.0-81.0); PLATELET COUNT (AUTO) 242 /CMM (150-450); RED BLOOD CELL COUNT(AUTO) 4.13 MIL/uL (4.0-5.2)
[2020-04-17 04:58] LABS: CALCIUM, SERUM 8.7 mg/dL (8.5-10.1); CARBON DIOXIDE 30 mmol/L (21-32); CHLORIDE 98 mmol/L (98-107); CREATININE 0.5 mg/dL (0.6-1.3); GLUCOSE 135 mg/dL (74-106); MAGNESIUM 1.8 mg/dL (1.8-2.4); PHOSPHORUS 2.6 mg/dL (2.5-4.9); POTASSIUM 4.2 mmol/L (3.5-5.1); SODIUM SERUM 132 mmol/L (136-145); UREA NITROGEN, BLOOD 19 mg/dL (7-18)
--- NOTE | 2020-04-17 07:09 | NUR ---
FLAME DEGREASER CLOSING NOTES: Pt remains on 15LPM nonrebreather mask, tolerating well. No SOB or respiratory distress noted. No acute changes noted throughout shift. Tolerating GTF well. Kept clean/dry. All meds administered as ordered. Safety measures in place. Will endorse to Adolfo for FELICITAS.
--- NOTE | 2020-04-17 07:30 | NUR ---
RECEIVED PATIENT IN BED. NO ACUTE DISTRESS NOTED. PATIENT NONVERBAL, OPENS EYES TO TOUCH. PATIENT ON 15L OXYGEN VIA NON-REBREATHER MASK. PATIENT ON ROLL FORGER, NORMAL SINUS RHYTHM NOTED WITH HEART RATE IN 90S. PATIENT LEFT FOREARM IV ACCESS INTACT, PATENT, FLUSHED WELL. PATIENT G-TUBE IN PLACE, INTACT, PATENT, FLUSHED WELL. PATIENT ALEJO CATHETER IN PLACE, INTACT AND DRAINING TO GRAVITY. PATIENT SAFETY MAINTAINED. CALL LIGHT WITHIN REACH. WILL CONTINUE TO MONITOR. Addendum: 04/17/20 at 1233 by LACEY ACHARYA RN ADDENDUM- INCORRECT IV CHARTING. PATIENT LEFT FOREARM IV INFILTRATED. PATIENT RIGHT HAND IV ACCESS INTACT, PATENT, FLUSHED WELL.
[2020-04-17] MEDS: CEFEPIME 2 GM in IV D5W 100 ML IV SCH ×2 (08:07→21:12)
[2020-04-17] MEDS: DOCUSATE SODIUM LIQ 100 MG/10 ML UDC GT SCH ×2 (08:07→17:38)
[2020-04-17] MEDS: DEXAMETHASONE SOD PHOSPHATE 10 MG/ML VIAL IV SCH (08:08)
[2020-04-17] MEDS: CARBIDOPA/LEVODOPA 10/100 MG 1 UDTAB GT SCH ×3 (08:08→17:38)
[2020-04-17] MEDS: CLOPIDOGREL BISULFATE 75 MG TABLET GT SCH (08:08)
[2020-04-17] MEDS: AZITHROMYCIN 250 MG TABLET GT SCH (08:08)
[2020-04-17] MEDS: TOLTERODINE 2 MG CAP.SR PO SCH ×2 (08:08→17:38)
[2020-04-17] MEDS: FAMOTIDINE (20 MG) 20 MG TABLET GT SCH ×2 (08:08→21:12)
[2020-04-17] MEDS: MUPIROCIN OINT 2% 22 GM TUBE NS SCH ×2 (08:08→21:13)
[2020-04-17] MEDS: ENOXAPARIN SODIUM 40 MG/0.4 ML DISP.SYRIN SQ SCH (08:10)
[2020-04-17 11:16] LABS: ABG BASE EXCESS 3.6 mmol/L; ABG OXYGEN SATURATION 98.8 % (92.0-98.5); ABG PCO2 35.7 mmHg (35.0-45.0); ABG PH 7.493 (7.350-7.450); ABG PO2 129.4 mmHg (75.0-100.0); AaDO2 186.9 mmHg; COHb 0.2 % (0.5-1.5); MetHb 0.1 % (0.0-1.5); O2Hb 98.5 % (94.0-97.0); SITE, ABG Right Brachial
[2020-04-17] MEDS: VANCOMYCIN 1 GM in IV D5W 250 ML IV SCH (13:36)
--- NOTE | 2020-04-17 18:47 | NUR ---
PATIENT IN BED. NO ACUTE DISTRESS NOTED. PATIENT NONVERBAL, OPENS EYES TO TOUCH. PATIENT ON 8L OXYGEN VIA SIMPLE MASK. PATIENT ON INDUSTRIAL MAINTENANCE REPAIRER, NORMAL SINUS RHYTHM NOTED WITH HEART RATE IN 90S. PATIENT RIGHT HAND IV ACCESS INTACT, PATENT, FLUSHED WELL. PATIENT RIGHT FOREARM IV ACCESS INTACT, PATENT, FLUSHED WELL. PATIENT G-TUBE IN PLACE, INTACT, PATENT, FLUSHED WELL. PATIENT ALEJO CATHETER IN PLACE, INTACT AND DRAINING TO GRAVITY. PATIENT SAFETY MAINTAINED. CALL LIGHT WITHIN REACH. WILL ENDORSE PLAN OF CARE TO ONCOMING NURSE FOR CONTINUITY OF CARE.
--- NOTE | 2020-04-17 19:05 | NUR ---
STORAGE BATTERY INSPECTOR NOTE RECEIVED PATIENT IN BED RESTING WITH HOB ELEVATED. AWAKE, NON-VERBAL. ON 8 LITER O2 VIA SIMPLE MASK. BREATHING IS EVEN AND NON-LABORED, NO SOB NOTED. ON GT FEEDING GLUCERNA RUNNING AT 40 ML/HR. IV SITES ON RIGHT HAND GAUGE 20 AND RIGHT FOREARM GAUGE 20 ARE CLEAN, DRY, AND PATENT. PATIENT IS CONTRACTED ON LOWER EXTREMITIES. NO FEVER NOTED AT THIS TIME. ON ALEJO CATH, URINE IS CLEAR AND YELLOW IN COLOR. IN NO APPARENT DISTRESS NOTED AT THIS TIME. WILL CONTINUE TO MONITOR.
[2020-04-17] MEDS: GLUCERNA 1.2 1,000 ML BOTTLE NG PRN (19:43)
[2020-04-17] MEDS: ATORVASTATIN 40 MG TABLET GT SCH (21:12)
[2020-04-17] MEDS: LATANOPROST EYE DROP 0.005% 2.5 ML BOTTLE EACHEYE SCH (21:13)
[2020-04-17] MEDS: INSULIN GLARGINE, 100 UNIT/ML CARTRIDGE SQ SCH (21:47)
--- NOTE | 2020-04-17 22:45 | NUR ---
WARP PICKER NOTE NOTED PATIENT DESATURATING TO 70% ON 8 LITERS VIA SIMPLE MASK AROUND THIS TIME. ELEVATED PATIENT'S BED TO HIGH FOWLERS. SWITCHED PATIENT TO NON-REBREATHER MASK ON 15 LITERS, STILL PATIENT'S SATURATION IS 80%. RT ANA CALLED TO ASSIST WITH PATIENT. INFORMED ON-CALL MD MARCELO COLLAZO, RECEIVED ORDER FOR HIGH FLOW O2. STAT ABG ALSO ORDERED. RT PLACED PATIENT ON HIGH FLOW 60 LITERS, 100% FIO2. PATIENT SATURATION IS 99% AT THIS TIME.
--- NOTE | 2020-04-17 23:07 | NUR ---
RT PATIENT WAS NOTED TO HAVE DESATURATION BELOW 80 ON 8L SIMPLE MASK , PATIENT WAS PLACED ON HIGH FLOW NASAL CANNULA FLOW RATE 60L, 100 %FIO2 PER MD ORDER . PATIENT TOLERATED CURRENT SETTINGS, WILL CONTINUE TO MONITOR PATIENT T/O THE SHIFT. Addendum: 04/17/20 at 2313 by ANA ROBERTS RT Amended: Links added.
[2020-04-18] VITALS (43 sets, daily range): BP systolic 87–128; BP diastolic 50–77
[2020-04-18 00:06] LABS: ABG BASE EXCESS 3.7 mmol/L; ABG OXYGEN SATURATION 94.8 % (92.0-98.5); ABG PCO2 35.6 mmHg (35.0-45.0); ABG PH 7.496 (7.350-7.450); ABG PO2 70.5 mmHg (75.0-100.0); AaDO2 606.9 mmHg; COHb 0.3 % (0.5-1.5); MetHb 0.3 % (0.0-1.5); O2Hb 94.2 % (94.0-97.0); SITE, ABG Right Radial; VENT MODE, BG HFNC 100% + NRB
--- NOTE | 2020-04-18 04:00 | NUR ---
SOCIAL SECURITY BENEFITS INTERVIEWER NOTE PATIENT IS STABLE AT THIS TIME. O2 SAT IS 99%, STILL ON O2 HIGH FLOW 60 LITERS, 100% FIO2.
[2020-04-18 04:44] LABS: BASOPHILS % (AUTO) 0.4 % (0.0-2.0); EOSINOPHILS % (AUTO) 2.1 % (0.0-6.0); HEMATOCRIT 34 % (33-45); HEMOGLOBIN 10.9 g/dL (11.5-14.8); LYMPHOCYTES # (AUTO) 1.1 /CMM (0.8-4.8); LYMPHOCYTES % (AUTO) 8.7 % (20.0-44.0); MEAN CORPUSCULAR HGB CONC 32 g/dl (31.0-36.0); MEAN CORPUSCULAR VOLUME 89 fL (82-100); MONOCYTES # (AUTO) 0.4 /CMM (0.1-1.30); MONOCYTES % (AUTO) 3.5 % (2.0-12.0); NEUTROPHILS % (AUTO) 85.3 % (43.0-81.0); PLATELET COUNT (AUTO) 242 /CMM (150-450); RED BLOOD CELL COUNT(AUTO) 3.84 MIL/uL (4.0-5.2); WHITE BLOOD COUNT (AUTO) 12.9 K/uL (4.3-11.0)
[2020-04-18 05:03] LABS: CALCIUM, SERUM 8.8 mg/dL (8.5-10.1); CARBON DIOXIDE 28 mmol/L (21-32); CHLORIDE 98 mmol/L (98-107); CREATININE 0.5 mg/dL (0.6-1.3); GLUCOSE 109 mg/dL (74-106); MAGNESIUM 1.9 mg/dL (1.8-2.4); PHOSPHORUS 2.1 mg/dL (2.5-4.9); POTASSIUM 4.1 mmol/L (3.5-5.1); SODIUM SERUM 133 mmol/L (136-145); UREA NITROGEN, BLOOD 20 mg/dL (7-18)
[2020-04-18 05:17] LABS: LYMPHOCYTES % (MANUAL) 10 % (16-48); MONOCYTES % (MANUAL) 8 % (0-11.0); NEUTROPHILS % (MANUAL) 82 (42-76)
--- NOTE | 2020-04-18 06:44 | NUR ---
GUIDANCE ADVISER NOTE PATIENT IS STABLE AT THIS TIME. VITALS WNL. O2 SAT IS 100% ON HIGH FLOW 60 LITERS, 100% FIO2. PATIENT IS KEPT CLEAN, DRY, AND COMFORTABLE. ALL DUE MEDS GIVEN AND TOLERATED WELL. REPOSITIONED Q2H. ALL NEEDS ATTENDED AND MET. WILL ENDORSE TO AM SHIFT RN FOR CONTINUATION OF CARE.
--- NOTE | 2020-04-18 07:30 | NUR ---
RN NOTES RECEIVED PATIENT, UNRESPONSIVE TO VERBAL STIMULI, R EYE UNRESPONSIVE TO LIGHT, PATIENT UNABLE TO MOVE LEFT UPPER EXTREMITY BUT TEND TO SQUEEZE BACK WHEN RIGHT HAND IS SQUEEZE, UNABLE TO FOLLOW OTHER COMMANDS. ON NON REBREATHER MASK ON TOP ON HIGH FLOW O2 AT 100% FI02 AT 60 LPM. SATING 100%. SINUS RHYTHM ON THE MONITOR WITH HR ON THE 90S. WITH ONGOING GT AT 40CC/HR. PLACEMENT VERIFIED BY ASPIRATING GASTRIC RESIDUAL, NONE TAKEN AT THIS TIME. IV ACCESS ON THE R HAND AND R FOREARM: BOTH G [address] HOB ELEVATED FOR SAP. SAFETY MEASURES OBSERVED AND MAINTAINED. BED IN LOW AND LOCKED POSITIONED. CALL LIGHT WITHIN REACH. WILL CONTINUE TO MONITOR PATIENT ACCORDINGLY
[2020-04-18] MEDS: VANCOMYCIN 1 GM in IV D5W 250 ML IV SCH (08:12)
[2020-04-18] MEDS: CLOPIDOGREL BISULFATE 75 MG TABLET GT SCH (09:20)
[2020-04-18] MEDS: TOLTERODINE 2 MG CAP.SR PO SCH ×2 (09:20→17:44)
[2020-04-18] MEDS: CARBIDOPA/LEVODOPA 10/100 MG 1 UDTAB GT SCH ×3 (09:20→17:44)
[2020-04-18] MEDS: DOCUSATE SODIUM LIQ 100 MG/10 ML UDC GT SCH ×2 (09:20→17:44)
[2020-04-18] MEDS: FAMOTIDINE (20 MG) 20 MG TABLET GT SCH ×2 (09:21→20:52)
[2020-04-18] MEDS: AZITHROMYCIN 250 MG TABLET GT SCH (09:21)
[2020-04-18] MEDS: DEXAMETHASONE SOD PHOSPHATE 10 MG/ML VIAL IV SCH (09:21)
[2020-04-18] MEDS: MUPIROCIN OINT 2% 22 GM TUBE NS SCH ×2 (09:22→20:53)
[2020-04-18] MEDS: ENOXAPARIN SODIUM 40 MG/0.4 ML DISP.SYRIN SQ SCH (09:30)
[2020-04-18] MEDS: CEFEPIME 2 GM in IV D5W 100 ML IV SCH ×2 (09:31→20:52)
[2020-04-18] MEDS ORDERED: NEUTRA PHOS 1 POWD.PACKET GT ONE (12:00)
[2020-04-18] MEDS: GLUCERNA 1.2 1,000 ML BOTTLE NG PRN (17:45)
--- NOTE | 2020-04-18 19:15 | NUR ---
CASINO BEVERAGE SERVER OPENING NOTES: Rec'd pt in bed, nonverbal, opens eyes on pain. On NRB mask 15LPM tolerating well. No SOB or respiratory distress noted. On isolation for pos Covid. SR on tele monitor. IV sites on LFA #20 and RH #20 patent and flushing. Dressings c/d/i. GT site flushed and patent with Glucerna infusing at 40ml/hr. Tolerating feeding well. Jimenez cath in place, patent and draining urine via gravity. Safety measures in place. Will continue to monitor.
[2020-04-18] MEDS: ATORVASTATIN 40 MG TABLET GT SCH (21:31)
[2020-04-18] MEDS: LATANOPROST EYE DROP 0.005% 2.5 ML BOTTLE EACHEYE SCH (21:32)
[2020-04-18] MEDS: INSULIN GLARGINE, 100 UNIT/ML CARTRIDGE SQ SCH (21:34)
[2020-04-19] VITALS (41 sets, daily range): BP systolic 95–152; BP diastolic 45–76
[2020-04-19] MEDS: VANCOMYCIN 1 GM in IV D5W 250 ML IV SCH ×2 (02:30→16:29)
[2020-04-19 05:05] LABS: BASOPHILS # (AUTO) 0.1 /CMM (0.0-0.2); BASOPHILS % (AUTO) 0.6 % (0.0-2.0); EOSINOPHILS % (AUTO) 0.4 % (0.0-6.0); HEMATOCRIT 31 % (33-45); LYMPHOCYTES # (AUTO) 0.9 /CMM (0.8-4.8); LYMPHOCYTES % (AUTO) 9.6 % (20.0-44.0); MEAN CORPUSCULAR HGB CONC 32 g/dl (31.0-36.0); MEAN CORPUSCULAR VOLUME 89 fL (82-100); MONOCYTES # (AUTO) 0.8 /CMM (0.1-1.30); MONOCYTES % (AUTO) 7.7 % (2.0-12.0); NEUTROPHILS # (AUTO) 8.1 /CMM (1.8-8.9); NEUTROPHILS % (AUTO) 81.7 % (43.0-81.0); PLATELET COUNT (AUTO) 234 /CMM (150-450); RED BLOOD CELL COUNT(AUTO) 3.47 MIL/uL (4.0-5.2); WHITE BLOOD COUNT (AUTO) 9.9 K/uL (4.3-11.0)
[2020-04-19 05:28] LABS: CALCIUM, SERUM 8.5 mg/dL (8.5-10.1); CARBON DIOXIDE 30 mmol/L (21-32); CHLORIDE 99 mmol/L (98-107); CREATININE 0.4 mg/dL (0.6-1.3); GLUCOSE 138 mg/dL (74-106); MAGNESIUM 1.8 mg/dL (1.8-2.4); PHOSPHORUS 2.1 mg/dL (2.5-4.9); SODIUM SERUM 133 mmol/L (136-145); UREA NITROGEN, BLOOD 20 mg/dL (7-18)
--- NOTE | 2020-04-19 06:50 | NUR ---
RN CLOSING NOTES PT ON BED ASLEEP OPEN EYES TO STIMULI NO SIGN AND SYMPTOMS OF RESPIRATORY DISTRESS NOTED SPO2>95% ON O2 15L VIA NON REBREATHER, ON BEDSIDE MONITOR READS SINUS RHYTHM WITH INVERTED T WAVE NOTED, NO SIGNIFICANT CHANGES ON CONDITION NOTED, ALL NEEDS ATTENDED, DROPLET ISOLATION MAINTAIN, SAFETY MEASURE OBSERVED CALL LIGHT WITHIN REACH WILL ENDORSE TO AM SHIFT NURSE
--- NOTE | 2020-04-19 07:30 | NUR ---
RN NOTES RECEIVED REPORT FROM RETAIL ACCOUNT EXECUTIVE. ASLEEP. TACHYPNEIC IN THE 40s. SATING FINE AT 91% ON NON REBREATHER MASK. SINUS TACHY ON THE MONITOR AT THIS TIME WITH HR ON 104. GTF INFUSING WELL AT DESIRED RATE. ALEJO CATHETER IN PLACE. HOB ELEVATED FOR SAP. SAFETY MEASURES IN PLACE. CALL LIGHT WITHIN REACH. WILL CONTINUE TO MONITOR PATIENT
[2020-04-19 09:35] LABS: ABG BASE EXCESS 5.4 mmol/L; ABG OXYGEN SATURATION 80.4 % (92.0-98.5); ABG PCO2 32.7 mmHg (35.0-45.0); ABG PH 7.546 (7.350-7.450); ABG PO2 40.5 mmHg (75.0-100.0); AaDO2 639.8 mmHg; COHb 0.3 % (0.5-1.5); O2Hb 80.2 % (94.0-97.0); SITE, ABG Left Radial; VENT MODE, BG NON REBREATHER 15L
--- NOTE | 2020-04-19 10:00 | NUR ---
RN NOTES SEEN AND EXAMINED BY DR. LIVINGSTON WITH ORDERS TO PUT PATIENT ON HIGH FLOW OXYGEN.ORDER NOTED AND CARRIED OUT. PATIENT KEEP ON NON REBREATHER ON TOP OF HIGH FLOW OXYGEN AT 60LPM AT 100% FIO2. WILL CONTINUE TO MONITOR PATIENT ACCORDINGLY
[2020-04-19] MEDS: FAMOTIDINE (20 MG) 20 MG TABLET GT SCH ×2 (10:08→21:14)
[2020-04-19] MEDS: DOCUSATE SODIUM LIQ 100 MG/10 ML UDC GT SCH ×2 (10:08→17:36)
[2020-04-19] MEDS: CARBIDOPA/LEVODOPA 10/100 MG 1 UDTAB GT SCH ×3 (10:08→17:36)
[2020-04-19] MEDS: DEXAMETHASONE SOD PHOSPHATE 10 MG/ML VIAL IV SCH (10:08)
[2020-04-19] MEDS: CLOPIDOGREL BISULFATE 75 MG TABLET GT SCH (10:09)
[2020-04-19] MEDS: TOLTERODINE 2 MG CAP.SR PO SCH ×2 (10:09→17:36)
[2020-04-19] MEDS: ENOXAPARIN SODIUM 40 MG/0.4 ML DISP.SYRIN SQ SCH (10:09)
[2020-04-19] MEDS: MUPIROCIN OINT 2% 22 GM TUBE NS SCH ×2 (10:10→21:33)
[2020-04-19] MEDS: CEFEPIME 2 GM in IV D5W 100 ML IV SCH ×2 (10:10→21:01)
[2020-04-19] MEDS ORDERED: NEUTRA PHOS 1 POWD.PACKET NG ONE (11:00)
[2020-04-19 11:36] LABS: ABG BASE EXCESS 4.3 mmol/L; ABG OXYGEN SATURATION 97.6 % (92.0-98.5); ABG PCO2 33.2 mmHg (35.0-45.0); ABG PH 7.527 (7.350-7.450); ABG PO2 91.4 mmHg (75.0-100.0); AaDO2 588.4 mmHg; COHb 0.3 % (0.5-1.5); MetHb 0.3 % (0.0-1.5); SITE, ABG Left Radial; VENT MODE, BG high flow NC 100%
[2020-04-19] MEDS: ACETAMINOPHEN 325 MG TABLET PO PRN (11:47)
[2020-04-19] MEDS: GLUCERNA 1.2 1,000 ML BOTTLE NG PRN (17:37)
--- NOTE | 2020-04-19 19:23 | NUR ---
RN NOTES ENDORSED FOR CONTINUITY OF CARE. NOT ON ANY FORM OF DISTRESS. BREATHING UNLABORED. STILL ON HIGH FLOW OXYGEN AT 6OLPM ON TOP OF NON REBREATHER MASK. SATING FINE. NO ACUTE CHANGES WITHIN THE SHIFT. ALL NURSING NEEDS ATTENDED AND MET. SAFETY MEASURES IN PLACE. CALL LIGHT WITHIN REACH
--- NOTE | 2020-04-19 19:30 | NUR ---
RN NOTES RECEIVED PATIENT IN BED NON VERBAL OPEN EYES UNABLE TO FOLLOW DIRECTIONS. CONTINUES ON HIGH FLOW OXYGEN AT 60% ON TOP OF NON RE-BREATHER MASK, SATURATING 100%. BREATHING NON LABORED, NO S/S OF PAIN OR DISCOMFORT NOTED. TELE MONITOR READING SR. RESPIRATION EVEN NON LABORED. GTF RUNNING AT 40ML/HR NO RESIDUAL NOTED TOLERATING WELL. HOB ELEVATED ALL THE TIMES. IV'S INTACT PATENT. F/C INTACT YELLOW URINE RUNNING TO GRAVITY. ALL SAFETY MEASURES IN PLACE, SIDE RAILS UP, CALL LIGHT WITHIN REACH. WILL CONT TO MONITOR FOR FELICITAS.
[2020-04-19] MEDS: ATORVASTATIN 40 MG TABLET GT SCH (21:14)
[2020-04-19] MEDS: LATANOPROST EYE DROP 0.005% 2.5 ML BOTTLE EACHEYE SCH (21:33)
[2020-04-19] MEDS: INSULIN GLARGINE, 100 UNIT/ML CARTRIDGE SQ SCH (22:19)
[2020-04-20] VITALS (43 sets, daily range): BP systolic 82–135; BP diastolic 49–78
[2020-04-20] MEDS: VANCOMYCIN 1 GM in IV D5W 250 ML IV SCH ×2 (03:25→15:16)
--- NOTE | 2020-04-20 04:00 | NUR ---
BED BATH GIVEN PATIENT TOLERATED WELL.
[2020-04-20 04:38] LABS: BASOPHILS # (AUTO) 0.1 /CMM (0.0-0.2); BASOPHILS % (AUTO) 0.5 % (0.0-2.0); EOSINOPHILS % (AUTO) 0.2 % (0.0-6.0); HEMATOCRIT 31 % (33-45); HEMOGLOBIN 10.4 g/dL (11.5-14.8); LYMPHOCYTES # (AUTO) 0.9 /CMM (0.8-4.8); LYMPHOCYTES % (AUTO) 9.1 % (20.0-44.0); MEAN CORPUSCULAR HGB CONC 33 g/dl (31.0-36.0); MEAN CORPUSCULAR VOLUME 89 fL (82-100); MONOCYTES # (AUTO) 0.9 /CMM (0.1-1.30); MONOCYTES % (AUTO) 9.2 % (2.0-12.0); NEUTROPHILS # (AUTO) 8.2 /CMM (1.8-8.9); PLATELET COUNT (AUTO) 255 /CMM (150-450); RED BLOOD CELL COUNT(AUTO) 3.51 MIL/uL (4.0-5.2); WHITE BLOOD COUNT (AUTO) 10.2 K/uL (4.3-11.0)
[2020-04-20 04:54] LABS: CALCIUM, SERUM 8.7 mg/dL (8.5-10.1); CARBON DIOXIDE 30 mmol/L (21-32); CHLORIDE 99 mmol/L (98-107); CREATININE 0.5 mg/dL (0.6-1.3); GLUCOSE 137 mg/dL (74-106); MAGNESIUM 1.9 mg/dL (1.8-2.4); PHOSPHORUS 2.5 mg/dL (2.5-4.9); POTASSIUM 4.1 mmol/L (3.5-5.1); SODIUM SERUM 134 mmol/L (136-145); UREA NITROGEN, BLOOD 22 mg/dL (7-18)
[2020-04-20] MEDS: ACETAMINOPHEN 325 MG TABLET PO PRN (05:51)
--- NOTE | 2020-04-20 07:07 | NUR ---
RN NOTES NO ACUTE CHANGES OBSERVED OVERNIGHT. NO S/S OF ACUTE DISTRESS NOTED. CONTINUES ON HIGH FLOW OXYGEN AT 30LPM, SATURATING 100% AT THIS TIME. VITAL SIGNS WNL. GTF RUNNING AT 40ML/HR NO RESIDUAL NOTED. HOB ELEVATED ALL THE TIMES. IV'S INTACT PATENT. F/C INTACT YELLOW URINE RUNNING TO GRAVITY. ALL SAFETY MEASURES IN PLACE, SIDE RAILS UP, CALL LIGHT WITHIN REACH. WILL ENDORSE TO AM NURSE FOR FELICITAS.
--- NOTE | 2020-04-20 07:30 | NUR ---
RN NOTES RECEIVED PATIENT, ASLEEP, WITH SPONTANEOUS EYE OPENING. RESPONSIVE TO PAINFUL STIMULI, MOANING THE BEST VERBAL RESPONSE. UNABLE TO FOLLOW COMMAND. ON HIGH FLOW OXYGEN AT 30LITERS WITH 100%FIO2. SATING 93%. SINUS RHYTHM ON THE MONITOR WITH HR ON THE 80s. RESPIRATIONS ON THE HIGH 30s. AFEBRILE AT 99.1. GTF RUNNING AT DESIRES RATE. NO RESIDUAL TAKEN ON CHECK. ALEJO INTACT. HOB ELEVATED. SAFETY MEASURES IN PLACE. CALL LIGHT WITHIN REACH. WILL CONTINUE TO MONITOR PATIENT ACCORDINGLY
--- NOTE | 2020-04-20 08:00 | NUR ---
RN NOTES PATIENT PLACED ON NASAL CANNULA WITH OXYGEN AT 6LPM BUT PATIENT WAS NOT ABLE TO TOLERATE AND WAS SATING ON THE 87-89%. PATIENT WAS PLACED BACK TO HIGH FLOW WITH 40LITERS AT 60%FIO2. 0820: OXYGEN FIO2 BUMPED UP TO 70%
[2020-04-20] MEDS: CARBIDOPA/LEVODOPA 10/100 MG 1 UDTAB GT SCH ×3 (08:34→17:26)
[2020-04-20] MEDS: FAMOTIDINE (20 MG) 20 MG TABLET GT SCH ×2 (08:34→20:03)
[2020-04-20] MEDS: CLOPIDOGREL BISULFATE 75 MG TABLET GT SCH (08:34)
[2020-04-20] MEDS: DEXAMETHASONE SOD PHOSPHATE 10 MG/ML VIAL IV SCH (08:34)
[2020-04-20] MEDS: DOCUSATE SODIUM LIQ 100 MG/10 ML UDC GT SCH ×2 (08:34→17:26)
[2020-04-20] MEDS: TOLTERODINE 2 MG CAP.SR PO SCH ×2 (08:34→17:26)
[2020-04-20] MEDS: ENOXAPARIN SODIUM 40 MG/0.4 ML DISP.SYRIN SQ SCH (08:35)
[2020-04-20] MEDS: MUPIROCIN OINT 2% 22 GM TUBE NS SCH ×2 (08:35→20:04)
[2020-04-20] MEDS: CEFEPIME 2 GM in IV D5W 100 ML IV SCH ×2 (08:53→20:05)
[2020-04-20] MEDS: GLUCERNA 1.2 1,000 ML BOTTLE NG PRN (17:26)
--- NOTE | 2020-04-20 19:25 | NUR ---
RN NOTES ENDORSED FOR CONTINUITY OF CARE. STILL ON HIGH FLOW OXYGEN AT 40LITERS AT 70% FIO2. NO ACUTE CHANGES WITHIN THE SHIFT.
--- NOTE | 2020-04-20 19:30 | NUR ---
RN NOTES RECEIVED PATIENT IN BED NON VERBAL OPENS HER EYES DOES NOT FOLLOW DIRECTIONS. CONTINUES ON HIGH FLOW OXYGEN TOLERATING WELL SATURATING 99%. TELE MONITOR READING SR. RESPIRATION EVEN NON LABORED. GTF RUNNING GAT 40ML/HR NO RESIDUAL NOTED. HOB ELEVATED. IV'S INTACT PATENT. F/C INTACT YELLOW URINE RUNNING TO GRAVITY. ALL SAFETY MEASURES IN PLACE, SIDE RAILS UP, CALL LIGHT WITHIN REACH. WILL CONT TO MONITOR FOR FELICITAS.
[2020-04-20] MEDS: LATANOPROST EYE DROP 0.005% 2.5 ML BOTTLE EACHEYE SCH (21:07)
[2020-04-20] MEDS: ATORVASTATIN 40 MG TABLET GT SCH (21:07)
[2020-04-20] MEDS: INSULIN GLARGINE, 100 UNIT/ML CARTRIDGE SQ SCH (21:25)
[2020-04-21] VITALS (24 sets, daily range): BP systolic 91–138; BP diastolic 50–98
[2020-04-21 02:25] LABS: BASOPHILS % (AUTO) 0.4 % (0.0-2.0); EOSINOPHILS % (AUTO) 1.1 % (0.0-6.0); HEMATOCRIT 30 % (33-45); HEMOGLOBIN 9.7 g/dL (11.5-14.8); LYMPHOCYTES # (AUTO) 1.1 /CMM (0.8-4.8); LYMPHOCYTES % (AUTO) 9.4 % (20.0-44.0); MEAN CORPUSCULAR HGB CONC 32 g/dl (31.0-36.0); MEAN CORPUSCULAR VOLUME 88 fL (82-100); MONOCYTES % (AUTO) 8.5 % (2.0-12.0); NEUTROPHILS # (AUTO) 9.1 /CMM (1.8-8.9); NEUTROPHILS % (AUTO) 80.6 % (43.0-81.0); PLATELET COUNT (AUTO) 253 /CMM (150-450); RED BLOOD CELL COUNT(AUTO) 3.42 MIL/uL (4.0-5.2); WHITE BLOOD COUNT (AUTO) 11.3 K/uL (4.3-11.0)
[2020-04-21 02:52] LABS: CALCIUM, SERUM 8.4 mg/dL (8.5-10.1); CARBON DIOXIDE 28 mmol/L (21-32); CHLORIDE 100 mmol/L (98-107); CREATININE 0.4 mg/dL (0.6-1.3); GLUCOSE 113 mg/dL (74-106); MAGNESIUM 1.8 mg/dL (1.8-2.4); PHOSPHORUS 1.9 mg/dL (2.5-4.9); POTASSIUM 4.2 mmol/L (3.5-5.1); SODIUM SERUM 133 mmol/L (136-145); UREA NITROGEN, BLOOD 19 mg/dL (7-18)
[2020-04-21] MEDS: VANCOMYCIN 1 GM in IV D5W 250 ML IV SCH (03:01)
--- NOTE | 2020-04-21 04:00 | NUR ---
BED BATH GIVEN PATIENT TOLERATED WELL.
--- NOTE | 2020-04-21 06:57 | NUR ---
RN NOTES NO ACUTE CHANGES NOTED THROUGHOUT THE NIGHT. NO S/S OF ACUTE DISTRESS NOTED. CONTINUES ON HIGH FLOW OXYGEN SATURATING 99% AT THIS TIME. VITAL SIGNS WNL. TELE MONITOR READING SR. GTF RUNNING AT 40ML/HR NO RESIDUAL NOTED. HOB ELEVATED ALL THE TIMES. IV'S INTACT PATENT. F/C INTACT DARK ORANGE COLOR URINE RUNNING TO GRAVITY. ALL SAFETY MEASURES IN PLACE, SIDE RAILS UP, CALL LIGHT WITHIN REACH. WILL ENDORSE TO AM NURSE FOR FELICITAS.
--- NOTE | 2020-04-21 08:00 | NUR ---
RN OPENING NOTE: RECEIVED PATIENT IN BED THIS MORNING. PATIENT IS NON-VERBAL, OPENS EYES TO VOICE/ LIGHT TACTILE STIMULI, MAKES INAUDIBLE SOUNDS. PATIENT IS CURRENTLY ON HIGH FLOW, SATING WELL. SR IN THE 80S ON THE BEDSIDE MONITOR. NO SIGNS OF ACUTE DISTRESS NOTED AT THIS TIME. GTF RUNNING AT 40CC/HR, NO RESIDUAL NOTED UPON ASPIRATION. ALEJO DRAINING CLEAR, YELLOW URINE. WOUND CARE PER ORDERS. #18 KAILEE #20 RFA #22 L HAND C/D/I, FLUSHING WELL, NO SIGNS OF COMPLICATIONS NOTED. ISOLATION PRECAUTIONS FOR COVID/ MRSA OF NARES. SAFETY MEASURES IMPLEMENTED, BED IN LOWEST POSITION, LOCKED, SIDE RAILS UP, CALL LIGHT WITHIN REACH. WILL CONTINUE TO MONITOR PATIENT FOR CHANGES.
[2020-04-21 08:21] LABS: ABG OXYGEN SATURATION 96.5 % (92.0-98.5); ABG PCO2 34.9 mmHg (35.0-45.0); ABG PH 7.494 (7.350-7.450); ABG PO2 85.2 mmHg (75.0-100.0); AaDO2 376.4 mmHg; COHb 0.3 % (0.5-1.5); MetHb 0.3 % (0.0-1.5); O2Hb 95.9 % (94.0-97.0); SITE, ABG Right Radial; VENT MODE, BG HiFlow NC 40L 70%
[2020-04-21] MEDS: DEXAMETHASONE SOD PHOSPHATE 10 MG/ML VIAL IV SCH (08:22)
[2020-04-21] MEDS: FAMOTIDINE (20 MG) 20 MG TABLET GT SCH ×2 (08:23→20:06)
[2020-04-21] MEDS: DOCUSATE SODIUM LIQ 100 MG/10 ML UDC GT SCH ×2 (08:23→16:19)
[2020-04-21] MEDS: CLOPIDOGREL BISULFATE 75 MG TABLET GT SCH (08:23)
[2020-04-21] MEDS: ACETAMINOPHEN 325 MG TABLET PO PRN (08:23)
[2020-04-21] MEDS: CARBIDOPA/LEVODOPA 10/100 MG 1 UDTAB GT SCH ×3 (08:23→16:19)
[2020-04-21] MEDS: ENOXAPARIN SODIUM 40 MG/0.4 ML DISP.SYRIN SQ SCH (08:24)
[2020-04-21] MEDS: TOLTERODINE 2 MG CAP.SR PO SCH ×2 (08:24→16:19)
[2020-04-21] MEDS: MUPIROCIN OINT 2% 22 GM TUBE NS SCH ×2 (08:25→20:07)
[2020-04-21] MEDS: CEFEPIME 2 GM in IV D5W 100 ML IV SCH ×2 (08:30→20:14)
[2020-04-21] MEDS: NEUTRA PHOS 1 POWD.PACKET PO SCH ×3 (08:30→16:20)
--- NOTE | 2020-04-21 13:24 | NUR ---
UPDATED FAMILY ABOUT PATIENT' STATUS
[2020-04-21] MEDS: VANCOMYCIN 0.75 GM in IV D5W 250 ML IV SCH (15:30)
[2020-04-21] MEDS: GLUCERNA 1.2 1,000 ML BOTTLE NG PRN (16:29)
--- NOTE | 2020-04-21 19:23 | NUR ---
RN CLOSING NOTE: PATIENT REMAINS IN BED. NO SIGNS OF ACUTE DISTRESS NOTED AT THIS TIME. SAFETY MEASURES IMPLEMENTED, BED IN LOWEST POSITION, LOCKED, SIDE RAILS UP, CALL LIGHT WITHIN REACH. GAVE REPORT TO ANNIKA ARTHUR FOR CONTINUITY OF CARE.
--- NOTE | 2020-04-21 19:23 | NUR ---
UPDATED DAUGHTER ON PATIENT'S STATUS AGAIN
--- NOTE | 2020-04-21 19:30 | NUR ---
RN NOTES RECEIVED PATIENT IN BED CONTINUES ON HIGH FLOW OXYGEN, SATING WELL. NO S/S OF DISTRESS NOTED. TELE MONITOR READING SR IN 80'S. GTF RUNNING AT 40ML/HR NO RESIDUAL NOTED TOLERATING WELL HOB ELEVATED. F/C INTACT URINE RUNNING WELL TI GRAVITY. IV'S INTACT PATENT FLUSHES WELL. ISOLATION PRECAUTIONS MAINTAINED. ALL SAFETY MEASURES IN PLACE, SIDE RAILS UP, CALL LIGHT WITHIN REACH. WILL CONT TO MONITOR FOR FELICITAS.
[2020-04-21] MEDS: ATORVASTATIN 40 MG TABLET GT SCH (21:05)
[2020-04-21] MEDS: INSULIN GLARGINE, 100 UNIT/ML CARTRIDGE SQ SCH (22:38)
[2020-04-21] MEDS: LATANOPROST EYE DROP 0.005% 2.5 ML BOTTLE EACHEYE SCH (22:39)
[2020-04-22] VITALS (31 sets, daily range): BP systolic 93–149; BP diastolic 55–82
[2020-04-22] MEDS: VANCOMYCIN 0.75 GM in IV D5W 250 ML IV SCH ×2 (03:25→15:53)
[2020-04-22] MEDS: ACETAMINOPHEN 325 MG TABLET PO PRN (04:28)
[2020-04-22 04:35] LABS: CALCIUM, SERUM 8.8 mg/dL (8.5-10.1); CARBON DIOXIDE 30 mmol/L (21-32); CHLORIDE 99 mmol/L (98-107); CREATININE 0.4 mg/dL (0.6-1.3); GLUCOSE 101 mg/dL (74-106); SODIUM SERUM 133 mmol/L (136-145); UREA NITROGEN, BLOOD 18 mg/dL (7-18)
--- NOTE | 2020-04-22 07:15 | NUR ---
RN NOTES NO CHANGES NOTED PATIENT REMAINS STABLE ON HIGH FLOW SATING WELL. ROUTINE MEDS GIVEN ALONG WITH PRN TYLENOL FOR ELEVATED TEMP NOTED TO BE EFFECTIVE. NO S/S OF ACUTE DISTRESS NOTED. GTF RUNNING AT 40ML/HR NO RESIDUAL NOTED TOLERATING WELL HOB ELEVATED. F/C INTACT URINE RUNNING WELL TI GRAVITY. IV'S INTACT PATENT FLUSHES WELL. ISOLATION PRECAUTIONS MAINTAINED. ALL SAFETY MEASURES IN PLACE, SIDE RAILS UP, CALL LIGHT WITHIN REACH. ENDORSE TO AM NURSE FOR FELICITAS.
--- NOTE | 2020-04-22 07:40 | NUR ---
ICU/RN PT IS ON HIGH FLOW O2-AT 40L,FIO2-70%.SAT O2-98%.V/S STABLE,AFEBRILE.NO PAIN REPORTED AT THIS TIME.ML-TKO.G-TUBE INFUSING WITH GLUCERNA AT 40 ML/HR NO RESIDUAL NOTED.F/C DRAINING WITH YELLOW URINE.LEFT ARM SKIN TEAR NOTED COVERED WITH MEPILEX.AND LOWER BACK WOUND COVERED WITH MEPILEX..PT IS CONTRACTED,OPEN EYES ,NOT FOLLOWS COMMANDS.
[2020-04-22] MEDS: TOLTERODINE 2 MG CAP.SR PO SCH ×2 (08:23→16:15)
[2020-04-22] MEDS: DEXAMETHASONE SOD PHOSPHATE 10 MG/ML VIAL IV SCH (08:23)
[2020-04-22] MEDS: CLOPIDOGREL BISULFATE 75 MG TABLET GT SCH (08:23)
[2020-04-22] MEDS: DOCUSATE SODIUM LIQ 100 MG/10 ML UDC GT SCH ×2 (08:23→16:15)
[2020-04-22] MEDS: FAMOTIDINE (20 MG) 20 MG TABLET GT SCH ×2 (08:23→21:31)
[2020-04-22] MEDS: CARBIDOPA/LEVODOPA 10/100 MG 1 UDTAB GT SCH ×3 (08:23→16:15)
[2020-04-22] MEDS: ENOXAPARIN SODIUM 40 MG/0.4 ML DISP.SYRIN SQ SCH (08:24)
[2020-04-22] MEDS: CEFEPIME 2 GM in IV D5W 100 ML IV SCH ×2 (08:25→21:25)
[2020-04-22] MEDS: MUPIROCIN OINT 2% 22 GM TUBE NS SCH ×2 (08:26→21:32)
--- NOTE | 2020-04-22 09:30 | NUR ---
ICU/RN DUE MEDS ARE GIVEN ORDERED.SUCTION PROVIDED,REPOSITION FOR COMFORT.LABS REVIEW.
[2020-04-22] MEDS: PROSOURCE / PROSTAT (PYXIS) 30 ML UDC GT SCH ×2 (16:16→16:17)
[2020-04-22] MEDS: GLUCERNA 1.2 1,000 ML BOTTLE NG PRN (16:16)
--- NOTE | 2020-04-22 17:30 | NUR ---
ICU/RN DUE MEDS ARE GIVEN ORDERED.PM CARE PROVIDED.WOUND DRESSING DONE .PT FIO2 DECREASED TO 40% AT 30L.,SAT [id number]%.REPOSITION FOR COMFORT CONTINUE MONITORING.
--- NOTE | 2020-04-22 19:45 | NUR ---
ICU/GERIATRIC PSYCHIATRIST RECEIVED REPORT FROM DAY NURSE. SEE FLOWSHEET FOR ASSESSMENT, ALONG WITH SKIN ISSUES WHICH ARE ADDRESSED AND THE INTERVENTIONS TO EACH. PT OPENS EYES BUT DOESN'T TRACK OR FOLLOW PT IS ON HIGH FLOW N/C, TOLERATING CURRENT SETTINGS WITH SATURATION AT 95%. PT WAS TURNED AND REPOSITIONED FOR COMFORT AND CARE. WILL CONTINUE TO MONITOR THIS PT, NO ACUTE DISTRESS SEEN.
--- NOTE | 2020-04-22 20:02 | NUR ---
RT NOTE PT RECEIVED ON HIGH FLOW NASAL CANNULA @ 30LPM ON 40%. NO DISTRESS NOTED AT THIS TIME. STERILE WATER LEVEL GOOD. ALARMS ON AND AUDIBLE. WILL CONTINUE TO MONITOR T/O SHIFT. Addendum: 04/22/20 at 2002 by TIARRA CRUM RT Amended: Links added.
[2020-04-22] MEDS: LATANOPROST EYE DROP 0.005% 2.5 ML BOTTLE EACHEYE SCH (21:32)
--- NOTE | 2020-04-22 22:10 | NUR ---
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 PT TOLERATED THIS WELL. PT REMAINS ON CURRENT HIGH FLOW SETTINGS WITH SATURATION AT 95%. PT WAS THEN TURNED AND REPOSITIONED FOR COMFORT AND CARE. NO ACUTE DISTRESS SEEN AT THIS TIME. WILL CONTINUE TO MONITOR THIS PT.
[2020-04-22] MEDS: INSULIN GLARGINE, 100 UNIT/ML CARTRIDGE SQ SCH (23:11)
[2020-04-22] MEDS: ATORVASTATIN 40 MG TABLET GT SCH (23:13)
[2020-04-23] VITALS (24 sets, daily range): BP systolic 115–169; BP diastolic 59–84
--- NOTE | 2020-04-23 00:30 | NUR ---
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 NO ACUTE DISTRESS SEEN AT THIS TIME. WILL CONTINUE TO MONITOR THIS PT.
[2020-04-23] MEDS: VANCOMYCIN 0.75 GM in IV D5W 250 ML IV SCH ×2 (02:20→15:12)
[2020-04-23 04:28] LABS: CARBON DIOXIDE 28 mmol/L (21-32); CHLORIDE 100 mmol/L (98-107); CREATININE 0.5 mg/dL (0.6-1.3); GLUCOSE 119 mg/dL (74-106); POTASSIUM 4.1 mmol/L (3.5-5.1); SODIUM SERUM 134 mmol/L (136-145); UREA NITROGEN, BLOOD 23 mg/dL (7-18)
--- NOTE | 2020-04-23 05:00 | NUR ---
ICU/SECONDARY SPANISH TEACHER GOT ORDER FOR MILD SLIDING SCALE AND ACCU CHECK Q 6 HRS FOR TUBE FEEDING BECAUSE THERE WASN'T ONE ORDERED, WITH HISTORY OF DM. ALSO GOT ORDER FOR OK TO HAVE BP ON LEFT ARM WITH PT HAVING HISTORY OF DOUBLE MASTECTOMY.
[2020-04-23] MEDS ORDERED: DEXTROSE 50%-WATER 50 ML DISP.SYRIN IV PRN (06:30)
--- NOTE | 2020-04-23 07:35 | NUR ---
CANAL BOAT OPERATOR NOTES OPENING PATIENT IN BED INTUBATED , NO SOB OR DISCOMFORT NOTED AT THIS TIME. SURGERY TEAM HERE TO TAKE THE PATIENT FOR TRACH PLACEMENT. Addendum: 04/23/20 at 0833 by NEELAM MADRIGAL RN CANAL BOAT OPERATOR NOTES WRONG PATIENT.
--- NOTE | 2020-04-23 07:59 | NUR ---
BONDING MACHINE SETTER NOTES RECEIVED VERSED FROM SOIL FERTILITY SPECIALIST, PATIENT IN SURGERY WILL REPLACED THE BAG AFTER PATIENT IS RETURNED FROM SURGERY. Addendum: 04/23/20 at 0834 by NEELAM MADRIGAL RN WRONG PATIENT
[2020-04-23] MEDS: DOCUSATE SODIUM LIQ 100 MG/10 ML UDC GT SCH ×2 (08:06→17:25)
[2020-04-23] MEDS: FAMOTIDINE (20 MG) 20 MG TABLET GT SCH ×2 (08:06→21:15)
[2020-04-23] MEDS: CARBIDOPA/LEVODOPA 10/100 MG 1 UDTAB GT SCH ×3 (08:06→17:25)
[2020-04-23] MEDS: TOLTERODINE 2 MG CAP.SR PO SCH ×2 (08:07→17:25)
[2020-04-23] MEDS: CLOPIDOGREL BISULFATE 75 MG TABLET GT SCH (08:07)
[2020-04-23] MEDS: DEXAMETHASONE SOD PHOSPHATE 10 MG/ML VIAL IV SCH (08:07)
[2020-04-23] MEDS: PROSOURCE / PROSTAT (PYXIS) 30 ML UDC GT SCH ×3 (08:10→17:25)
[2020-04-23] MEDS: ENOXAPARIN SODIUM 40 MG/0.4 ML DISP.SYRIN SQ SCH (08:11)
[2020-04-23] MEDS: CEFEPIME 2 GM in IV D5W 100 ML IV SCH ×2 (08:36→21:15)
[2020-04-23] MEDS: MUPIROCIN OINT 2% 22 GM TUBE NS SCH (09:34)
[2020-04-23 09:42] LABS: BASOPHILS % (AUTO) 0.1 % (0.0-2.0); EOSINOPHILS % (AUTO) 0.1 % (0.0-6.0); HEMATOCRIT 31 % (33-45); LYMPHOCYTES % (AUTO) 9.4 % (20.0-44.0); MEAN CORPUSCULAR HGB CONC 32 g/dl (31.0-36.0); MEAN CORPUSCULAR VOLUME 89 fL (82-100); MONOCYTES # (AUTO) 1.1 /CMM (0.1-1.30); NEUTROPHILS # (AUTO) 8.9 /CMM (1.8-8.9); NEUTROPHILS % (AUTO) 80.4 % (43.0-81.0); PLATELET COUNT (AUTO) 276 /CMM (150-450); RED BLOOD CELL COUNT(AUTO) 3.53 MIL/uL (4.0-5.2); WHITE BLOOD COUNT (AUTO) 11.1 K/uL (4.3-11.0)
[2020-04-23] MEDS: BLOOD SUGAR DIAGNOSTIC 1 EACH STRIP IN SCH ×3 (12:28→23:13)
[2020-04-23] MEDS: INSULIN REGULAR, HUMAN 100 UNIT/ML 3 ML VIAL SQ PRN ×2 (12:30→18:06)
--- NOTE | 2020-04-23 18:46 | NUR ---
GLASS SANDER BELT NOTES PATIENT IN BED SLEEPING COMFORTABLY. ABLE TO OPEN EYES WHEN NAME CALLED. SHE WAS ABLE TO TOLERATE THE FEEDING (NO RESIDUAL) AND THE 10L MASK SAT 99%. NO COMPLICATION DURING SHIFT. INFORMED FAMILY ABOUT THE CURRENT STATUES. ALL NEED ATTENDED. MEDS GIVEN REPORT GIVEN TO STRATEGY INTERN NURSE FOR FELICITAS.
--- NOTE | 2020-04-23 19:30 | NUR ---
SENIOR PRINCIPAL PROCESS ENGINEER RCD PT W/DX PNA; PT IN ISOLATION FOR COVID 19. PT IS AWAKE NON VERBAL AND UNABLE TO FOLLOW COMMANDS. RESISTANT TO CARE. NSR ON MONITOR. ON SIMPLE MASK 10 L; TOLERATING WELL. G TUBE W/ GLUCERNA @ 40 ML/HR NO RESIDUAL AT THIS TIME. KAILEE MIDLINE PATENT NO BLOOD RETURN NOTED. SACRAL DTI AND LEFT ARM WOUND WITH MEPILEX IN PLACE.
[2020-04-23] MEDS: LATANOPROST EYE DROP 0.005% 2.5 ML BOTTLE EACHEYE SCH (21:15)
[2020-04-23] MEDS: ATORVASTATIN 40 MG TABLET GT SCH (21:15)
[2020-04-23] MEDS: INSULIN GLARGINE, 100 UNIT/ML CARTRIDGE SQ SCH (22:00)
--- NOTE | 2020-04-23 22:30 | NUR ---
INFANTRY ASSAULTMAN S/W DAUGHTER CHRIS; UPDATED ON PLAN OF CARE. SHE IS REQUESTING DR LIVINGSTON CALL HER IN AM. WILL ENDORSE TO MORNING SHIFT.
[2020-04-24] VITALS (25 sets, daily range): BP systolic 124–169; BP diastolic 59–99
[2020-04-24] MEDS: VANCOMYCIN 0.75 GM in IV D5W 250 ML IV SCH ×2 (03:00→14:24)
[2020-04-24] MEDS: IV NS 0.9% 250 ML IV PRN (03:00)
[2020-04-24] MEDS: GLUCERNA 1.2 1,000 ML BOTTLE NG PRN (03:20)
--- NOTE | 2020-04-24 04:00 | NUR ---
SWITCHBOARD INSPECTOR RENDERED COMPLETE BED BAT PT RYLEY WELL.
[2020-04-24] MEDS: BLOOD SUGAR DIAGNOSTIC 1 EACH STRIP IN SCH ×4 (05:47→23:37)
[2020-04-24 06:05] LABS: CALCIUM, SERUM 8.7 mg/dL (8.5-10.1); CARBON DIOXIDE 27 mmol/L (21-32); CHLORIDE 100 mmol/L (98-107); CREATININE 0.4 mg/dL (0.6-1.3); GLUCOSE 87 mg/dL (74-106); SODIUM SERUM 135 mmol/L (136-145); UREA NITROGEN, BLOOD 24 mg/dL (7-18)
--- NOTE | 2020-04-24 07:34 | NUR ---
WOUND CARE CONSULT: REVIEWED CHART, NURSING DOCUMENTATION AND PHOTO WHICH SHOWS INTACT DEEP TISSUE INJURY TO SACRUM. DISCUSSED SKIN PROTECTION WITH NURSING STAFF. PT IS ON FIRST STEP CASH [facility]. IN AGREEMENT WITH PLAN OF CARE. MULTIPLE CO-MORIBIDITIES NOTED TO INCLUDE COVID 19 INFECTION.
--- NOTE | 2020-04-24 08:05 | NUR ---
MEDIATOR: pt.is obtunded/lethargic, able to open eyes by touch, eyes contact 2-3 sec only, unable to follow commands, no tracking reaction, rest, no grimacing, very weak extremities activity/no tremor, SR, SBP over 90/below 160, on 9L O2 SM, sat.over 96%, no SOB but episodes up to RR 32, GTF residual WNL, is in unit/updated
--- NOTE | 2020-04-24 08:06 | NUR ---
WEBSITE DESIGNER: midline no blood return reported, ok to use
[2020-04-24] MEDS: TOLTERODINE 2 MG CAP.SR PO SCH ×2 (08:14→16:42)
[2020-04-24] MEDS: DOCUSATE SODIUM LIQ 100 MG/10 ML UDC GT SCH ×2 (08:14→16:42)
[2020-04-24] MEDS: DEXAMETHASONE SOD PHOSPHATE 10 MG/ML VIAL IV SCH (08:14)
[2020-04-24] MEDS: PROSOURCE / PROSTAT (PYXIS) 30 ML UDC GT SCH ×3 (08:14→16:39)
[2020-04-24] MEDS: FAMOTIDINE (20 MG) 20 MG TABLET GT SCH ×2 (08:14→21:30)
[2020-04-24] MEDS: CARBIDOPA/LEVODOPA 10/100 MG 1 UDTAB GT SCH ×3 (08:14→16:42)
[2020-04-24] MEDS: CLOPIDOGREL BISULFATE 75 MG TABLET GT SCH (08:14)
[2020-04-24] MEDS: CEFEPIME 2 GM in IV D5W 100 ML IV SCH ×2 (08:15→21:30)
[2020-04-24] MEDS: ENOXAPARIN SODIUM 40 MG/0.4 ML DISP.SYRIN SQ SCH (08:16)
--- NOTE | 2020-04-24 09:00 | NUR ---
ADDICTION MEDICINE PHYSICIAN: pt.family called, updated with pt.current status, VS, orders, POC, asks to speak with , nehemias Paniagua phone#
--- NOTE | 2020-04-24 11:30 | NUR ---
GROUP RESERVATIONS COORDINATOR: spoke with pt.family/daughter Rosy
[2020-04-24] MEDS: INSULIN REGULAR, HUMAN 100 UNIT/ML 3 ML VIAL SQ PRN ×2 (11:53→18:09)
--- NOTE | 2020-04-24 14:17 | NUR ---
FUEL TESTING TECHNICIAN: pr daughter called/updated with pt.current condition, VS, O2sat. over 96% on 9L SM, POC
--- NOTE | 2020-04-24 15:33 | NUR ---
CERAMIC WORKER: BMx1, all PM/skin/bedbath/wound care done, sacral DTI: open superficial wound now, applied oil/em dressing, zquard, covered with Mepilex f/u CUBA Hansen recommendation
--- NOTE | 2020-04-24 18:29 | NUR ---
WEAVING PROFESSOR: same neuro status, O2sat. over 95% on 8L SM, no SOB, SR, SBP over 90
--- NOTE | 2020-04-24 19:44 | NUR ---
BOOKKEEPING CLERKS SUPERVISOR RCD PT W/DX PNA; PT IN ISOLATION FOR COVID 19. PT IS AWAKE NON VERBAL AND UNABLE TO FOLLOW COMMANDS. RESISTANT TO CARE. NSR ON MONITOR. ON SIMPLE MASK 8 L; TOLERATING WELL. G TUBE W/ GLUCERNA @ 40 ML/HR NO RESIDUAL AT THIS TIME. KAILEE MIDLINE PATENT NO BLOOD RETURN NOTED. SACRAL OPEN WOUND AND LEFT ARM WOUND WITH OIL EMULSION AND MEPILEX IN PLACE.
[2020-04-24] MEDS: ATORVASTATIN 40 MG TABLET GT SCH (21:30)
[2020-04-24] MEDS: LATANOPROST EYE DROP 0.005% 2.5 ML BOTTLE EACHEYE SCH (21:30)
[2020-04-24] MEDS: INSULIN GLARGINE, 100 UNIT/ML CARTRIDGE SQ SCH (21:59)
[2020-04-25] VITALS (36 sets, daily range): BP systolic 80–162; BP diastolic 48–94
[2020-04-25] MEDS: IV NS 0.9% 250 ML IV PRN (02:00)
[2020-04-25] MEDS: GLUCERNA 1.2 1,000 ML BOTTLE NG PRN (02:00)
[2020-04-25] MEDS: VANCOMYCIN 0.75 GM in IV D5W 250 ML IV SCH ×2 (02:00→15:54)
[2020-04-25 04:59] LABS: BASOPHILS # (AUTO) 0.1 /CMM (0.0-0.2); BASOPHILS % (AUTO) 0.5 % (0.0-2.0); EOSINOPHILS % (AUTO) 2.8 % (0.0-6.0); HEMATOCRIT 30 % (33-45); HEMOGLOBIN 9.8 g/dL (11.5-14.8); LYMPHOCYTES # (AUTO) 1.4 /CMM (0.8-4.8); LYMPHOCYTES % (AUTO) 13.5 % (20.0-44.0); MEAN CORPUSCULAR HGB CONC 33 g/dl (31.0-36.0); MEAN CORPUSCULAR VOLUME 89 fL (82-100); MONOCYTES # (AUTO) 0.7 /CMM (0.1-1.30); MONOCYTES % (AUTO) 6.8 % (2.0-12.0); NEUTROPHILS # (AUTO) 8.2 /CMM (1.8-8.9); NEUTROPHILS % (AUTO) 76.4 % (43.0-81.0); PLATELET COUNT (AUTO) 286 /CMM (150-450); RED BLOOD CELL COUNT(AUTO) 3.39 MIL/uL (4.0-5.2); WHITE BLOOD COUNT (AUTO) 10.7 K/uL (4.3-11.0)
[2020-04-25 05:19] LABS: CALCIUM, SERUM 8.8 mg/dL (8.5-10.1); CARBON DIOXIDE 28 mmol/L (21-32); CHLORIDE 99 mmol/L (98-107); CREATININE 0.5 mg/dL (0.6-1.3); GLUCOSE 123 mg/dL (74-106); MAGNESIUM 1.9 mg/dL (1.8-2.4); PHOSPHORUS 2.1 mg/dL (2.5-4.9); POTASSIUM 3.7 mmol/L (3.5-5.1); SODIUM SERUM 133 mmol/L (136-145); UREA NITROGEN, BLOOD 22 mg/dL (7-18)
[2020-04-25] MEDS: BLOOD SUGAR DIAGNOSTIC 1 EACH STRIP IN SCH ×3 (05:27→17:55)
[2020-04-25] MEDS ORDERED: POTASSIUM PHOSPHATE MM 5 MMOL in IV NS 0.9% 100 ML IV SCH (08:00)
--- NOTE | 2020-04-25 08:00 | NUR ---
BRASS SORTER: pt.is lethargic/obtunded, can open eyes by touch/pain stimuli, no eyes contact, no verbal, unable to follow commands, no any tracking reaction, activity: grimacing, weak arms/legs activity, rigid, no tremor, cough+, on 8L SM O2, sat 98-100%, will down to 7L, SR, SBP over90/[id number], GTF residual 5ml, T WNL reported, still waiting convPlasma
[2020-04-25] MEDS: TOLTERODINE 2 MG CAP.SR PO SCH ×2 (08:45→17:11)
[2020-04-25] MEDS: CLOPIDOGREL BISULFATE 75 MG TABLET GT SCH (08:45)
[2020-04-25] MEDS: FAMOTIDINE (20 MG) 20 MG TABLET GT SCH ×2 (08:45→21:19)
[2020-04-25] MEDS: CARBIDOPA/LEVODOPA 10/100 MG 1 UDTAB GT SCH ×3 (08:45→17:11)
[2020-04-25] MEDS: DEXAMETHASONE SOD PHOSPHATE 10 MG/ML VIAL IV SCH (08:46)
[2020-04-25] MEDS: CEFEPIME 2 GM in IV D5W 100 ML IV SCH ×2 (08:46→21:20)
[2020-04-25] MEDS: DOCUSATE SODIUM LIQ 100 MG/10 ML UDC GT SCH ×2 (08:46→17:11)
[2020-04-25] MEDS: ENOXAPARIN SODIUM 40 MG/0.4 ML DISP.SYRIN SQ SCH (08:47)
--- NOTE | 2020-04-25 09:15 | NUR ---
BRICK OFF BEARER: pt.family called, detailed updated with pt.current condition, neuro status, VS, I/O, O2sat. on SM, GTF, meds, orders, POC, recommended regarding Dx, Lungs status, prognosis to speak with MDs again
[2020-04-25] MEDS: PROSOURCE / PROSTAT (PYXIS) 30 ML UDC GT SCH ×3 (09:16→17:11)
[2020-04-25 10:08] LABS: BAND % (MANUAL) 1 % (0.0-5.0); LYMPHOCYTES % (MANUAL) 10 % (16-48); MONOCYTES % (MANUAL) 9 % (0-11.0); MYELOCYTES % 1 % (0-0); NEUTROPHILS % (MANUAL) 79 (42-76)
[2020-04-25] MEDS: INSULIN REGULAR, HUMAN 100 UNIT/ML 3 ML VIAL SQ PRN ×2 (12:22→17:55)
--- NOTE | 2020-04-25 12:47 | NUR ---
MEDICAL ENGINEER: updated with pt.current condition, obtunded/lethargic, O2sat.over 97% on 7L SM, VS, I/O, GTF, meds, CXR result, family calls, see new orders
--- NOTE | 2020-04-25 18:32 | NUR ---
BEAN SNIPPER: conv.Plasma one unit transfused, tolerated well, all PM/skin/bedbath/wounds care done
--- NOTE | 2020-04-25 19:00 | NUR ---
RECEIVED PATIENT ,LETHARGIC, APHASIC,GRIMACES AND MOANS GEOVANNA PAIN,CONTRACTED EXTREMITIES.WITHDRAWS TO PAIN.NOT IN ANY DISTRESS,WITH O2 VIA SIMPLE FACE MASK 6 L/MIN, NOT IN ANY DISTRESS,BREATHING REGULAR AND NON LABORED. WITH ON GOING TUBE FEEDING VIA g G TUBE,TOLERATING WELL,ASPIRATION PRECAUTION OBSERVED.
[2020-04-25] MEDS: ATORVASTATIN 40 MG TABLET GT SCH (21:19)
[2020-04-25] MEDS: INSULIN GLARGINE, 100 UNIT/ML CARTRIDGE SQ SCH (21:32)
[2020-04-25] MEDS: LATANOPROST EYE DROP 0.005% 2.5 ML BOTTLE EACHEYE SCH (21:32)
[2020-04-26] VITALS (30 sets, daily range): BP systolic 115–168; BP diastolic 49–109
--- NOTE | 2020-04-26 | NUR ---
STABLE ALL NIGHT ,NOT IN ANY RESPIRATORY DISTRESS,BREATHING,REGULAR AND NON LABORED.
[2020-04-26] MEDS: BLOOD SUGAR DIAGNOSTIC 1 EACH STRIP IN SCH ×5 (00:20→23:24)
[2020-04-26] MEDS: INSULIN REGULAR, HUMAN 100 UNIT/ML 3 ML VIAL SQ PRN ×3 (00:35→18:33)
[2020-04-26] MEDS: VANCOMYCIN 0.75 GM in IV D5W 250 ML IV SCH ×2 (03:36→15:12)
--- NOTE | 2020-04-26 04:00 | NUR ---
REMAINS STABLE,AM CARE DONE,TOLERATED WELL, NO SOB,SATURATING WELL ON 6L SIMPLE FACE MASK
[2020-04-26 04:49] LABS: BASOPHILS # (AUTO) 0.2 /CMM (0.0-0.2); BASOPHILS % (AUTO) 2.8 % (0.0-2.0); EOSINOPHILS % (AUTO) 0.2 % (0.0-6.0); HEMATOCRIT 31 % (33-45); LYMPHOCYTES # (AUTO) 1.1 /CMM (0.8-4.8); LYMPHOCYTES % (AUTO) 13.9 % (20.0-44.0); MEAN CORPUSCULAR HGB CONC 32 g/dl (31.0-36.0); MEAN CORPUSCULAR VOLUME 89 fL (82-100); MONOCYTES # (AUTO) 0.7 /CMM (0.1-1.30); NEUTROPHILS # (AUTO) 5.8 /CMM (1.8-8.9); NEUTROPHILS % (AUTO) 74.1 % (43.0-81.0); PLATELET COUNT (AUTO) 224 /CMM (150-450); RED BLOOD CELL COUNT(AUTO) 3.49 MIL/uL (4.0-5.2); WHITE BLOOD COUNT (AUTO) 7.8 K/uL (4.3-11.0)
[2020-04-26 05:56] LABS: ALANINE AMINOTRANSFERASE 22 U/L (12-78); ALBUMIN 2.1 g/dL (3.4-5.0); ALKALINE PHOSPHATASE 63 U/L (46-116); ASPARTATE AMINOTRANSFERASE 17 U/L (15-37); BILIRUBIN,TOTAL 0.4 mg/dL (0.2-1.0); CALCIUM, SERUM 9.1 mg/dL (8.5-10.1); CARBON DIOXIDE 29 mmol/L (21-32); CHLORIDE 101 mmol/L (98-107); CREATININE 0.5 mg/dL (0.6-1.3); GLUCOSE 95 mg/dL (74-106); MAGNESIUM 2.1 mg/dL (1.8-2.4); PHOSPHORUS 2.5 mg/dL (2.5-4.9); POTASSIUM 3.9 mmol/L (3.5-5.1); SODIUM SERUM 134 mmol/L (136-145); TOTAL PROTEIN, SERUM 7.2 g/dL (6.4-8.2); UREA NITROGEN, BLOOD 26 mg/dL (7-18)
--- NOTE | 2020-04-26 06:00 | NUR ---
STABLE ALL NIGHT,O2 DOWN TO 5 L/MIN. 0700 REPORT GIVEN TO HEATHER ROBLERO
[2020-04-26] MEDS: IV NS 0.9% 250 ML IV PRN (06:56)
--- NOTE | 2020-04-26 07:45 | NUR ---
RN OPENING NOTES: RECEIVED PATIENT IN BED SLEEPING. UPON ASSESMENT THERE WERE NO SIGNS OF ANY RESPIRATORY DISTRESS, DIFFICULTY BREATHING, SHORTNESS OF BREATH OR ANY PAIN. PT IS ON MAS 6L TOLERATING WELL. SR 70, IV ACCESS KAILEE MIDLINE, R FA, INTACT, PATENT, FLUSHED WELL, TKO NS RUNNING. PATIENTS COMFORT MEASURES TAKEN, SAFETY MEASURES MAINTAINED, CALL LIGHT WITHIN REACH WILL CONTINUE TO MONITOR.
[2020-04-26] MEDS: CARBIDOPA/LEVODOPA 10/100 MG 1 UDTAB GT SCH ×3 (09:17→17:15)
[2020-04-26] MEDS: CLOPIDOGREL BISULFATE 75 MG TABLET GT SCH (09:17)
[2020-04-26] MEDS: TOLTERODINE 2 MG CAP.SR PO SCH ×2 (09:17→17:15)
[2020-04-26] MEDS: FAMOTIDINE (20 MG) 20 MG TABLET GT SCH ×2 (09:17→21:22)
[2020-04-26] MEDS: CEFEPIME 2 GM in IV D5W 100 ML IV SCH (09:17)
[2020-04-26] MEDS: DEXAMETHASONE SOD PHOSPHATE 10 MG/ML VIAL IV SCH (09:18)
[2020-04-26] MEDS: PROSOURCE / PROSTAT (PYXIS) 30 ML UDC GT SCH ×3 (09:18→17:18)
[2020-04-26] MEDS: DOCUSATE SODIUM LIQ 100 MG/10 ML UDC GT SCH ×2 (09:18→17:15)
[2020-04-26] MEDS: ENOXAPARIN SODIUM 40 MG/0.4 ML DISP.SYRIN SQ SCH (09:29)
[2020-04-26 10:28] LABS: LYMPHOCYTES % (MANUAL) 14 % (16-48); MONOCYTES % (MANUAL) 7 % (0-11.0); NEUTROPHILS % (MANUAL) 76 (42-76)
[2020-04-26 10:29] LABS: EOSINOPHILS % (MANUAL) 1 % (0-4); MYELOCYTES % 2 % (0-0)
--- NOTE | 2020-04-26 12:39 | NUR ---
RN NOTES: PATIENTS AM CARE DONE, REPOSITIONED, MEDS GIVEN, COMFORT MEASURES TAKEN. WILL CONTINUE TO MONITOR.
--- NOTE | 2020-04-26 18:45 | NUR ---
RN CLOSING NOTES: PT IN BED SLEEPING, WITH NO SIGNS OF ANY RESPIRATORY DISTRESS, SOB OR ANY PAIN. PT ON 6L O2 TOLERATING. ON TELE MONITOR SR. PATIENT WITH NO ACUTE CHANGES IN HER STATUS, WITHIN THE SHIFT. IV INTACT, PATENT AND WELL FLUSHED. SAFETY MEASURES MAINTAINED CALL LIGHT WITHIN REACH, WILL ENDORSE TO PM SHIFT FOR CONTINUATION OF CARE.
--- NOTE | 2020-04-26 20:00 | NUR ---
PEDIATRICIAN/MEDICAL DOCTOR NOTE PT IN BED LETHARGIC ON AND OFF. NO SOB, NO DISTRESS OR DISCOMFORT NOTED. NO S/S OF PAIN NOTED. ON O2 6L VIA N/C O2 SAT 100 %. F/C INTACT AND PATENT DRAINING YELLOWISH COLOR URINE. GT INTACT AND PATENT INFUSING GLUCERNA AT 40 ML/HR, 0 ML RESIDUAL NOTED. KAILEE MIDLINE AND RFA #20 SL INTACT AND PATENT, PT ON NS TKO NO S/S OF INFILTRATION NOTED. VSS. REPOSITION HER Q2H, KEPT HER DRY AND CLEAN. ALL NEEDS ATTENDED. SIDE RAILS UP X 3 AND CALL LIGHT WITHIN REACH. CONTINUE TO MONITOR HER.
[2020-04-26] MEDS: ATORVASTATIN 40 MG TABLET GT SCH (21:22)
[2020-04-26] MEDS: LATANOPROST EYE DROP 0.005% 2.5 ML BOTTLE EACHEYE SCH (21:23)
[2020-04-26] MEDS: GLUCERNA 1.2 1,000 ML BOTTLE NG PRN (21:24)
[2020-04-26] MEDS: INSULIN GLARGINE, 100 UNIT/ML CARTRIDGE SQ SCH (22:00)
--- NOTE | 2020-04-26 23:26 | NUR ---
SLAT BASKET MAKER NOTE BS 61, OJ GIVEN VIA GT, GT FEEDING INFUSING WELL. BED BATH GIVEN ALSO WOUND PICTURES TAKEN. TX GIVEN ORDERED. CONTINUE TO MONITOR HER.
[2020-04-27] VITALS (41 sets, daily range): BP systolic 91–162; BP diastolic 43–90
[2020-04-27 04:40] LABS: BASOPHILS % (AUTO) 0.5 % (0.0-2.0); EOSINOPHILS % (AUTO) 0.6 % (0.0-6.0); HEMATOCRIT 30 % (33-45); HEMOGLOBIN 9.7 g/dL (11.5-14.8); LYMPHOCYTES # (AUTO) 0.7 /CMM (0.8-4.8); LYMPHOCYTES % (AUTO) 8.3 % (20.0-44.0); MEAN CORPUSCULAR HGB CONC 33 g/dl (31.0-36.0); MEAN CORPUSCULAR VOLUME 88 fL (82-100); MONOCYTES # (AUTO) 0.3 /CMM (0.1-1.30); MONOCYTES % (AUTO) 3.8 % (2.0-12.0); NEUTROPHILS # (AUTO) 7.8 /CMM (1.8-8.9); NEUTROPHILS % (AUTO) 86.8 % (43.0-81.0); PLATELET COUNT (AUTO) 261 /CMM (150-450); RED BLOOD CELL COUNT(AUTO) 3.35 MIL/uL (4.0-5.2)
[2020-04-27 05:17] LABS: CALCIUM, SERUM 9.3 mg/dL (8.5-10.1); CREATININE 0.6 mg/dL (0.6-1.3); MAGNESIUM 2.1 mg/dL (1.8-2.4); PHOSPHORUS 2.9 mg/dL (2.5-4.9); POTASSIUM 4.5 mmol/L (3.5-5.1)
[2020-04-27] MEDS: BLOOD SUGAR DIAGNOSTIC 1 EACH STRIP IN SCH ×3 (05:30→17:54)
--- NOTE | 2020-04-27 06:37 | NUR ---
LOAN DOCUMENTS CLOSER NOTE PT IN BED REMAIN LETHARGIC ON AND OFF. NO DISTRESS OR DISCOMFORT NOTED. NO S/S OF PAIN NOTED. ON TELE SR HR 75 BP 111/61. GT INTACT AND PATENT INFUSING GLUCERNA AT 40 ML/HR, 0 ML RESIDUAL NOTED. F/C DRAINING WELL YELLOWISH COLOR URINE WITH SEDEMENTS. BS 113. REPOSITION HER Q2H, KEPT HER DRY AND CLEAN. ALL NEEDS ATTENDED. VSS. WILL ENDORSE TO DAY SHIFT NURSE FOR CONTINUE TO CARE.
--- NOTE | 2020-04-27 07:10 | NUR ---
RN NOTES RECEIVED PT ON BED, EYES ARE OPEN , PT DOES NOT FOLLOW COMMAND, ON 6L O2 FACE MASK , O2 SAT 99%, ON TELE, SR HR IN 70'S , ALEJO DRINING TO GRAVITY, TF AT 40CC/HR RUNNING TOLERATING WELL, R UPPER ARM MIDLINE SITE CLEAN, DRY AND INTACT, SR UP x3, CALL LIGHT WITHIN EASY REACH, BED LOCKED AND IN LOWEST POSITION, CONTINUE TO MONITOR .
[2020-04-27] MEDS: CARBIDOPA/LEVODOPA 10/100 MG 1 UDTAB GT SCH ×3 (08:26→16:33)
[2020-04-27] MEDS: ENOXAPARIN SODIUM 40 MG/0.4 ML DISP.SYRIN SQ SCH (08:27)
[2020-04-27] MEDS: DOCUSATE SODIUM LIQ 100 MG/10 ML UDC GT SCH ×2 (08:27→16:33)
[2020-04-27] MEDS: TOLTERODINE 2 MG CAP.SR PO SCH ×2 (08:27→16:33)
[2020-04-27] MEDS: DEXAMETHASONE SOD PHOSPHATE 10 MG/ML VIAL IV SCH (08:27)
[2020-04-27] MEDS: FAMOTIDINE (20 MG) 20 MG TABLET GT SCH ×2 (08:27→21:20)
[2020-04-27] MEDS: CLOPIDOGREL BISULFATE 75 MG TABLET GT SCH (08:27)
[2020-04-27] MEDS: PROSOURCE / PROSTAT (PYXIS) 30 ML UDC GT SCH ×3 (08:45→16:33)
[2020-04-27] MEDS ORDERED: IV D5/ 0.9% NACL 1,000 ML IV PRN (10:30)
[2020-04-27] MEDS: IV NS 0.9% 1,000 ML IV PRN (10:33)
--- NOTE | 2020-04-27 12:00 | NUR ---
RN NOTES DR CECILY PAFED REGARDING LOW URINE OUTPUT
[2020-04-27] MEDS: INSULIN REGULAR, HUMAN 100 UNIT/ML 3 ML VIAL SQ PRN ×2 (12:08→17:54)
--- NOTE | 2020-04-27 14:48 | NUR ---
RN NOTES FACE TIME DONE WITH PT AND HER FAMILY .
--- NOTE | 2020-04-27 18:34 | NUR ---
RN NOTES: PT REMAINS THE SAME , DOES NOT FOLLOW COMMAND, NO SIGNIFICANT CHANGES NOTED ON THIS SHIFT, ON FACE MASK AT 6L , O2 SAT WNL, ON TELE MONITOR SR. PATIENT WITH NO ACUTE CHANGES IN HER STATUS, WITHIN THE SHIFT. IV INTACT, PATENT AND WELL FLUSHED. SAFETY MEASURES MAINTAINED CALL LIGHT WITHIN REACH, WILL ENDORSE TO CLEANING ASSOCIATE NURSE FOR CONTINUITY OF CARE.
--- NOTE | 2020-04-27 19:30 | NUR ---
GAMING PIT BOSS NOTE RECEIVED PT IN BED RESTING COMFORTABLY. OBTUNDED, IN NO S/SX OF ACUTE DISTRESS AT THIS TIME. PATIENT'S BREATHING IS EVEN AND UNLABORED WITH EQUAL RISE AND FALL OF THE CHEST. PATIENT IS ON 6 L OF OXYGEN VIA O2 MASK, TOLERATING WELL, SATURATING AT 100%. PATIENT IS SINUS RHYTHM ON HEALTH DATA ANALYST WITH HR AT 70'S. NOTED IV SITE ON KAILEE MIDLINE WITH NS AT 60 ML/HR, AND AT RFA G20; BOTH PATENT AND FLUSHING WELL,NO S/S OF INFECTION. ALEJO CATH IN PLACE WITH CLEAR, YULIANA OUTPUT NOTED. SACRAL WOUND, AND BLISTERS ON THE L ARM NOTED. DVT PUMPS IN PLACE. SAFETY MEASURES IMPLEMENTED PER PROTOCOL. PATIENT BED ALARM IS ON. HEAD OF BED ELEVATED. BED IS LOCKED, IN LOWEST POSITION AND SIDE RAILS UP. CALL LIGHT WITHIN REACH OF THE PATIENT. WILL CONTINUE TO MONITOR AND REASSESS FOR ANY CHANGES.
[2020-04-27] MEDS: ATORVASTATIN 40 MG TABLET GT SCH (21:20)
[2020-04-27] MEDS: INSULIN GLARGINE, 100 UNIT/ML CARTRIDGE SQ SCH (21:38)
[2020-04-28] VITALS (20 sets, daily range): BP systolic 114–151; BP diastolic 58–83
[2020-04-28] MEDS: BLOOD SUGAR DIAGNOSTIC 1 EACH STRIP IN SCH ×5 (00:37→23:12)
[2020-04-28] MEDS: GLUCERNA 1.2 1,000 ML BOTTLE NG PRN (00:38)
[2020-04-28] MEDS: LATANOPROST EYE DROP 0.005% 2.5 ML BOTTLE EACHEYE SCH ×2 (00:59→21:26)
[2020-04-28] MEDS: INSULIN REGULAR, HUMAN 100 UNIT/ML 3 ML VIAL SQ PRN ×4 (01:00→23:11)
[2020-04-28] MEDS: IV NS 0.9% 1,000 ML IV PRN ×2 (04:02→20:25)
[2020-04-28 04:25] LABS: BASOPHILS # (AUTO) 0.1 /CMM (0.0-0.2); EOSINOPHILS % (AUTO) 0.3 % (0.0-6.0); HEMATOCRIT 32 % (33-45); HEMOGLOBIN 10.4 g/dL (11.5-14.8); LYMPHOCYTES # (AUTO) 1.6 /CMM (0.8-4.8); LYMPHOCYTES % (AUTO) 20.9 % (20.0-44.0); MEAN CORPUSCULAR HGB CONC 33 g/dl (31.0-36.0); MEAN CORPUSCULAR VOLUME 89 fL (82-100); MONOCYTES # (AUTO) 0.8 /CMM (0.1-1.30); MONOCYTES % (AUTO) 9.8 % (2.0-12.0); NEUTROPHILS # (AUTO) 5.4 /CMM (1.8-8.9); PLATELET COUNT (AUTO) 262 /CMM (150-450); RED BLOOD CELL COUNT(AUTO) 3.55 MIL/uL (4.0-5.2); WHITE BLOOD COUNT (AUTO) 7.9 K/uL (4.3-11.0)
[2020-04-28 04:34] LABS: CALCIUM, SERUM 9.5 mg/dL (8.5-10.1); CARBON DIOXIDE 29 mmol/L (21-32); CHLORIDE 101 mmol/L (98-107); CREATININE 0.5 mg/dL (0.6-1.3); GLUCOSE 103 mg/dL (74-106); PHOSPHORUS 2.7 mg/dL (2.5-4.9); POTASSIUM 4.3 mmol/L (3.5-5.1); SODIUM SERUM 135 mmol/L (136-145); UREA NITROGEN, BLOOD 23 mg/dL (7-18)
[2020-04-28 05:09] LABS: LYMPHOCYTES % (MANUAL) 23 % (16-48); MONOCYTES % (MANUAL) 5 % (0-11.0); NEUTROPHILS % (MANUAL) 72 (42-76)
--- NOTE | 2020-04-28 07:26 | NUR ---
WOUND CARE FOLLOW UP: REVIEWED CHART, NURSING DOCUMENTATION AND PHOTO WHICH SHOWS SACRAL DEEP TISSUE INJURY WHICH IS IN EVOLUTION. RECOMMENDATIONS MADE FOR WOUND CARE AND SKIN PROTECTION. DISCUSSED WITH NURSING STAFF. [facility] IN AGREEMENT WITH PLAN OF CARE.
--- NOTE | 2020-04-28 08:00 | NUR ---
RN OPENING NOTE: RECEIVED PATIENT IN BED THIS MORNING. PATIENT IS OBTUNDED. O2 NC 6L/MIN, SATING WELL. NO SIGNS OF ACUTE DISTRESS NOTED. SR IN THE 80S ON BEDSIDE MONITOR. GTF GLUCERNA 1.2. #20 RFA, KAILEE MIDLINE, C/D/I, FLUSHING WELL, NO SIGNS OF COMPLICATIONS NOTED. ALEJO DRAINING URINE. WOUND CARE PER ORDERS. SAFETY MEASURES IMPLEMENTED, BED IN LOWEST POSITION, LOCKED, SIDE RAILS UP, CALL LIGHT WITHIN REACH. WILL CONTINUE TO MONITOR PATIENT FOR CHANGES.
[2020-04-28] MEDS: DOCUSATE SODIUM LIQ 100 MG/10 ML UDC GT SCH ×2 (08:16→16:09)
[2020-04-28] MEDS: CARBIDOPA/LEVODOPA 10/100 MG 1 UDTAB GT SCH ×3 (08:16→16:09)
[2020-04-28] MEDS: TOLTERODINE 2 MG CAP.SR PO SCH ×2 (08:16→16:09)
[2020-04-28] MEDS: FAMOTIDINE (20 MG) 20 MG TABLET GT SCH ×2 (08:16→20:26)
[2020-04-28] MEDS: CLOPIDOGREL BISULFATE 75 MG TABLET GT SCH (08:16)
[2020-04-28] MEDS: ENOXAPARIN SODIUM 40 MG/0.4 ML DISP.SYRIN SQ SCH (08:17)
[2020-04-28] MEDS: DEXAMETHASONE SOD PHOSPHATE 10 MG/ML VIAL IV SCH (08:17)
[2020-04-28] MEDS: PROSOURCE / PROSTAT (PYXIS) 30 ML UDC GT SCH ×3 (08:19→16:10)
--- NOTE | 2020-04-28 11:34 | NUR ---
SPOKE TO CHRIS (DAUGHTER), GAVE HER UPDATE ON PATIENT'S HEALTH STATUS AND PLAN TO DOWNGRADE TO SYL SOMETIME TODAY.
--- NOTE | 2020-04-28 13:22 | NUR ---
GAVE REPORT TO ANNIKA WILEY FOR CONTINUITY OF CARE. TO TRANSFER TO 107 SYL
--- NOTE | 2020-04-28 13:55 | NUR ---
TRANSFERRED PATIENT TO SYL, AT TIME OF TRANSFER, NO ACUTE DISTRESS NOTED.
--- NOTE | 2020-04-28 14:50 | NUR ---
SYL RN NOTE RECEIVED PATIENT IN BED, LETHARGIC, ON 6L SIMPLE MASK NO SOB NOTED AT THIS TIME , WITH ALEJO CATH TO GRAVITY WITH YELLOW COLOR URINE , G TUBE CLUMPED AT THIS TIME AWAITING FOR FEEDING PUMP, KAILEE MID LINE IN PLACE ON IVF ORDERED BED IN LOWEST AND LOCKED POSITION , WILL CONT TO MONITOR
--- NOTE | 2020-04-28 18:29 | NUR ---
lacie rn note resting comfortably in bed, all needs attended, not in distress
--- NOTE | 2020-04-28 19:50 | NUR ---
SYL RN NOTE PT RECEIVED IN BED LETHARGIC. RESPONDS TO PAINFUL STIMULATION. REMAIN ON SIMPLE MASK O2 6L, O2 SAT 100%. NO DISTRESS OR DISCOMFORT NOTED. NO SOB NOTED. ON TELE MONITOR SR HR 67. GT INTACT AND PATENT INFUSING GLUCERNA AT 40 ML/HR, 0 ML RESIDUAL NOTED. KEPT HOB ELEVATED. NATHALIE MIDLINE #18 G INTACT AND PATENT INFUSING NS AT 60 ML/HR, NO S/S OF INFILTRATION NOTED. . F/C INTACT AND PATENT DRAINING YELLOWISH COLOR URINE. REPOSITION HER FOR SKIN MANAGEMENT. KEPT HER DRY AND CLEAN. SIDE RAILS UP X 3 AND CALL LIGHT WITH IN REACH. VSS. CONTINUE TO MONITOR HER.
[2020-04-28] MEDS: ATORVASTATIN 40 MG TABLET GT SCH (21:26)
[2020-04-28] MEDS: INSULIN GLARGINE, 100 UNIT/ML CARTRIDGE SQ SCH (22:00)
--- NOTE | 2020-04-28 23:12 | NUR ---
SYL RN NOTE BS 70, NO INUSLIN COVERAGE GIVEN. ALSO HELP CHAD AT THIS TIME.
[2020-04-29] VITALS: BP 135/67
[2020-04-29 04:00] VITALS: BP 144/65
[2020-04-29] MEDS: GLUCERNA 1.2 1,000 ML BOTTLE NG PRN (04:39)
[2020-04-29] MEDS: BLOOD SUGAR DIAGNOSTIC 1 EACH STRIP IN SCH ×4 (06:13→23:13)
--- NOTE | 2020-04-29 06:49 | NUR ---
SYL RN NOTE PT IN BED LETHARGIC. ON TELE MONITOR SR HR 71. NO DISTRESS NOTED. GTF INFUSING WELL. 0 ML RESIDUAL NOTED. KEPT HER DRY AND CLEAN. F/C INTACT AND PATENT DRAINING YELLOWISH COLOR URINE. SIDE RAILS UP X 3 AND CALL LIGHT WITHIN REACH. WILL ENSDORSE TO DAY SHIFT NURSE FOR CONTINUE TO CARE.
[2020-04-29 07:07] LABS: BASOPHILS # (AUTO) 0.1 /CMM (0.0-0.2); BASOPHILS % (AUTO) 0.8 % (0.0-2.0); EOSINOPHILS % (AUTO) 0.5 % (0.0-6.0); HEMATOCRIT 34 % (33-45); HEMOGLOBIN 10.8 g/dL (11.5-14.8); LYMPHOCYTES # (AUTO) 2.4 /CMM (0.8-4.8); LYMPHOCYTES % (AUTO) 24.6 % (20.0-44.0); MEAN CORPUSCULAR HGB CONC 32 g/dl (31.0-36.0); MEAN CORPUSCULAR VOLUME 90 fL (82-100); MONOCYTES # (AUTO) 0.8 /CMM (0.1-1.30); NEUTROPHILS # (AUTO) 6.5 /CMM (1.8-8.9); NEUTROPHILS % (AUTO) 66.1 % (43.0-81.0); PLATELET COUNT (AUTO) 270 /CMM (150-450); RED BLOOD CELL COUNT(AUTO) 3.72 MIL/uL (4.0-5.2); WHITE BLOOD COUNT (AUTO) 9.9 K/uL (4.3-11.0)
--- NOTE | 2020-04-29 07:20 | NUR ---
SYL RN OPENING NOTE Received patient asleep in bed appears calm and relaxed. No signs of distress. On Simple Mask 6L tolerating well. Tele reading SR 60-70s. Jimenez catheter in place. GTF running Glucerna 1.2 @40ml/hr. Has RFA #20 dressing intact and KAILEE Midline running NS @ 60ml/hr. Safety measures reinforced. Call light within reach. Side rails up x2. Bed locked and on lowest position. Will cont to monitor.
[2020-04-29 07:26] LABS: CALCIUM, SERUM 9.2 mg/dL (8.5-10.1); CARBON DIOXIDE 27 mmol/L (21-32); CHLORIDE 101 mmol/L (98-107); CREATININE 0.3 mg/dL (0.6-1.3); GLUCOSE 77 mg/dL (74-106); MAGNESIUM 2.2 mg/dL (1.8-2.4); PHOSPHORUS 2.5 mg/dL (2.5-4.9); POTASSIUM 4.6 mmol/L (3.5-5.1); SODIUM SERUM 136 mmol/L (136-145); UREA NITROGEN, BLOOD 22 mg/dL (7-18)
[2020-04-29 08:00] VITALS: BP 144/71
[2020-04-29] MEDS: DOCUSATE SODIUM LIQ 100 MG/10 ML UDC GT SCH ×2 (08:49→16:37)
[2020-04-29] MEDS: FAMOTIDINE (20 MG) 20 MG TABLET GT SCH ×2 (08:50→21:40)
[2020-04-29] MEDS: ENOXAPARIN SODIUM 40 MG/0.4 ML DISP.SYRIN SQ SCH (08:50)
[2020-04-29] MEDS: CARBIDOPA/LEVODOPA 10/100 MG 1 UDTAB GT SCH ×3 (08:50→16:37)
[2020-04-29] MEDS: CLOPIDOGREL BISULFATE 75 MG TABLET GT SCH (08:50)
[2020-04-29] MEDS: DEXAMETHASONE SOD PHOSPHATE 10 MG/ML VIAL IV SCH (08:51)
[2020-04-29] MEDS: TOLTERODINE 2 MG CAP.SR PO SCH ×2 (08:54→16:37)
[2020-04-29] MEDS: PROSOURCE / PROSTAT (PYXIS) 30 ML UDC GT SCH ×3 (10:10→16:40)
[2020-04-29 12:00] VITALS: BP 127/70
[2020-04-29] MEDS: INSULIN REGULAR, HUMAN 100 UNIT/ML 3 ML VIAL SQ PRN ×2 (12:52→17:42)
[2020-04-29] MEDS: IV NS 0.9% 1,000 ML IV PRN (13:42)
--- NOTE | 2020-04-29 13:56 | NUR ---
GAVE REPORT TO LACEY FOR FELICITAS
--- NOTE | 2020-04-29 13:58 | NUR ---
RN/SYL RECEIVED REPORT FROM ANNIKA PULLIMA. PATIENT IN BED. NO ACUTE DISTRESS NOTED. PATIENT ASLEEP, NONVERBAL, DOES NOT RESPOND TO VOICE/COMMANDS. PATIENT ON 6L OXYGEN VIA SIMPLE MASK, SATURATING WELL AT 98-100%. PATIENT ON PRECISION INSTRUMENT MAKER AND REPAIRER, SINUS RHYTHM NOTED. PATIENT RIGHT UPPER ARM MIDLINE IN PLACE, INTACT, PATENT, FLUSHED WELL. PATIENT G-TUBE IN PLACE, INTACT, FLUSHED WELL. PATIENT ALEJO CATHETER IN PLACE, INTACT, DRAINING TO GRAVITY. PATIENT SAFETY MAINTAINED. CALL LIGHT WITHIN REACH. WILL CONTINUE TO MONITOR.
[2020-04-29 16:00] VITALS: BP 120/63
--- NOTE | 2020-04-29 16:23 | NUR ---
RN/SYL GAVE REPORT TO HERACLIO FOR CONTINUITY OF CARE.
--- NOTE | 2020-04-29 16:25 | NUR ---
RECEIVED REPORT FROM LACEY FOR FELICITAS
--- NOTE | 2020-04-29 17:38 | NUR ---
PT NOW ON NASAL CANNULA 5L TOLERATING WELL. O2 SAT 95-96%. CONT PULSE OX AT BEDSIDE. SPOKE TO DAUGHTER CHRIS INF I ASKED ANN MARIE TO GIVE HER A CALL. ALSO INF HER PATIENT IS CURRENTLY TOLERATING NC 5L.
--- NOTE | 2020-04-29 18:12 | NUR ---
patient unable to tolerate 5liters n/c,sat 89% and using accessory muscle to breath ,placed back on o2 mask 6 liters sat improves to 94%,will continue to monitor.
--- NOTE | 2020-04-29 18:54 | NUR ---
SYL RN CLOSING NOTE Patient asleep in bed appears calm and relaxed. No signs of distress. On Simple Mask 6L tolerating well. O2 sat 98-100% Tele reading SR 90-100s. Jimenez catheter in place drained 775ml. GTF running Glucerna 1.2 @40ml/hr tolerating well no residual. Has RFA #20 dressing intact and KAILEE Midline dressing intact and flushes well. All due meds given. Vital signs within normal limits. No signs of pain or discomfort. Assisted with ADLs. Safety measures reinforced. Call light within reach. Side rails up x2. Bed locked and on lowest position. Will endorse to lead security officer nurse.
[2020-04-29 20:00] VITALS: BP 119/45
[2020-04-29] MEDS: ATORVASTATIN 40 MG TABLET GT SCH (21:40)
[2020-04-29] MEDS: LATANOPROST EYE DROP 0.005% 2.5 ML BOTTLE EACHEYE SCH (21:55)
[2020-04-29] MEDS: INSULIN GLARGINE, 100 UNIT/ML CARTRIDGE SQ SCH (22:00)
--- NOTE | 2020-04-29 23:00 | NUR ---
SYL SUPERVISOR CORRESPONDENCE SECTION NOTE INSULIN NOT ADMINISTERED BECAUSE BGL WAS 95.
[2020-04-30] VITALS: BP_SYST 109; BP_SYST 119; BP_DIAS 45; BP_DIAS 58
[2020-04-30] MEDS: GLUCERNA 1.2 1,000 ML BOTTLE NG PRN (03:55)
[2020-04-30 04:00] VITALS: BP 107/51
[2020-04-30] MEDS: BLOOD SUGAR DIAGNOSTIC 1 EACH STRIP IN SCH ×3 (06:05→17:09)
--- NOTE | 2020-04-30 07:20 | NUR ---
SYL RN OPENING NOTE Received patient in bed appears calm and relaxed no signs of distress. On simple mask 6L O2 sat 100%. Patient is non verbal. Tele reading NSR 70s. Jimenez catheter draining clear yellow urine. GTF Glucerna 1.2 @ 20 ml/hr running. RFA #20 flushes well and KAILEE Midline running NS @ 60ml/hr. No signs of pain or discomfort. Safety measures maintained. Will cont to monitor.
[2020-04-30 08:00] VITALS: BP_SYST 120; BP_SYST 154; BP_DIAS 62
[2020-04-30] MEDS: PROSOURCE / PROSTAT (PYXIS) 30 ML UDC GT SCH ×3 (08:47→16:51)
[2020-04-30] MEDS: DOCUSATE SODIUM LIQ 100 MG/10 ML UDC GT SCH ×2 (08:47→16:49)
[2020-04-30] MEDS: FAMOTIDINE (20 MG) 20 MG TABLET GT SCH ×2 (08:47→21:32)
[2020-04-30] MEDS: CARBIDOPA/LEVODOPA 10/100 MG 1 UDTAB GT SCH ×3 (08:47→16:49)
[2020-04-30] MEDS: CLOPIDOGREL BISULFATE 75 MG TABLET GT SCH (08:47)
[2020-04-30] MEDS: TOLTERODINE 2 MG CAP.SR PO SCH ×2 (08:47→16:50)
[2020-04-30] MEDS: ENOXAPARIN SODIUM 40 MG/0.4 ML DISP.SYRIN SQ SCH (08:48)
[2020-04-30] MEDS: DEXAMETHASONE SOD PHOSPHATE 10 MG/ML VIAL IV SCH (09:33)
[2020-04-30] MEDS: IV NS 0.9% 250 ML IV PRN (11:45)
[2020-04-30 12:00] VITALS: BP 116/61
--- NOTE | 2020-04-30 12:15 | NUR ---
COVID SWAB PCR COLLECTED ON PATIENT. SENT SPECIMEN TO LABS AND SIGNED LOGBOOK.
--- NOTE | 2020-04-30 12:30 | NUR ---
NASAL CANNULA 5L TOLERATING WELL O2 SAT 100%
[2020-04-30] MEDS: INSULIN REGULAR, HUMAN 100 UNIT/ML 3 ML VIAL SQ PRN ×2 (12:51→17:10)
[2020-04-30 16:00] VITALS: BP 116/60
--- NOTE | 2020-04-30 19:04 | NUR ---
HOST CLOSING NOTE Patient in bed appears calm and relaxed no signs of distress. On NC 5L O2 sat 100%. Patient is non verbal. Tele reading NSR 70s. Jimenez catheter drained clear yellow urine 1300ml. GTF Glucerna 1.2 @ 40 ml/hr running tolerating well. RFA #20 flushes well and KAILEE Midline on TKO. No signs of pain or discomfort. All due meds given. Safety measures maintained. Will endorse to overnight houseperson nurse.
--- NOTE | 2020-04-30 19:30 | NUR ---
TELE1 RN NOTES RECEIVED ON BED,OPEN EYES,NONE VERBAL,BREATHING NON LABORED,O2 IN USED AT 5L/NC TO KEEP O2 SAT ABOVE 90%,100% AT THE MOMENT.WITH ALEJO CATH IN PLACE DRAINING YELLOWISH OUTPUT.WITH GT FEEDING OF GLUCERNA 1.2 AT 20ML/HR RATE X 20 HOURS,OFF AT 12MIDNIGHT,ON AT 0400,TOLERATED WELL.NO RESIDUAL VOLUME NOTED.FLUSHED WITH WATER ORDERED.WITH RIGHT UPPER ARM MIDLINE FOR MEDS,INTACT AND PATENT.ISOLATION PRECAUTION FOR POSITIVE COVID ON 04/10.NEGATIVE ON 04/29.AWAITING RESULT FOR COVID TEST DONE TODAY.REPOSITION PER PROTOCOL.WILL CONTINUE TO MONITOR STATUS,FULL CODE.
[2020-04-30 20:00] VITALS: BP 147/75
[2020-04-30] MEDS: ATORVASTATIN 40 MG TABLET GT SCH (21:33)
[2020-04-30] MEDS: LATANOPROST EYE DROP 0.005% 2.5 ML BOTTLE EACHEYE SCH (21:36)
[2020-04-30] MEDS: INSULIN GLARGINE, 100 UNIT/ML CARTRIDGE SQ SCH (21:45)
--- NOTE | 2020-04-30 22:00 | NUR ---
TELE1 RN NOTES ACCU-CHECK BLOOD SUGAR CHECK 123,DUE LANTUS 17 UNITS ADMINISTERED SCHEDULED WITNESS BY CHARGE NURSE HERB.WILL CHECK BLOOD SUGAR AT 12 MIDNIGHT SCHEDULED.
[2020-05-01] VITALS: BP 145/73
[2020-05-01] MEDS: BLOOD SUGAR DIAGNOSTIC 1 EACH STRIP IN SCH ×5 (00:13→23:00)
--- NOTE | 2020-05-01 00:13 | NUR ---
TELE1 RN NOTES ACCU-CHECK BLOOD SUGAR CHECK 106.NO INSULIN COVERAGE.
--- NOTE | 2020-05-01 04:00 | NUR ---
TELE1 RN NOTES MORNING CARE RENDERED BY EDMUNDO SRIVASTAVA,TOLERATED WELL. GT FEEDING ON THIS TIME AFTER CARE.HOB ELEVATED.FOR ASPIRATION PRECAUTION
[2020-05-01 04:54] VITALS: BP 132/70
--- NOTE | 2020-05-01 05:30 | NUR ---
TELE1 RN NOTES ACCU-CHECK BLOOD SUGAR CHECK 88,GT FEEDING IN PROGRESS AT 40ML/HR RATE VIA FEEDING PUMP.NOM RESIDUAL VOLUME NOTED.
[2020-05-01 06:23] LABS: BASOPHILS % (AUTO) 0.4 % (0.0-2.0); EOSINOPHILS % (AUTO) 0.4 % (0.0-6.0); HEMATOCRIT 32 % (33-45); HEMOGLOBIN 10.6 g/dL (11.5-14.8); LYMPHOCYTES # (AUTO) 1.9 /CMM (0.8-4.8); LYMPHOCYTES % (AUTO) 19.4 % (20.0-44.0); MEAN CORPUSCULAR HGB CONC 33 g/dl (31.0-36.0); MEAN CORPUSCULAR VOLUME 90 fL (82-100); MONOCYTES # (AUTO) 0.7 /CMM (0.1-1.30); MONOCYTES % (AUTO) 6.9 % (2.0-12.0); NEUTROPHILS # (AUTO) 7.1 /CMM (1.8-8.9); NEUTROPHILS % (AUTO) 72.9 % (43.0-81.0); PLATELET COUNT (AUTO) 233 /CMM (150-450); RED BLOOD CELL COUNT(AUTO) 3.62 MIL/uL (4.0-5.2); WHITE BLOOD COUNT (AUTO) 9.7 K/uL (4.3-11.0)
[2020-05-01 06:36] LABS: ALANINE AMINOTRANSFERASE 26 U/L (12-78); ALBUMIN 2.4 g/dL (3.4-5.0); ALKALINE PHOSPHATASE 76 U/L (46-116); ASPARTATE AMINOTRANSFERASE 17 U/L (15-37); BILIRUBIN,TOTAL 0.5 mg/dL (0.2-1.0); CALCIUM, SERUM 9.1 mg/dL (8.5-10.1); CARBON DIOXIDE 28 mmol/L (21-32); CHLORIDE 101 mmol/L (98-107); CREATININE 0.4 mg/dL (0.6-1.3); GLUCOSE 87 mg/dL (74-106); MAGNESIUM 1.9 mg/dL (1.8-2.4); PHOSPHORUS 2.3 mg/dL (2.5-4.9); POTASSIUM 3.7 mmol/L (3.5-5.1); SODIUM SERUM 137 mmol/L (136-145); TOTAL PROTEIN, SERUM 6.4 g/dL (6.4-8.2); UREA NITROGEN, BLOOD 24 mg/dL (7-18)
--- NOTE | 2020-05-01 06:37 | NUR ---
TELE1 RN NOTES OPEN EYES WITH CARE AND SUCTIONING,REPOSITION PER PROTOCOL.GT FEEDING TOLERATED WELL.NO NO N/V/D NOTED.IN NO ACUTE DISTRESS.WILL ENDORSE TO DAY NURSE FOR FELICITAS.
--- NOTE | 2020-05-01 07:28 | NUR ---
LIQUEFIED NATURAL GAS PLANT OPERATOR NOTES Received patient with no acute acute distress. On O2 @ 5LPM @100%. Pt is non verbal. All needs will be anticipated and attended to. Jimenez catheter intact and draining well to gravity. All needs will be anticipated and attended to. On GTF on glucerna 1.2. Will continue to monitor. Addendum: 05/01/20 at 0735 by NICK PRIEST RN IV line #20 on right upper arm midline intact, and infusing well. Pt safety will be maintained. Call light left within reach.
[2020-05-01 08:00] VITALS: BP 110/70
[2020-05-01] MEDS: DOCUSATE SODIUM LIQ 100 MG/10 ML UDC GT SCH ×2 (08:24→17:02)
[2020-05-01] MEDS: FAMOTIDINE (20 MG) 20 MG TABLET GT SCH ×2 (08:25→20:56)
[2020-05-01] MEDS: CLOPIDOGREL BISULFATE 75 MG TABLET GT SCH (08:25)
[2020-05-01] MEDS: TOLTERODINE 2 MG CAP.SR PO SCH ×2 (08:26→17:02)
[2020-05-01] MEDS: DEXAMETHASONE SOD PHOSPHATE 10 MG/ML VIAL IV SCH (08:27)
[2020-05-01] MEDS: CARBIDOPA/LEVODOPA 10/100 MG 1 UDTAB GT SCH ×3 (08:27→17:02)
[2020-05-01] MEDS: ENOXAPARIN SODIUM 40 MG/0.4 ML DISP.SYRIN SQ SCH (08:28)
[2020-05-01] MEDS: ACETAMINOPHEN 325 MG TABLET PO PRN (08:29)
[2020-05-01] MEDS: PROSOURCE / PROSTAT (PYXIS) 30 ML UDC GT SCH ×3 (08:42→17:01)
--- NOTE | 2020-05-01 09:11 | NUR ---
Tylenol 650mg given as ordered for pain. Pt groaning. Will continue to monitor.
[2020-05-01] MEDS ORDERED: NEUTRA PHOS 1 POWD.PACKET NG ONE (10:00)
[2020-05-01 12:00] VITALS: BP 127/70
[2020-05-01] MEDS: INSULIN REGULAR, HUMAN 100 UNIT/ML 3 ML VIAL SQ PRN ×3 (13:25→23:01)
[2020-05-01 16:00] VITALS: BP 123/68
--- NOTE | 2020-05-01 18:19 | NUR ---
PATIENT IN BED. NO ACUTE DISTRESS NOTED. PATIENT NONVERBAL, UNABLE TO FOLLOW COMMANDS. PATIENT ON 5L OXYGEN, SATURATING WELL AT 98-100%. PATIENT ON BEER COOLER, SINUS RHYTHM NOTED. PATIENT KAILEE MIDLINE INTACT, PATENT, FLUSHED WELL. PATIENT G-TUBE INTACT, PATENT, FLUSHED WELL. PATIENT ALEJO CATHETER IN PLACE, PATENT, DRAINING TO GRAVITY. PATIENT SAFETY MEASURES MAINTAINED. WILL ENDORSE PLAN OF CARE TO ONCOMING NURSE FOR CONTINUITY OF CARE.
[2020-05-01] MEDS: GLUCERNA 1.2 1,000 ML BOTTLE NG PRN (19:01)
--- NOTE | 2020-05-01 19:15 | NUR ---
RN OPENING NOTES: RECEIVED NON VERBAL PATIENT IN BED RESTING COMFORTABLY. PATIENT IN NO S/SX OF ACUTE DISTRESS AT THIS TIME. NO SOB NOTED. PATIENT'S BREATHING IS EVEN AND UNLABORED. PATIENT IS ON 5 L OF OXYGEN VIA NC; TOLERATING WELL. PATIENT ON TELE MONITORING READING SINUS RHYTHM HR IS @60S AT THE TIME OF RECEIVED. G TUBE FLUSHING AND PATENT; SITE CLEAN DRY AND INTACT; NO RESIDUAL NOTED; CLAMPED. PATIENT ON G TUBE FEEDING OF GLUCERNA 1.2 @ 40ML/HR. NOTED IV SITE ON R UA MIDLINE AND ; PATENT IN INTACT,NO S/S OF INFECTION OR INFILTRATION. ALEJO CATH IN PLACE,MODERATE URINE OUTPUT NOTED SAFETY MEASURES HAVE BEEN PROVIDED AND IMPLEMENTED. PATIENT BED ALARM IS ON. HEAD OF BED ELEVATED. BED IS LOCKED, IN LOWEST POSITION AND SIDE RAILS UP. CALL LIGHT WITHIN REACH OF THE PATIENT. ISOLATION PRECAUTIONS IN PLACE. WILL CONTINUE TO MONITOR AND REASSESS FOR ANY CHANGES.
[2020-05-01 20:00] VITALS: BP_SYST 114; BP_SYST 123; BP_DIAS 56; BP_DIAS 68
[2020-05-01] MEDS: ATORVASTATIN 40 MG TABLET GT SCH (21:15)
[2020-05-01] MEDS: LATANOPROST EYE DROP 0.005% 2.5 ML BOTTLE EACHEYE SCH (21:16)
[2020-05-01] MEDS: INSULIN GLARGINE, 100 UNIT/ML CARTRIDGE SQ SCH (23:00)
--- NOTE | 2020-05-01 23:46 | NUR ---
RN NOTES ACCU CHECK DONE ; BLOOD SUGAR IS AT 90MG/DL. NO COVERAGE FOR INSULIN BLOOD SUGAR IS LOW. ACCOUNT FINANCIAL MANAGER MADE AWARE.
[2020-05-02] VITALS: BP 129/63
[2020-05-02 04:00] VITALS: BP 147/71
[2020-05-02] MEDS: BLOOD SUGAR DIAGNOSTIC 1 EACH STRIP IN SCH ×3 (06:14→17:34)
[2020-05-02] MEDS: INSULIN REGULAR, HUMAN 100 UNIT/ML 3 ML VIAL SQ PRN ×3 (06:17→17:35)
--- NOTE | 2020-05-02 06:37 | NUR ---
RN CLOSING NOTES PATIENT REMAINS IN ROOM IN NO SIGNS OF RESPIRATORY DISTRESS. PATIENT SATURATING 99%. VITAL SIGNS WNL. SAFETY PRECAUTIONS IN PLACE AND COMFORT MEASURES RENDERED. BED IN LOWEST POSITION, CALL LIGHT WITHIN REACH, BREAKS ON, SIDE RAILS UP. ALL NEEDS ATTENDED, MEDICATIONS GIVEN SCHEDULED AND ORDERED ; SHIFT ASSESSMENT/BEDBATH/SKIN CARE DONE. PATIENT KEPT CLEAN AND DRY. WILL ENDORSE TO INCOMING SHIFT FOR FELICITAS.
[2020-05-02 07:29] LABS: CALCIUM, SERUM 9.3 mg/dL (8.5-10.1); CARBON DIOXIDE 26 mmol/L (21-32); CHLORIDE 102 mmol/L (98-107); CREATININE 0.4 mg/dL (0.6-1.3); GLUCOSE 84 mg/dL (74-106); POTASSIUM 3.9 mmol/L (3.5-5.1); SODIUM SERUM 137 mmol/L (136-145); UREA NITROGEN, BLOOD 24 mg/dL (7-18)
--- NOTE | 2020-05-02 07:30 | NUR ---
RN/SYL RECEIVED PATIENT IN BED. NO ACUTE DISTRESS NOTED. PATIENT NONVERBAL, UNABLE TO ACKNOWLEDGE AND FOLLOW COMMANDS. PATIENT ON 4L OXYGEN VIA NASAL CANULA, SATURATING WELL AT 99-100%. PATIENT ON BIOMEDICAL SERVICE ENGINEER, SINUS RHYTHM NOTED. PATIENT KAILEE MIDLINE IN PLACE, INTACT, PATENT, FLUSHED WELL. PATIENT G-TUBE INTACT, FLUSHED WELL. PATIENT ALEJO CATHETER INTACT, PATENT, DRAINING TO GRAVITY. PATIENT SAFETY MEASURES MAINTAINED. WILL CONTINUE TO MONITOR CLOSELY.
[2020-05-02 08:00] VITALS: BP 135/61
[2020-05-02] MEDS: CARBIDOPA/LEVODOPA 10/100 MG 1 UDTAB GT SCH ×3 (09:15→16:38)
[2020-05-02] MEDS: TOLTERODINE 2 MG CAP.SR PO SCH ×2 (09:15→16:38)
[2020-05-02] MEDS: DOCUSATE SODIUM LIQ 100 MG/10 ML UDC GT SCH ×2 (09:15→16:38)
[2020-05-02] MEDS: DEXAMETHASONE SOD PHOSPHATE 10 MG/ML VIAL IV SCH (09:15)
[2020-05-02] MEDS: FAMOTIDINE (20 MG) 20 MG TABLET GT SCH (09:15)
[2020-05-02] MEDS: CLOPIDOGREL BISULFATE 75 MG TABLET GT SCH (09:15)
[2020-05-02] MEDS: PROSOURCE / PROSTAT (PYXIS) 30 ML UDC GT SCH ×3 (09:16→16:38)
[2020-05-02] MEDS: ENOXAPARIN SODIUM 40 MG/0.4 ML DISP.SYRIN SQ SCH (09:17)
[2020-05-02 12:00] VITALS: BP 115/52
[2020-05-02] MEDS: IV NS 0.9% 250 ML IV PRN (12:39)
[2020-05-02 16:00] VITALS: BP 132/62
--- NOTE | 2020-05-02 16:21 | NUR ---
HEAD CT RELAYED TO SAAD JESUS.ALSO NOTIFIED PATIENT COVID NEGATIVE AWAITS ORDERS.
--- NOTE | 2020-05-02 17:22 | NUR ---
PER MD EARL TO DC TO SNF,AWAITS AMBULANCE.
--- NOTE | 2020-05-02 18:00 | NUR ---
REPORT GIVEN TO ANNIKA WILDER FROM [facility] FOR DISCHARGE AND CONTINUITY OF CARE.
--- NOTE | 2020-05-02 18:46 | NUR ---
PATIENT IN BED. NO ACUTE DISTRESS NOTED. PATIENT NONVERBAL, UNABLE TO ACKNOWLEDGE AND FOLLOW COMMANDS. PATIENT ON 4L OXYGEN VIA NASAL CANULA, SATURATING WELL AT 99-100%. PATIENT ON PRODUCTION MACHINE COMPUTER OPERATOR, SINUS RHYTHM NOTED. PATIENT KAILEE MIDLINE IN PLACE, INTACT, PATENT, FLUSHED WELL. PATIENT G-TUBE INTACT, FLUSHED WELL. PATIENT ALEJO CATHETER INTACT, PATENT, DRAINING TO GRAVITY. PATIENT SAFETY MEASURES MAINTAINED. WILL ENDORSE PLAN OF CARE TO ONCOMING NURSE FOR CONTINUITY OF CARE.
--- NOTE | 2020-05-02 19:01 | NUR ---
DISCHARGE TRANSPORT NOT HERE. DISCHARGE ENDORSED TO ANNIKA WISE.
--- NOTE | 2020-05-02 19:14 | NUR ---
PATIENT DISCHARGED TO [facility] VIA AMBULANCE IN STABLE CONDITION.
== END 2020-05-02 19:24 | DRG 177 ==
LOC: ER 10:56 → TELE1 13:49 → MEDSG1 04-12 14:39 → ICU 04-16 09:42 → TELE-TD 04-28 13:44 → TELE1 04-30 18:01
PROVIDERS: ADMIT Nurse Practitioner Acute Care; ATTEND Nurse Practitioner Acute Care
PROC: 05H533Z Insertion of Infusion Device into Right Subclavian Vein, Percutaneous Approach (ICD-10-PCS; 2020-04-19)
PROC: B546ZZA Ultrasonography of Right Subclavian Vein, Guidance (ICD-10-PCS; 2020-04-19)
PROC: 30233N1 Transfusion of Nonautologous Red Blood Cells into Peripheral Vein, Percutaneous Approach (ICD-10-PCS; principal; 2020-04-25)
DX: U07.1 COVID-19 (principal); J12.89 Other viral pneumonia; N17.0 Acute kidney failure with tubular necrosis; J96.01 Acute respiratory failure with hypoxia; J98.11 Atelectasis; E22.2 Syndrome of inappropriate secretion of antidiuretic hormone; E86.0 Dehydration; G20 Parkinson's disease; I25.10 Atherosclerotic heart disease of native coronary artery without angina pectoris; D63.8 Anemia in other chronic diseases classified elsewhere; D50.9 Iron deficiency anemia, unspecified; E11.9 Type 2 diabetes mellitus without complications; E78.5 Hyperlipidemia, unspecified; E86.1 Hypovolemia; I10 Essential (primary) hypertension; M19.90 Unspecified osteoarthritis, unspecified site; K21.9 Gastro-esophageal reflux disease without esophagitis; Z88.0 Allergy status to penicillin; Z86.73 Personal history of transient ischemic attack (TIA), and cerebral infarction without residual deficits; Z85.3 Personal history of malignant neoplasm of breast; Z95.1 Presence of aortocoronary bypass graft; Z79.4 Long term (current) use of insulin; M06.9 Rheumatoid arthritis, unspecified; Z79.899 Other long term (current) drug therapy; Z90.10 Acquired absence of unspecified breast and nipple; R13.10 Dysphagia, unspecified; Z93.1 Gastrostomy status; F09 Unspecified mental disorder due to known physiological condition; Z22.322 Carrier or suspected carrier of Methicillin resistant Staphylococcus aureus; E83.39 Other disorders of phosphorus metabolism; E83.42 Hypomagnesemia; F03.90 Unspecified dementia, unspecified severity, without behavioral disturbance, psychotic disturbance, mood disturbance, and anxiety; Z79.02 Long term (current) use of antithrombotics/antiplatelets
CPT/HCPCS: 36415; 36600; 70450-TC; 71045-TC; 80048-TC; 80053-TC; 80061-TC; 80076-TC; 80202-TC; 82728-TC; 82803-TC; 82962-TC; 83540-TC; 83615-TC; 83735-TC; 83880; 84100-TC; 84443-TC; 84484-TC; 85025-TC; 85378-TC; 86140-TC; 86850-TC; 87081-TC; 94760-TC; 94799-TC; A4217; G0378; J0692; J0696; J1100; J1650; J1815; J2916; J3370; J3475; J3490; J7030; J7040; J7050; J7060; P9017-BL; U0003-CS

== ENCOUNTER 2020-05-31 16:12 | Inpatient (IN) | payer MEDICARE, OTHER ==
[~2020-05-31] VITALS: Ht 162.6 cm; Wt 58.5 kg
[~2020-05-31 16:12] MED LIST changes: -ACET-2605 GT; +AMIN30LI27 GT; +ASCO-352 GT; -BISA10SU11 RC; -BLOO-1280 MC; +COLL30OI TP; +ENOX40DI SQ; +HYDR28.32 TP; -INSU100I19 SQ; -INSU100V11 SQ; +INSU100V3 SQ; +INSU100V7 SQ; -IPRA0.2S9 IH; -LACT1CAP71 GT; -LOPE2CAP GT; -MAGN400O6 GT; -MERO1VIA23 IV; +MULT-447 GT; -NYST15OI2 TP; +ONDA4TAB5 GT; -POTA20PA3 GT; -VANC750F2 IV; +ZINC220C6 GT; -ZINC57OI4 TP
[2020-05-31] MEDS ORDERED: ACETAMINOPHEN 650 MG/SUPP.RECT RC ONE ×2 (16:27→16:30)
[2020-05-31] MEDS ORDERED: MEROPENEM 1 G in IV NS 0.9% 100 ML IV ONE (16:30)
[2020-05-31] MEDS ORDERED: CEFEPIME 1 GM in IV D5W 50 ML IV ONE (16:30)
[2020-05-31] MEDS ORDERED: VANCOMYCIN 1 GM in IV D5W 250 ML IV ONE (16:30)
[2020-05-31] MEDS ORDERED: IV NS 0.9% 1,000 ML BAG IV ONE (16:30)
[2020-05-31] MEDS ORDERED: CRAN3875 GT (16:31)
[2020-05-31] MEDS ORDERED: LACT1CAP61 GT (16:31)
[2020-05-31] MEDS ORDERED: CRAN425C6 GT (16:31)
[2020-05-31] MEDS ORDERED: MAGN400O6 GT (16:31)
[2020-05-31] MEDS ORDERED: MERO500V21 IV (16:31)
[2020-05-31] MEDS ORDERED: VANC750P9 IV (16:31)
--- NOTE | 2020-05-31 16:36 | NUR ---
graciela, from care facility, c/o sob 85% on 15lpm via non-rebreather mask per report, BS 260. PT EYES OPEN NON VERBAL. PT SEEN & EVAL'D BY DR. RIDLEY. PLACED ON JEWELRY ESTIMATOR, SR. MEDICATED ORDERED, PT RYLEY WELL. WILL CONT TO MONITOR.
[2020-05-31 16:38] LABS: BASOPHILS # (AUTO) 0.1 /CMM (0.0-0.2); BASOPHILS % (AUTO) 0.4 % (0.0-2.0); EOSINOPHILS % (AUTO) 0.7 % (0.0-6.0); HEMATOCRIT 32 % (33-45); HEMOGLOBIN 10.5 g/dL (11.5-14.8); LYMPHOCYTES # (AUTO) 0.9 /CMM (0.8-4.8); LYMPHOCYTES % (AUTO) 6.1 % (20.0-44.0); MEAN CORPUSCULAR HGB CONC 32 g/dl (31.0-36.0); MEAN CORPUSCULAR VOLUME 90 fL (82-100); MONOCYTES # (AUTO) 0.8 /CMM (0.1-1.30); MONOCYTES % (AUTO) 5.8 % (2.0-12.0); NEUTROPHILS # (AUTO) 12.5 /CMM (1.8-8.9); PLATELET COUNT (AUTO) 378 /CMM (150-450); RED BLOOD CELL COUNT(AUTO) 3.61 MIL/uL (4.0-5.2); WHITE BLOOD COUNT (AUTO) 14.4 K/uL (4.3-11.0)
[2020-05-31 16:51] LABS: ALANINE AMINOTRANSFERASE 23 U/L (12-78); ALBUMIN 2.2 g/dL (3.4-5.0); ALKALINE PHOSPHATASE 80 U/L (46-116); ASPARTATE AMINOTRANSFERASE 22 U/L (15-37); BILIRUBIN,DIRECT 0.2 mg/dL (0.0-0.2); BILIRUBIN,TOTAL 0.5 mg/dL (0.2-1.0); CARBON DIOXIDE 27 mmol/L (21-32); CHLORIDE 96 mmol/L (98-107); CREATININE 0.4 mg/dL (0.6-1.3); GLUCOSE 223 mg/dL (74-106); POTASSIUM 4.2 mmol/L (3.5-5.1); SODIUM SERUM 133 mmol/L (136-145); TOTAL PROTEIN, SERUM 6.8 g/dL (6.4-8.2); UREA NITROGEN, BLOOD 14 mg/dL (7-18)
--- NOTE | 2020-05-31 17:18 | NUR ---
COVID TEST DONE & SENT TO LAB.
[2020-05-31 17:27] LABS: APPEARANCE,URINE Clear (CLEAR); BILIRUBIN,URINE Negative (NEGATIVE); BLOOD, URINE Moderate Ery/uL (NEGATIVE); COLOR,URINE Yellow (YELLOW); KETONES,URINE Negative (NEGATIVE); LEUKOCYTE ESTERASE ,URINE Trace (NEGATIVE); NITRITE, URINE Negative (NEGATIVE); PH,URINE 7.5 (5.0-8.0); PROTEIN,URINE 30 mg/dl (NEGATIVE); UGLUCOSE Negative (NEGATIVE)
[2020-05-31] MEDS: BLOOD SUGAR DIAGNOSTIC 1 EACH STRIP IN SCH ×2 (17:30→22:02)
[2020-05-31] MEDS ORDERED: ONDANSETRON HCL/PF 4 MG/2 ML VIAL IVP PRN (17:30)
[2020-05-31] MEDS ORDERED: DEXTROSE 50%-WATER 50 ML DISP.SYRIN IV PRN (17:30)
[2020-05-31] MEDS ORDERED: MAGNESIUM HYDROXIDE 30 ML UDC PO PRN (17:30)
[2020-05-31] MEDS ORDERED: Z GUARD REMEDY 2 OZ OINT TP PRN (17:30)
[2020-05-31] MEDS ORDERED: MAG HYDROX/AL HYDROX/SIMETH 30 ML UDC PO PRN (17:30)
[2020-05-31 17:46] LABS: BACTERIA,URINE Few /HPF (None Seen); SQUAMOUS EPITHELIAL CELL,UR Few /HPF (None Seen)
--- NOTE | 2020-05-31 18:19 | NUR ---
ROOM GIVEN 207-1
--- NOTE | 2020-05-31 18:39 | NUR ---
REPORT GIVEN TO ANNIKA SMITH FOR FELICITAS.
--- NOTE | 2020-05-31 20:00 | NUR ---
TELE/RN OPENING NOTES PATIENT TRANSFERRED FROM ER TO ROOM 207. NO INJURIES ON TRANSFER FROM [facility] TO BED. PATIENT IS ALERT AND ORIENTED X 1, EYES OPEN, NON VERBAL. NO SIGNS OF SOB OR RESPIRATORY DISTRESS NOTED. PATIENT IS ON 4 L OF OXYGEN TOLERATING WELL. TELE READING SR 80S. PATIENT HAS G TUBE IN PLACE, NO RESIDUAL FLUSHING WELL. PATIENT HAS RIGHT FOREARM #18G INTACT FLUSHING WELL. PATIENT HAS SACRAL WOUND, CLEANED AND DRESSING CHANGED. PATIENT IS RESTING V/S WITHIN NORMAL LIMITS. SAFETY MEASURES ARE IN PLACE, BED US LOCKED AND PLACED IN THE LOWEST POSITION, SIDE RAILS UP X 3. CALL LIGHT WITHIN REACH. WILL CONTINUE TO MONITOR THROUGH OUT SHIFT.
[2020-05-31] MEDS: ENOXAPARIN SODIUM 40 MG/0.4 ML DISP.SYRIN SQ SCH (21:39)
[2020-05-31] MEDS: IV D5/0.45 NACL 1,000 ML IV PRN (21:42)
[2020-06-01] VITALS (7 sets, daily range): BP systolic 116–148; BP diastolic 61–82
[2020-06-01] MEDS: VANCOMYCIN 500 MG in IV D5W 100ml IV SCH ×2 (05:36→17:25)
[2020-06-01] MEDS: BLOOD SUGAR DIAGNOSTIC 1 EACH STRIP IN SCH ×4 (06:22→22:54)
[2020-06-01] MEDS: INSULIN REGULAR, HUMAN 100 UNIT/ML 3 ML VIAL SQ PRN ×2 (06:25→23:26)
--- NOTE | 2020-06-01 06:25 | NUR ---
TELE/RN NOTES INSULIN NOT GIVEN BS AT 139, PATIENT G TUBE EQUIPMENT NOT AVAILABLE. PATIENT ON FLUSHING. WILL CONTINUE TO MONITOR.
--- NOTE | 2020-06-01 07:00 | NUR ---
TELE/RN CLOSING NOTES PATIENT IS IN BED RESTING. PATIENT IS ALERT AND ORIENTED X 1, EYES OPEN OBTUNDED. TELE READING SR 79. PATIENT HAS ALEJO CATH IN PLACE OUTPUT 1100CC. PATIENT HAS G TUBE IN PLACE. G TUBE ADAPTOR WAS NOT SEND WITH PATIENT FROM SNF, G TUBE FEEDING WILL BE GLUCERNA 1.2 60CC/HR START TIME AT 1000HRS. PATIENT HAS IV ACCESS ON RIGHT FA #18G RUNNING D5 1/2 AT 75 ML/HR. ALL PATIENT NEEDS HAVE BEEN MET DURING SHIFT. SAFETY MEASURES ARE IN PLACE, BED US LOCKED AND PLACED IN THE LOW POSITION, SIDE RAILS UP X 3, CALL LIGHT IN REACH. WILL ENDORSE CARE TO DAY SHIFT NURSE.
--- NOTE | 2020-06-01 07:50 | NUR ---
RN CLOSING NOTES PATIENT IS IN BED RESTING. PATIENT IS ALERT AND ORIENTED X 1, EYES OPEN OBTUNDED. TELE READING SR 79. PATIENT HAS ALEJO CATH IN PLACE . PATIENT HAS G TUBE IN PLACE. G TUBE ADAPTOR WAS NOT SEND WITH PATIENT FROM SNF, G TUBE FEEDING WILL BE GLUCERNA 1.2 60CC/HR START TIME AT 1000HRS. PATIENT HAS IV ACCESS ON RIGHT FA #18G RUNNING D5 1/2 AT 75 ML/HR. SAFETY MEASURES ARE IN PLACE, BED US LOCKED AND PLACED IN THE LOW POSITION, SIDE RAILS UP X 3, CALL LIGHT IN REACH. WILL CONTINUE TO MONITOR
[2020-06-01] MEDS ORDERED: GLUCERNA 1.2 1,000 ML BOTTLE NG SCH (08:00)
[2020-06-01 08:59] LABS: BASOPHILS % (AUTO) 0.5 % (0.0-2.0); EOSINOPHILS % (AUTO) 4.1 % (0.0-6.0); HEMATOCRIT 29 % (33-45); HEMOGLOBIN 9.6 g/dL (11.5-14.8); LYMPHOCYTES # (AUTO) 1.3 /CMM (0.8-4.8); LYMPHOCYTES % (AUTO) 16.2 % (20.0-44.0); MEAN CORPUSCULAR HGB CONC 33 g/dl (31.0-36.0); MEAN CORPUSCULAR VOLUME 89 fL (82-100); MONOCYTES # (AUTO) 0.7 /CMM (0.1-1.30); MONOCYTES % (AUTO) 9.1 % (2.0-12.0); NEUTROPHILS # (AUTO) 5.6 /CMM (1.8-8.9); NEUTROPHILS % (AUTO) 70.1 % (43.0-81.0); PLATELET COUNT (AUTO) 362 /CMM (150-450); RED BLOOD CELL COUNT(AUTO) 3.29 MIL/uL (4.0-5.2); WHITE BLOOD COUNT (AUTO) 7.9 K/uL (4.3-11.0)
[2020-06-01] MEDS: CEFEPIME 2 GM in IV D5W 100 ML IV SCH ×2 (09:42→21:20)
[2020-06-01] MEDS ORDERED: GLUCERNA 1.2 1,000 ML BOTTLE GT SCH (10:00)
[2020-06-01 10:29] LABS: ALANINE AMINOTRANSFERASE 23 U/L (12-78); ALBUMIN 1.9 g/dL (3.4-5.0); ALKALINE PHOSPHATASE 71 U/L (46-116); ASPARTATE AMINOTRANSFERASE 27 U/L (15-37); BILIRUBIN,TOTAL 0.4 mg/dL (0.2-1.0); CALCIUM, SERUM 8.9 mg/dL (8.5-10.1); CARBON DIOXIDE 26 mmol/L (21-32); CHLORIDE 100 mmol/L (98-107); CREATININE 0.3 mg/dL (0.6-1.3); GLUCOSE 147 mg/dL (74-106); PHOSPHORUS 2.7 mg/dL (2.5-4.9); POTASSIUM 3.5 mmol/L (3.5-5.1); SODIUM SERUM 135 mmol/L (136-145); TOTAL PROTEIN, SERUM 6.4 g/dL (6.4-8.2); UREA NITROGEN, BLOOD 7 mg/dL (7-18)
[2020-06-01 10:53] LABS: D-DIMER 1.35 mg/L(FEU (0.17-0.50)
[2020-06-01 12:42] LABS: CREATINE KINASE, TOTAL 26 U/L (26-192); FERRITIN 642 ng/mL (8-388); TRIGLYCERIDES 69 mg/dL (30-150)
[2020-06-01 12:43] LABS: CHOLESTEROL 105 mg/dL (<200); HDL CHOLESTEROL 37 mg/dL (40-60); LDL 56 mg/dL (0-99); THYROID STIMULATING HORMONE 0.832 uIU/mL (0.358-3.74)
[2020-06-01 13:17] LABS: IRON, SERUM 17 ug/dl (50-175); TOTAL IRON BINDING CAPACITY 182 ug/dl (250-450)
[2020-06-01 13:18] LABS: C-REACTIVE PROTEIN 28.9 mg/dL (0.0-0.9)
[2020-06-01] MEDS: THERAHONEY GEL 1.5 OZ TUBE TP SCH (13:21)
[2020-06-01] MEDS: ACETAMINOPHEN 325 MG TABLET PO PRN (13:31)
[2020-06-01] MEDS ORDERED: CEFEPIME 1 GM in IV D5W 50 ML IV SCH (16:00)
[2020-06-01] MEDS ORDERED: CEFEPIME 2 GM in IV D5W 100 ML IV SCH (17:00)
--- NOTE | 2020-06-01 18:12 | NUR ---
RN CLOSING NOTES PATIENT IS IN BED SLEEPING. PATIENT IS ALERT AND ORIENTED X 1, EYES OPEN OBTUNDED. TELE READING SR 80. PATIENT HAS G TUBE IN PLACE. G TUBE ADAPTOR WAS NOT SEND WITH PATIENT FROM SNF, G TUBE FEEDING WAS GLUCERNA 1.2 60CC/HR START TIME AT 1000AM TO 1400PM. PATIENT HAS IV ACCESS ON RIGHT FA #18G RUNNING D5 1/2 AT 75 ML/HR. ALL PATIENT NEEDS HAVE BEEN MET DURING SHIFT. SAFETY MEASURES ARE IN PLACE, BED US LOCKED AND PLACED IN THE LOW POSITION, SIDE RAILS UP X 3, CALL LIGHT IN REACH. WILL ENDORSE CARE TO PM SHIFT NURSE.
--- NOTE | 2020-06-01 19:30 | NUR ---
telegraph equipment maintainer opening notes received patient in bed. patient is nonverbal. on oxygen 4l/min via nasal cannula. respirations are even and unlabored. no s/s sob noted. no s/s pain at this time. external tele monitor reads sinus rhythm hr 88. in no apparent distress. iv access RFA#18 running d5 1/2 NS @75ml/hr. rinaldi catheter is present, draining to gravity, gtube is present, clamped, feeding off. bed is low and locked, hob elevated in semi fowlers, side rials up x3. call light within reach. will continue to monitor.
[2020-06-01] MEDS: ENOXAPARIN SODIUM 40 MG/0.4 ML DISP.SYRIN SQ SCH (21:23)
--- NOTE | 2020-06-01 23:26 | NUR ---
telesales advisor note informed chief engineering division MD Dr. Kapoor about patients gtube feeding order. there are multiple and asking for clarification. Dr. Kapoor order Glucerna 1.2@60ml/hr x24hr. order read back noted and carried out. will continue to monitor.
[2020-06-02] VITALS: BP 124/69
[2020-06-02] MEDS: HYDROCODONE/APAP 5/325MG TABLET PO PRN (00:55)
--- NOTE | 2020-06-02 00:55 | NUR ---
manager telemetry note administered prn norco 5/325mg for pain. patient is crying, moaning, facial grimace, knees bent. will continue to monitor.
[2020-06-02] MEDS: IV D5/0.45 NACL 1,000 ML IV PRN ×2 (03:38→13:34)
[2020-06-02 04:00] VITALS: BP 134/71
[2020-06-02] MEDS: BLOOD SUGAR DIAGNOSTIC 1 EACH STRIP IN SCH ×4 (06:22→22:24)
[2020-06-02] MEDS: INSULIN REGULAR, HUMAN 100 UNIT/ML 3 ML VIAL SQ PRN ×3 (06:28→22:32)
[2020-06-02 06:40] LABS: BASOPHILS % (AUTO) 0.5 % (0.0-2.0); EOSINOPHILS % (AUTO) 7.1 % (0.0-6.0); HEMATOCRIT 30 % (33-45); HEMOGLOBIN 9.9 g/dL (11.5-14.8); LYMPHOCYTES # (AUTO) 1.1 /CMM (0.8-4.8); LYMPHOCYTES % (AUTO) 14.4 % (20.0-44.0); MEAN CORPUSCULAR HGB CONC 33 g/dl (31.0-36.0); MEAN CORPUSCULAR VOLUME 90 fL (82-100); MONOCYTES # (AUTO) 0.7 /CMM (0.1-1.30); MONOCYTES % (AUTO) 8.6 % (2.0-12.0); NEUTROPHILS # (AUTO) 5.3 /CMM (1.8-8.9); NEUTROPHILS % (AUTO) 69.4 % (43.0-81.0); PLATELET COUNT (AUTO) 347 /CMM (150-450); RED BLOOD CELL COUNT(AUTO) 3.39 MIL/uL (4.0-5.2); WHITE BLOOD COUNT (AUTO) 7.6 K/uL (4.3-11.0)
[2020-06-02 06:57] LABS: CARBON DIOXIDE 29 mmol/L (21-32); CHLORIDE 100 mmol/L (98-107); CREATININE 0.3 mg/dL (0.6-1.3); GLUCOSE 151 mg/dL (74-106); MAGNESIUM 1.8 mg/dL (1.8-2.4); PHOSPHORUS 2.9 mg/dL (2.5-4.9); POTASSIUM 3.7 mmol/L (3.5-5.1); SODIUM SERUM 135 mmol/L (136-145); UREA NITROGEN, BLOOD 9 mg/dL (7-18)
--- NOTE | 2020-06-02 07:07 | NUR ---
telephone messenger closing notes patient in bed. nonverbal. on oxygen 3l/min via nasal cannula. managed pain with norco 5/325mg. external tele monitor reads sinus rhythm hr 80s. no distress. iv access remains RFA#18 running d5 1/2 NS @75ml/hr. rinaldi catheter is maintained, draining to gravity, urine is yellow. peg is maintained, dressing changed, feeding running glucerna 1.2@60ml/hr. bed remains low and locked, hob elevated in semi fowlers, side rials up x3. call light within reach. will endorse to next shift.
[2020-06-02] MEDS: VANCOMYCIN 500 MG in IV D5W 100ml IV SCH (07:09)
--- NOTE | 2020-06-02 07:10 | NUR ---
cable television installer note late vanco administration d/t pending vanco trough.
--- NOTE | 2020-06-02 07:31 | NUR ---
MS/RN Opening note Patient received from weight shifter. Non verbal, eyes open, does not appear to be in any pain or distress at this time. GT feeding at 60ml/hr, no residuals noted, IV fluids at 75ml/hr via right forearm 18g, no signs of any infiltration. 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 Bed in low setting, side rails X3 in upright position, brakes locked. Will continue to monitor and ensure safety.
[2020-06-02 08:00] VITALS: BP 150/79
[2020-06-02] MEDS: CEFEPIME 2 GM in IV D5W 100 ML IV SCH ×2 (08:12→20:33)
[2020-06-02] MEDS: THERAHONEY GEL 1.5 OZ TUBE TP SCH (08:13)
--- NOTE | 2020-06-02 08:37 | NUR ---
MS/RN Pain Complaining of pain to left hip 03/20, norco 5/325mg administered, will monitor effectiveness.
--- NOTE | 2020-06-02 10:36 | NUR ---
WOUND CARE CONSULT: PT FOLLOWED BY PLASTIC SURGERY TEAM FOR SACRAL WOUND. PT ALSO HAS RT FOOT INTACT DEEP TISSUE INJURY WHICH WAS PRESENT ON ADMISSION. RECOMMEND DPM CONSULT. DR KWONG NOTIFIED OF CONSULT REQUEST. RECOMMENDATIONS MADE FOR SKIN PROTECTION. DISCUSSED WITH NURSING STAFF. ELHAM ISOFLEX LOW AIRLOSS BED TO BE PLACED. IN AGREEMENT WITH PLAN OF CARE. Addendum: 06/02/20 at 1037 by NANCI QUINTEROS WNDNU Amended: Links added.
--- NOTE | 2020-06-02 11:41 | NUR ---
MS/RN Blood sugar Blood sugar at 1130 123, no coverage needed at this time.
--- NOTE | 2020-06-02 11:42 | NUR ---
MS/RN S/B Allen Arce DNP Seen by DNP - family called and updated as to plan of care, all questions and concerns addressed. Labs ordered for tomorrow.
--- NOTE | 2020-06-02 14:00 | NUR ---
MS/customer care voice consultant Seen by wound care - patient to be consented for serial sacral wound debridement. Family called and consent obtained.
[2020-06-02 16:00] VITALS: BP 152/73
[2020-06-02] MEDS: SOD FERRIC GLUC 125 MG in IV NS 0.9% 100 ML IV SCH (16:17)
[2020-06-02] MEDS: VANCOMYCIN 0.75 GM in IV D5W 250 ML IV SCH (17:38)
--- NOTE | 2020-06-02 18:12 | NUR ---
MS/RN End note Patient remains in stable condition, has been turned and repositioned throughout the day to preventfurther skin breakdown. GT feeding infusing at 60ml/hr, no residual noted. IVF at 75ml/hr, all antibiotics administered as ordered. Will endorse to second shift supervisor.
--- NOTE | 2020-06-02 19:41 | NUR ---
telecommunications clerk opening notes received patient in bed. patient is nonverbal. on oxygen 3L/min via nasal cannula. respirations are even and unlabored. no s/s sob noted. no s/s pain at this time. in no apparent distress. iv access Right wrist#18 running d5 1/2 NS @75ml/hr. rinaldi catheter is present, draining to gravity. PEG is present, running feeding Glucerna 1.2@60ml/hr. bed is low and locked, hob elevated in semi fowlers, side rials up x3. call light within reach. will continue to monitor.
[2020-06-02 20:00] VITALS: BP 150/81
[2020-06-02] MEDS: ENOXAPARIN SODIUM 40 MG/0.4 ML DISP.SYRIN SQ SCH (21:00)
--- NOTE | 2020-06-02 21:54 | NUR ---
ms rn note called manager environmental services MD Dr. Chilango Quevedo, informed him patient has a sacral debridement tomorrow and if he would like to hold Lovenox 40mg. MD telephone order ok to hold Lovenox. order read back noted and carried out. will continue to monitor.
[2020-06-03] MEDS: VANCOMYCIN 0.75 GM in IV D5W 250 ML IV SCH ×2 (05:44→18:10)
[2020-06-03] MEDS: BLOOD SUGAR DIAGNOSTIC 1 EACH STRIP IN SCH ×4 (06:10→22:11)
[2020-06-03] MEDS: INSULIN REGULAR, HUMAN 100 UNIT/ML 3 ML VIAL SQ PRN ×2 (06:17→22:20)
--- NOTE | 2020-06-03 06:39 | NUR ---
telephone collector closing notes patient resting in bed. nonverbal, opens eyes. remains on oxygen 3L/min via nasal cannula. no resp distress, no s/s pain noted. no distress. iv access maintained in Right wrist#18 running d5 1/2 NS @75ml/hr. rinaldi catheter is maintained, draining to gravity, urine yellow and clear, output 900ml. PEG is maintained, running feeding Glucerna 1.2@60ml/hr. bed remains low and locked, hob elevated in semi fowlers, side rials up x3. call light within reach. will endorse to next shift
[2020-06-03 07:53] LABS: CREATININE 0.4 mg/dL (0.6-1.3)
[2020-06-03 08:00] VITALS: BP 151/79
--- NOTE | 2020-06-03 08:00 | NUR ---
RN Opening Note Received patient resting in bed, non verbal, able to responds all stimuli, does no appears pain or discomfort. Skin is warm to touch, keep clean/dry, maintained rinaldi cath draining gravity, intact IV site with SL, maintained g tube, running Glucerna 1.2 at 60 ml. Respiratory even and unlabored with oxygen at 3LPM, no distress observed. Kept bed in locked with elevated HOB for ensure airway and aspiration precaution. Call light within reach, will continue to monitor.
[2020-06-03] MEDS: CEFEPIME 2 GM in IV D5W 100 ML IV SCH ×2 (09:27→20:46)
[2020-06-03] MEDS: THERAHONEY GEL 1.5 OZ TUBE TP SCH (09:29)
[2020-06-03 09:30] LABS: CALCIUM, SERUM 8.5 mg/dL (8.5-10.1); CARBON DIOXIDE 27 mmol/L (21-32); CHLORIDE 98 mmol/L (98-107); GLUCOSE 166 mg/dL (74-106); POTASSIUM 3.9 mmol/L (3.5-5.1); SODIUM SERUM 133 mmol/L (136-145); UREA NITROGEN, BLOOD 8 mg/dL (7-18)
[2020-06-03] MEDS: SOD FERRIC GLUC 125 MG in IV NS 0.9% 100 ML IV SCH (15:41)
[2020-06-03 16:00] VITALS: BP 114/64
--- NOTE | 2020-06-03 18:39 | NUR ---
RN Closing note Patient in bed, resting comfortably, dose no appears pain or distress, respiratory even and unlabored with oxygen at 3LPM via n/c. Skin is warm to touch, dressing changed on sacral and peg running Glucerna 1.2 at 60ML/Hr and tolerated. Kept bed in locked with elevated HOB for ensure airway and aspiration precaution. Call light within reach, will endorse maintenance technician 2nd shift.
--- NOTE | 2020-06-03 19:30 | NUR ---
RN NOTES RECEIVED PT.SLEEPING ON HER BED, NON-VERBAL, OPEN EYES, GLUCERNA RUNNING @ 60ML/HR, IV FLUID D5 1/2 NS RUNNING @ 75ML /HR, F/C DRAINING CLEAR YELLOW URINE, NOT IN DISTRESS, NO PAIN NOTED, SIDERAILSUPX2, CONTINUE TO MONITOR
[2020-06-03 20:00] VITALS: BP 132/74
[2020-06-03] MEDS: ENOXAPARIN SODIUM 40 MG/0.4 ML DISP.SYRIN SQ SCH (20:46)
[2020-06-04] MEDS: IV D5/0.45 NACL 1,000 ML IV PRN (01:31)
--- NOTE | 2020-06-04 02:20 | NUR ---
RN NOTES ENDORSED TO RN NURSE NATI ON STABLE CONDITION
--- NOTE | 2020-06-04 02:23 | NUR ---
MS RN NOTES RECEIVED REPORT FOR FARHEEN ROBLERO FOR FELICITAS. WILL CONTINUE TO MONITOR.
[2020-06-04] MEDS: VANCOMYCIN 0.75 GM in IV D5W 250 ML IV SCH (05:18)
[2020-06-04] MEDS: BLOOD SUGAR DIAGNOSTIC 1 EACH STRIP IN SCH ×4 (06:49→21:57)
[2020-06-04] MEDS: INSULIN REGULAR, HUMAN 100 UNIT/ML 3 ML VIAL SQ PRN ×3 (06:51→21:56)
--- NOTE | 2020-06-04 07:05 | NUR ---
MS RN NOTES PATIENT IN BED, OPENS EYES, NONVERBAL. BREATHING EVEN AND UNLABORED ON 3L NC. SHOWS NO SIGNS OF ACUTE RESPIRATORY DISTRESS. NO ACUTE PAIN. F/C FLOWING YELLOW CLEAR URINE. GTUBE CLEAN DRY AND INTACT. WITH GLUCERNA RUNNING 60ML/HR. NO RESIDUALS. IV ON R WRIST 22G ITS CLEAN DRY AND INTACT RUNNING D5 1/2 NS AT 75ML/HR. SHOWS NO SIGNS OF INFILTRATION, NO REDNESS. ALL DUE MEDICATIONS GIVEN. SAFETY PRECAUTIONS IN PLACE. BED IN LOWEST POSITION, LOCKED, AND CALL LIGHT KEPT WITHIN REACH. WILL ENDORSE TO ONCOMING NURSE.
--- NOTE | 2020-06-04 07:15 | NUR ---
ms rn received on bed,sleeping,araousable,no sob noted, on g tube at 60ml/hr,no residual at this time, no s/s of pain ,will monitor patient.
[2020-06-04 07:42] LABS: BASOPHILS # (AUTO) 0.1 /CMM (0.0-0.2); BASOPHILS % (AUTO) 1.1 % (0.0-2.0); EOSINOPHILS % (AUTO) 5.2 % (0.0-6.0); HEMATOCRIT 31 % (33-45); HEMOGLOBIN 10.1 g/dL (11.5-14.8); LYMPHOCYTES # (AUTO) 1.6 /CMM (0.8-4.8); LYMPHOCYTES % (AUTO) 16.1 % (20.0-44.0); MEAN CORPUSCULAR HGB CONC 33 g/dl (31.0-36.0); MEAN CORPUSCULAR VOLUME 89 fL (82-100); MONOCYTES # (AUTO) 0.8 /CMM (0.1-1.30); MONOCYTES % (AUTO) 8.6 % (2.0-12.0); NEUTROPHILS # (AUTO) 6.8 /CMM (1.8-8.9); PLATELET COUNT (AUTO) 354 /CMM (150-450); RED BLOOD CELL COUNT(AUTO) 3.47 MIL/uL (4.0-5.2); WHITE BLOOD COUNT (AUTO) 9.9 K/uL (4.3-11.0)
[2020-06-04 07:52] LABS: CALCIUM, SERUM 9.2 mg/dL (8.5-10.1); CARBON DIOXIDE 28 mmol/L (21-32); CHLORIDE 97 mmol/L (98-107); CREATININE 0.3 mg/dL (0.6-1.3); GLUCOSE 196 mg/dL (74-106); SODIUM SERUM 135 mmol/L (136-145); UREA NITROGEN, BLOOD 10 mg/dL (7-18)
[2020-06-04 08:00] VITALS: BP 139/83
[2020-06-04] MEDS: CEFEPIME 2 GM in IV D5W 100 ML IV SCH ×2 (09:47→20:25)
--- NOTE | 2020-06-04 09:50 | NUR ---
ms rn due meds given,tolerated well.
--- NOTE | 2020-06-04 11:00 | NUR ---
ms rn was seen by mendoza valverde w/ orders made and carried out, ,all needs attended.
[2020-06-04 12:57] LABS: BAND % (MANUAL) 1 % (0.0-5.0); EOSINOPHILS % (MANUAL) 7 % (0-4); LYMPHOCYTES % (MANUAL) 17 % (16-48); MONOCYTES % (MANUAL) 7 % (0-11.0); MYELOCYTES % 4 % (0-0); NEUTROPHILS % (MANUAL) 64 (42-76)
[2020-06-04] MEDS: SOD FERRIC GLUC 125 MG in IV NS 0.9% 100 ML IV SCH (15:15)
[2020-06-04 16:00] VITALS: BP 100/55
--- NOTE | 2020-06-04 16:00 | NUR ---
ms rn patient vomited x1, held feeding at this time.
[2020-06-04] MEDS: D5W IV SCH (17:52)
[2020-06-04] MEDS: VANCOMYCIN IV SCH (17:52)
--- NOTE | 2020-06-04 18:00 | NUR ---
ms rn gt has no residual at this time,resumed feeding
[2020-06-04] MEDS: THERAHONEY GEL 1.5 OZ TUBE TP SCH (18:14)
--- NOTE | 2020-06-04 19:17 | NUR ---
ms rn on bed, no distress noted.
--- NOTE | 2020-06-04 19:51 | NUR ---
MS RN NOTES PATIENT IN BED, OPENS EYES, NONVERBAL. BREATHING EVEN AND UNLABORED ON 3L NC. SHOWS NO SIGNS OF ACUTE RESPIRATORY DISTRESS. NO ACUTE PAIN. F/C FLOWING YELLOW CLEAR URINE. GTUBE CLEAN DRY AND INTACT. WITH GLUCERNA RUNNING 60ML/HR. WITH 3ML OF RESIDUALS. IV ON R WRIST 22G ITS CLEAN DRY AND INTACT RUNNING D5 1/2 NS AT 75ML/HR. SHOWS NO SIGNS OF INFILTRATION, NO REDNESS. SAFETY PRECAUTIONS IN PLACE. BED IN LOWEST POSITION, LOCKED, AND CALL LIGHT KEPT WITHIN REACH. WILL CONTINUE TO MONITOR.
[2020-06-04 20:00] VITALS: BP 136/63
[2020-06-04] MEDS: ENOXAPARIN SODIUM 40 MG/0.4 ML DISP.SYRIN SQ SCH (20:25)
[2020-06-04 22:00] VITALS: BP 126/63
--- NOTE | 2020-06-05 00:10 | NUR ---
MS RN NOTE - TRANSFER OF CARE NOTE RECEIVED REPORT FROM NATI ROBLERO. PATIENT IN BED. NONVERBAL, OPENS EYES. ON OXYGEN 3L/MIN VIA NASAL CANNULA. RESPIRATIONS ARE EVEN AND UNLABORED. NO S/S SOB NOTED. NO S/S PAIN AT THIS TIME. IN NO APPARENT DISTRESS. IV ACCESS IN RIGHT WRIST #22 RUNNING D5 1/2 NS @75ML/HR. ALEJO CATHETER IS PRESENT DRAINING TO GRAVITY. PEG IS PRESENT FEEDING RUNNING GLUCERNA 1.2@60ML/HR. BED IS LOW AN DLOCKED, HOB ELEVATED IN HIGH FOWLERS SIDE RAILS UP X3. CALL LIGHT WITHIN IN REACH. WILL CONTINUE TO MONITOR.
[2020-06-05] MEDS: GLUCERNA 1.2 1,000 ML BOTTLE NG PRN (05:48)
[2020-06-05] MEDS: IV D5/0.45 NACL 1,000 ML IV PRN (05:48)
[2020-06-05] MEDS: D5W IV SCH ×2 (05:49→19:05)
[2020-06-05] MEDS: VANCOMYCIN IV SCH ×2 (05:49→19:05)
[2020-06-05] MEDS: BLOOD SUGAR DIAGNOSTIC 1 EACH STRIP IN SCH ×4 (06:21→22:04)
[2020-06-05] MEDS: INSULIN REGULAR, HUMAN 100 UNIT/ML 3 ML VIAL SQ PRN ×4 (06:29→22:00)
[2020-06-05 06:50] LABS: CALCIUM, SERUM 8.9 mg/dL (8.5-10.1); CARBON DIOXIDE 30 mmol/L (21-32); CHLORIDE 98 mmol/L (98-107); CREATININE 0.4 mg/dL (0.6-1.3); GLUCOSE 156 mg/dL (74-106); POTASSIUM 3.8 mmol/L (3.5-5.1); SODIUM SERUM 134 mmol/L (136-145); UREA NITROGEN, BLOOD 12 mg/dL (7-18)
--- NOTE | 2020-06-05 07:20 | NUR ---
MS RN NOTES PATIENT IN BED EYES CLOSED EASY TO AROUSE. NO ACUTE DISTRESS NOTED. BREATHING UNLABORED. NO SOB NOTED. IV ACCESS PATENT AND INTACT, NO REDNESS, NO BLEEDING, NO SWELLING NOTED. SAFETY MEASURES IN PLACE, CALL LIGHT WITHIN REACH. WILL CONTINUE TO MONITOR ACCORDINGLY.
--- NOTE | 2020-06-05 07:35 | NUR ---
MS RN CLOSING NOTE PATIENT REMAINS IN BED. NONVERBAL. REMAINS ON OXYGEN 3L/MIN VIA NASAL CANNULA. NO RESP DISTRESS. NO S/S PAIN NOTED. NO DISTRESS. IV ACCESS MAINTAINED IN RIGHT WRIST #22 RUNNING D5 1/2 NS @75ML/HR. ALEJO CATHETER IS MAINTAINED, OUTPUT YELLOW AND SLIGHTLY CLOUGHY. PEG RUNNING GLUCERNA 1.2@60ML/HR. BED REMAINS LOW AND LOCKED, HOB ELEVATED IN HIGH FOWLERS SIDE RAILS UP X3. CALL LIGHT WITHIN IN REACH. WILL ENDORSE TO NEXT SHIFT.
[2020-06-05 08:00] VITALS: BP 126/67
[2020-06-05] MEDS: THERAHONEY GEL 1.5 OZ TUBE TP SCH (09:03)
[2020-06-05] MEDS: CEFEPIME 2 GM in IV D5W 100 ML IV SCH ×2 (09:04→21:53)
[2020-06-05] MEDS: SOD FERRIC GLUC 125 MG in IV NS 0.9% 100 ML IV SCH (14:27)
[2020-06-05 16:00] VITALS: BP 134/74
--- NOTE | 2020-06-05 18:40 | NUR ---
MS RN NOTES CALLED PHARMACY SPOKE WITH BRAYAN REGARDING VANCOMYCIN NOT AVAILABLE ON THE FLOOR YET, BRAYAN SAID SHE WILL SEND , WILL ADMINISTER ONCE AVAILABLE ON THE FLOOR
--- NOTE | 2020-06-05 19:00 | NUR ---
MS RN NOTES PATIENT IN BED ALERT ORIENTED X 1-2 . NO ACUTE DISTRESS NOTED. BREATHING UNLABORED. NO SOB NOTED. IV ACCESS PATENT AND INTACT, NO REDNESS, NO BLEEDING, NO SWELLING NOTED. NEEDS ATTENDED AND ANTICIPATED. SAFETY MEASURES IN PLACE. CALL LIGHT WITHIN REACH. WILL ENDORSE TO NIGHT NURSE FOR CONTINUITY OF CARE.
--- NOTE | 2020-06-05 19:45 | NUR ---
MSRN SLEEPING, EASILY AROUSABLE WHEN REPOSITIONED. MOANS WHEN MOVED. GT FEEDING TOLERATED AT 60CC/HR. LESS THAN 5 CC RESIDUALS OBTAINED. MAINTAINED HOG AT 45 DEGREES. OCC PRODUCTIVE COUGH SUCTIONED MODERATE AMOUNT BEIGE COLORED THICK SECRETIONS. NO RESPIRATORY DISTRESS, KEPT COMFORTABLE. V/S STABLE. CONTINUED
[2020-06-05 20:00] VITALS: BP 150/80
[2020-06-05] MEDS: ENOXAPARIN SODIUM 40 MG/0.4 ML DISP.SYRIN SQ SCH (21:54)
--- NOTE | 2020-06-05 23:50 | NUR ---
MSRN HS CARE DONE, REPOSITIONED PER PATIENTS COMFORT.
[2020-06-06] MEDS: GLUCERNA 1.2 1,000 ML BOTTLE NG PRN (02:35)
--- NOTE | 2020-06-06 04:14 | NUR ---
MSRN RESTARTED 22 GAUGE LEFT HAND BY RN WITH GOOD BLOOD RETURN. PRESENT IVF CONTINUED.
[2020-06-06] MEDS: D5W IV SCH ×2 (05:59→18:53)
[2020-06-06] MEDS: VANCOMYCIN IV SCH ×2 (05:59→18:53)
--- NOTE | 2020-06-06 06:35 | NUR ---
MARTIN BS 143, COVERED WITH 2 UNITS REG INSULIN PER S/S.
[2020-06-06] MEDS: BLOOD SUGAR DIAGNOSTIC 1 EACH STRIP IN SCH ×4 (06:56→23:32)
[2020-06-06 07:14] LABS: CALCIUM, SERUM 8.9 mg/dL (8.5-10.1); CARBON DIOXIDE 28 mmol/L (21-32); CHLORIDE 97 mmol/L (98-107); CREATININE 0.4 mg/dL (0.6-1.3); GLUCOSE 124 mg/dL (74-106); SODIUM SERUM 132 mmol/L (136-145); UREA NITROGEN, BLOOD 11 mg/dL (7-18)
--- NOTE | 2020-06-06 07:30 | NUR ---
MS OPENING SHIFT NOTES RECEIVED PATIENT IN BED ALERT ORIENTED X 1-2 . NO ACUTE DISTRESS NOTED. BREATHING UNLABORED. NO SOB NOTED. IV ACCESS PATENT AND INTACT, NO REDNESS, NO BLEEDING, NO SWELLING NOTED. G-TUBE IN PLACE. BED AT LOWEST POSITION WITH SIDE RAILS UP X2, CALL LIGHT WITHIN REACH. SAFETY MEASURES IN PLACE. WILL CONTINUE TO MONITOR
[2020-06-06] MEDS: INSULIN REGULAR, HUMAN 100 UNIT/ML 3 ML VIAL SQ PRN ×4 (07:36→23:35)
[2020-06-06 08:00] VITALS: BP 158/95
[2020-06-06] MEDS: ACETAMINOPHEN 325 MG TABLET PO PRN (08:38)
[2020-06-06] MEDS: CEFEPIME 2 GM in IV D5W 100 ML IV SCH ×2 (08:38→22:36)
[2020-06-06] MEDS: THERAHONEY GEL 1.5 OZ TUBE TP SCH (08:48)
[2020-06-06] MEDS: SOD FERRIC GLUC 125 MG in IV NS 0.9% 100 ML IV SCH (15:00)
[2020-06-06 16:00] VITALS: BP 137/75
--- NOTE | 2020-06-06 18:11 | NUR ---
MS RN CLOSING END OF SHIFT NOTES PATIENT IN BED ALERT ORIENTED X 1-2 . NO ACUTE DISTRESS NOTED. BREATHING UNLABORED. NO SOB NOTED. IV ACCESS PATENT AND INTACT, NO REDNESS, NO BLEEDING, NO SWELLING NOTED. NEEDS ATTENDED AND ANTICIPATED. BED AT LOWEST POSITION SIDE RAILS UP X 2, CALL LIGHT WITH IN REACH. SAFETY MEASURES IN PLACE.
[2020-06-06 20:00] VITALS: BP 147/75
--- NOTE | 2020-06-06 20:21 | NUR ---
MS/TELE/RN DURING MY INITIAL SHIFT ASSESSMENT, PATIENT APPEAR SLEEPING, APPEAR COMFORTABLE, NO SIGNS OF DISTRESS NOTED, GT FEEDING INFUSING, NO RESIDUAL NOTED, HOB ELEVATED, CALL LIGHT IN REACH. WILL MONITOR.
[2020-06-06 20:43] VITALS: BP 142/54
[2020-06-06 20:48] VITALS: BP 147/75
[2020-06-06] MEDS: ENOXAPARIN SODIUM 40 MG/0.4 ML DISP.SYRIN SQ SCH (22:46)
[2020-06-06] MEDS: HYDROCODONE/APAP 5/325MG TABLET PO PRN (22:49)
--- NOTE | 2020-06-07 00:50 | NUR ---
TRANSFER OF CARE NOTES: RECEIVED REPORT FROM ERMA ROBLERO. PT IN BED, RESTING, APPEARS CALM AND COMFORTABLE. NO FACIAL GRIMACE NOTED. IV ACCESS PATENT AND FLUSHING WELL, INFUSING WITH D5 1/2 NS AT 75 ML/HR. PT WITH GTUBE, RECEIVING GLUCERNA 1.2 AT 60 ML/HR. ALEJO CATHETER IN PLACED, BAG DRAINING VIA GRAVITY. BLE OFFLOADED ON PILLOWS. SAFETY PRECAUTIONS FOR FALL INITIATED, CALL LIGHT IN REACH, WILL CONTINUE MONITORING PT.
[2020-06-07] MEDS: GLUCERNA 1.2 1,000 ML BOTTLE NG PRN (03:14)
[2020-06-07] MEDS: IV D5/0.45 NACL 1,000 ML IV PRN ×2 (03:21→23:16)
[2020-06-07] MEDS: VANCOMYCIN IV SCH ×2 (06:00→17:30)
[2020-06-07] MEDS: D5W IV SCH ×2 (06:00→17:30)
[2020-06-07] MEDS: BLOOD SUGAR DIAGNOSTIC 1 EACH STRIP IN SCH ×4 (06:07→23:09)
[2020-06-07] MEDS: INSULIN REGULAR, HUMAN 100 UNIT/ML 3 ML VIAL SQ PRN ×4 (06:08→23:12)
--- NOTE | 2020-06-07 06:44 | NUR ---
End of shift report: Pt denies any chest pain throughout the shift. Iv access remains patent and flushing well, on hl. Still pending result of ctca. No untoward event happened throughout the shift. Vs remains stable, needs attended. Safety precautions for fall remains engaged, call light in reach, will endorse to day rn for continuity of care. Addendum: 06/07/20 at 0644 by IOANA SMYTH RN disregard above documentation: wrong entry
--- NOTE | 2020-06-07 06:44 | NUR ---
end of shift report: pt remains non verbal, appears calm and comfortable, no facial grimace noted. on 3l oxygen via nc. am care, wound care provided, all due meds administered as ordered. accu check performed and 164 result, 3 units of insulin administered per sliding scale. gtube remains infusing with glucerna at 60ml/hr. iv access remains patent and flushing well, infusing with d5 1/2 ns at 75ml/hr. vs remains stable, needs attended. safety precautions for fall remains engaged, call light in reach, will endorse to day rn for eduar.
--- NOTE | 2020-06-07 07:35 | NUR ---
RN NOTES Received patient in bed resting comfortably in moderate high back rest. non verbal, appears calm and comfortable, no facial grimace noted. on 3l oxygen via nc. On gtube remains infusing with glucerna at 60ml/hr. IV access remains patent and flushing well, infusing with d5 1/2 ns at 75ml/hr. safety precautions for fall remains engaged, call light in reach, will continue to monitor.
[2020-06-07 07:37] LABS: CALCIUM, SERUM 8.8 mg/dL (8.5-10.1); CARBON DIOXIDE 29 mmol/L (21-32); CHLORIDE 98 mmol/L (98-107); CREATININE 0.4 mg/dL (0.6-1.3); GLUCOSE 176 mg/dL (74-106); POTASSIUM 4.1 mmol/L (3.5-5.1); SODIUM SERUM 134 mmol/L (136-145); UREA NITROGEN, BLOOD 13 mg/dL (7-18)
[2020-06-07] MEDS: CEFEPIME 2 GM in IV D5W 100 ML IV SCH ×2 (08:29→22:36)
[2020-06-07] MEDS: THERAHONEY GEL 1.5 OZ TUBE TP SCH (08:30)
[2020-06-07 08:41] VITALS: BP 159/84
[2020-06-07] MEDS: HYDROCODONE/APAP 5/325MG TABLET PO PRN (11:52)
[2020-06-07 16:11] VITALS: BP 137/77
--- NOTE | 2020-06-07 18:40 | NUR ---
RN NOTES Patient in bed resting comfortably in moderate high back rest. non verbal, appears calm and comfortable, no facial grimace noted. on 3l oxygen via nc. On gtube remains infusing with glucerna at 60ml/hr. IV access remains patent and flushing well, infusing with d5 1/2 ns at 75ml/hr. safety precautions for fall remains engaged, call light in reach, will endorse to communication coordinator nurse for eduar.
--- NOTE | 2020-06-07 19:57 | NUR ---
MS RN OPENING NOTE: Patient in bed awake with eyes open. Patient does not respond to name and is non verbal. Patient does respond to touch. Patient is breathing with 2 Liters of Oxygen via nasal canula. Patient is breathing well, unlabored and even. No SOB or respiratory distress noted. Noted IV access left hand 22 gauge, patent, no redness or infiltration. Noted 2 IV access on right wrist, not patent. Removed both IV access. Patient is on g tube feeding and tolerating feeding well. Noted rinaldi catheter, patent and draining clear yellow output. Safety precaution is in place, bed is in the lowest level, brakes are on, alarm is on, side rails x2 are up, and call light is within reach. Will continue to monitor.
[2020-06-07 20:00] VITALS: BP 129/79
[2020-06-07] MEDS: ENOXAPARIN SODIUM 40 MG/0.4 ML DISP.SYRIN SQ SCH (21:58)
--- NOTE | 2020-06-07 22:11 | NUR ---
Maxipime is not available at this time.
--- NOTE | 2020-06-08 00:33 | NUR ---
MS RN NOTE: Pictures were taken on 06/08/2020 at 0000. Pictures added to the chart.
--- NOTE | 2020-06-08 02:03 | NUR ---
MS RN NOTE: Patient was heard screaming. Ran to patients room and noticed she vomited Suctioned patient, 100 mL came out. Observed abdomen was distended and rigid. Checked gastric residual, 10mL came out. Checked vital signs, Vitals were WNL, O2 was 94 percent on 2L nasal canula. Lung sounds clear but heard gurgling on her throat. Made Jay Jay CUELLAR, Chilango, aware. Jay Jay CUELLAR ordered chest xray and KUB. Read order back and carried out. Will continue to monitor.
[2020-06-08] MEDS: VANCOMYCIN IV SCH ×2 (05:35→17:01)
[2020-06-08] MEDS: D5W IV SCH ×2 (05:35→17:01)
[2020-06-08] MEDS: BLOOD SUGAR DIAGNOSTIC 1 EACH STRIP IN SCH ×3 (06:55→17:08)
[2020-06-08] MEDS: INSULIN REGULAR, HUMAN 100 UNIT/ML 3 ML VIAL SQ PRN ×3 (06:56→17:24)
--- NOTE | 2020-06-08 06:56 | NUR ---
MS RN NOTE: Tube feeding stopped. Held insulin to prevent hypoglycemia.
--- NOTE | 2020-06-08 07:35 | NUR ---
MS RN CLOSING NOTE: Patient in bed sleeping comfortably. Patient is breathing well on 2L oxygen via nasal canula. Breathing unlabored and even, no SOB or respiratory distress. Safety precaution is in place, bed is in the lowest level, bed is locked, alarm is on, side rails x2 are up, and call light is within reach. Will endorse to next shift.
[2020-06-08 07:36] LABS: CALCIUM, SERUM 8.9 mg/dL (8.5-10.1); CARBON DIOXIDE 28 mmol/L (21-32); CHLORIDE 95 mmol/L (98-107); CREATININE 0.4 mg/dL (0.6-1.3); GLUCOSE 165 mg/dL (74-106); POTASSIUM 4.1 mmol/L (3.5-5.1); SODIUM SERUM 131 mmol/L (136-145); UREA NITROGEN, BLOOD 9 mg/dL (7-18)
--- NOTE | 2020-06-08 07:42 | NUR ---
MS RN OPEN NOTES PATIENT IS OBTUNDED, WITH NO SIGNS OF DISTRESS IN 2L OF NASAL CANNULA. IV L HAND #22G RUNNING D5 1/2 NS AT 75ML/HR. ALEJO INTACT AND G-TUBE FEEDER. CURRENTLY GLUCERNA 1.2 AT 60ML/HR IS BEING HELD. PER SURGICAL ELASTIC KNITTER NURSE, STOPPED THE FEEDING D/T PATIENT VOMITING LAST NIGHT AND STOMACH DISTENDED. SAFETY MEASURES ARE APPLIED, BED IS IN LOW AND LOCKED POSITION, SIDE RAILS UP X 2. CALL LIGHT WITHIN REACH. WILL CONTINUE TO MONITOR.
--- NOTE | 2020-06-08 08:12 | NUR ---
PER MARCELO COLLAZO NP. CONTINUE FEEDING AND MONITOR IF TOLERATING.
[2020-06-08] MEDS: METOCLOPRAMIDE HCL 10 MG/10 ML UDC GT SCH ×3 (08:40→16:50)
[2020-06-08] MEDS: CEFEPIME 2 GM in IV D5W 100 ML IV SCH (08:40)
[2020-06-08 08:43] VITALS: BP 155/84
[2020-06-08] MEDS: THERAHONEY GEL 1.5 OZ TUBE TP SCH (08:51)
--- NOTE | 2020-06-08 09:31 | NUR ---
PER ZAY, DNP TO DC IV FLUIDS NOTED AT CARRIED OUT.
[2020-06-08] MEDS: GLUCERNA 1.2 1,000 ML BOTTLE NG PRN (12:07)
[2020-06-08 16:20] VITALS: BP 105/62
--- NOTE | 2020-06-08 18:50 | NUR ---
CALLED [facility] ([phone] SPOKE WITH ANNIKA LE GAVE REPORT AND DISCHARGE INSTRUCTIONS. PATIENT WILL BE GOING TO ROOM 40C.
--- NOTE | 2020-06-08 18:58 | NUR ---
MS RN CLOSING NOTES PATIENT IS OBTUNDED, WITH NO SIGNS OF DISTRESS IN 2L OF NASAL CANNULA. IV L HAND #22G RUNNING SL. ALEJO INTACT AND G-TUBE INTACT FEEDING GLUCERNA 1.2 AT 60ML/HR. PATIENT REMAINED STABLE THROUGH OUT SHIFT. PATIENT KEPT CLEAN AND DRY. ALL NEEDS, CARE, TREATMENT AND MEDICATIONS ADMINISTERED ANTICIPATED PER ORDER. SAFETY MEASURES ARE APPLIED, BED IS LOW AND LOCKED. SIDE RAILS UP X 2 FOR SAFETY, CALL LIGHT WITHIN REACH. DISCHARGE PAPER WORK SIGNED, COMPLETED THE BELONGING LIST BY TWO RN'S. RAILROAD DETECTIVE IS AT 1900.
--- NOTE | 2020-06-08 19:42 | NUR ---
PATIENT VITAL SIGNS ARE WITHIN NORMAL LIMIT, AFEBRILE WITH NO SIGNS OF DISTRESS, LEFT VIA GURNEY BY AMBULANCE.
== END 2020-06-08 19:40 | DRG 853 ==
LOC: ER 16:14 → TELE2 18:25 → TELE 06-01 22:34 → MED 06-02 08:25
PROVIDERS: ADMIT Hospitalist; ATTEND Nurse Practitioner Acute Care
PROC: 0JB70ZZ Excision of Back Subcutaneous Tissue and Fascia, Open Approach (ICD-10-PCS; principal; 2020-06-03)
DX: A41.9 Sepsis, unspecified organism (principal); L89.154 Pressure ulcer of sacral region, stage 4; G93.41 Metabolic encephalopathy; E43 Unspecified severe protein-calorie malnutrition; J69.0 Pneumonitis due to inhalation of food and vomit; R53.2 Functional quadriplegia; E87.1 Hypo-osmolality and hyponatremia; N39.0 Urinary tract infection, site not specified; R13.10 Dysphagia, unspecified; D50.9 Iron deficiency anemia, unspecified; G20 Parkinson's disease; F02.80 Dementia in other diseases classified elsewhere, unspecified severity, without behavioral disturbance, psychotic disturbance, mood disturbance, and anxiety; I10 Essential (primary) hypertension; I25.10 Atherosclerotic heart disease of native coronary artery without angina pectoris; K21.9 Gastro-esophageal reflux disease without esophagitis; M19.90 Unspecified osteoarthritis, unspecified site; M20.41 Other hammer toe(s) (acquired), right foot; M20.42 Other hammer toe(s) (acquired), left foot; M24.561 Contracture, right knee; M24.562 Contracture, left knee; Z74.01 Bed confinement status; Z79.4 Long term (current) use of insulin; Z88.0 Allergy status to penicillin; Z86.73 Personal history of transient ischemic attack (TIA), and cerebral infarction without residual deficits; Z90.10 Acquired absence of unspecified breast and nipple; Z95.1 Presence of aortocoronary bypass graft; Z93.1 Gastrostomy status; Z85.3 Personal history of malignant neoplasm of breast; M06.9 Rheumatoid arthritis, unspecified; D63.8 Anemia in other chronic diseases classified elsewhere; Z86.19 Personal history of other infectious and parasitic diseases; E88.09 Other disorders of plasma-protein metabolism, not elsewhere classified; Z68.22 Body mass index [BMI] 22.0-22.9, adult; Z87.440 Personal history of urinary (tract) infections; E11.621 Type 2 diabetes mellitus with foot ulcer; L97.519 Non-pressure chronic ulcer of other part of right foot with unspecified severity
CPT/HCPCS: 36415; 71045-TC; 74018; 80048-TC; 80053-TC; 80061-TC; 80076-TC; 80202-TC; 81000-TC; 82550-TC; 82728-TC; 82962-TC; 83540-TC; 83605-TC; 83615-TC; 83735-TC; 84100-TC; 84443-TC; 84484-TC; 85025-TC; 85378-TC; 85385-TC; 85730-TC; 86140-TC; 87040-TC; 87081-TC; 87086-TC; 94799-TC; A6253; C9803-CS; G0378; J0692; J1650; J1815; J2185; J2405; J2916; J3370; J3490; J7030; J7042; J7060; J7070; J8597; U0003-CS

== ENCOUNTER 2020-11-06 09:55 | Inpatient (IN) | payer MEDICARE, OTHER ==
[~2020-11-06] VITALS: Ht 162.6 cm; Wt 61.7 kg
[~2020-11-06 09:55] MED LIST changes: +ARGI1POW13 GT; +CALCIUM CHLORIDE 1,000 MG/10 ML DISP.SYRIN ONE; -CARB1TAB19 GT; +CARB1TAB31 GT; +COLL1POW2 TD; -COLL30OI TP; +CRAN3875 GT; +CRAN425C6 GT; +EPINEPHRINE (1:10,000) SYRINGE 1 MG/10 ML DISP.SYRIN ONE; +ETOMIDATE 2 MG/ML VIAL ONE; -HYDR28.32 TP; +LACT1CAP61 GT; +MAGN400O6 GT; +PETR113O TP; +POLY15DR40 EACHEYE; +ROCURONIUM BROMIDE 50 MG/5 ML ONE; +SODIUM BICARBONATE SYR 50 MEQ/50 ML DISP.SYRIN ONE; -TOLT2CAP22 GT; -ZINC220C6 GT
--- NOTE | 2020-11-06 10:05 | NUR ---
bib ems 85 y female for c/o sob. patient not awake, non-verbal and wearing cpap. Patient noted with shallow respiration. started iv line on g 18 on left wrist.
[2020-11-06] MEDS: IV NS 0.9% 1,000 ML BAG IV ONE ×2 (10:06→11:10)
--- NOTE | 2020-11-06 10:07 | NUR ---
the patient is preped for intubation by dr arteaga at the bedside. verbal order received to administer rocaronium 60 mg followed by etomidate 20 mg iv.
--- NOTE | 2020-11-06 10:07 | NUR ---
blood sugar check done and it is 338
--- NOTE | 2020-11-06 10:10 | NUR ---
patient intubated, et tube size is 7.5 with 22 cm on the lip. positive color change noted. bilateral chest rise noted. Addendum: 11/06/20 at 1056 by FRANCES et tube size is 7.0
[2020-11-06] MEDS ORDERED: ROCURONIUM BROMIDE 100 MG/10 ML VIAL IV ONE (10:30)
[2020-11-06] MEDS ORDERED: NOREPINEPHRINE 8 MG in IV NS 0.9% 242 ML IV PRN (10:30)
[2020-11-06] MEDS ORDERED: ETOMIDATE 2 MG/ML VIAL IV ONE (10:30)
--- NOTE | 2020-11-06 10:37 | NUR ---
FR 16 rinaldi cath instered via sterile technique
--- NOTE | 2020-11-06 10:38 | NUR ---
ADMISSION PACKET SUBMITTED.
[2020-11-06 10:55] LABS: CARBON DIOXIDE 22 mmol/L (21-32); CHLORIDE 103 mmol/L (98-107); CREATININE 0.9 mg/dL (0.6-1.3); GLUCOSE 336 mg/dL (74-106); POTASSIUM 4.2 mmol/L (3.5-5.1); SODIUM SERUM 139 mmol/L (136-145); UREA NITROGEN, BLOOD 27 mg/dL (7-18)
[2020-11-06 11:02] LABS: BASOPHILS % (AUTO) 0.1 % (0.0-2.0); HEMOGLOBIN 12.9 g/dL (11.5-14.8); LYMPHOCYTES # (AUTO) 0.7 /CMM (0.8-4.8); MONOCYTES # (AUTO) 0.1 /CMM (0.1-1.30); MONOCYTES % (AUTO) 1.2 % (2.0-12.0); NEUTROPHILS # (AUTO) 8.7 /CMM (1.8-8.9); RED BLOOD CELL COUNT(AUTO) 4.42 MIL/uL (4.0-5.2)
[2020-11-06 11:05] LABS: EOSINOPHILS % (AUTO) 0.2 % (0.0-6.0); HEMATOCRIT 41 % (33-45); LYMPHOCYTES % (AUTO) 7.4 % (20.0-44.0); MEAN CORPUSCULAR HGB CONC 32 g/dl (31.0-36.0); MEAN CORPUSCULAR VOLUME 91 fL (82-100); NEUTROPHILS % (AUTO) 91.1 % (43.0-81.0); PLATELET COUNT (AUTO) 257 /CMM (150-450); WHITE BLOOD COUNT (AUTO) 9.6 K/uL (4.3-11.0)
[2020-11-06 11:07] LABS: ALANINE AMINOTRANSFERASE 18 U/L (12-78); ALBUMIN 2.3 g/dL (3.4-5.0); ALKALINE PHOSPHATASE 84 U/L (46-116); ASPARTATE AMINOTRANSFERASE 29 U/L (15-37); B-TYPE NATRIURETIC PEPTIDE 429 PG/ML (0-125); BILIRUBIN,DIRECT 0.1 mg/dL (0.0-0.2); BILIRUBIN,TOTAL 0.3 mg/dL (0.2-1.0); TOTAL PROTEIN, SERUM 6.2 g/dL (6.4-8.2)
[2020-11-06 11:08] LABS: BILIRUBIN,URINE Negative (NEGATIVE); COLOR,URINE YELLOW (YELLOW); LEUKOCYTE ESTERASE ,URINE Negative (NEGATIVE); NITRITE, URINE Negative (NEGATIVE); PH,URINE 6.5 (5.0-8.0); PROTEIN,URINE 100 mg/dl (NEGATIVE); UGLUCOSE 500 MG/DL mg/dL (NEGATIVE); UROBILINOGEN,URINE 0.2 EU/dL (0.2)
[2020-11-06 11:11] LABS: CALCIUM, SERUM 8.3 mg/dL (8.5-10.1)
[2020-11-06 11:25] LABS: BACTERIA,URINE Few /HPF (None Seen); RBC,URINE 0-2 /HPF (0-2); WBC,URINE 0-2 /HPF (0-3)
[2020-11-06 11:26] LABS: SQUAMOUS EPITHELIAL CELL,UR Few /HPF (None Seen)
[2020-11-06] MEDS ORDERED: ONDANSETRON HCL/PF 4 MG/2 ML VIAL IVP PRN (11:30)
[2020-11-06] MEDS ORDERED: IV NS 0.9% 1,000 ML IV SCH (11:30)
[2020-11-06] MEDS ORDERED: HYDROCODONE/APAP 5/325MG TABLET PO PRN (11:30)
[2020-11-06] MEDS ORDERED: ACETAMINOPHEN 325 MG TABLET PO PRN ×2 (11:30)
[2020-11-06] MEDS ORDERED: ZOLPIDEM TARTRATE 5 MG TABLET PO PRN (11:30)
[2020-11-06] MEDS ORDERED: Medication Not On Formulary EA (Glucagon,Human Recombinant (Glucagon Emergency Kit) 1 MG IM PRN (11:30)
[2020-11-06] MEDS ORDERED: IV NS 0.9% 1,000 ML BAG IV ONE (11:30)
[2020-11-06] MEDS ORDERED: ALBUTEROL FS 2.5 MG/3 ML VIAL.NEB IH PRN (11:30)
[2020-11-06] MEDS ORDERED: MAGNESIUM HYDROXIDE 30 ML UDC PO PRN (11:30)
[2020-11-06] MEDS ORDERED: Medication Not On Formulary EA (Ondansetron Hcl (Zofran) 4 MG) GT PRN (11:30)
[2020-11-06] MEDS ORDERED: Z GUARD REMEDY 2 OZ OINT TP PRN (11:30)
[2020-11-06] MEDS ORDERED: MAGNESIUM HYDROXIDE 30 ML UDC GT PRN (11:30)
[2020-11-06] MEDS ORDERED: INSULIN REGULAR, HUMAN 100 UNIT/ML 3 ML VIAL SQ PRN (11:30)
[2020-11-06] MEDS ORDERED: MAG HYDROX/AL HYDROX/SIMETH 30 ML UDC PO PRN (11:30)
[2020-11-06 12:00] LABS: ABG BASE EXCESS -11.3 mmol/L; ABG OXYGEN SATURATION 56.4 % (92.0-98.5); ABG PO2 40.6 mmHg (75.0-100.0); AaDO2 614.4 mmHg; COHb 0.3 % (0.5-1.5); MetHb 0.5 % (0.0-1.5); O2Hb 55.9 % (94.0-97.0); SITE, ABG Right Radial; VENT MODE, BG AC 16 500 100% 0
[2020-11-06] MEDS ORDERED: DEXAMETHASONE SOD PHOSPHATE 10 MG/ML VIAL IV ONE (12:30)
[2020-11-06] MEDS ORDERED: LEVOFLOXACIN 750 MG /D5W 150ML 150 ML IV ONE (12:30)
[2020-11-06] MEDS ORDERED: MEROPENEM 1 G in IV NS 0.9% 100 ML IV ONE (12:30)
--- NOTE | 2020-11-06 12:33 | NUR ---
STOPPED LEVOPHED DUE TO ELEVATED BP, ERMD AWARE. WILL CONT TO MONITOR.
--- NOTE | 2020-11-06 12:42 | NUR ---
STARTED LEVOPHED DUE TO DECREASED BP, ERMD AWARE. WILL CONT TO MONITOR.
--- NOTE | 2020-11-06 12:46 | NUR ---
PER DR SOTO OK TO GIVE SCHEDULED MERREM DESPITE PATIENT ALLERGY TO PENICILLIN.
[2020-11-06] MEDS ORDERED: Medication Not On Formulary EA (Amino Acids/Protein Hydrolys (Pro-Stat Sugar Free Liquid GT SCH (13:00)
[2020-11-06] MEDS ORDERED: MEROPENEM 1 G in IV NS 0.9% 100 ML IV SCH (13:00)
[2020-11-06] MEDS ORDERED: DEXAMETHASONE SOD PHOSPHATE 10 MG/ML VIAL ONE (13:01)
--- NOTE | 2020-11-06 13:28 | NUR ---
DR SOTO IN COMMUNICATION WITH FAMILY THROUGH PHONE
[2020-11-06] MEDS ORDERED: FENTANYL CITRATE IV 1,250 MCG in IV NS 0.9% 225 ML IV PRN (13:30)
--- NOTE | 2020-11-06 13:40 | NUR ---
TRANSFERRED TO ICU VIA ACLS PROTOCOL
[2020-11-06 13:48] VITALS: BP 94/56
--- NOTE | 2020-11-06 13:49 | NUR ---
note: Levophed drip continue/ ongoing while transfer to floor.
--- NOTE | 2020-11-06 13:54 | NUR ---
CABLE MOCK UP ASSEMBLER NOTE RECEIVED PATIENT FROM ER OBTUNDED WITH ETT TUBE TO VENT SETTING ORDERED , ON LEVOPHED ADMINISTERING AND MERREM , ADMITTED WITH DX SEPSIS AND SEPTIC SHOCK UNDER CARE DR COSME , PATIENT IS CONNECTED TO TELE MONITOR AND NOTED PEA , UNABLE TO OBTAINED PULSES , CONNECTED TO SUCTION AND G TUBE SUCTION, ORAL AND MOUTH SUCTION DONE Addendum: 11/06/20 at 1702 by SAURABH BA RN [id number] CORRECTION IN CHARTING PATIENT CONNECTED TO TELE MONITOR AND NOTED SR- SB THIS TIME
--- NOTE | 2020-11-06 13:59 | NUR ---
OLD COIN DEALER NOTE STILL UNABLE TO OBTAIN PULSES PATIENT, UNRESPONSIVE ,STILL PEA ON MONITOR, CPR STARTED IMMEDIATELY, CALLED [facility] CARBONE TEAM , DR LIVINGSTON AT BEDSIDE ,SEE BLUE CODE FORM
--- NOTE | 2020-11-06 14:14 | NUR ---
TOOL AND DIE MANAGER NOTE ABLE TO PULPATE FEMORAL PULSES BP 102/[address] HR 110, CONT ON VENT SETTING CONT ON LEVOPHED DRIP AND IVF , STILL PATIENT VERY FRAGILE WILL RESUME MONITOR CLOSELY, DR LIVINGSTON AT BEDSIDE ,DAUGHTER AT BEDSIDE UPDATED PATIENT CONDITION
[2020-11-06] MEDS ORDERED: EPINEPHRINE (1:10,000) SYRINGE 1 MG/10 ML DISP.SYRIN ONE ×2 (14:15→14:39)
[2020-11-06] MEDS ORDERED: SODIUM BICARBONATE SYR 50 MEQ/50 ML DISP.SYRIN ONE ×2 (14:15→14:26)
[2020-11-06] MEDS ORDERED: ATROPINE SULFATE 1 MG/10 ML DISP.SYRIN ONE (14:15)
--- NOTE | 2020-11-06 14:20 | NUR ---
RADIAL DRILL OPERATOR FOR PLASTIC NOTE ON CLOSE MONITORING,STILL ABLE TO OBTAINED FAINT PULSES AFTER RESUSCITATION SUCCESSFULLY, ON LEVOPHED DRIP , DAUGHTER AT BEDSIDE
--- NOTE | 2020-11-06 14:29 | NUR ---
HYPERION ESSBASE DEVELOPER NOTE UNABLE TO PALPATE PULSES AGAIN,PATIENT UNRESPONSIVE , CODE BLUE CALLED AND INITIATED , , CONNECTED TO MONITOR , NOTED PEA , DR LIVINGSTON AT BEDSIDE, ALL MEDICATION GIVEN PER DR LIVINGSTON ORDER PER ACLS PROTOCOL, SEE CODE BLUE FORM
[2020-11-06] MEDS ORDERED: EPINEPHRINE (1:1000) 5 MG in IV NS 0.9% 245 ML IV PRN (14:30)
[2020-11-06] MEDS ORDERED: VANCOMYCIN 1 GM in IV D5W 250 ML IV ONE (14:30)
--- NOTE | 2020-11-06 14:40 | NUR ---
INCIDENT RESPONSE ANALYST NOTE UNABLE TO OBTAIN PULSES , PRONOUNCED BY DR LIVINGSTON, DAUGHTER AT BESIDE AND AWARE OF PATIENT
--- NOTE | 2020-11-06 14:55 | NUR ---
MARINE ELECTRONICS TECHNICIAN NOTE CALLED [facility], SPOKE WITH GABE REFERRAL NUMBER IS [id number]
--- NOTE | 2020-11-06 15:00 | NUR ---
SS CONSULT: SS consult requested to provide grief support to pt.s family. Pt.s daughter, Simi Mcgee [phone] is present at bedside. SW provided emotional support and allowed space for family to say their goodbyes during pt.s last moments. SW walked family out after pt. . SW offered Simi bereavement resources & home/ cremation resources. Simi refused stating her brother, Juan Mcgee [phone] is making plans. Noted. SW will be available as needed.
--- NOTE | 2020-11-06 15:47 | NUR ---
INSTRUMENT TECHNOLOGIST NOTE CALLED DAUGHTER NOTIFIED THAT PATIENT BODY WILL BE TRANSPORTED TO [facility] SOON, POSTMORTEM CARE DONE ,PATIENT TAGS PLACED ON BODY NO BELONGING AT BEDSIDE , AWAITING FOR FAMILY ,DR GAMING NOTIFIED ABOUT PATIENT IS
[2020-11-06] MEDS ORDERED: DOCUSATE SODIUM LIQ 100 MG/10 ML UDC GT SCH (17:00)
[2020-11-06] MEDS ORDERED: CARBIDOPA/LEVODOPA 10/100 MG 1 UDTAB GT SCH (17:00)
[2020-11-06] MEDS ORDERED: Medication Not On Formulary EA (Cran/Vitc/Mannose/Inulin/Brom (Uti-Stat Liquid) 30 ML) GT SCH (17:00)
[2020-11-06] MEDS ORDERED: Medication Not On Formulary EA (Arginine/Ascorbate Sod/Vite AC (Arginaid Powder) 1 EACH) GT SCH (17:00)
--- NOTE | 2020-11-06 17:12 | NUR ---
ASSOCIATE PROFESSOR OF MEDIA ARTS NOTE CALLED TO DAUGHTER MARNI TELEPHONE CONSENT GIVEN TO TRANSPORT BODY TO [facility]
--- NOTE | 2020-11-06 17:20 | NUR ---
ICU R NOTE TAKEN BODY TO [facility] BY SECURITY PERSONNEL
[2020-11-06] MEDS ORDERED: FAMOTIDINE (20 MG) 20 MG TABLET GT SCH (21:00)
[2020-11-06] MEDS ORDERED: INSULIN GLARGINE HUM REC ANLOG 17 UNIT SQ SCH (22:00)
[2020-11-06] MEDS ORDERED: LATANOPROST EYE DROP 0.005% 2.5 ML BOTTLE EACHEYE SCH (22:00)
[2020-11-06] MEDS ORDERED: Medication Not On Formulary EA (Atorvastatin Calcium (Lipitor) 80 MG) GT SCH (22:00)
[2020-11-07] MEDS ORDERED: Medication Not On Formulary EA (Cranberry Extract (Cranberry) 425 MG) GT SCH (09:00)
[2020-11-07] MEDS ORDERED: CLOPIDOGREL BISULFATE 75 MG TABLET GT SCH (09:00)
[2020-11-07] MEDS ORDERED: ASCORBIC ACID 500 MG TABLET GT SCH (09:00)
[2020-11-07] MEDS ORDERED: Medication Not On Formulary EA (Multivitamin With Minerals (One Daily Complete) 1 EACH) GT SCH (09:00)
[2020-11-07] MEDS ORDERED: LOSARTAN POTASSIUM 50 MG TABLET GT SCH (09:00)
[2020-11-07] MEDS ORDERED: ACETAMINOPHEN 325 MG TABLET PO SCH (09:00)
[2020-11-07] MEDS ORDERED: ENOXAPARIN SODIUM 40 MG/0.4 ML DISP.SYRIN SQ SCH (09:00)
[2020-11-07] MEDS ORDERED: ACIDOPHILUS/BULGARICUS 1 EACH TAB.CHEW GT SCH (09:00)
[2020-11-08] MEDS ORDERED: COLLAGENASE CLOSTRIDIUM HIST TD SCH (09:00)
--- NOTE | 2020-11-10 10:26 | NUR ---
SS note: Per Nursing Laundry Routeman, Araseli's request, CANDELARIA [facility] TEL:[phone] FAX:[phone]. SW will be available as needed.
== END 2020-11-06 14:40 | disposition expired | DRG 871 ==
LOC: ER 09:59 → ICU 13:37
PROVIDERS: ADMIT Family Medicine; ATTEND Family Medicine
PROC: 5A12012 Performance of Cardiac Output, Single, Manual (ICD-10-PCS; principal; 2020-11-06)
PROC: 5A12012 Performance of Cardiac Output, Single, Manual (ICD-10-PCS; 2020-11-06)
PROC: 0BH18EZ Insertion of Endotracheal Airway into Trachea, Via Natural or Artificial Opening Endoscopic (ICD-10-PCS; 2020-11-06)
DX: A41.9 Sepsis, unspecified organism (principal); E43 Unspecified severe protein-calorie malnutrition; J18.9 Pneumonia, unspecified organism; J96.01 Acute respiratory failure with hypoxia; N17.0 Acute kidney failure with tubular necrosis; J96.02 Acute respiratory failure with hypercapnia; E87.2 Acidosis; I50.32 Chronic diastolic (congestive) heart failure; D63.8 Anemia in other chronic diseases classified elsewhere; E78.5 Hyperlipidemia, unspecified; I25.10 Atherosclerotic heart disease of native coronary artery without angina pectoris; G20 Parkinson's disease; F02.80 Dementia in other diseases classified elsewhere, unspecified severity, without behavioral disturbance, psychotic disturbance, mood disturbance, and anxiety; I46.9 Cardiac arrest, cause unspecified; I11.0 Hypertensive heart disease with heart failure; M06.9 Rheumatoid arthritis, unspecified; Z79.4 Long term (current) use of insulin; Z86.73 Personal history of transient ischemic attack (TIA), and cerebral infarction without residual deficits; Z95.1 Presence of aortocoronary bypass graft; Z85.3 Personal history of malignant neoplasm of breast; Z20.822 Contact with and (suspected) exposure to COVID-19; K21.9 Gastro-esophageal reflux disease without esophagitis; I49.01 Ventricular fibrillation; E11.9 Type 2 diabetes mellitus without complications; M19.90 Unspecified osteoarthritis, unspecified site; Z88.0 Allergy status to penicillin; E88.09 Other disorders of plasma-protein metabolism, not elsewhere classified; I95.9 Hypotension, unspecified; Z68.23 Body mass index [BMI] 23.0-23.9, adult
CPT/HCPCS: 36415; 36600; 71045-TC; 80048-TC; 80076-TC; 81001; 83605-TC; 83880; 84484-TC; 85025-TC; 85730-TC; 87040-TC; 87081-TC; 87086-TC; C9803; G0378; J0171; J0461; J1100; J2185; J3370; J3490; J7030; J7050; J7060